=== PATIENT | female | born 1995 | race Caucasian/White ===

== ENCOUNTER → 2021-02-05 13:44 | Outpatient (CLI) | payer OTHER, SELFPAY ==
[2021-02-05 16:06] LABS: Hemoglobin 11.3 g/dL (12.0-15.0); Mean Corp Hgb Conc 33.2 g/dL (32-36); Mean Corpuscular Hgb 29.8 pg (27.0-32.0); Mean Corpuscular Volume 89.7 fL (81-99); Mean Platelet Vol. 9.3 fl (6.2-12.0); Platelet Count 272 K/mm3 (150-450); RBC Distribution Width CV 12.8 % (11.6-14.6); Red Blood Count 3.79 M/mm3 (4.2-5.4); White Blood Count 8.1 K/mm3 (4.4-11.0)
[2021-02-05 16:10] LABS: Glucose Challenge Gest 1H 50g 127 mg/dL (70-140)
== END ==
PROVIDERS: Visit Provider Obstetrics & Gynecology
DX: Z34.82 Encounter for supervision of other normal pregnancy, second trimester (principal)
CPT/HCPCS: 36415; 82950; 85027

== ENCOUNTER → 2021-04-20 13:35 | Outpatient (CLI) | payer OTHER, SELFPAY | DX: Z36.85 Encounter for antenatal screening for Streptococcus B (principal) ==

== ENCOUNTER 2024-11-24 09:16 | Emergency (ER) | payer OTHER, SELFPAY ==
[2024-11-24] VITALS (12 sets, daily range): BP systolic 109–117; BP diastolic 57–78; PULSE 66–98; RESP 14–18; TEMP 36.4–37.2; O2SAT 98–100; BMI 24.0
--- NOTE | 2024-11-24 09:51 | EDS_ITS ---
HPI HPI - GI History of Present Illness Chief Complaint: Abd Pain Detail of Chief Complaint: Nausea vomiting. Nausea/Vomiting/Emesis GI Symptom: Positive for Nausea and Vomiting Onset: Today and Yesterday Severity: Mild Diarrhea/Melena/Hematochezia GI Symptom: Negative for Diarrhea, Melena or Hematochezia Associated Symptoms Associated Symptoms: Negative for Dysuria, Frequency, Hematuria or Urgency Narrative Narrative: 29-year-old female G4, P3 AB 0 currently 20 weeks . Sees a [facility] [employer] group. Tuesday night start having a sore throat body aches. Intermittent nausea vomiting. No dysuria. Temperature as high as 99.9. Denies abdominal pain. No vaginal bleeding. Prior similar symptoms: Yes Recent Illness/Hospitalization: No PFSH PFSH Medical History Back pain Severe headache Home Medications ?Medication ?Instructions ?Recorded ?Last Taken ?Type ondansetron 4 mg disintegrating 4 mg PO Q6H PRN nausea and 06/24/20 Unknown Rx tablet vomiting #20 tabs amoxicillin 875 mg-potassium 1 tab PO Q12H #14 tabs Unknown Rx clavulanate 125 mg tablet meclizine 12.5 mg tablet 12.5 mg PO TID PRN dizziness #6 01/06/22 Unknown Rx tabs Allergy/AdvReac Type Severity Reaction Status Date / Time No Known Allergies Allergy Verified 11/24/24 09:21 Social History Smoking Status: Never smoker alcohol intake: never ROS ROS ED ROS Narrative Nausea vomiting. Body aches. Low-grade fever. Sore throat. Constitutional Constitutional ED: Reports fever(s) ENT ENT ED: Denies ear pain Cardiovascular Cardiovascular: Denies chest pain Respiratory/Chest Respiratory/Chest: Denies cough or dyspnea Gastrointestinal Gastrointestinal: Reports nausea and vomiting; Denies abdominal pain, constipation, diarrhea or melena Genitourinary Genitourinary ED: Denies dysuria or hematuria Musculoskeletal Musculoskeletal: Denies arthralgias or back pain Integumentary Denies abscess Neurologic Neurologic: Denies headache(s) Psychiatric Psychiatric: Denies anxiety Endocrine Endocrinology: Denies polydipsia Hematologic/Lymphatic Hematologic/Lymphatic: Denies easy bleeding Allergic/Immunologic Allergic/Immunologic ED: Denies mouth swelling, tongue swelling or urticaria EXAM Physical Exam Narrative Exam Narrative: Well-appearing 29-year-old female. Vital signs stable afebrile. Pulse ox 100% on room air no signs hypoxia. No acute distress. at bedside. H EENT exam pupils round reactive light. Mytrex membranes. TMs normal. No signs of trauma. Neck nontender no lymphadenopathy. Lungs clear to auscultation bilaterally. Heart regular rhythm rate about 95 no murmur. Chest wall ribs nontender. Abdomen soft nondistended normal bowel sounds without peritoneal signs. Gravid nontender uterus. Right upper right lower quadrant nontender. No obstruction. Absolutely no abdominal pain. No peritoneal signs. Normal bowel sounds. Pelvic girdle intact. Moving all 4 extremities. Nontender. No edema. No rashes. Back nontender. No CVA tenderness. Neurologically she is awake alert. Answering questions following commands. Benign exam. Const Vital Signs: 11/24/24 09:17 11/24/24 09:42 11/24/24 11:23 Temperature 97.5 F L Temperature Source Temporal Pulse Rate 98 77 Respiratory Rate 16 16 Respiratory Effort Normal Non-Labored Respiratory Pattern Normal Blood Pressure 114/76 112/66 Blood Pressure Mean 88 81 Pulse Ox 100 100 Oxygen Delivery Method Room Air Room Air 11/24/24 11:25 11/24/24 11:30 11/24/24 11:31 Temperature Temperature Source Pulse Rate Respiratory Rate Respiratory Effort Respiratory Pattern Blood Pressure 110/58 L Blood Pressure Mean 73 Pulse Ox 98 100 Oxygen Delivery Method 11/24/24 11:45 11/24/24 12:00 11/24/24 12:15 Temperature Temperature Source Pulse Rate Respiratory Rate Respiratory Effort Respiratory Pattern Blood Pressure 116/57 L Blood Pressure Mean 73 Pulse Ox 100 99 100 Oxygen Delivery Method 11/24/24 12:30 11/24/24 12:45 11/24/24 13:00 Temperature Temperature Source Pulse Rate 66 Respiratory Rate 14 Respiratory Effort Respiratory Pattern Blood Pressure 110/63 109/58 L Blood Pressure Mean 76 74 Pulse Ox 100 100 99 Oxygen Delivery Method Positive well nourished and well developed; Negative for obese, cachectic, contractures or unkempt General Appearance ED: well developed and NAD; Negative for unkempt, cachectic, contractures or pallor Nutritional Appearance: Negative for cachectic or obese HEENT Reports moist mucous membranes normocephalic and atraumatic Eyes PERRL and EOMs intact bilaterally Neck no lymphadenopathy, supple and no JVD Resp normal respiratory effort and clear to auscultation bilaterally Cardio regular rate, regular rhythm, S1 normal heart sound, S2 normal heart sound and no murmurs GI non-tender, non-distended and no masses GI Narrative: Gravid nontender uterus. Consistent with dates of . Auscultation: normoactive bowel sounds Palpation: soft; Negative for tender, guarding, hernia, mass, pulsatile mass or rebound tenderness present Back/Spine no CVA tenderness Extremity full ROM General Extremety ED: Negative for edema or tenderness General Extremity: Negative for edema Neuro CN's II-XII intact bilaterally and moves all extremities Sensorium / Orientation: alert, oriented to person, oriented to place and oriented to time Motor Exam: strength 5/5 throughout Psych mental status grossly normal and thought process normal Appearance: Negative for unkempt Skin no wounds General Skin Exam: Negative for jaundice or pallor Lesions: no lesions Rashes: no rashes Trauma: Negative for abrasion MDM MDM MDM Narrative Medical decision making narrative: 29-year-old female 28 weeks . Believes she has a viral syndrome. Body aches with nausea vomiting. Otherwise exam is benign. There is no focus of a bacterial infection. She will be treated with IV Zofran for nausea IV fluids for dehydration. Screening labs and a UA will be obtained. I do not think she needs any imaging. Will do heart tones. Repeat exam patient is doing well at 1:30 PM. She will be discharged to home. Treated as a viral syndrome. Patient comfortable being discharged to home. She has Zofran at home for nausea. History & Record Review Discussion w/independent historian: Patient and Family Additional record(s) reviewed:: Prior inpatient record, Prior outpatient record, Prior ED visit and Prior labs Lab Data Attestation: I reviewed the patient's lab results. Lab results narrative: CBC shows a white count of 8 H&H 11.9 and 36 consistent with anemia of . Platelet count 234. Electrolytes unremarkable gap 15. Normal BUN of 8 creatinine 0.53. Glucose 82. heart tones 138. Urinalysis shows no nitrites. Positive ketones consistent with dehydration. No red cells send 25 white cells but is contaminated with 25-50 squamous cells she is having no urinary symptoms this will not be treated. Labs: Laboratory Results - last 24 hr 11/24/24 11/24/24 09:52 11:13 WBC 8.1 RBC 4.21 Hgb 11.9 L Hct 36.0 L MCV 85.5 MCH 28.3 MCHC 33.1 RDW Std Deviation 40.0 RDW Coeff of Radha 13.0 Plt Count 234 MPV 8.4 Immature Gran % (Auto) 1.100 H Neut % (Auto) 78.8 H Lymph % (Auto) 10.5 L [place] % (Auto) 7.6 Eos % (Auto) 1.5 Baso % (Auto) 0.5 Absolute Neuts (auto) 6.4 Absolute Lymphs (auto) 0.85 Nucleated RBC % 0 Sodium 136 Potassium 3.8 Chloride 99 Carbon Dioxide 21.6 Anion Gap 15 BUN 8 Creatinine 0.53 L Estim Creat Clear Calc 126.73 Est GFR (MDRD) Non-Af 127 BUN/Creatinine Ratio 14.1 Glucose 82 Calcium 9.3 Urine Color Yellow Urine Clarity Cloudy Urine pH 6.0 Ur Specific [place] 1.025 Urine Protein 30 H Urine Glucose (UA) Normal Urine Ketones 150 A* Urine Occult Blood 10 H Urine Nitrite Negative Urine Bilirubin Negative Urine Urobilinogen Normal Ur Leukocyte Esterase 500 H Urine RBC 0-5 SEEN Urine WBC 10-25 SEEN Ur Squamous Epith Cells 25-50 SEEN Urine Bacteria 3+ Urine Mucus 1+ Discharge Plan Triage Chief Complaint: Abd Pain Other Complaint: Nausea/Vomiting ED Provider: Dusty Harp Dx/Rx/DC Orders Clinical Impression: Viral syndrome, Vomiting Instructions: ED Viral Syndrome (Adult) Prescriptions: No Action ondansetron 4 mg tablet,disintegrating 4 mg PO Q6H PRN (Reason: nausea and vomiting) Qty: 20 0RF amoxicillin-pot clavulanate 875-125 mg tablet 1 tab PO Q12H Qty: 14 0RF meclizine 12.5 mg tablet 12.5 mg PO TID PRN (Reason: dizziness) Qty: 6 0RF Primary Care Provider: Care Physician,No Primary Referrals: Bailey Mcdermott MD [Med Staff - Active Staff] - As Needed Care Physician,No Primary [Primary Care Provider] - Activity Restrictions/Additional Instructions: Plenty of fluids and rest. Follow-up with your [employer] group as needed. Return if feeling worse. Think this was a virus. Print Language: Lithuanian Disposition Disposition: Home, Self Care
[2024-11-24] MEDS: 0.9% Normal Saline (1000mL) 1,000 ML 999 ML IV (10:01)
--- OUTSIDE RECORDS SUMMARY | 2024-11-24 10:01 | XMS RPT_ITS | CCD ---
Author Organization [facility] Care Team Providers Care Marketing Analytics Lead Name Role Phone Care Physician, No Primary Referring Unava ilable Care Physician, No Primary Primary Care Unava ilable Giovanni Caamcho Attending Unavailable Dr. Tapan Da Silva Attending Unavailable ROMAN Attending Unavailable Care Physician, No Primary Primary Care Unava ilCHIKA Rosenthal PA-C Attending Unavailable TAPAN HILTON Consulting Unavailable CHIKA BEDOLLA PA-C Admitting Unavailable CHIKA BEDOLLA PA-C Primary Care Unavailable PROVIDER, UNKNOWN Consulting Unavailable PROVIDER, UNKNOWN Consulting Unavailable PROVIDER, UNKNOWN Consulting Unavailable Belia CHRISTENSEN, Tapan Collins Unavailable Physical Therapy Provider Unavailable Madelin Crowe MD, Jennifer Zepeda Unavailable Sunshine FOREMAN, Vivian Unavailable Chika Bedolla PA-C Unavailable Leslye Potter PA-C Unavailable Daryl AHSAN, Jennifer Weeks Unavailable Unavailab le Vess SUPERINTENDENT CUSTODIAN JANITOR, Lucien Merchant Unavailable Unavailable Unavailable Unavailable Unavailable Primary Care Provider UnavailMAXIMUS Matute Referring Unavailable MAXIMUS FLETCHER Referring Unavailable MARLYN JAFFE Attending Unavailable SAE HOUSER Attending Unavailable MATY RODRÍGUEZ Attending Unavail able MAXIMUS FLETCHER Attending Unavailable MAXIMUS FLETCHER Referring Unavailable MARLYN JAFFE Attending Unavailable MAXIMUS FLETCHER Referring Unavailable MAXIMUS FLETCHER Referring Unavailable CHARITO ZARAGOZA Attending Unavailable Medications Current Medications Medication Drug Class(es) Dates Sig (Normalized) Sig (Original) acetaminophen 500 mg oral tablet (4 sources) Start: 09-06-2024 take 2 tablets by mouth every six hours as needed acetaminophen (TYLENOL EXTRA STRENGTH) 500 mg tablet Take 2 tablets by mouth every 6 hours as needed for pain (Migraines). FOR PAIN. 60 tablet 2 09/06/2024 Active amoxicillin 500 mg oral tablet (2 sources) Penicillin-class Antibacterial Start: 05-02-2023 amoxicillin 500 mg tablet ; 1 Tab two times daily for 10 days Quantity: 20 {Tablet} Refills: 0 Ordered: 02-May-2023 AHSAN Brito Start: 02-May-2023 famotidine 20 mg oral tablet (8 sources) Histamine-2 Receptor Antagonist Start: 07-18-2024 End: 10-04-2024 take 1 tablet by mouth twice daily famotidine (PEPCID) 20 mg tablet Take 1 tablet by mouth two times a day. 60 tablet 3 10/05/2024 Active magnesium oxide 420 mg oral tablet (4 sources) Start: 09-06-2024 take 1 tablet by mouth once daily magnesium oxide 420 mg tablet Take 1 tablet by mouth once daily. 100 tablet 2 09/06/2024 Active PNV no.95/ferrous fum/folic ac ( ORAL) (8 sources) take 1 tablet by mouth once daily before mealtime PNV no.95/ferrous fum/folic ac ( ORAL) Take 1 tablet by mouth once daily. Active Vit B Complex No.10/Folic Acid (B COMPLEX 100 CR ORAL) (8 sources) take 1 tablet by mouth every other day Vit B Complex No.10/Folic Acid (B COMPLEX 100 CR ORAL) Take 1 tablet by mouth every other day. Active Completed/Discontinued Medications Medication Drug Class(es) Dates Sig (Normalized) Sig (Original) amoxicillin 875 mg / clavulanate 125 mg oral tablet (2 sources) Penicillin-class Antibacterial Start: 08-26-2011 End: 03-25-2015 take 1 tablet by mouth twice daily AMOXICILLIN-POT CLAVULANATE, 875-125MG (Oral Tablet) ; 1 Tablet two times daily for 10 days Quantity: 20 {Tablet} Refills: 0 Ordered: 25-Mar-2015 AHSAN Gonsalez Start: 26-Aug-2011 End: 25-Mar-2015 Status: Discontinued aspirin 81 mg delayed release oral tablet (7 sources) Platelet Aggregation Inhibitor, Nonsteroidal Anti-inflammatory Drug Start: 07-18-2024 End: 10-04-2024 take 1 tablet by mouth once daily aspirin, enteric coated (ECOTRIN LOW STRENGTH) 81 mg EC tablet Indications: Encounter for supervision of high risk in first trimester, antepartum (HCC) Take 1 tablet by mouth once daily. 90 tablet 3 07/18/2024 10/04/2024 Discontinued (Course of therapy completed) Ethinyl Estradiol / norgestimate (2 sources) Progestin, Estrogen Start: 08-07-2014 End: 03-25-2015 take 1 tablet by mouth once daily SPRINTEC 28, 0.25-35MG-MCG (Oral Tablet) ; 1 (one) Tablet daily for 0 days Quantity: 1 {Package} Refills: 12 Ordered: 25-Mar-2015 AHSAN Gonsalez Start: 07-Aug-2014 End: 25-Mar-2015 Status: Discontinued Problems Active Problems Problem Classification Problem Date Documented Da te Episodic/Chronic Abdominal pain (8 sources) Left upper quadrant pain; Translations: [Left upper quadrant pain] 03-23-2022 Episodic Acute and chronic tonsillitis (2 sources) Tonsillitis; Translations: [Acute tonsillitis, unspecified] 08-26-2011 Episodic Conditions associated with dizziness or vertigo (4 sources) Vertigo; Translations: [Dizziness and giddiness] 01-12-2022 Episodic Contraceptive and procreative management (3 sources) Patient encounter status; Translations: [Encounter for contraceptive management, unspecified] 08-07-2014 Episodic Headache; including migraine (2 sources) Migraine; Translations: [Other migraine, not intractable, without status migrainosus] Onset: 09-06-2024 09-06-2024 Chronic Noninfectious gastroenteritis (2 sources) Gastroenteritis; Translations: [Noninfective gastroenteritis and colitis, unspecified] 12-29-2009 Episodic Other complications of (1 source) Spotting per vagina in ; Translations: [Spotting complicating , first trimester] 07-09-2024 Episodic Other complications of (16 sources) High risk ; Translations: [Supervision of with other poor reproductive or obstetric history, first trimester] Onset: 07-18-2024 07-09-2024 Episodic Other complications of (1 source) Supervision of high risk , unspecified, second trimester; Translations: [Supervision of high risk in second trimester (HCC)] Onset: 10-04-2024 Episodic Other complications of (1 source) Supervision of high risk , unspecified, first trimester; Translations: [Encounter for supervision of high risk in first trimester, antepartum (HCC)] Onset: 08-09-2024 Episodic Other gastrointestinal disorders (2 sources) Chronic constipation; Translations: [Other constipation] 01-29-2022 Episodic Other and delivery including normal (20 sources) Encounter for supervision of other normal , second trimester; Translations: [ care status] Onset: 03-06-2021 08-07-2014 Episodic Other screening for suspected conditions (not mental disorders or infectious disease) (9 sources) Encounter for screening for Streptococcus B; Translations: [ care status] Onset: 05-03-2021 05-30-2014 Episodic Other upper respiratory infections (6 sources) Sore throat symptom; Translations: [Acute pharyngitis, unspecified] 05-02-2023 Episodic Residual codes; unclassified (1 source) Gestation period, 9 weeks; Translations: [9 weeks gestation of ] 07-18-2024 Episodic Residual codes; unclassified (2 sources) Gestation period, 12 weeks; Translations: [12 weeks gestation of ] 08-09-2024 Episodic Residual codes; unclassified (1 source) Gestation period, 16 weeks; Translations: [16 weeks gestation of ] 09-06-2024 Episodic Residual codes; unclassified (2 sources) Gestation period, 20 weeks; Translations: [20 weeks gestation of ] 10-04-2024 Episodic Residual codes; unclassified (1 source) 24 weeks gestation of ; Translations: [24 weeks gestation of (HCC)] Onset: 11-01-2024 Episodic Residual codes; unclassified (1 source) 20 weeks gestation of ; Translations: [20 weeks gestation of (HCC)] Onset: 10-04-2024 Episodic Residual codes; unclassified (1 source) 16 weeks gestation of ; Translations: [16 weeks gestation of (HCC)] Onset: 09-06-2024 Episodic Residual codes; unclassified (1 source) 12 weeks gestation of ; Translations: [12 weeks gestation of (HCC)] Onset: 08-09-2024 Episodic Unclassified (2 sources) Number of Children 08-07-2014 Comment on above: 1. Unclassified (2 sources) Number of Pregnancies 03-25-2015 Comment on above: 2. Unclassified (2 sources) Vaginal deliveries 08-07-2014 Comment on above: 1. Unclassified (8 sources) [facility] Education - COMMON Onset: 07-18-2024 07-18-2024 Unclassified (8 sources) Education - [place] Onset: 07-18-2024 07-18-2024 Viral infection (2 sources) Varicella 01-29-2022 Episodic Comment on above: one vaccine Past or Other Problems Problem Classification Problem Date Documented Da te Episodic/Chronic Calculus of urinary tract (2 sources) Kidney stone; Translations: [Calculus of kidney] Onset: 04-28-2018 01-29-2022 Episodic Hemorrhage during ; abruptio placenta; placenta previa (12 sources) Vaginal bleeding complicating early ; Translations: [Hemorrhage in early , unspecified] Onset: 07-18-2024 07-09-2024 Episodic Immunizations and screening for infectious disease (1 source) Encounter for screening for infections with a predominantly sexual mode of transmission; Translations: [Screen for STD (sexually transmitted disease)] Onset: 07-18-2024 Episodic Other complications of (11 sources) Supervision of with other poor reproductive or obstetric history, unspecified trimester; Translations: [ with other poor obstetric history] Onset: 07-18-2024 07-18-2024 Episodic Other complications of (9 sources) Heartburn; Translations: [Other specified related conditions, first trimester] Onset: 07-18-2024 Resolved: 10-04-2024 07-18-2024 Episodic Other complications of (11 sources) Vomiting of , unspecified; Translations: [Unspecified vomiting of , unspecified as to episode of care or not applicable] Onset: 07-18-2024 Resolved: 10-04-2024 07-18-2024 Episodic Other complications of (1 source) Other specified related conditions, first trimester; Translations: [Heartburn during in first trimester (HCC)] Onset: 07-18-2024 Episodic Other gastrointestinal disorders (1 source) Heartburn; Translations: [Heartburn during in first trimester (HCC)] Onset: 07-18-2024 Episodic Residual codes; unclassified (1 source) 9 weeks gestation of ; Translations: [9 weeks gestation of (HCC)] Onset: 07-18-2024 Episodic Unclassified (2 sources) Abdominal pain - The onset of the abdominal pain has been sudden and has been occurring in a persistent pattern for 1 day (has had this pain in the past but the pain would ease up within a hour or so. Last night, patient went for about 15 minute walk and when she came back to the house started to have LUQ pain and feels pressure under the left lower ribcage that pushes upward. She is concerned because she kept waking up during the night with the pain and still has the pain this morning.). The course has been constant. The pain is described as a moderate dull ache and pressure sensation. The pain is located in the left upper quadrant (underneath the left lower ribcage) and radiates to the epigastrium (left side of chest hurts. Left arm feels weak but has no shooting pain. No numbness or tingling of her hands or fingers.). The symptoms have no aggravating factors. There has been no associated bloating, bloody stools, constipation, dark urine, diarrhea, dysuria, fever, heartburn, nausea or vomiting. Note for Abdominal pain: The pain seems to be better with laying down but is worse when sitting. 01-29-2022 Unclassified (2 sources) Dizziness - The onset of the dizziness has been variable and has been occurring in an intermittent pattern for 4 weeks. The course has been increasing (worse over the past two weeks.). The dizziness is characterized as spinning of the environment. The dizziness is precipitated by position change and head turning. There has been associated headache (no pain but has head pressure), while there has been no associated nausea, vomiting, upper respiratory infection symptoms, ear pain, neck pain, neck stiffness, visual changes or falling episodes. The dizziness is relieved by avoiding head movements (And rest). The dizziness is exacerbated by head turning, bending over and rolling over in bed. There has been no associated loss of hearing, nausea, palpitations, sweating, syncope or tinnitus. Note for Dizziness: Went to Urgent Care last week and was given antibiotic for ear infection. No improvement.Patient also noted that her symptoms worsen with riding her bike. She has been avoiding doing so.She had a friend with dizziness who improved with vestibular therapy and is interested in this as a treatment option. 01-12-2022 Unclassified (2 sources) Post- visit - The patient is here for a scheduled follow-up visit [facility] There were no complications. The patient feels well with no complaints, is sleeping well and has good energy level. There are no urinary problems. There are no bowel problems. Perineum/wound: perineum healing well. The patient is formula feeding the . Menstruation: has not resumed. The patient has resumed physical activity. Patient states that she is coping/adjusting to motherhood well and family is interacting well with . 08-07-2014 Unclassified (2 sources) Visit - The patient is here for a 38 week visit. 06-13-2014 Unclassified (2 sources) visit - The patient is here for a 37 week visit. 06-06-2014 Unclassified (2 sources) visit - The patient is here for a 36 week visit. 05-30-2014 Unclassified (2 sources) visit - The patient is here for a 34 week visit. 05-16-2014 Unclassified (2 sources) visit - The patient is here for a 30 week visit. 04-18-2014 Unclassified (2 sources) Visit - The patient is here for a 25 week visit. 03-14-2014 Unclassified (2 sources) Visit - The patient is here for a 20 week visit. 02-07-2014 Unclassified (2 sources) Visit - The patient is here for a 13 week visit. Note for visit: she is also having lower abdominal pain, just below her belly button, occasionally it starts on lower left or right side and radiates in. her symptoms have been occurring for one week and she has not had a fever. 12-24-2013 Unclassified (2 sources) Visit, Initial - The patient suspects she is due to a positive home test and morning sickness. Last menstrual period: Date: (09/18/13). - (1) Parity - (0). The patient complains of nausea. There has been no vaginal discharge. There has been no vaginal bleeding. There have been no urinary problems. There have been no bowel problems. Contraceptive history includes none. There is no previous surgical history. Current medications include vitamins. There is no alcohol, caffeine, illicit drug or tobacco use. 11-29-2013 Unclassified (2 sources) Sore Throat - The onset of the sore throat has been acute and has been occurring in a persistent pattern for 6 days. The course has been constant. The sore throat is described as mild to moderate. Symptoms include sore throat, fever, runny nose (just started today, no PND), cough and ear pain (left sided and into her left jaw). Note for Sore Throat: Has been taking ibuprofen for the pain. No exposure to anyone ill that she knows of. 08-26-2011 Unclassified (2 sources) Cold Symptoms - Symptoms include ear pain (right sided just this am, referred from throat), sore throat (severe, with white spots), dry cough (off and on) and fever (low grade if any). The onset was sudden 2 day(s) ago. The symptoms occur constantly. The patient describes this as mild and unchanged. The patient is not currently being treated for this problem. The patient has not been exposed to an individual with strep (but has been around a lot of people). 03-30-2011 Unclassified (2 sources) Gastroenteritis - The history today is reported by the patient and the patient's mother. The diarrhea has been brown and watery. The liquid intake has consisted of water and rehydration solution. Symptoms are exacerbated by eating. Symptoms are relieved by rest. Onset was gradual 5 day(s) ago. Symptoms include diarrhea, fever (low grade and random), nausea, vomiting, abdominal pain, decreased appetite and maintaining hydration, while symptoms do not include decreased fluid intake. The symptoms occur mostly during the daytime (worst after eating). The symptoms are described as moderate in severity and unchanged. Associated symptoms include fatigue, but do not include decreased urination, dry mouth, headache, runny nose, nasal congestion, ear pain, sore throat or cough. 12-29-2009 Results Test Name Value Interpretation Reference Range Facility [facility] 10-05-2024 [facility] Telephone (OBGYWM) -------- ATIYA MANCIA ([id number]) 1995 F Date Time Provider Department 10/05/24 LEXUS BARRIOS During your visit today, we recorded the following information about you: Tamra Caballero RN 10/05/2024 9:10 AM Signed Patient 20w6d, calling requesting Rx of Pepcid. Her original Rx was discontinued and she states she has had another flare of acid reflux. Please file if appropriate. ESDRAS Schrader Trisha, RN 10/05/2024 9:59 AM Signed Patient notified. Joan Parada RN The following approved medication requests have been transmitted electronically. Requested Prescriptions Signed Prescriptions Disp Refills famotidine (PEPCID) 20 mg tablet 60 tablet 3 Sig: Take 1 tablet by mouth two times a day. Authorizing Provider: MAXIMUS FLETCHER Pharmacy Information Pharmacy Address Telephone [facility] [phone] [id number] Allergies As of Date: 10/05/2024 (No Known Allergies) Date Reviewed: 10/04/2024 Reviewed by: Derrick Zamora MA - Fully Assessed Reason for Visit: Medication Request [138] Order(s):famotidine (PEPCID) 20 mg tabletTake 1 tablet by mouth two times a day.Disp: 60 tabletRfl: 3 Prescriptions as of 10/05/2024 - famotidine (PEPCID) 20 mg tablet Take 1 tablet by mouth two times a day. - magnesium oxide 420 mg tablet Take 1 tablet by mouth once daily. - acetaminophen (TYLENOL EXTRA STRENGTH) 500 mg tablet Take 2 tablets by mouth every 6 hours as needed for pain (Migraines). FOR PAIN. - PNV no.95/ferrous fum/folic ac ( ORAL) Take 1 tablet by mouth once daily. - Vit B Complex No.10/Folic Acid (B COMPLEX 100 CR ORAL) Take 1 tablet by mouth every other day. 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 Encounter Status:Closed by JOAN PARADA on 10/05/[address] [facility] Examination level ultrasound on 10-04-2024 Indication Standard anatomic survey Impression The patient is referred for a standard anatomic survey. - Single, live, intrauterine . - biometry is consistent with the established gestational age. - No malformations were visualized on a complete standard anatomic survey. - The amniotic fluid volume is normal amount. - The placenta is posterior, fundal. - The Transabdominal cervical length measures 33.5 mm with no evidence of funneling or other dynamic changes. - Not all structural malformations can be detected by ultrasound examination. Recommendations Additional follow-up as clinically indicated. Maternal Assessment Height 155 cm Height (ft) 5 ft Height (in) 1 in Physical Exam Initial weight (lb) 110 lb Initial BMI 20.78 kg/m Maternal assessment other: 4 Para 3 REMOTE READ Method Transabdominal ultrasound examination. View: Adequate visualization Cheng . Number of fetuses: 1 Dating LMP on: 05/12/2024 GA by LMP 20 w + 5 d MARY by LMP: 02/16/2025 GA by prior assessment 20 w + 5 d MARY by prior assessment: 02/16/2025 Ultrasound examination on: 10/04/2024 GA by U/S based upon: AC, BPD, Femur, HC GA by U/S 21 w + 0 d MARY by U/S: 02/14/2025 Assigned: based on stated MARY, selected on 10/04/2024 Assigned GA 20 w + 5 d Assigned MARY: 02/16/2025 General Evaluation Cardiac activity present. FHR 143 bpm. movements: present. Presentation: cephalic Placenta: Placental site: posterior, fundal Umbilical cord: Cord vessels: 3 vessel cord Amniotic fluid: Amount of AF: normal amount. MVP 6.7 cm Growth Overview Exam date GA BPD (mm) HC (mm) AC (mm) FL (mm) HL (mm) EFW (g) 10/04/2024 20w 5d 49.3 58% 181.7 45% 172.9 87% 32.4 40% 31.2 35% 405 69% Biometry Standard BPD 49.3 mm 20w 6d 58% Hadlock OFD 63.2 mm 20w 2d 49% Nicolaides HC 181.7 mm 20w 4d 45% Melba Cerebellum tr 20.7 mm 19w 5d 31% Hill Nuchal fold 5.5 mm AC 172.9 mm 22w 2d 87% Hadlock Femur 32.4 mm 20w 2d 40% Melba Humerus 31.2 mm 20w 3d 35% Melba EFW 405 g 21w 1d 69% Hadlock EFW (lb) 0 lb EFW (oz) 14 oz EFW by: Hadlock (HC-AC-FL) Extended Back Tender Pulp Drier 7.7 mm CM 4.1 mm 18% Nicolaides Extremities / Bony Struc FL / HC 0.18 15% Hadlock Other Structures FHR 143 bpm Anatomy Cranium: normal Lateral ventricles: normal Choroid plexus: normal Midline falx: normal Cavum septi pellucidi: normal Cerebellum: normal Cisterna magna: normal Head / Neck Vermis: Normal but not required for a standard anatomy exam Neck: Normal but not required for a standard anatomy exam Nuchal fold: Normal but not required for a standard anatomy exam Lips: normal Profile: Normal but not required for a standard anatomy exam Nose: Normal but not required for a standard anatomy exam Face Maxilla: Normal but not required for a standard anatomy exam Mandible: Normal but not required for a standard anatomy exam Orbits: Normal but not required for a standard anatomy exam Lens: Normal but not required for a standard anatomy exam 4-chamber view: normal RVOT view: normal LVOT view: normal 3-vessel view: normal [id number] view: normal Heart / Thorax Situs: situs solitus (normal) Aortic arch view: Normal but not required for a standard anatomy exam SVC: Normal but not required for a standard anatomy exam IVC: Normal but not required for a standard anatomy exam Cardiac axis: normal Rt lung: Normal but not required for a standard anatomy exam Lt lung: Normal but not required for a standard anatomy exam Diaphragm: normal Cord insertion: normal Stomach: normal Kidneys: normal Bladder: normal Genitals: normal Abdomen Abdom. wall: normal Cervical spine: normal Thoracic spine: normal Lumbar spine: normal Sacral spine: normal Arms: normal Legs: normal Rt upper arm: normal Rt forearm: normal Rt hand: normal Rt fingers: normal Lt upper arm: normal Lt forearm: normal Lt hand: normal Lt fingers: normal Rt upper leg: normal Rt lower leg: normal Rt foot: normal Lt upper leg: normal Lt lower leg: normal Lt foot: normal sex: male Wants to know sex: yes Maternal Structures Uterus / Cervix Uterus: Visualized Cervix: Visualized Approach: Transabdominal Cervical length 33.5 mm Other: Patient declined transvaginal ultrasound for cervical length. Ovaries / Tubes / Adnexa Rt ovary: Visualized Lt ovary: Visualized Performed By: Tamra Lowe RDMS, RVT Read By: Kelli Arizmendi M.D. MATERNAL MEDICINE [facility] Radiology Study observation (narrative) [facility] CBC W Auto Differential pane l (Bld)on 08-09-2024 Basophils (Bld) [#/Vol] 10*3/uL Normal <0.11 [facility] Comment on above: Order Comment: Speci men Type: SWAB Ordering Facility: [facility] Address: [address] [place] [address] Performed By: #### 3 6902-5, TRVAMP #### [facility] CLIA [id number] [address] [place] [address] [place] Basophils/100 WBC (Bld) 0.2 % Normal [facility] Comment on above: Order Comment: Speci men Type: SWAB Ordering Facility: [facility] Address: [address] [place] [address] Performed By: #### 3 6902-5, TRVAMP #### [facility] CLIA [id number] [address] [place] [address] [place] Differential cell count method Nom (Bld) Auto Normal [facility] Comment on above: Order Comment: Speci men Type: SWAB Ordering Facility: [facility] Address: [address] [place] [address] Performed By: #### 3 6902-5, TRVAMP #### [facility] CLIA [id number] [address] [place], [place] [id number] [place] Eosinophils (Bld) [#/Vol] 0.07 10*3/uL Normal <0.46 [facility] Comment on above: Order Comment: Speci men Type: SWAB Ordering Facility: [facility] Address: [address] [place] [address] Performed By: #### 3 6902-5, TRVAMP #### [facility] CLIA [id number] [address] [place] [address] [place] Eosinophils/100 WBC (Bld) 1.2 % Normal [facility] Comment on above: Order Comment: Speci men Type: SWAB Ordering Facility: [facility] Address: [address] [place] [address] Performed By: #### 3 6902-5, TRVAMP #### [facility] CLIA [id number] [address] [place] [address] [place] Erythrocyte distribution width (RBC) [Ratio] 13.2 % Normal 11.5-15.0 [facility] Comment on above: Order Comment: Speci men Type: SWAB Ordering Facility: [facility] Address: [address] [place] [address] Performed By: #### 3 6902-5, TRVAMP #### [facility] CLIA [id number] [address] [place] [address] [place] Hematocrit (Bld) [Volume fraction] 37.1 % Normal 36.0-46.0 [facility] Comment on above: Order Comment: Speci men Type: SWAB Ordering Facility: [facility] Address: [address] [place] [address] Performed By: #### 3 6902-5, TRVAMP #### [facility] CLIA [id number] [address] [place] [address] [place] Hemoglobin (Bld) [Mass/Vol] 12.8 g/dL Normal 11.5-15.5 [facility] Comment on above: Order Comment: Speci men Type: SWAB Ordering Facility: [facility] Address: [address] [place] [address] Performed By: #### 3 6902-5, TRVAMP #### [facility] CLIA [id number] [address] [place] [address] [place] Immature granulocytes (Bld) [#/Vol] 10*3/uL Normal <0.10 [facility] Comment on above: Order Comment: Speci men Type: SWAB Ordering Facility: [facility] Address: [address] [place] [address] Performed By: #### 3 6902-5, TRVAMP #### [facility] CLIA [id number] [address] [place] [address] [place] Immature granulocytes/100 WBC (Bld) 0.2 % Normal [facility] Comment on above: Order Comment: Speci men Type: SWAB Ordering Facility: [facility] Address: [address] [place] [address] Performed By: #### 3 6902-5, TRVAMP #### [facility] CLIA [id number] [address] [place] [address] [place] Lymphocytes (Bld) [#/Vol] 1.32 10*3/uL Normal 1.00-4.00 [facility] Comment on above: Order Comment: Speci men Type: SWAB Ordering Facility: [facility] Address: [address] [place] [address] Performed By: #### 3 6902-5, TRVAMP #### [facility] CLIA [id number] [address] [place] [address] [place] Lymphocytes/100 WBC (Bld) 22.3 % Normal [facility] Comment on above: Order Comment: Speci men Type: SWAB Ordering Facility: [facility] Address: [address] [place] [address] Performed By: #### 3 6902-5, TRVAMP #### [facility] CLIA [id number] [address] [place] [address] [place] MCH (RBC) [Entitic mass] 29.0 pg Normal 26.0-34.0 [facility] Comment on above: Order Comment: Speci men Type: SWAB Ordering Facility: [facility] Address: [address] [place] [address] Performed By: #### 3 6902-5, TRVAMP #### [facility] CLIA [id number] [address] [place] [address] [place] MCHC (RBC) [Mass/Vol] 34.5 g/dL Normal 30.5-36.0 [facility] Comment on above: Order Comment: Speci men Type: SWAB Ordering Facility: [facility] Address: [address] [place] [address] Performed By: #### 3 6902-5, TRVAMP #### [facility] CLIA [id number] [address] [place] [address] [place] MCV (RBC) [Entitic vol] 84.1 fL Normal 80.0-100.0 [facility] Comment on above: Order Comment: Speci men Type: SWAB Ordering Facility: [facility] Address: [address] [place] [address] Performed By: #### 3 6902-5, TRVAMP #### [facility] CLIA [id number] [address] [place] [address] [place] Monocytes (Bld) [#/Vol] 0.45 10*3/uL Normal <0.87 [facility] Comment on above: Order Comment: Speci men Type: SWAB Ordering Facility: [facility] Address: [address] [place] [address] Performed By: #### 3 6902-5, TRVAMP #### [facility] CLIA [id number] [address] [place], [place] [address] [place] Monocytes/100 WBC (Bld) 7.6 % Normal [facility] Comment on above: Order Comment: Speci men Type: SWAB Ordering Facility: [facility] Address: [address] [place] [address] Performed By: #### 3 6902-5, TRVAMP #### [facility] CLIA [id number] [address] [place] [address] [place] Neutrophils (Bld) [#/Vol] 4.05 10*3/uL Normal 1.45-7.50 [facility] Comment on above: Order Comment: Speci men Type: SWAB Ordering Facility: [facility] Address: [address] [place] [address] Performed By: #### 3 6902-5, TRVAMP #### [facility] CLIA [id number] [address] [place] [address] [place] Neutrophils/100 WBC (Bld) 68.5 % Normal [facility] Comment on above: Order Comment: Speci men Type: SWAB Ordering Facility: [facility] Address: [address] [place] [address] Performed By: #### 3 6902-5, TRVAMP #### [facility] CLIA [id number] [address] [place] [address] [place] Nucleated RBC (Bld) [#/Vol] 10*3/uL Normal <0.01 [facility] Comment on above: Order Comment: Speci men Type: SWAB Ordering Facility: [facility] Address: [address] [place] [address] Performed By: #### 3 6902-5, TRVAMP #### [facility] CLIA [id number] [address] [place] [address] [place] Nucleated RBC/100 WBC (Bld) [Ratio] 0.0 /[address] [facility] Comment on above: Order Comment: Speci men Type: SWAB Ordering Facility: [facility] Address: [address] [place] [address] Performed By: #### 3 6902-5, TRVAMP #### [facility] CLIA [id number] [address] [place] [address] [place] Platelet mean volume (Bld) [Entitic vol] 8.8 fL Low 9.0-12.7 [facility] Comment on above: Order Comment: Speci men Type: SWAB Ordering Facility: [facility] Address: [address] [place] [address] Performed By: #### 3 6902-5, TRVAMP #### [facility] CLIA [id number] [address] [place] [address] [place] Platelets (Bld) [#/Vol] 193 10*3/uL Normal 150-400 [facility] Comment on above: Order Comment: Speci men Type: SWAB Ordering Facility: [facility] Address: [address] [place] [address] Performed By: #### 3 6902-5, TRVAMP #### [facility] CLIA [id number] [address] [place] [address] [place] RBC (Bld) [#/Vol] 4.41 10*6/uL Normal 3.90-5.20 [facility] Comment on above: Order Comment: Speci men Type: SWAB Ordering Facility: [facility] Address: [address] [place] [address] Performed By: #### 3 6902-5, TRVAMP #### [facility] CLIA [id number] [address] [place] [address] [place] WBC (Bld) [#/Vol] 5.91 10*3/uL Normal 3.70-11.00 [facility] Comment on above: Order Comment: Speci men Type: SWAB Ordering Facility: [facility] Address: [address] [place] [address] Performed By: #### 3 6902-5, TRVAJOHN #### [facility] CLIA [id number] [address] [place] [address] [place] Examination level ultrasound on 08-09-2024 Indication First trimester anatomic survey Impression The patient is referred for a first trimester anatomy scan including nuchal translucency measurement as clinically indicated. - Single, live, intrauterine . - [place] rump length measurement is consistent with the established gestational age. - No malformations visualized on a complete first trimester anatomic assessment. - The nuchal translucency measurement is 1.6 mm. - Not all structural malformations can be detected by ultrasound examination. Maternal Structures: Left Ovary: Size 19 mm x 23 mm x 18 mm Recommendations - An anatomic survey at 18-20 weeks is recommended given no identified risk factors. Maternal Assessment Height 155 cm Height (ft) 5 ft Height (in) 1 in Physical Exam Initial weight (lb) 110 lb Initial BMI 20.78 kg/m Maternal assessment other: 4 Para 3 REMOTE READ Method Transabdominal ultrasound examination Cheng . Number of fetuses: 1 Dating LMP on: 05/12/2024 GA by LMP 12 w + 5 d MARY by LMP: 02/16/2025 GA by prior assessment 12 w + 5 d MARY by prior assessment: 02/16/2025 Ultrasound examination on: 08/09/2024 GA by U/S based upon: CRL GA by U/S 12 w + 5 d MARY by U/S: 02/16/2025 Assigned: based on stated MARY, selected on 08/09/2024 Assigned GA 12 w + 5 d Assigned MARY: 02/16/2025 General Evaluation Cardiac activity present Placenta: posterior Cord vessels: 3 vessel cord Amniotic fluid: normal amount Biometry Standard FHR 157 bpm CRL 63.2 mm 12w 5d 40% Hadlock NT 1.60 mm First Trimester Anatomy Calvarium: normal Falx cerebri: normal Choroid plexus: normal Profile: normal Nasal bone: normal Retronasal triangle: normal Maxilla: normal Mandible: normal Nuchal translucency: Unremarkable Situs: normal Cardiac position: normal Cardiac axis: normal 4-chamber view: visualized 4-chamber view with color: visualized 4-pmtaap-ssyiafe view: normal Abdominal cord insertion: normal Stomach: normal Kidneys: normal Bladder: normal Color doppler of perivesical umbilical arteries: normal Vertebral alignment: normal Arms: normal Hands: normal Legs: normal Feet: normal Maternal Structures Uterus / Cervix Uterus: Visualized Uterus length 132 mm Uterus width 103 mm Uterus height 103 mm Uterus Vol 734.4 cm Ovaries / Tubes / Adnexa Rt ovary: Not visualized Lt ovary: Visualized Lt ovary D1 19 mm Lt ovary D2 23 mm Lt ovary D3 18 mm Lt ovary Vol 4.2 cm Performed By: Tamra Lowe RDMS, RVT Read By: Kelli Arizmendi M.D. MATERNAL MEDICINE [facility] Radiology Study observation (narrative) [facility] HBV surface Ag Ser Qlon 07-26 HBV surface Ag Ql (S) Negative Normal Negative [facility] Comment on above: Order Comment: Speci men Type: BLOOD SPECIMEN Ordering Facility: [facility] Address: [address] [place] [address] Performed By: #### 5 195-3, 68914-3, 08994-9 #### [facility] CLIA [id number] [address] [place] [address] [place] HCV Ab Ser Qlon 08-09-2024 HCV Ab Ql (S) Negative Normal Negative [facility] Comment on above: Order Comment: Speci men Type: BLOOD SPECIMEN Ordering Facility: [facility] Address: [address] [place] [address] Result Comment: The result suggests no evidence of infection with Hepatitis C virus. Should recent infection be suspected, repeat testing may be considered 4-6 weeks after this draw. Performed By: #### 1 6128-1 #### [facility] CLIA [id number] [address] [place] [address] [place] HIV 1+2 Ab IA Qlon HIV 1 and 2 Ab IA.rapid Nom (S/P/Bld) Normal [facility] Comment on above: Order Comment: Speci men Type: BLOOD SPECIMEN Ordering Facility: [facility] Address: [address] [place] [address] Result Comment: Test not indicated. Performed By: #### 5 195-3, 35822-1, 60832-5 #### [facility] CLIA [id number] [address] [place] [address] [place] HIV 1+2 Ab+HIV1 p24 Ag IA Ql Non-Reactive Normal Nonreactive [facility] Comment on above: Order Comment: Speci men Type: BLOOD SPECIMEN Ordering Facility: [facility] Address: [address] [place] [address] Performed By: #### 5 195-3, 72367-6, 68626-2 #### [facility] CLIA [id number] [address] [place] [address] [place] HIV immunoassay testing algorithm interpretation (S/P/Bld) [Interp] Normal [facility] Comment on above: Order Comment: Speci men Type: BLOOD SPECIMEN Ordering Facility: [facility] Address: [address] [place] [address] Result Comment: No e vidence of HIV-1 or HIV-2 infection. Should recent infection be suspected, repeat testing may be considered 2-3 weeks after this draw. [place] Rev. Code 3701.243(E): This information has been disclosed to you from confidential records protected from disclosure by state law. You shall make no further disclosure of this information without the specific, written, and informed release of the individual to whom it pertains or as otherwise permitted by state law. A general authorization for the release of medical or other information is not sufficient for the purpose of the release of HIV test results or diagnoses. Performed By: #### 5 195-3, 59393-8, 15197-5 #### [facility] CLIA [id number] [address] [place] [address] [place] HbA1c (Bld)on 08-09-2024 Average glucose Estimated from glycated hemoglobin (Bld) [Mass/Vol] 97 mg/dL Normal [facility] Comment on above: Order Comment: Speci men Type: BLOOD SPECIMEN Ordering Facility: [facility] Address: [address] [place] [address] Result Comment: eAG: (Estimated average glucose) is a calculated value from HgbA1c and is sales representative health insurance of the average blood glucose level in the last 2-3 month period. Performed By: #### 5 5454-3 #### [facility] CLIA [id number] [address] [place] [address] [place] HbA1c (Bld) [Mass fraction] 5.0 % Normal 4.3-5.6 [facility] Comment on above: Order Comment: Nelida gipson Type: BLOOD SPECIMEN Ordering Facility: [facility] Address: [address] [place] [address] Result Comment: [place] Diabetes Association guidelines indicate that patients with HgbA1c in the range 5.7-6.4% are at increased risk for development of diabetes, and intervention by lifestyle modification may be beneficial. HgbA1c greater or equal to 6.5% is considered diagnostic of diabetes. Performed By: #### 5 5454-3 #### [facility] CLIA [id number] [address] [place] [address] [place] RUBELLA IGG ANTIBODYon 08-09 RUBELLA IGG AB, QUAL Positive Normal Positive [facility] Comment on above: Order Comment: Nelida gipson Type: SWAB Ordering Facility: [facility] Address: [address] [place] [address] Result Comment: The result suggests recent or past exposure to Rubella virus or history of Rubella vaccination. Positive result may also be seen due to presence of passively-transferred antibodies. Please correlate with patient's history. Performed By: #### 3 6902-5, TRVAMP #### [facility] CLIA [id number] [address] [place] [address] [place] Reagin and Treponema pallidu m IgG and IgM [Interp]on 08-09-2024 T. pallidum IgG+IgM IA Ql (S) Non-Reactive Normal Nonreactive [facility] Comment on above: Order Comment: Nelida gipson Type: BLOOD SPECIMEN Ordering Facility: [facility] Address: [address] [place] [address] Performed By: #### 5 195-3, 33968-4, 75949-3 #### [facility] CLIA [id number] [address] [place] [address] [place] Reagin+T pallidum IgG+IgM Se rPl-Impon 08-09-2024 Reagin and Treponema pallidum IgG and IgM [Interp] Cannot exclude recent Treponemal infection if specimen collected within 7-10 days after appearance of suspect lesions or 2-3 weeks after an exposure. Clinical correlation is required. Normal [facility] Comment on above: Order Comment: Speci men Type: BLOOD SPECIMEN Ordering Facility: [facility] Address: [address] [place] [address] Performed By: #### 5 195-3, 97583-0, 16937-9 #### [facility] CLIA [id number] [address] [place] [address] [place] TYPE + SCREEN PRENATALon ABO A Normal [facility] Comment on above: Order Comment: Speci men Type: BLOOD SPECIMEN Ordering Facility: [facility] Address: [address] [place] [address] Performed By: #### T SPN #### [facility] CLIA [id number] [address] [place] [address] [place] Rh Nom (Bld) Positive Normal [facility] Comment on above: Order Comment: Speci men Type: BLOOD SPECIMEN Ordering Facility: [facility] Address: [address] [place] [address] Performed By: #### T SPN #### [facility] CLIA [id number] [address] [place] [address] [place] TYPE AND SCREEN EXPIRATION 08/12/2024 23:[address] [facility] Comment on above: Order Comment: Speci men Type: BLOOD SPECIMEN Ordering Facility: [facility] Address: [address] [place] [address] Performed By: #### T SPN #### [facility] CLIA [id number] [address] [place] [address] [place] Bacteria Ur Culton Bacteria identified Cx Nom (U) ORGANISM ID: 1 >=100,000 CFU/ml Normal urogenital sarina Normal [facility] Comment on above: Performed By: #### 3 6902-5, TRTRAVON #### [facility] IA [id number] [address] [place] [address] [place] C. trachomatis+N. gonorrhoea e DNA JD+probe Ql (Unsp spec)on 07-18-2024 C. trachomatis rRNA JD+probe Ql (Unsp spec) Not detected Not detected [facility] Interpretation and review of laboratory results Normal [facility] N. gonorrhoeae rRNA JD+probe Ql (Unsp spec) Not detected Not detected [facility] This FDA-approved as say has been modified to accept rectal swabs self-collected in a healthcare setting. For self-collected rectal swabs, the test was developed and its performance characteristics determined by the [facility]'s [facility] [place] ([facility]). It has not been cleared or approved by the FDA. [facility] is regulated under CLIA as qualified to perform high-complexity testing. This test is used for clinical purposes. It should not be regarded as investigational or for research. [facility] C. trachomatis rRNA JD+probe Ql (Unsp spec) Not detected Normal Not detected [facility] Comment on above: Order Comment: Speci men Type: SWAB Ordering Facility: [facility] Address: [address] [place] [address] Performed By: #### 3 6902-5, TRVAJOHN #### [facility] [place] [id number] [address] [place] [address] [place] N. gonorrhoeae rRNA JD+probe Ql (Unsp spec) Not detected Normal Not detected [facility] Comment on above: Order Comment: Speci men Type: SWAB Ordering Facility: [facility] Address: [address] [place] [address] Performed By: #### 3 6902-5, TRVAMP #### [facility] CLIA [id number] [address] [place] [address] [place] HIGH RISK HUMAN PAPILLOMA DANGELO (HPV), PCR FOR DETECTION AND GENOTYPINGon 07-18-2024 HPV 16 Ag Ql (Unsp spec) Not detected Normal Not detected [facility] Comment on above: Order Comment: Speci men Type: FLUID SPECIMEN Ordering Facility: [facility] Address: [address] [place] [address] Performed By: #### H PVHRT #### [facility] CLIA [id number] [address] [place] [address] [place] HPV 18 Ag Ql (Unsp spec) Not detected Normal Not detected [facility] Comment on above: Order Comment: Speci men Type: FLUID SPECIMEN Ordering Facility: [facility] Address: [address] [place] [address] Performed By: #### H PVHRT #### [facility] CLIA [id number] [address] [place] [address] [place] HPV 31+33+35+39+45+51+52 +56+58+59+66+68 DNA JD+probe Ql (Cvx) Not detected Normal Not detected [facility] Comment on above: Order Comment: Speci men Type: FLUID SPECIMEN Ordering Facility: [facility] Address: [address] [place] [address] Result Comment: High Risk HPV Other Type includes HPV types 31, 33, 35, 39, 45, 51, 52, 56, 58, 59, 66 and 68. Performed By: #### H PVHRT #### [facility] CLIA [id number] [address] [place] [address] [place] PAP TESTon 07-18-[address] [facility] Comment on above: Order Comment: Speci men Type: FLUID SPECIMEN Ordering Facility: [facility] Address: [address] [place] [address] Result Comment: Sati sfactory for interpretation. No endocervical component Performed By: #### L [id number] #### [facility] CLIA [id number] [address] [place] [address] [place] CASE REPORT Normal [facility] Comment on above: Order Comment: Speci men Type: FLUID SPECIMEN Ordering Facility: [facility] Address: [address] [place] [address] Result Comment: Gyne cologic Cytology Report Case: [id number] Authorizing Provider: Maximus Fletcher APRN.[employer]IN[employer] PROGRAMMER Collected: 07/18/2024 10:21 AM Ordering Location: OB/Gynecology Received: 07/18/2024 11:49 AM First Screen: Catrach[place], Luz, CT, ASCP Specimen: Pap Test, ThinPrep, Cervix Performed By: #### L [id number] #### [facility] CLIA [id number] [address] [place] [address] [place] CLINICAL HISTORY, CYTOLOGY, MANAGER UROLOGY Routine Exam Normal [facility] Comment on above: Order Comment: Speci men Type: FLUID SPECIMEN Ordering Facility: [facility] Address: [address] [place] [address] Performed By: #### L [id number] #### [facility] CLIA [id number] [address] [place] [address] [place] FINAL PERFORMING LAB Normal [facility] Comment on above: Order Comment: Speci men Type: FLUID SPECIMEN Ordering Facility: [facility] Address: [address] [place] [address] Result Comment: Tech nical component, enamel applier screening performed at: [facility], [address] [place], [place] [id number] CLIA: [id number] Diagnostic interpretation performed at: [facility], [address] [place], [place] [id number] CLIA# [id number] Photoengraving Machine Operator/Tender: Shlomo Nolan MD Performed By: #### L [id number] #### [facility] CLIA [id number] [address] [place], [place] [address] [place] INTERPRETATION, CYTOLOGY, MANAGER UROLOGY Normal [facility] Comment on above: Order Comment: Speci men Type: FLUID SPECIMEN Ordering Facility: [facility] Address: [address] [place] [address] Result Comment: Nega tive for intraepithelial lesion or malignancy. at 0922 EDT Performed By: #### L [id number] #### [facility] CLIA [id number] [address] [place] [address] [place] LMP 05/12/[address] [facility] Comment on above: Order Comment: Speci men Type: FLUID SPECIMEN Ordering Facility: [facility] Address: [address] [place] [address] Performed By: #### L [id number] #### [facility] CLIA [id number] [address] [place] [id number] [place] PAP DISCLAIMER COMMENT The Pap Smear is a screening test for cervical cancer. False negative results occur with all screening tests, emphasizing the need for rescreening at recommended intervals, and clinical correlation. Normal [facility] Comment on above: Order Comment: Speci men Type: FLUID SPECIMEN Ordering Facility: [facility] Address: [address] [place] [address] Performed By: #### L [id number] #### [facility] CLIA [id number] [address] [place] [address] [place] PAP TRANSIT PROOF MACHINE OPERATOR COMMENT This specimen has be en analyzed by the ThinPrep Imaging System, an automated imaging and review system, which assists the laboratory in evaluating cells on ThinPrep Pap tests. Following automated imaging, selected siegel from every slide are reviewed by a enamel applier. Normal [facility] Comment on above: Order Comment: Speci men Type: FLUID SPECIMEN Ordering Facility: [facility] Address: [address] [place] [address] Performed By: #### L [id number] #### [facility] CLIA [id number] [address] [place] [address] OF [facility] TRICHOMONAS VAGINALIS NAATon 07-18-2024 Interpretation and review of laboratory results Normal [facility] T. vaginalis DNA JD+probe Ql (Unsp spec) Not detected Not detected [facility] T. vaginalis DNA JD+probe Ql (Unsp spec) Not detected Normal Not detected [facility] Comment on above: Order Comment: Speci men Type: SWAB Ordering Facility: [facility] Address: [address] [place] [address] Performed By: #### 3 [id number], TRVAMP #### [facility] CLIA [id number] [address] [place] [address] OF PAM CNOVon 07-09-2024 CNOV Office Visit (OBGYWM ) -------- THOMAS MANCIAA ([id number]) 1995 F Date Time Provider Department 07/09/24 2:50 PM MATY RODRÍGUEZ OBGYWM During your visit today, we recorded the following information about you: Blood pressure Weight Height Last Period 110/64 52.2 kg 1.575 m 05/12/24 Maty Rodríguez MD 07/09/2024 3:48 PM Signed Technology Support Analyst offered: Patient declines. Maty Rodríguez MD 07/09/2024 3:48 PM Signed Obstetrics and Gynecology [place] [facility]NA[facility] UROLOGY Visit Subjective Recording using [employer] software for draft documentation of the visit was discussed with the patient/authorized sales representative health insurance; all questions welcomed and answered. Patient/authorized sales representative health insurance agreed to proceed CHIEF COMPLAINT: Bleeding in HPI: The patient is a 29-year-old female, , presenting with vaginal spotting. The patient reports onset of spotting last , initially presenting as dark brown fluid and progressing to bright red fluid, which was worse yesterday but has since slowed. Yesterday, she required a pad, though it was not filled. She describes the bleeding as more than normal but denies passage of clots or tissue. She denies recent intercourse. She is experiencing abdominal cramping and nausea but denies emesis, diarrhea, constipation, dysuria, hematuria, pruritus, burning, or abnormal discharge. She notes that during her previous pregnancies, she experienced spotting but no cramping. Her last menstrual period was on 05/12/2024, and she believes she is approximately 8 weeks and 2 days . She confirms that her periods are regular. She has had three term vaginal deliveries, with her last being high-risk due to ventriculomegaly. She has two boys and one girl. She is currently taking vitamins. HISTORY: OB History Gravida3 Para3 Term3 Preterm0 AB0 Living3 SAB0 IAB0 Ectopic0 Multiple0 Live Births3 Bread Wrapping Machine Feeder History LMP: 05/12/2024 Age at Menarche: Age at First : Age at Menopause: Bread Wrapping Machine Feeder History Comments: Sexual Activity: Yes; Male Contraception: None PAST MEDICAL HISTORY Diagnosis Date NEGATIVE MEDICAL HISTORY History reviewed. No pertinent surgical history. No family history on file. Social History Tobacco Use Smoking status: Never Smokeless tobacco: Never Vaping Use Vaping status: Never Used Substance Use Topics Alcohol use: Never Drug use: Never No current outpatient medications on file. No current facility-administered medications for this visit. ALLERGIES No Known Allergies REVIEW OF SYSTEMS: Gastrointestinal: (+) abdominal cramping, (+) nausea, (-) vomiting, (-) diarrhea, (-) constipation Genitourinary: (+) vaginal bleeding (spotting), (-) dysuria, (-) hematuria, (-) itching, (-) burning, (-) abnormal discharge Objective SENSITIVE EXAM: The sensitive examination was discussed with the Patient or Patient's Authorized Regional Extension Service Specialist. As applicable, any other physician, advance practice provider, medical student, or other health professional student that will be observing or involved in the sensitive examination for educational or training purposes was discussed with the Patient or Authorized Regional Extension Service Specialist. The Patient or Authorized Regional Extension Service Specialist has agreed to proceed with the sensitive examination. (Sensitive examination includes inspection and/or palpation of the breasts, pelvis, prostate and anorectal regions). PHYSICAL EXAM: BP 110/64 Ht 5' 2 (1.58m) Wt 115 lb (52.2kg) LMP 05/12/2024 BMI 21.03 kg/(m2). General: Well-appearing. : No blood in the vagina. cervix thick and closed Imaging: (Today) Ultrasound: - Single intrauterine 8w 1day - heart rate: 164 bpm - No subchorionic hemorrhage identified - Cervix unremarkable Assessment AND Plan ASSESSMENT AND PLAN: 1. Spotting complicating , first trimester ([facility]) (O26.851) Spotting began last , initially dark brown, progressing to bright red, with the heaviest flow yesterday. No passage of clots or tissue. Speculum exam revealed no active bleeding. Transvaginal ultrasound confirmed a single intrauterine with a heartbeat of 164 bpm, consistent with an estimated gestational age of 8 weeks and 2 days. No evidence of subchorionic hemorrhage observed. - Advised pelvic rest, including abstinence from intercourse, until bleeding completely resolves. - Continue vitamins. - Follow-up appointment scheduled for next week. 2. High risk due to history of previous obstetrical problem in first trimester ([facility]) (O09.291) Previous was high-risk due to ventriculomegaly. Current is being monitored closely. Continue routine care with close monitoring due to history of high-risk . Medical Decision Making: Problems: Modera (more content not included)... Normal [facility] Urgent Care Visit Reporton 1 Urgent Care Visit Report [facility] [address] [place] [address] OFFICE VISIT Date of Service: 01/06/22 MR#: [id number] Acct: [id number] Name: ATIYA MANCIA Rep #: [id number] : 1995 Provider: EDA Camacho Age/Sex: 26/F Location: [facility] Status: Signed Intake Vital Signs 01/06/22 12:37 BP 109/74 Blood Pressure Location Rt brachial Position Sitting Respiration 16 Pulse 71 Pulse Source Monitor Temp 98.6 F Temp Source Temporal Pulse Oximetry (%) 98 Oxygen Delivery Method room air Intake Visit Reasons: POSSIBLE INNER EAR INFECTION/DIZZINESS Chief Complaint: dizziness Allergies No Known Allergies Allergy (Verified 01/06/22 12:38) Medications ondansetron 4 mg disintegrating tablet 4 mg PO Q6H PRN nausea and vomiting #20 tabs 06/24/20 [Rx Confirmed 01/06/22] amoxicillin 875 mg-potassium clavulanate 125 mg tablet 1 tab PO Q12H #14 tabs 01/06/22 [Rx Confirmed 01/06/22] meclizine 12.5 mg tablet 12.5 mg PO TID PRN dizziness #6 tabs 01/06/22 [Rx Confirmed 01/06/22] PFSH Medical History Back pain Severe headache Social History Smoking Status: Never smoker alcohol intake: never HPI HPI Chief Complaint: dizziness Details: ATIYA MANCIA, is a 26 F who presents to the office today for dizziness. She has had this and mild left ear aching for about 2 weeks. The dizziness feels like the room is spinning. This occurs when changing positions, especially when laying down or turning in bed. She has no loss of hearing or ringing in the ears. No sinus congestion/cough/fever/c hills. She denies nausea or vomiting. She was here in the past with ear ache and dizziness and was treated successfully with abx for otitis media which resolved all symptoms. ROS Const Constitutional: No chills, fatigue or fever(s) ENT ENT: Positive for ear or mastoid pain and dizziness/vertigo; No abnormal hearing, ear discharge, tinnitus, nasal congestion or nasal discharge Resp Respiratory: No cough, shortness of breath or wheezing Gastro GI: No diarrhea, nausea/dyspepsia or vomiting Neuro Neurology: Positive for dizziness; No abnormal hearing Endo Endocrine: No fatigue Aller/Imm Allergy/Immunologic: No wheezing Exam Const General: cooperative, healthy appearing, comfortable, no acute distress, well developed and well groomed Nutritional Appearance: average body habitus and well nourished Orientation: alert, awake and oriented x3 HENMT Ears: TM normal on the right and TM abnormal (left bulging and erythematous) Nose: external nose normal Resp Effort Inspection: normal respiratory effort, able to speak in complete sentences, symmetric chest movement and no cough Auscultation: Bilateral: Clear to Auscultation Cardio Rate: regular rate Rhythm: regular rhythm Heart Sounds: no murmurs Coding Level of Care Code Off vis,est,level 3 Diagnoses Otitis media, left H66.92 Assessment and Plan Assessment and Plan (1) Otitis media, left: Status: Acute Plan: acute left otitis media - erythema and bulging left TM on exam, dizziness and ear pain x 2 weeks. Hx of otitis media with dizziness. Dizziness is positional. modified ling maneuver demonstrated/performed with minimal change. Start augmentin 875 BID x 7 days. Continue ling maneuver TID x 3 days. If no improvement follow up with PCP, if worsening go to the ER. Also given meclizine prn for dizziness while waiting for the underlying infection to clear up. Medications: New amoxicillin-pot clavulanate 875-125 mg 1 TAB PO Q12H 14 tabs 0RF meclizine 12.5 mg PO TID PRN 6 tabs 0RF dizziness 01/06/22 1309 Date Giovanni VERAS Cosigner Signature: Date (if applicable) CC: Normal [facility] Progress Noteon 06-29-2021 Acid Plant Helper Authentication Interface Message Text Visit Subjective: Atiya Mancia is a 26 y.o. female who presents for a visit. She is 6 weeks following a spontaneous vaginal delivery. I have fully reviewed the and intrapartum course. The delivery was at 39 gestational weeks. Delivering Provider: Calos Engle DO . course has been uncomplicated. Baby is feeding by breast. Glenn is doing well. Neurology is following and MRI is planned for 07/14 and a swallow study for 07/27/21. Bleeding no bleeding. Bowel function is normal. Bladder function is normal. Patient is not sexually active. Contraception method is condoms and vaginal spermicide. depression screening: EPDS 4. Patient's medications, allergies, past medical, surgical, , social, and family histories were reviewed and updated as appropriate. She is unaccompanied. Review of Systems Gastrointestinal: Positive for abdominal pain (I episode of RLQ pain with walking. Resolved with position changes. ). All other systems reviewed and are negative. Objective: BP 108/66 Wt 56.2 kg (124 lb) Yes BMI 23.26 kg/m Physical Exam Vitals reviewed. Constitutional: Appearance: She is well-developed and well-nourished. HENT: Head: Atraumatic. Eyes: Extraocular Movements: EOM normal. Cardiovascular: Rate and Rhythm: Normal rate. Pulmonary: Effort: Pulmonary effort is normal. Musculoskeletal: General: Normal range of motion. Neurological: Mental Status: She is alert and oriented to person, place, and time. Skin: General: Skin is warm and dry. Psychiatric: Mood and Affect: Mood and affect normal. Behavior: Behavior normal. Thought Content: Thought content normal. Judgment: Judgment normal. Pelvic Exam: Pt declined vaginal exam Assessment/Plan: Normal exam. 1. Contraception: condoms and vaginal spermicide 2. Continue vitamin with 1mg Folic acid as long as childbearing. Recommend 18month interval between consideration. Pt states this is likely last 3. Follow up with Dr Vyas for ongoing MANAGER UROLOGY care. Normal pap 09/2020. Discussed next pap in 3 years. 4. Encouraged to establish PCP care for yearly preventive health screening The total patient time of the visit was 25 minutes: 15 direct patient care, 10 minutes chart review and documentation. Normal [facility] Hemogramon 05-19-2021 Erythrocyte distribution width (RBC) [Ratio] 13.9 % Normal 11.5-14.5 [facility] Comment on above: Performed By: #### H EMOG #### [address] [id number] Hematocrit (Bld) [Volume fraction] 35.4 % Normal 35.0-47.0 [facility] Comment on above: Performed By: #### H EMOG #### [address] Hemoglobin (Bld) [Mass/Vol] 11.6 g/dL Low 11.7-16.0 [facility] Comment on above: Performed By: #### H EMOG #### [facility] [address] [place], [place] MCH (RBC) [Entitic mass] 26.4 pg Normal 26.0-34.0 [facility] Comment on above: Performed By: #### H EMOG #### [place] [address] [place], [place] MCHC 32.7 % Normal 32.0-36.0 [facility] Comment on above: Performed By: #### H EMOG #### [place] [address] [place], [place] MCV (RBC) [Entitic vol] 80.7 fL Normal 79.0-98.0 [facility] Comment on above: Performed By: #### H EMOG #### [place] [address] [place], [place] Platelet mean volume (Bld) [Entitic vol] 6.6 fL Low 7.4-10.4 [facility] Comment on above: Performed By: #### H EMOG #### [place] [address] [place], [place] Platelets (Bld) [#/Vol] 263 10*3/uL Normal 140-440 [facility] Comment on above: Performed By: #### H EMOG #### [place] [address] [place], [place] RBC (Bld) [#/Vol] 4.38 10*6/uL Normal 3.80-5.20 [facility] Comment on above: Performed By: #### H EMOG #### [place] [address] [place], [place] WBC (Bld) [#/Vol] 7.5 10*3/uL Normal 3.6-10.7 [facility] Comment on above: Performed By: #### H EMOG #### [place] [address] [address] [place], [place] TS GELon 05-19-2021 TS GEL ABO Group: A Rh, Gel: POS Antibody Screen Gel: NEG Normal [facility] Comment on above: Performed By: #### T SGL #### [facility] Progress Noteon 05-11-2021 Acid Plant Helper Authentication Interface Message Text Visit Subjective: Atiya Macnia is being seen today for an obstetrical visit. She is at 39w0d gestation. Her obstetrical history is significant for bilateral ventriculomegaly. history fully reviewed. She is unaccompanied. Movement Atiya reports normal movement. Vaginal Bleeding During Atiya denies any vaginal bleeding at this time. Vaginal DischargeLisa denies any unusual or increase in vaginal discharge. Rupture of Membranes/Leaking Fluid The patient denies any leaking of fluid at this time. Signs and Symptoms of Preeclampsia Atiya is presenting with no preeclampsia symptoms. Pain Scale Atiya denies any signs or symptoms of pain. Review of Systems Neurological: Negative for headaches (intermittent mild headaches, relieved with essential oils. Denies MARKS this am. BP normotensive). All other systems reviewed and are negative. Denies any COVID sx or exposures Objective: BP 100/58 Wt 64.3 kg (141 lb 12.8 oz) BMI 26.60 kg/m Physical Exam Vitals reviewed. Constitutional: Appearance: She is well-developed and well-nourished. HENT: Head: Atraumatic. Pulmonary: Effort: Pulmonary effort is normal. Abdominal: Comments: gravid Neurological: Mental Status: She is alert and oriented to person, place, and time. Psychiatric: Mood and Affect: Mood and affect normal. Behavior: Behavior normal. Thought Content: Thought content normal. Judgment: Judgment normal. FHT: 140 Presentation: Cephalic Uterine Size: N/A Pelvic Exam: Pt declined exam today Assessment/Plan: Atiya Mancia is a 26 y.o. at 39w0d with: Active Non-Hospital Problems Diagnosis Date Noted Supervision of other high risk , antepartum 04/09/2021 Priority: High PLAN OF CARE- MICHAEL 04/09 @ 34 weeks MD/OB APPOINTMENTS Genetic screening: CMV IgG positive/IgM negative, Toxo IgG/IgM negative. NAIT work-up is negative. Aneuploidy screening declined. How often should patient be evaluated? q 2 weeks from 28 to 36 weeks then weekly until delivery Work restrictions: NA EVALUATION surveillance: BPP weekly Ultrasound: growth every 4 weeks DELIVERY PLAN Hospital: [facility] Let Labor GBS culture: 04/29 Negative Contraception: undecided : yes, declines Ped: marco a Reviewed on 05/11/2021 complicated by cerebral ventriculomegaly 03/02/2021 Priority: High See FTC POC Neonatology and Neuro consult completed 04/09 Neurosurgery telehealth 04/21/21-Crystal Reviewed on 05/11/2021 Follow up : 1 week if undelivered Reinforced s/s labor, PEC, movement monitoring. The total patient time of the visit was 20 minutes: 10 direct patient care, 10 minutes chart review and documentation. Normal [facility] Progress Noteon 05-04-2021 Acid Plant Helper Authentication Interface Message Text Visit Subjective: Atiya Mancia is being seen today for an obstetrical visit. She is at 38w0d gestation. Her obstetrical history is significant for bilateral ventriculomegaly. history fully reviewed. She is unaccompanied. Movement Atiya reports normal movement. Vaginal Bleeding During Atiya denies any vaginal bleeding at this time. Rupture of Membranes/Leaking Fluid The patient denies any leaking of fluid at this time. Signs and Symptoms of Preeclampsia Atiya is presenting with no preeclampsia symptoms. Review of Systems Genitourinary: Positive for vaginal discharge (increased thick gel-like mucus discharge. ) and pelvic pain (noting more pelvic pressure with patterns of contractions). All other systems reviewed and are negative. Objective: BP 98/62 Wt 64.5 kg (142 lb 1.6 oz) BMI 26.66 kg/m Physical Exam Vitals reviewed. Constitutional: Appearance: She is well-developed and well-nourished. HENT: Head: Atraumatic. Eyes: Extraocular Movements: EOM normal. Pulmonary: Effort: Pulmonary effort is normal. Abdominal: Palpations: Abdomen is soft. Comments: gravid Musculoskeletal: General: Normal range of motion. Neurological: Mental Status: She is alert and oriented to person, place, and time. Skin: General: Skin is warm and dry. Psychiatric: Mood and Affect: Mood and affect normal. Behavior: Behavior normal. Thought Content: Thought content normal. Judgment: Judgment normal. FHT: 129 Presentation: Cephalic Uterine Size: N/A Pelvic Exam: Dilation: 2-3 Effacement: 50% Station: -2 Assessment/Plan: Atiya Mancia is a 25 y.o. at 38w0d with: Active Non-Hospital Problems Diagnosis Date Noted Supervision of other high risk , antepartum 04/09/2021 Priority: High PLAN OF CARE- MICHAEL 04/09 @ 34 weeks MD/OB APPOINTMENTS Genetic screening: CMV IgG positive/IgM negative, Toxo IgG/IgM negative. NAIT work-up is negative. Aneuploidy screening declined. How often should patient be evaluated? q 2 weeks from 28 to 36 weeks then weekly until delivery Work restrictions: NA EVALUATION surveillance: BPP weekly Ultrasound: growth every 4 weeks DELIVERY PLAN Hospital: [facility] Labor GBS culture: 04/29 Negative Contraception: undecided : yes, declines Ped: marco a Reviewed on 05/04/2021 complicated by cerebral ventriculomegaly 03/02/2021 Priority: High See FTC POC Neonatology and Neuro consult completed 04/09 Neurosurgery telehealth 04/21/21-Crystal Reviewed on 05/04/2021 Follow up: Weekly OB and surveillance Labor precautions and movement monitoring reinforced. The total patient time of the visit was 25 minutes: 15 direct patient care, 10 minutes chart review and documentation. Normal [facility] Group B Strep Cultureon S. agalactiae Ag Ql (Unsp spec) Release to patient->Automatic [id number]&Vagina^^^Vaginal/R ectal&Vaginal/Rectal No allergies noted Group B Strep Culture: No Group B Streptococci isolated. Source: VAG Collected: 04/29/21 11:10 Site: Vaginal/Rectal Received : 04/29/21 17:23 Group B Strep Culture FINAL 05/02/21 09:05 No Group B Streptococci isolated. Normal [facility] Comment on above: Performed By: #### G [facility] #### [address] [address] Progress Noteon 04-29-2021 Acid Plant Helper Authentication Interface Message Text Visit Subjective: Atiya Mancia is being seen today for an obstetrical visit. She is at 37w2d gestation. Her obstetrical history is significant for bilateral ventriculomegaly. history fully reviewed. She is unaccompanied. Atiya denies any cramping, contractions, vaginal bleeding, unusual or increase in vaginal discharge, signs and symptoms of pre-eclampsia, or leaking of any fluid. Patient with positive movement. Review of Systems All other systems reviewed and are negative. Objective: BP 103/63 Wt 63.3 kg (139 lb 8 oz) BMI 26.17 kg/m Physical Exam Nursing note and vitals reviewed. Constitutional: Appearance: She is well-developed and well-nourished. Pulmonary: Effort: Pulmonary effort is normal. Abdominal: Comments: gravid Musculoskeletal: General: Normal range of motion. Neurological: Mental Status: She is alert and oriented to person, place, and time. Skin: General: Skin is warm and dry. Psychiatric: Mood and Affect: Mood and affect normal. Behavior: Behavior normal. FHT: Positive Presentation: Cephalic Uterine Size: see growth Pelvic Exam: unchanged since triage visit Dilation: 2-3cm Effacement: 50% Station: -3 Ultrasound: see report Assessment/Plan: Atiya Mancia is a 25 y.o. at 37w2d with: Active Non-Hospital Problems Diagnosis Date Noted Supervision of other high risk , antepartum 04/09/2021 PLAN OF CARE- MICHAEL 04/09 @ 34 weeks MD/OB APPOINTMENTS Genetic screening: CMV IgG positive/IgM negative, Toxo IgG/IgM negative. NAIT work-up is negative. Aneuploidy screening declined. How often should patient be evaluated? q 2 weeks from 28 to 36 weeks then weekly until delivery Work restrictions: NA EVALUATION surveillance: BPP weekly Ultrasound: growth every 4 weeks DELIVERY PLAN Hospital: [facility] Let Labor GBS culture: done 04/29 Contraception: undecided : yes, declines Ped: chosen Reviewed on 04/29/2021 complicated by cerebral ventriculomegaly 03/02/2021 See [facility] POC Neonatology and Neuro consult completed 04/09 Neurosurgery telehealth 04/21/21-Crystal Reviewed on 04/29/2021 Kick counts reviewed and encouraged Precautions reviewed Follow up OB visit weekly BPP weekly Growth scan as scheduled. The total time spent on patient care today 04/29/2021 was 30 minutes. -15 minutes direct patient care -15 minutes chart review and documentation Normal [facility] Progress Noteon 04-21-2021 Acid Plant Helper Authentication Interface Message Text Neurosurgery Consult Note NAME: Atiya Mancia DATE OF SERVICE: 04/21/2021 PRIMARY CARE PROVIDER: Tapan Da Silva MD REQUESTING PROVIDER: Princess Rojas MD REASON FOR CONSULTATION: Ventriculomegaly seen on MRI HISTORY OF PRESENT ILLNESS: Atiya is a 25 y.o. female is at 36 weeks of with a diagnosis of cerebral ventriculomegaly. Mom reports that at this time is going well despite being somewhat stressful. She is due on 05/18/2021. Ventriculomegaly was diagnosed on ultrasound to follow-up MRI scan was obtained in December 2020. MRI showed evidence of ventriculomegaly, slightly hypoplastic cerebellum. There is a concern for absence of the septum pellucidum. PAST MEDICAL/SURGICAL HISTORY: Past Medical History: Diagnosis Date Abnormal ultrasound abnormal ultrasound Mom has 2 other children both were delivered at term No past surgeries DRUG/FOOD ALLERGIES: No Known Allergies MEDICATIONS: Scheduled Meds: vitamins FAMILY HISTORY: Pertinent family history son has a diagnosis of septo-optic dysplasia, daughter is healthy REVIEW OF SYSTEMS Pertinent items are noted in HPI. OBJECTIVE: There were no vitals filed for this visit. Physical Findings: Deferred as this is a consult Imaging Studies: 1. Bilateral lateral ventriculomegaly, 14 mm. T2 hypointense material within the right lateral ventricle, concerning for intraventricular hemorrhage. 2. Mild cerebellar hypoplasia. ASSESSMENT: Incisional ischemia at 36 weeks, diagnosis cerebral ventriculomegaly RECOMMENDATIONS: It was a pleasure meeting Atiya today to discuss the diagnosis of ventriculomegaly. We reviewed the MRI studies from December 2020. The cerebral ventricular system was described to Atiya in addition to the various etiologies for developing ventriculomegaly/hydroce phalus. We also reviewed what to expect once baby (he) is born. If he is doing well, there may not be any urgency of transferring him to [facility] and we could follow him as an outpatient soon after his . Usually we would obtain a head ultrasound at that time. Certainly if there is any concerns that he is not doing well and may need urgent intervention, he would be transferred over to our NICU. If this is the case and he needs surgical intervention in emergent fashion it would likely be performed by the neurosurgery attending phone engineer. Depending upon the age of intervention, he may be a candidate for either a ventriculoperitoneal shunt or an endoscopic third ventriculostomy. That being said within 1 year of age, I do not typically recommend endoscopic third ventriculostomy as there is a high chance for failure. Therefore if he needs urgent or emergent intervention would likely be a ventriculoperitoneal shunt. I briefly discussed the procedure, time in the operating room, hospital stay. We also discussed the likelihood of needing a shunt revision in the future, including that there is a 50% chance of needing a revision within 1 year of any shunt procedure. I very briefly mentioned also that once the shunt is placed, they are likely shunt dependent for life. Mom did ask if there is ever a chance they would not need a shunt placed, or would be able to have it removed. I mentioned that chances are, he will need a shunt at some point after he was born, it is unclear at what time his hydrocephalus will declare as being symptomatic or will need intervention. It is incredibly rare risk for somebody to become shunt independent in the future in the setting of congenital reasons for hydrocephalus. It was a pleasure meeting her via telehealth. I look forward to seeing them in person once he is born. Thank you for involving me in her care. Please feel free to call the office at any time, the number is [phone]. Thanks again and kindest regards, Princess Rojas MD, FAANS Leak [facility], Division of Pediatric Neurosurgery [facility] [place] I spent a total of 30 minutes with Atiya Mancia, of which, >50% was spent counseling/ direct management/discussion/co ordination of Atiya Mancia care. Please review the impression/plan/recommen dations in my note regarding what was discussed during this visit. This is a telemedicine video visit requested by the patient/guardian that was performed with the patient's location at home and the provider's location at office. Normal [facility] Group B Strep DNA By PCRon 0 04-20-2021 GBS DNA ASSAY Normal Negative [facility] Comment on above: Order Comment: CALL RESULTS TO [phone] Vaginal-Rectal Result Comment: GROU P B STREP COLLECTED WITH WRONG SWAB. OFFICE WAS NOTIFIED AND DETAIL MANAGER WILL BE NOTIFIED TO RECOLLECT Performed By: #### L [id number] #### [facility] [address] [place], [address] IC Normal [facility] Comment on above: Order Comment: CALL RESULTS TO [phone] Vaginal-Rectal Result Comment: GROU P B STREP COLLECTED WITH WRONG SWAB. OFFICE WAS NOTIFIED AND DETAIL MANAGER WILL BE NOTIFIED TO RECOLLECT Performed By: #### L [id number] #### [facility] [address] [place], [address] PROBE CHECK Normal [facility] Comment on above: Order Comment: CALL RESULTS TO [phone] Vaginal-Rectal Result Comment: GROU P B STREP COLLECTED WITH WRONG SWAB. OFFICE WAS NOTIFIED AND DETAIL MANAGER WILL BE NOTIFIED TO RECOLLECT Performed By: #### L [id number] #### [facility] [address] [place], [address] [facility] Comment on above: Order Comment: CALL RESULTS TO [phone] Vaginal-Rectal Result Comment: GROU P B STREP COLLECTED WITH WRONG SWAB. OFFICE WAS NOTIFIED AND DETAIL MANAGER WILL BE NOTIFIED TO RECOLLECT Performed By: #### L [id number] #### [facility] [address] [place], [place], [address] SWAB TYPE IS: Normal [facility] Comment on above: Order Comment: CALL RESULTS TO [phone] Vaginal-Rectal Result Comment: GROU P B STREP COLLECTED WITH WRONG SWAB. OFFICE WAS NOTIFIED AND DETAIL MANAGER WILL BE NOTIFIED TO RECOLLECT Performed By: #### L [id number] #### [facility] [address] [place], [place], [address] Progress Noteon 04-20-2021 [employer] Aut[employer] Interface Message Text Visit Subjective: Atiya Mancia is being seen today for an obstetrical visit. She is at 36w0d gestation. Her obstetrical history is significant for bilateral ventriculomegaly. history fully reviewed. She is unaccompanied. Signs and Symptoms of Labor Atiya presents with no labor symptoms. Movement Atiya reports normal movement. Vaginal Bleeding During Atiya denies any vaginal bleeding at this time. Rupture of Membranes/Leaking Fluid The patient denies any leaking of fluid at this time. Signs and Symptoms of Preeclampsia Atiya is presenting with no preeclampsia symptoms. Review of Systems All other systems reviewed and are negative. Objective: BP 100/70 Wt 63.5 kg (140 lb) BMI 26.26 kg/m Physical Exam Vitals reviewed. Constitutional: Appearance: She is well-developed and well-nourished. Pulmonary: Effort: Pulmonary effort is normal. Abdominal: Palpations: Abdomen is soft. Comments: gravid Musculoskeletal: General: Normal range of motion. Neurological: Mental Status: She is alert and oriented to person, place, and time. Skin: General: Skin is warm and dry. Psychiatric: Mood and Affect: Mood and affect normal. Behavior: Behavior normal. Thought Content: Thought content normal. Judgment: Judgment normal. FHT: 145 Presentation: Cephalic Uterine Size: N/A Pelvic Exam: Dilation: ftp Effacement: 50% Station: -2 GBS obtained. Discussed criteria for IOL and current plan to let labor Ventricles stable. BP 11/02- see imaging for full details. Assessment/Plan: Atiya Mancia is a 25 y.o. at 36w0d with: Active Non-Hospital Problems Diagnosis Date Noted Supervision of other high risk , antepartum 04/09/2021 Priority: High PLAN OF CARE- MICHAEL 04/09 @ 34 weeks MD/OB APPOINTMENTS Genetic screening: CMV IgG positive/IgM negative, Toxo IgG/IgM negative. NAIT work-up is negative. Aneuploidy screening declined. How often should patient be evaluated? q 2 weeks from 28 to 36 weeks then weekly until delivery Work restrictions: NA EVALUATION surveillance: BPP weekly Ultrasound: growth every 4 weeks DELIVERY PLAN Hospital: [facility] Let Labor GBS culture: 04/20: Contraception: undecided : yes, declines Ped: chosen Reviewed on 04/20/2021 complicated by cerebral ventriculomegaly 03/02/2021 Priority: High See [facility] POC Neonatology and Neuro consult completed 04/09 Neurosurgery telehealth 04/21/21-Crystal Reviewed on 04/20/2021 Follow up: Weekly OB and BPP Reinforced precautions. The total patient time of the visit was 25 minutes: 15 direct patient care, 10 minutes chart review and documentation. Normal [facility] Progress Noteon 04-09-2021 [employer] Authentication Interface Message Text Visit Subjective: Atiya Mancia is being seen today for an transfer of care obstetrical visit. She is at 34w3d gestation. Her obstetrical history is significant for bilateral ventriculomegaly. Pt is known to [facility], met with Neuro and Neonates today. history fully reviewed. She is accompanied by her . Atiya denies any cramping, contractions, vaginal bleeding, unusual or increase in vaginal discharge, signs and symptoms of pre-eclampsia, or leaking of any fluid. Patient with positive movement. Review of Systems All other systems reviewed and are negative. Objective: BP 97/56 Wt 62.4 kg (137 lb 8 oz) BMI 25.79 kg/m Physical Exam Nursing note and vitals reviewed. Constitutional: Appearance: She is well-developed and well-nourished. Cardiovascular: Rate and Rhythm: Normal rate and regular rhythm. Heart sounds: Normal heart sounds. Pulmonary: Effort: Pulmonary effort is normal. Breath sounds: Normal breath sounds. Abdominal: General: Bowel sounds are normal. Palpations: Abdomen is soft. Comments: gravid Musculoskeletal: General: Normal range of motion. Cervical back: Normal range of motion. Neurological: Mental Status: She is alert and oriented to person, place, and time. Skin: General: Skin is warm and dry. Psychiatric: Mood and Affect: Mood and affect normal. Behavior: Behavior normal. FHT: Positive Presentation: see ultrasound Uterine Size: see growth Ultrasound: see report Assessment/Plan: Atiya Mancia is a 25 y.o. at 34w3d with: Active Non-Hospital Problems Diagnosis Date Noted Supervision of other high risk , antepartum 04/09/2021 PLAN OF CARE- MICHAEL 04/09 @ 34 weeks MD/OB APPOINTMENTS Genetic screening: CMV IgG positive/IgM negative, Toxo IgG/IgM negative. NAIT work-up is negative. Aneuploidy screening declined. How often should patient be evaluated? q 2 weeks from 28 to 36 weeks then weekly until delivery Work restrictions: NA EVALUATION surveillance: BPP weekly Ultrasound: growth every 4 weeks DELIVERY PLAN Hospital: [facility] Let Labor GBS culture: Contraception: undecided : yes, declines Ped: chosen Reviewed on 04/09/2021 complicated by cerebral ventriculomegaly 03/02/2021 See [facility] POC Neonatology and Neuro consult completed 04/09 Reviewed on 04/09/2021 Logistics of practice/POC reviewed Precautions reviewed Follow up OB visit 2 weeks (gbs at appt)- pt prefers [place] location if able BPP weekly Growth scan as scheduled. The total time spent on patient care today 04/09/2021 was 30 minutes. -15 minutes direct patient care -15 minutes chart review and documentation Normal [facility] [employer] Authentication Interface Message Text Dos: 04/09/2021 [facility] NEONATOLOGY CONSULT Referring/Prequesting Provider: No ref. provider found Atiya is a 25 y.o., female at 34w3d REASON FOR CONSULT: brain anomalies Cheng: yes Multiple:no labor No Prolonged/Premature rupture of membranes: No Diabetes: No Insulin used? 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 COUNSELING: Prognosis for survival Acute morbidities: Respiratory Distress Syndrome/Bronchopulmonar y Dysplasia Intraventricular Hemorrhage Infection (early/late) Cardiac Patent Ductus Arteriosus Necrotizing Enterocolitis Retinopathy of prematurity Other problems of prematurity: Jaundice Delayed oral feeding Apnea Length of hospitalization Benefits of Breast milk Location of care: [facility] Level of care/resuscitation: Unrestricted Information Letters given PRESENT FOR CONSULTATION: Both parents FOLLOW UP: Delivery Hospital: [facility] Baby's Follow-up Physician: NASEEM dangelo Call with questions Other: If baby is clinically well; he can stay with parents after delivery. Would recommend following bgts as there were concerns for midline brain anomalies including absent CSP; although MRI findings confirm CSP present. Recommend pediatric neurology follow up after discharge. If baby is macrocephalic with concerns of ICP he will need transferred to main campus for both neurosurgical and neurology evaluation. ADDITIONAL COMMENTS: The total patient time of the visit was 30 minutes. Normal [facility] Z Miscellaneous Sendouton Patient Results ----- Normal [facility] Comment on above: Order Comment: 30 mL ACD-A whole blood AND 10 mL serum Test Name->IInitial testing of Maternal sample ONLY (Test code 5303) What is the sendout facility name, if known?->[facility] ([facility]) Result Comment: Kameron valencia refer to the complete report scanned into Epic 02-12-2021. Performed By: #### Z MSO #### [address] [address] Performed by: see below Normal [facility] Comment on above: Order Comment: 30 mL ACD-A whole blood AND 10 mL serum Test Name->IInitial testing of Maternal sample ONLY (Test code 5303) What is the sendout facility name, if known?->[facility] ([facility]) Result Comment: Test ing Performed: [facility] [place] [facility] [address] [place] [address] Performed By: #### Z MSO #### [address] [id number] Toxoplasma IGG AND IGM (Pren atal Screen)on 02-10-2021 Toxoplasma IgG (Dye Test) <1:16 Normal <1:16 NEGATIVE [facility] Comment on above: Order Comment: Order a CMV Avidity test if IgM is positive.Release to patient->[id number]&Blood Performed By: #### T SLPN ####[address] [phone] Toxoplasma IgM HILDA 0.0 Normal [facility] Comment on above: Order Comment: Order a CMV Avidity test if IgM is positive.Release to patient->[id number]&Blood Result Comment: 0.0-1.6 = Negative 1.7-1.9 = Equivocal >= 2.0 = Positive Testing Performed: [place] [facility] [place], [address] [place] [address] Performed By: #### T SLPN ####[address] [phone] CBC-Complete Blood Cnt No Di ffon 02-05-2021 Erythrocyte distribution width (RBC) [Ratio] 12.8 % Normal 11.6-14.6 [facility] Comment on above: Performed By: #### L 501.0250, L100.0500 #### [facility] [address] [place], [address] Hematocrit (Bld) [Volume fraction] 34.0 % Low 37-47 [facility] Comment on above: Performed By: #### L 501.0250, L100.0500 #### [facility] [address] [place], [address] Hemoglobin (Bld) [Mass/Vol] 11.3 g/dL Low 12.0-15.0 [facility] Comment on above: Performed By: #### L 501.0250, L100.0500 #### [facility] [address] [place], [address] MCH (RBC) [Entitic mass] 29.8 pg Normal 27.0-32.0 [facility] Comment on above: Performed By: #### L 501.0250, L100.0500 #### [facility] [address] [place], [address] MCHC (RBC) [Mass/Vol] 33.2 g/dL Normal 32-36 [facility] Comment on above: Performed By: #### L 501.0250, L100.0500 #### [facility] [address] [place], [address] MCV (RBC) [Entitic vol] 89.7 fL Normal 81-99 [facility] Comment on above: Performed By: #### L 501.0250, L100.0500 #### [facility] [address] [place], [address] Platelet mean volume (Bld) [Entitic vol] 9.3 fL Normal 6.2-12.0 [facility] Comment on above: Performed By: #### L 501.0250, L100.0500 #### [facility] [address] [place], [address] Platelets (Bld) [#/Vol] 272 10*3/uL Normal 150-450 [facility] Comment on above: Performed By: #### L 501.0250, L100.0500 #### [facility] [address] [place], [address] RBC (Bld) [#/Vol] 3.79 10*6/uL Low 4.2-5.4 [facility] Comment on above: Performed By: #### L 501.0250, L100.0500 #### [facility] [address] [place], [address] RDW SD 42.0 fl Normal 35.1-43.9 [facility] Comment on above: Performed By: #### L 501.0250, L100.0500 #### [facility] [address] [place], [address] WBC (Bld) [#/Vol] 8.1 10*3/uL Normal 4.4-11.0 [facility] Comment on above: Performed By: #### L 501.0250, L100.0500 #### [facility] [address] [place], [address] Glucose Challenge Gest 1H 50 uvaldo 02-05-2021 GLU GEST 50g 1H 127 mg/dL Normal 70-140 [facility] Comment on above: Performed By: #### L 501.0250, L100.0500 #### [facility] [address] [place], [address] [place] Miscellaneous Sendouton 02-04-2021 [place] Miscellaneous Sendout SEE COMMENTS Normal [facility] Comment on above: Order Comment: GOKEY CMVP CMV ABS IGG AND IGM1.0 mL serum, refrig.?Order a CMV Avidity test if IgM is positive.?Provide an additional 0.5 mL of serum (1.5 mL total) Result Comment: Test Result Flag Unit RefValue Cytomegalovirus Ab, IgM and IgG, S Cytomegalovirus Ab, IgM, S Negative Negative Cytomegalovirus Ab, IgG, S Positive AB Negative Test Performed by: [facility] [address] [place] [address] [employer]: Dagoberto Guerrero M.D. Ph.D.; CLIA# [id number] Performed By: #### M [facility] ####[address] [phone] CMV PCR, Quantitativeon CMV PCR, Quantitative Release to patient->Automatic [id number]&Blood CMV PCR, Quantitative: NEGATIVE: No CMV DNA DETECTED. Source: [facility] Collected: 02/03/21 10:44 Site: Received : 02/03/21 11:15 CMV PCR, Quantitative FINAL 02/06/21 13:10 NEGATIVE: No CMV DNA DETECTED. - Method: PCR amplification with fluorescent probe detection using [employer] ASR CMV reagents from [employer]. - The quantitative range of this assay is 800 (2.9 log 10) to 400,000,000 (8.6 log 10) IU/mL with a limit of detection of 300 (2.5 log 10) IU/mL. - Comment: This test was developed and its performance determined by [facility]. It has not been cleared or approved by the U.S. Food and Drug Administration. The FDA has determined that such clearance or approval is not necessary. This test is used for clinical purposes. It should not be regarded as investigational or for research. Pursuant to the requirements of CLIA'88, this laboratory has established and verified the test's accuracy and precision. - Reviewed by: Mary Bazzi [facility] Comment on above: Performed By: #### C MVQN ####[address] [phone] Z Miscellaneous Sendouton Test Name Initial testing Normal [facility] Comment on above: Order Comment: 30 mL ACD-A whole blood AND 10 mL serum Test Name->IInitial testing of Maternal sample ONLY (Test code 5303) What is the sendout facility name, if known?->[facility] ([facility]) Performed By: #### Z MSO #### [facility] of [address] [address] MRI (SINGLE)on 021 MRI (SINGLE) PRELIMINARY REPORT: Bilateral lateral ventriculomegaly of 14 to 15 mm. Cerebellar hypoplasia. Corpu callosum is present. This Preliminary report was dictated by Dr. Tapia on 01/07/2021 9:51 AM. A Final report will be completed as soon as possible and any major discrepancy will be communicated to the referring physician by the interpreting radiologist. FINAL REPORT: MRI (SINGLE) CLINICAL HISTORY: EDC 05/19/21 ventriculomegaly COMPARISON: Examination correlated with report of obstetrical ultrasound performed on 12/25/2020 PROCEDURE COMMENTS: MRI of the fetus was performed without contrast, with attention to the brain. Examination performed at approximately 21-22 weeks of gestational age, as assessed from the above ultrasound. FINDINGS: Findings of : Cheng intrauterine gestation. Placenta: Anterior. Findings: position: Breech/oblique Number of vessels in umbilical cord: Three. Amniotic fluid volume: Normal. brain: There is bilateral lateral ventriculomegaly of about 14 mm. There is small amount of T2 hypointense material along the margins of the right lateral ventricle best seen in image 19 of series 36, concerning for intraventricular hemorrhage. There is no evidence of callosal agenesis. The ventricular septum is present. The gyration pattern is normal for age. The transverse cerebellar diameter is 19 mm, below the lower limits for normal for age. The vermis measures 9 mm craniocaudal and 6 mm AP, also below the lower limits for normal. There is no rotation of the cerebellar vermis or elevation o the torcula. Face: There is no obvious facial clefting. Ocular globes: Normal and symmetrical appearance. spine: Spine: Normal appearing. No sign of scoliosis or open neural tube defect. Conus: Normal in position. Body: Limited evaluation due to patient motion. Situs: Normal. Oropharynx/cervical airway: Distended with fluid. Lungs: Normal in size and signal. No diaphragmatic hernia. Liver: Normal. Adrenal glands: Normal. Kidneys: Normal. Small bowel: Normal. Colon: Normal. Meconium is present in the rectum. Urinary bladder: Normal. Evaluation of the extremities is limited due to motion artifacts. No gross limb deficiencies are noted, but subtle findings would be better assessedby ultrasound. Maternal findings: Mild right hydronephrosis. Visible maternal spine is unremarkable. IMPRESSION: 1. Bilateral lateral ventriculomegaly, 14 mm. T2 hypointense material within the right lateral ventricle, concerning for intraventricular hemorrhage. 2. Mild cerebellar hypoplasia. This report has been created using voice recognition software Signed by: Dr. Raj Tapia at 01/07/2021 16:57 Normal [facility] No Panel Informationon 08-07 PANEL NAME THIN PREP (QU) PAP W ITH HPV REFLEX Normal [facility]; [employer]. Laboratory - Urinalysison Glucose Test strip (U) [Mass/Vol] Negative Normal [facility] [employer]. Protein Ql (U) Negative Normal [facility].; [employer]. Laboratory - Urinalysison Glucose Test strip (U) [Mass/Vol] Negative Normal [facility].; [employer]. Protein Ql (U) Negative Normal [facility].; [employer]. Laboratory - Microbiology an d Antimicrobial susceptibilityon 05-30-2014 S. agalactiae Org specific cx Ql (Vag fld) CULTURE VAGINAL GROUP B Normal [facility].; [employer]. Laboratory - Urinalysison Glucose Test strip (U) [Mass/Vol] Negative Normal [facility].; [employer]. Protein Ql (U) Negative Normal [facility].; [employer]. Laboratory - Urinalysison Glucose Test strip (U) [Mass/Vol] Negative Normal [facility] [employer]. Protein Ql (U) Negative Normal [facility].; [employer]. Laboratory - Urinalysison Glucose Test strip (U) [Mass/Vol] Negative Normal [facility].; [employer]. Protein Ql (U) Negative Normal [place] [employer] [facility].; [employer], [place] [employer]. Laboratory - Chemistry and C hemistry - challengeon 03-14-2014 Glucose 1 Hr post 50 g glucose PO [Moles/Vol] GLUCOSE CHALLENGE 50GM 1 HOUR Normal [place] [employer] [facility].; [employer]. Glucose [Mass/Vol] 76 mg/dL Normal 70 - 140 mg/dL [facility] [employer] [facility].; [employer] [facility]. Laboratory - Hematology and Cell countson 03-14-2014 Hemoglobin (Bld) [Mass/Vol] 11.5 g/dL Abnormal 12.0 - 16.0 g/dL [place] [employer] [facility].; [employer]. Laboratory - Urinalysison Glucose Test strip (U) [Mass/Vol] Negative Normal [place] [employer] [facility].; [employer]. Protein Ql (U) trace Normal [place] [employer] [facility].; [employer]. Laboratory - Urinalysison Glucose Test strip (U) [Mass/Vol] Negative Normal [place] [employer] [facility].; [employer]. Protein Ql (U) Negative Normal [place] [employer] [facility].; [employer]. Laboratory - Chemistry and C hemistry - challengeon 12-24-2013 Bilirubin Ql (U) Negative Normal [place] [email or web address]. Ketones Ql (U) Negative Normal [place] [email or web address].; [employer]. pH (U) 5.5 [pH] Normal [place] [email or web address].; [employer]. Specific gravity (U) [Rel density] >=1.030 Normal [place] [email or web address].; [employer]. Urobilinogen Qn (U) 0.2 mg/dL Normal [facility].; [employer]. Laboratory - Hematology and Cell countson 12-24-2013 Hemoglobin Ql (U) Negative Normal [employer].; [employer]. Laboratory - Specimen inform ationon 12-24-2013 Appearance (U) Clear Normal [place] [email or web address].; [employer]. Color (U) yellow Normal [place] [email or web address].; [employer]. Laboratory - Urinalysison Glucose Test strip (U) [Mass/Vol] Negative Normal [employer].; [employer]. Leukocyte esterase Test strip Ql (U) small Abnormal [employer].; [employer]. Nitrite Ql (U) Negative Normal [employer].; [employer]. Protein Ql (U) Negative Normal [employer].; [employer]. Laboratoryon 11-29-2013 Obstetric 1996 panel (S+Bld) OB PANEL Normal [employer].; [employer]. Laboratory - Blood bankon ABO group Nom (Bld) A Normal [facility] [employer]; [employer]. Blood group antibody screen Ql Negative Normal [employer]. Rh Nom (Bld) Positive Normal [employer].; [employer]. Laboratory - Chemistry and C hemistry - challengeon 11-29-2013 Bilirubin Ql (U) Negative Normal [employer]. Ketones Ql (U) Negative Normal [employer]. pH (U) 5.5 [pH] Normal [employer]. Specific gravity (U) [Rel density] >=1.030 Normal [employer].; [employer]. TSH Qn 1.14 m[IU]/L Normal 0.34 - 5.60 {uIU/ml} [employer]. Urobilinogen Qn (U) 0.2 mg/dL Normal [facility] [employer].; [employer]. Laboratory - Hematology and Cell countson 11-29-2013 Basophils (Bld) [#/Vol] 0.00 {X10_3} Normal 0.00 - 0.10 {X10_3} [place] [email or web address].; [place] [email or web address]. Basophils/100 WBC (Bld) 0.4 % Normal 0.0 - 2.0 % [place] [employer] [facility].; [employer], [place] [employer]. Erythrocyte distribution width (RBC) [Ratio] 13.0 % Normal 12.0 - 15.6 % [place] [employer] [facility].; [place] [employer], [place] [employer] Hematocrit (Bld) [Volume fraction] 36.6 % Normal 34.0 - 46.0 % [place] [email or web address].; [place] [employer], [place] [employer] Hemoglobin (Bld) [Mass/Vol] 12.8 g/dL Normal 12.0 - 16.0 g/dL [facility] Hospital[facility].; [employer], [place] [employer]. Hemoglobin Ql (U) Negative Normal [place] [employer] [facility].; [place] [employer], [place] [employer] Lymphocytes (Bld) [#/Vol] 1.70 {X10_3} Normal 0.80 - 2.80 {X10_3} [place] [employer], [place] [employer].; [employer], [place] [employer]. Lymphocytes/100 WBC (Bld) 21.9 % Normal 20.0 - 45.0 % [place] [email or web address].; [employer], [place] [employer]. MCH (RBC) [Entitic mass] 30 pg Normal 27 - 33 pg [place] [email or web address].; [employer], [place] [employer]. MCHC (RBC) [Mass/Vol] 35 {X10_3} Normal 32 - 36 {X10_3} [employer].; [employer], [place] [employer]. MCV (RBC) [Entitic vol] 86 fL Normal 80 - 99 fL [employer].; [employer], [place] [employer]. Monocytes (Bld) [#/Vol] 0.60 {X10_3} Normal 0.20 - 1.00 {X10_3} [employer], [place] [employer].; [employer] Monocytes/100 WBC (Bld) 7.3 % Normal 0.0 - 10.0 % [employer].; [employer] Monocytes/100 WBC (Bld) 4 % Abnormal 0 - 0 % [facility] [employer] [facility].; [employer], [place] [employer]. Morphology Johnathon (Bld) [Interp] N/A Normal [facility].; [place] [employer] [facility], Inc[employer] Neutrophils (Bld) [#/Vol] 5.10 {X10_3} Normal 1.50 - 7.10 {X10_3} [place] [employer] Neutrophils/100 WBC (Bld) 66.0 % Normal 46.0 - 76.0 % [facility] Hospital[facility].; [employer] Platelet mean volume (Bld) [Entitic vol] 7.9 fL Normal 6.6 - 10.5 fL [place] [employer] [facility].; [employer] Platelets (Bld) [#/Vol] 210 {3/UL} Normal 150 - 450 {3/UL} [place] [email or web address].; [employer], [employer] RBC (Bld) [#/Vol] 4.26 {6/UL} Normal 4.10 - 5.3 0 {6/UL} [employer], [place] [employer].; [employer], [place] [employer]. WBC (Bld) [#/Vol] 7.8 {3/UL} Normal 4.5 - 10.8 {3/UL} [employer], [place] [employer].; [employer] Laboratory - Specimen inform ationon 11-29-2013 Appearance (U) Clear Normal [employer].; [employer] Color (U) n Normal [place] [employer] [facility].; [employer] Laboratory - Urinalysison Glucose Test strip (U) [Mass/Vol] Negative Normal [employer].; [employer] Leukocyte esterase Test strip Ql (U) Negative Normal [employer].; [employer] Nitrite Ql (U) Negative Normal [place] [employer], [employer] Protein Ql (U) Negative Normal [employer], [place] [employer].; [employer] No Panel Informationon 11-29 MANUAL DIFF N/A Normal [employer].; [facility] RDW/SD 38.5 fL Normal 36.0 - 50.[address] [facility]; [facility] 0.[address] [facility]; [facility] Laboratory - Microbiology an d Antimicrobial susceptibilityon 03-30-2011 S. pyogenes Ag EIA Ql (Throat) Negative Normal [facility]; [facility] Vital Signs Date Time Vital Sign Value Performing Clinician Facility 10-04-2024 08:48-0400 Body mass index (BMI) [Ratio] 23.07 kg/m2 Marlyn Plotts ADMINISTRATIVE SALES ASSISTANT.CNM Work Phone: [facility] 10-04-2024 08:48-0400 Body weight 55.79 kg Marlyn Plotts ADMINISTRATIVE SALES ASSISTANT.CNM Work Phone: [facility] 10-04-2024 08:48-0400 Diastolic blood pressure 64 mm[Hg] Marlyn Plotts ADMINISTRATIVE SALES ASSISTANT.CNM Work Phone: [facility] 10-04-2024 08:48-0400 Systolic blood pressure 100 mm[Hg] Marlyn Plotts ADMINISTRATIVE SALES ASSISTANT.CNM Work Phone: [facility] 09-06-2024 09:50-0400 Body mass index (BMI) [Ratio] 22.32 kg/m2 Charito Zaragoza MD Work Phone: [facility] 09-06-2024 09:50-0400 Body weight 53.98 kg Charito Zaragoza MD Work Phone: [facility] 09-06-2024 09:50-0400 Diastolic blood pressure 60 mm[Hg] Charito Zaragoza MD Work Phone: [facility] 09-06-2024 09:50-0400 Systolic blood pressure 104 mm[Hg] Charito Zaragoza MD Work Phone: [facility] 08-09-2024 11:01-0400 Body mass index (BMI) [Ratio] 21.57 kg/m2 Marlyn Plotts ADMINISTRATIVE SALES ASSISTANT.CNM Work Phone: [facility] 08-09-2024 11:01-0400 Body weight 52.16 kg Marlyn Plotts ADMINISTRATIVE SALES ASSISTANT.CNM Work Phone: [facility] 08-09-2024 11:01-0400 Diastolic blood pressure 64 mm[Hg] Marlyn Plotts ADMINISTRATIVE SALES ASSISTANT.CNM Work Phone: [facility] 08-09-2024 11:01-0400 Systolic blood pressure 112 mm[Hg] Marlyn Plotts ADMINISTRATIVE SALES ASSISTANT.CNM Work Phone: [facility] 07-18-2024 09:49-0400 Body height 155.5 cm Maximus Haury ADMINISTRATIVE SALES ASSISTANT.[employer] PROGRAMMER Work Phone: [facility] 07-18-2024 09:49-0400 Body mass index (BMI) [Ratio] 21.57 kg/m2 Maximus Haury ADMINISTRATIVE SALES ASSISTANT.[employer] PROGRAMMER Work Phone: [facility] 07-18-2024 09:49-0400 Body weight 52.16 kg Maximus Haury ADMINISTRATIVE SALES ASSISTANT.[employer] PROGRAMMER Work Phone: [facility] 07-18-2024 09:49-0400 Diastolic blood pressure 60 mm[Hg] Maximus Haury ADMINISTRATIVE SALES ASSISTANT.[employer] PROGRAMMER Work Phone: [facility] 07-18-2024 09:49-0400 Systolic blood pressure 114 mm[Hg] Maximus Haury ADMINISTRATIVE SALES ASSISTANT.[employer]IN[employer] SYSTEM[employer] PROGRAMMER Work Phone: [facility] 07-09-2024 14:50-0400 Body height 157.5 cm Maty Tolentino MD Work Phone: [facility] 07-09-2024 14:50-0400 Body mass index (BMI) [Ratio] 21.03 kg/m2 Maty Tolentino MD Work Phone: [facility] 07-09-2024 14:50-0400 Body weight 52.16 kg Maty Tolentino MD Work Phone: [facility] 07-09-2024 14:50-0400 Diastolic blood pressure 64 mm[Hg] Maty Tolentino MD Work Phone: [facility] 07-09-2024 14:50-0400 Systolic blood pressure 110 mm[Hg] Maty Ondina Tolentino MD Work Phone: [facility] 01-29-2022 10:40-0400 Body height 156.21 cm Tapan Hilton MD Work Phone: [employer]; [employer]. 01-29-2022 10:40-0400 Body mass index (BMI) [Ratio] 21.56 kg/m2 Tapan Hilton MD Work Phone: [employer]; [employer]. 01-29-2022 10:40-0400 Body surface area Derived from formula 1.51 m2 Tapan Hilton MD Work Phone: [employer]; [employer]. 01-29-2022 10:40-0400 Body temperature 97.8 [degF] Tapan Hilton MD Work Phone: [employer]; [employer]. Comment on above: Method: Tympanic 01-29-2022 10:40-0400 Body weight 52.62 kg Tapan Hilton MD Work Phone: [employer]; [employer]. 01-29-2022 10:40-0400 Diastolic blood pressure 60 mm[Hg] Tapan Hilton MD Work Phone: [employer]; [employer] Comment on above: Patient Position: Sitting; Cuff Location : Right Arm; Cuff Size: Standard 01-29-2022 10:40-0400 Heart rate 71 /min Tapan Hilton MD Work Phone: [employer]; [employer] Comment on above: Pattern: Regular 01-29-2022 10:40-0400 Inhaled oxygen concentration 20 % Tapan Hilton MD Work Phone: [employer]; [facility] Comment on above: Room air 01-29-2022 10:40-0400 SaO2% (BldA) [Mass fraction] 98 % Tapan Hilton MD Work Phone: [employer]; [employer]. 01-29-2022 10:40-0400 Systolic blood pressure 95 mm[Hg] Tapan Hilton MD Work Phone: [employer]; [employer]. Comment on above: Patient Position: Sitting; Cuff Location : Right Arm; Cuff Size: Standard 01-12-2022 08:47-0400 Body height 156.21 cm Tapan Hilton MD Work Phone: [employer]; [employer] 01-12-2022 08:47-0400 Body mass index (BMI) [Ratio] 21.75 kg/m2 Tapan Hilton MD Work Phone: [employer]; [employer]. 01-12-2022 08:47-0400 Body surface area Derived from formula 1.51 m2 Tapan Hilton MD Work Phone: [employer]; [employer] 01-12-2022 08:47-0400 Body weight 53.07 kg Tapan Hilton MD Work Phone: [employer]; [employer] 01-12-2022 08:47-0400 Diastolic blood pressure 74 mm[Hg] Tapan Hilton MD Work Phone: [employer]; [employer]. Comment on above: Patient Position: Sitting; Cuff Location : Left Arm; Cuff Size: Large 01-12-2022 08:47-0400 Heart rate 74 /min Tapan Hilton MD Work Phone: [employer]; [employer]. Comment on above: Pattern: Regular 01-12-2022 08:47-0400 Systolic blood pressure 110 mm[Hg] Tapan Hilton MD Work Phone: [employer].; [employer]. Comment on above: Patient Position: Sitting; Cuff Location : Left Arm; Cuff Size: Large 08-07-2014 09:58-0400 Body height 156.21 cm Vivian Gonsalez SUPERINTENDENT CUSTODIAN JANITOR Work Phone: [employer].; [employer]. 08-07-2014 09:58-0400 Body mass index (BMI) [Ratio] 22.12 kg/m2 Vivian Sunshine SUPERINTENDENT CUSTODIAN JANITOR Work Phone: [employer].; [employer]. 08-07-2014 09:58-0400 Body surface area Derived from formula 1.52 m2 Vivian Sunshine SUPERINTENDENT CUSTODIAN JANITOR Work Phone: [employer].; [employer]. 08-07-2014 09:58-0400 Body weight 53.98 kg Vivian Gonsalez SUPERINTENDENT CUSTODIAN JANITOR Work Phone: [employer].; [employer]. 08-07-2014 09:58-0400 Diastolic blood pressure 78 mm[Hg] Vivian Sunshine SUPERINTENDENT CUSTODIAN JANITOR Work Phone: [employer].; [employer]. Comment on above: Patient Position: Sitting; Cuff Location : Left Arm; Cuff Size: Standard 08-07-2014 09:58-0400 Heart rate 80 /min Vivian Gonsalez SUPERINTENDENT CUSTODIAN JANITOR Work Phone: [employer]; [employer]. Comment on above: Pattern: Regular 08-07-2014 09:58-0400 Systolic blood pressure 128 mm[Hg] Vivian Sunshine SUPERINTENDENT CUSTODIAN JANITOR Work Phone: [employer].; [employer]. Comment on above: Patient Position: Sitting; Cuff Location : Left Arm; Cuff Size: Standard 06-13-2014 13:28-0400 Body weight 61.24 kg Neilee L Vess SUPERINTENDENT CUSTODIAN JANITOR [employer].; [employer]. 06-13-2014 13:28-0400 Diastolic blood pressure 71 mm[Hg] Neilee L Vess SUPERINTENDENT CUSTODIAN JANITOR [employer].; [employer]. Comment on above: Patient Position: Sitting; Cuff Location : Right Arm; Cuff Size: Standard 06-13-2014 13:28-0400 Heart rate 89 /min Neilee L Vess SUPERINTENDENT CUSTODIAN JANITOR [email or web address].; [employer]. Comment on above: Pattern: Regular 06-13-2014 13:28-0400 Systolic blood pressure 127 mm[Hg] Neilee L Vess SUPERINTENDENT CUSTODIAN JANITOR [employer].; [employer]. Comment on above: Patient Position: Sitting; Cuff Location : Right Arm; Cuff Size: Standard 06-06-2014 10:30-0400 Body weight 60.78 kg Vivian Sunshine SUPERINTENDENT CUSTODIAN JANITOR Work Phone: [employer].; [employer]. 06-06-2014 10:30-0400 Diastolic blood pressure 72 mm[Hg] Vivian Sunshine SUPERINTENDENT CUSTODIAN JANITOR Work Phone: [employer].; [employer]. Comment on above: Patient Position: Sitting; Cuff Location : Left Arm; Cuff Size: Standard 06-06-2014 10:30-0400 Heart rate 98 /min Vivian Sunshine SUPERINTENDENT CUSTODIAN JANITOR Work Phone: [employer].; [employer]. Comment on above: Pattern: Regular 06-06-2014 10:30-0400 Systolic blood pressure 118 mm[Hg] Vivian Sunshine SUPERINTENDENT CUSTODIAN JANITOR Work Phone: [employer].; [employer]. Comment on above: Patient Position: Sitting; Cuff Location : Left Arm; Cuff Size: Standard 05-30-2014 09:31-0500 Body weight 61.69 kg Vivian Sunshine SUPERINTENDENT CUSTODIAN JANITOR Work Phone: [employer].; [employer]. 05-30-2014 09:31-0500 Diastolic blood pressure 71 mm[Hg] Vivian Sunshine SUPERINTENDENT CUSTODIAN JANITOR Work Phone: [employer].; [employer]. Comment on above: Patient Position: Sitting; Cuff Location : Left Arm; Cuff Size: Standard 05-30-2014 09:31-0500 Heart rate 100 /min Vivian Sunshine SUPERINTENDENT CUSTODIAN JANITOR Work Phone: [employer].; [employer]. Comment on above: Pattern: Regular 05-30-2014 09:31-0500 Systolic blood pressure 119 mm[Hg] Vivian Sunshine SUPERINTENDENT CUSTODIAN JANITOR Work Phone: [employer].; [employer]. Comment on above: Patient Position: Sitting; Cuff Location : Left Arm; Cuff Size: Standard 05-16-2014 09:20-0500 Body weight 60.33 kg Vivian Sunshine SUPERINTENDENT CUSTODIAN JANITOR Work Phone: [employer].; [employer]. 05-16-2014 09:20-0500 Diastolic blood pressure 74 mm[Hg] Vivian Sunshine SUPERINTENDENT CUSTODIAN JANITOR Work Phone: [employer].; [employer]. Comment on above: Patient Position: Sitting; Cuff Location : Left Arm; Cuff Size: Standard 05-16-2014 09:20-0500 Heart rate 99 /min Vivian Sunshine SUPERINTENDENT CUSTODIAN JANITOR Work Phone: [employer].; [employer]. Comment on above: Pattern: Regular 05-16-2014 09:20-0500 Systolic blood pressure 115 mm[Hg] Vivian Sunshine SUPERINTENDENT CUSTODIAN JANITOR Work Phone: [employer].; [employer]. Comment on above: Patient Position: Sitting; Cuff Location : Left Arm; Cuff Size: Standard 04-18-2014 09:11-0500 Body weight 56.93 kg Vivian Sunshien SUPERINTENDENT CUSTODIAN JANITOR Work Phone: [employer].; [employer]. 04-18-2014 09:11-0500 Diastolic blood pressure 66 mm[Hg] Vivian Sunshine SUPERINTENDENT CUSTODIAN JANITOR Work Phone: [employer].; [employer]. Comment on above: Patient Position: Sitting; Cuff Location : Left Arm; Cuff Size: Standard 04-18-2014 09:11-0500 Heart rate 92 /min Vivian Gonsalez SUPERINTENDENT CUSTODIAN JANITOR Work Phone: [employer].; [employer]. Comment on above: Pattern: Regular 04-18-2014 09:11-0500 Systolic blood pressure 106 mm[Hg] Vivian Gordony SUPERINTENDENT CUSTODIAN JANITOR Work Phone: [employer].; [employer]. Comment on above: Patient Position: Sitting; Cuff Location : Left Arm; Cuff Size: Standard 03-14-2014 11:39-0500 Body weight 53.52 kg Neilee L Vess SUPERINTENDENT CUSTODIAN JANITOR [employer].; [employer]. 03-14-2014 11:39-0500 Diastolic blood pressure 71 mm[Hg] Neilee L Vess SUPERINTENDENT CUSTODIAN JANITOR [employer].; [employer]. Comment on above: Patient Position: Sitting; Cuff Location : Left Arm; Cuff Size: Standard 03-14-2014 11:39-0500 Heart rate 91 /min Neilee L Vess SUPERINTENDENT CUSTODIAN JANITOR [employer].; [employer]. Comment on above: Pattern: Regular 03-14-2014 11:39-0500 Systolic blood pressure 103 mm[Hg] Neilee L Vess SUPERINTENDENT CUSTODIAN JANITOR [employer].; [employer]. Comment on above: Patient Position: Sitting; Cuff Location : Left Arm; Cuff Size: Standard 02-07-2014 16:06-0500 Body weight 51.26 kg Neilee L Vess SUPERINTENDENT CUSTODIAN JANITOR [employer].; [employer]. 02-07-2014 16:06-0500 Diastolic blood pressure 68 mm[Hg] Neilee L Vess SUPERINTENDENT CUSTODIAN JANITOR [employer].; [employer]. Comment on above: Patient Position: Sitting; Cuff Location : Left Arm; Cuff Size: Standard 02-07-2014 16:06-0500 Heart rate 89 /min Neilee L Vess SUPERINTENDENT CUSTODIAN JANITOR [employer].; [employer]. Comment on above: Pattern: Regular 02-07-2014 16:06-0500 Systolic blood pressure 107 mm[Hg] Neilee L Vess SUPERINTENDENT CUSTODIAN JANITOR [employer].; [employer]. Comment on above: Patient Position: Sitting; Cuff Location : Left Arm; Cuff Size: Standard 12-24-2013 13:38-0400 Body weight 47.63 kg Neilee L Vess SUPERINTENDENT CUSTODIAN JANITOR [employer].; [employer] 12-24-2013 13:38-0400 Diastolic blood pressure 79 mm[Hg] Neilee L Vess SUPERINTENDENT CUSTODIAN JANITOR [employer].; [employer]. Comment on above: Patient Position: Sitting; Cuff Location : Left Arm; Cuff Size: Standard 12-24-2013 13:38-0400 Heart rate 90 /min Neilee L Vess SUPERINTENDENT CUSTODIAN JANITOR [employer].; [employer]. Comment on above: Pattern: Regular 12-24-2013 13:38-0400 Systolic blood pressure 121 mm[Hg] Neilee L Vess SUPERINTENDENT CUSTODIAN JANITOR [employer].; [employer]. Comment on above: Patient Position: Sitting; Cuff Location : Left Arm; Cuff Size: Standard 11-29-2013 15:29-0400 Body weight 47.17 kg Neilee L Vess SUPERINTENDENT CUSTODIAN JANITOR [employer].; [employer]. 11-29-2013 15:29-0400 Diastolic blood pressure 74 mm[Hg] Neilee L Vess SUPERINTENDENT CUSTODIAN JANITOR [employer].; [employer]. Comment on above: Patient Position: Sitting; Cuff Location : Left Arm; Cuff Size: Standard 11-29-2013 15:29-0400 Heart rate 82 /min Neilee L Vess SUPERINTENDENT CUSTODIAN JANITOR [employer].; [employer]. Comment on above: Pattern: Regular 11-29-2013 15:29-0400 Systolic blood pressure 118 mm[Hg] Neilee L Vess SUPERINTENDENT CUSTODIAN JANITOR [employer].; [employer]. Comment on above: Patient Position: Sitting; Cuff Location : Left Arm; Cuff Size: Standard 08-26-2011 14:31-0400 Body height 156.21 cm Tapan Hilton MD Work Phone: [employer].; [employer]. 08-26-2011 14:31-0400 Body mass index (BMI) [Percentile] Per age and sex 52 % Tapan Hilton MD Work Phone: [employer]; [employer] 08-26-2011 14:31-0400 Body mass index (BMI) [Ratio] 21.19 kg/m2 Tapan Hilton MD Work Phone: [employer]; [employer] 08-26-2011 14:31-0400 Body surface area Derived from formula 1.5 m2 Tapan Hilton MD Work Phone: [employer]; [employer] 08-26-2011 14:31-0400 Body temperature 97.2 [degF] Tapan Hilton MD Work Phone: [employer]; [employer] Comment on above: Method: Tympanic 08-26-2011 14:31-0400 Body weight 51.71 kg Tapan Hilton MD Work Phone: [employer]; [employer] 08-26-2011 14:31-0400 Diastolic blood pressure 70 mm[Hg] Tapan Hilton MD Work Phone: [employer]; [employer] Comment on above: Patient Position: Sitting; Cuff Location : Left Arm; Cuff Size: Standard 08-26-2011 14:31-0400 Heart rate 81 /min Tapan Hilton MD Work Phone: [employer]; [employer] Comment on above: Pattern: Regular 08-26-2011 14:31-0400 Systolic blood pressure 110 mm[Hg] Tapan Hilton MD Work Phone: [employer]; [employer] Comment on above: Patient Position: Sitting; Cuff Location : Left Arm; Cuff Size: Standard 03-30-2011 10:37-0500 Body height 156.21 cm Tapan Hilton MD Work Phone: [employer]; [employer] 03-30-2011 10:37-0500 Body mass index (BMI) [Percentile] Per age and sex 61 % Tapan Hilton MD Work Phone: [employer]; [employer] 03-30-2011 10:37-0500 Body mass index (BMI) [Ratio] 21.75 kg/m2 Tapan Hilton MD Work Phone: [employer]; [employer] 03-30-2011 10:37-0500 Body surface area Derived from formula 1.51 m2 Tapan Hilton MD Work Phone: [employer]; [employer] 03-30-2011 10:37-0500 Body temperature 97.9 [degF] Tapan Hilton MD Work Phone: [employer]; [employer]. Comment on above: Method: Tympanic 03-30-2011 10:37-0500 Body weight 53.07 kg Tapan Hilton MD Work Phone: [employer]; [employer] 12-29-2009 13:37-0400 Body height 157.48 cm Tapan Hilton MD Work Phone: [employer]; [employer] 12-29-2009 13:37-0400 Body mass index (BMI) [Percentile] Per age and sex 25 % Tapan Hilton MD Work Phone: [employer]; [employer] 12-29-2009 13:37-0400 Body mass index (BMI) [Ratio] 18.47 kg/m2 Tapan Hilton MD Work Phone: [employer]; [employer]. 12-29-2009 13:37-0400 Body surface area Derived from formula 1.43 m2 Tapan Hilton MD Work Phone: [employer]; [employer] 12-29-2009 13:37-0400 Body temperature 97.4 [degF] Tapan Hilton MD Work Phone: [facility]; [facility]. Comment on above: Method: Tympanic 12-29-2009 13:37-0400 Body weight 45.81 kg Tapan Hilton MD Work Phone: [facility]; [employer] [facility]. Encounters Encounter Date Encounter Type Care Provider Facility Start: 11-01-2024 End: 11-01-2024 ambulatory SAE HOUSER Facility:[facility] Start: 10-05-2024 End: 10-05-2024 Telephone encounter Lexus Barrios APRN.CNM Work Phone: OB/Gynecology Comment on above: Medication Request Start: 10-04-2024 End: 10-04-2024 ambulatory MAXIMUS FLETCHER Facility:[facility] Start: 10-04-2024 End: 10-04-2024 Patient encounter procedure Whi Tech 1 Nurses Supervisor [facility] Maternal Medicine Comment on above: Encounter for loren sydnee screening for malformation using ultrasound (HCC) (Primary Dx); 20 weeks gestation of (HCC) Supervision of high risk in second trimester (HCC) (Primary Dx); 20 weeks gestation of (HCC) Start: 09-06-2024 End: 09-06-2024 Patient encounter procedure Charito Zaragoza MD Work Phone: OB/Gynecology Comment on above: Supervision of high risk in second trimester (HCC) (Primary Dx); 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 , currently (HCC); 16 weeks gestation of (HCC); Other migraine without status migrainosus, not intractable Start: 09-06-2024 End: 09-06-2024 ambulatory CHARITO ZARAGOZA Facility:[facility] Start: 08-09-2024 End: 08-09-2024 ambulatory MAXIMUS FLETCHER Facility:[facility] Start: 08-09-2024 End: 08-09-2024 Patient encounter procedure Marlyn Jaffe APRN.CNM Work Phone: OB/Gynecology Comment on above: Nausea and vomiting during (HCC) (Primary Dx); Supervision of high risk in second trimester (HCC); 12 weeks gestation of (HCC); Encounter for supervision of high risk in first trimester, antepartum (HCC) Encounter for maitea sydnee screening for malformation using ultrasound (HCC) (Primary Dx); 12 weeks gestation of (HCC) Start: 08-09-2024 End: 08-09-2024 ambulatory MAXIMUSDORI MARKSMAURO Facility:[facility] Start: 07-25-2024 End: 09-24-2024 Follow-up encounter Maximus Fletcher APRN.CNP Work Phone: OB/Gynecology Start: 07-18-2024 End: 07-18-2024 ambulatory MAXIMUSDORI FLETCHER Facility:[facility] Start: 07-18-2024 End: 07-18-2024 Patient encounter procedure Maximus Fletcher APRN.CNP Work Phone: OB/Gynecology Comment on above: Encounter for superv ision of high risk in first trimester, antepartum (HCC) (Primary Dx); 9 weeks gestation of (HCC); Screen for STD (sexually transmitted disease); Vaginal bleeding affecting early (HCC); 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 , currently (HCC); Heartburn during in first trimester ([facility]); Nausea and vomiting during (HCC) Start: 07-09-2024 End: 07-09-2024 ambulatory MATY TOLENTINO Facility:[facility] Start: 07-09-2024 End: 07-09-2024 Patient encounter procedure Maty Tolentino MD Work Phone: OB/Gynecology Comment on above: Vaginal bleeding aff ecting early (HCC) (Primary Dx); Spotting complicating , first trimester (HCC); Threatened (HCC); High risk due to history of previous obstetrical problem in first trimester ([facility]) Start: 05-02-2023 End: 05-02-2023 Medication Tapan Hilton MD Work Phone: [facility] Start: 03-23-2022 End: 03-23-2022 Orders Tapan Hilton MD Work Phone: [facility] Start: 01-29-2022 End: 01-29-2022 Office outpatient visit 15 minutes Tapan Hilton MD Work Phone: [employer] Start: 01-26-2022 ambulatory CHIKA BEDOLLA [facility] Start: 01-12-2022 End: 01-12-2022 Office outpatient new 30 minutes Tapan Hilton MD Work Phone: [employer] Start: 01-06-2022 End: 01-06-2022 ambulatory No Primary Care Physician Facility:[facility] Start: 04-20-2021 ambulatory SHANNAN SIDELL Facility:[facility] Start: 02-05-[address] Tapan Da [facility] y:[facility] Start: 2018 End: 2018 Historical Summary Tapan Hilton MD Work Phone: [employer] Start: 08-07-2014 End: 08-07-2014 Patient encounter procedure Tapan Hilton MD Work Phone: [employer] Start: 06-13-2014 End: 06-13-2014 Patient encounter procedure Tapan Hilton MD Work Phone: [employer] Start: 06-06-2014 End: 06-06-2014 Patient encounter procedure Tapan Hilton MD Work Phone: [employer] Start: 05-30-2014 End: 05-30-2014 Patient encounter procedure Tapan Hilton MD Work Phone: [employer] Start: 05-16-2014 End: 05-16-2014 Patient encounter procedure Tapan Hilton MD Work Phone: [employer] Start: 04-18-2014 End: 04-18-2014 Patient encounter procedure Tapan Hilton MD Work Phone: [employer] Start: 03-14-2014 End: 03-14-2014 Patient encounter procedure Tapan Hilton MD Work Phone: [employer] Start: 02-07-2014 End: 02-07-2014 Patient encounter procedure Tapan Hilton MD Work Phone: [employer] Start: 12-24-2013 End: 12-24-2013 Patient encounter procedure Tapan Hilton MD Work Phone: [employer] Start: 12-14-2013 End: 12-14-2013 Historical Summary Tapan Hilton MD Work Phone: [employer] Start: 11-29-2013 End: 11-29-2013 Patient encounter procedure Tapan Hilton MD Work Phone: [employer] Start: 08-26-2011 End: 08-26-2011 Patient encounter procedure Tapan Hilton MD Work Phone: [employer] Start: 03-30-2011 End: 03-30-2011 Patient encounter procedure Tapan Hilton MD Work Phone: [employer] Start: 12-29-2009 End: 12-29-2009 Patient encounter procedure Tapan Hilton MD Work Phone: [employer] Procedures Date Procedure Procedure Detail Performing Clinician Start: 10-04-2024 Us preg uterus after 1st trimest 03/28 gestation Maximus Fletcher APRN.[employer] MAINFRAME SYSTEMS PROGRAMMER Work Phone: Start: 08-09-2024 Antibody screen MAXIMUS PAULSON Comment on above: Order Comment: Speci men Type: BLOOD SPECIMEN Ordering Facility: [facility] Address: [address] [place] [address] Performed By: #### T SPN #### [facility] CLIA [id number] [address] [place] [address] [place] Start: 08-09-2024 Us preg uterus after 1st trimest 03/28 gestation Maximus Fletcher APRN.[employer] MAINFRAME SYSTEMS PROGRAMMER Work Phone: Start: 07-18-2024 Iadna chlamydia trachomatis amplified probe tq Maximus Fletcher APRN.[employer] MAIN[employer] SYSTEMS PROGRAMMER Work Phone: Start: 07-18-2024 Adult depression scr eening assessment Maximus Fletcher APRN.CNP Work Phone: Start: 08-07-2014 End: 08-07-2014 Microscopic examination of cervical Papanicolaou smear Tapan Hilton MD Work Phone: Comment on above: 08/07/14 neg Start: 06-13-2014 End: 06-13-2014 Ob care antepartum vag dlvr & Tapan Hilton MD Work Phone: Start: 06-06-2014 End: 06-06-2014 Ob care antepartum vag dlvr & Tapan Hilton MD Work Phone: Start: 05-30-2014 End: 05-30-2014 Ob care antepartum vag dlvr & Tapan Hilton MD Work Phone: Start: 05-16-2014 End: 05-16-2014 Ob care antepartum vag dlvr & Tapan Hilton MD Work Phone: Start: 04-18-2014 End: 04-18-2014 Ob care antepartum vag dlvr & Tapan Hilton MD Work Phone: Start: 03-14-2014 End: 03-14-2014 Ob care antepartum vag dlvr & Tapan Hilton MD Work Phone: Start: 02-07-2014 End: 02-07-2014 Ob care antepartum vag dlvr & Tapan Hilton MD Work Phone: Start: 12-24-2013 End: 12-24-2013 Ob care antepartum vag dlvr & Tapan Hilton MD Work Phone: Start: 11-29-2013 End: 11-29-2013 uterus 14 wk transabdl 03/28 gestat Tapan Hilton MD Work Phone: Start: 11-29-2013 End: 11-29-2013 Ob care antepartum vag dlvr & Tapan Hilton MD Work Phone: Plan of Treatment Date Care Activity Detail Author Start: 07-18-2029 Screening for malignant neoplasm of cervix Cervical Cancer Screening [facility] Start: 07-18-2025 Anxiety Screening Anxiety Screening [facility] Start: 07-18-2025 Depression Screening Depression Scre ening [facility] Start: 12-22-2024 RSV Vaccine (1 - Ris k 1-dose series) RSV Vaccine (1 - Risk 1-dose series) [facility] Start: 11-26-2024 Influenza vaccination [facility] Start: 11-01-2024 End: 11-01-2024 Patient encounter procedure 11/01/2024 8:30 AM EDT Routine Office Visit OB/Gynecology [address] [place], [place] [id number] Sae Houser MD [address] [facility] [place], [place] [id number] OB OB/Gynecology Comment on above: OB Start: 10-04-2024 End: 10-04-2024 Patient encounter procedure Maternal Medicine Comment on above: Anatomy Scan OB Routine Start: 09-06-2024 End: 09-06-2024 Patient encounter procedure OB/Gynecology Comment on above: OB Routine Start: 08-09-2024 End: 08-09-2024 Patient encounter procedure Maternal Medicine Comment on above: Nuchal OB Routine Start: 07-18-2024 End: 10-17-2024 ANEMIA REFLEX PANEL ANEMIA REFLEX PANEL Lab Routine Encounter for supervision of high risk in first trimester, antepartum (HCC) Expected: 07/18/2024, Expires: 10/17/2024 [facility] Work Phone: Comment on above: Expected: 07/18/2024 , Expires: 10/17/2024 Start: 07-18-2024 End: 10-17-2024 Hemoglobin A1c in Blood HEMOGLOBIN A1C Lab Routine Encounter for supervision of high risk in first trimester, antepartum (HCC) Expected: 07/18/2024, Expires: 10/17/2024 [facility] Comment on above: Expected: 07/18/2024 , Expires: 10/17/2024 Start: 07-18-2024 End: 10-17-2024 Hepatitis B virus surface Ag [Presence] in Serum HEPATITIS B SURFACE ANTIGEN Lab Routine Encounter for supervision of high risk in first trimester, antepartum (HCC) Expected: 07/18/2024, Expires: 10/17/2024 [facility] Comment on above: Expected: 07/18/2024 , Expires: 10/17/2024 Start: 07-18-2024 End: 10-17-2024 Hepatitis C virus Ab [Presence] in Serum HEPATITIS C ANTIBODY IA WITH CONFIRMATION Lab Routine Encounter for supervision of high risk in first trimester, antepartum (HCC) Expected: 07/18/2024, Expires: 10/17/2024 [facility] Comment on above: Expected: 07/18/2024 , Expires: 10/17/2024 Start: 07-18-2024 End: 10-17-2024 HIV 1+2 Ab [Presence] in Serum or Plasma by Immunoassay HIV 1/2 COMBO WITH REFLEX TO DIFFERENTIATION Lab Routine Encounter for supervision of high risk in first trimester, antepartum (HCC) Expected: 07/18/2024, Expires: 10/17/2024 [facility] Comment on above: Expected: 07/18/2024 , Expires: 10/17/2024 Start: 07-18-2024 End: 07-18-2025 OBSTETRIC ULTRASOUND WHI OBSTETRIC ULTRASOUND WHI Anc Imaging Routine Encounter for supervision of high risk in first trimester, antepartum (HCC) Expected: 07/18/2024, Expires: 07/18/2025 [facility] Comment on above: Expected: 07/18/2024 , Expires: 07/18/2025 Start: 07-18-2024 End: 10-17-2024 RUBELLA IGG ANTIBODY RUBELLA IGG ANTIBODY Lab Routine Encounter for supervision of high risk in first trimester, antepartum (HCC) Expected: 07/18/2024, Expires: 10/17/2024 [facility] Comment on above: Expected: 07/18/2024 , Expires: 10/17/2024 Start: 07-18-2024 End: 10-17-2024 SYPHILIS TREPONEMAL W/REFLEX SYPHILIS TREPONEMAL W/REFLEX Lab Routine Encounter for supervision of high risk in first trimester, antepartum (HCC) Expected: 07/18/2024, Expires: 10/17/2024 [facility] Comment on above: Expected: 07/18/2024 , Expires: 10/17/2024 Start: 07-18-2024 End: 10-17-2024 TYPE + SCREEN TYPE + SCREEN Blood Bank Routine Encounter for supervision of high risk in first trimester, antepartum (HCC) Expected: 07/18/2024, Expires: 10/17/2024 [facility] Comment on above: Expected: 07/18/2024 , Expires: 10/17/2024 Start: 07-18-2024 End: 07-18-2024 Patient encounter procedure 07/18/2024 9:30 AM EDT Initial Office Visit OB/Gynecology [address] [place] [address] Maximus Fletcher APRN.[employer] MAIN[employer] SYSTEMS PROGRAMMER [address] [place], [place] [id number] visit OB/Gynecology Comment on above: visit Start: 11-27-2023 Covid-19 Vaccine () Covid-19 Vaccine () [facility] Start: 11-27-2023 Influenza vaccination Influenza Vacc ine (#1) [facility] Start: 03-23-2022 End: 03-26-2022 Ct abdomen & pelvis w/contrast material Abdomen/Pelvis CT W/ Contrast per protocol (09391) Date: 23-Mar-2022 [facility], [facility], [facility]. Start: 2015 Screening for malignant neoplasm of cervix Cervical Cancer Screening [facility] Start: 2013 Hepatitis B Vaccine (1 of 3 - 19+ 3-dose series) Hepatitis B Vaccine (1 of 3 - 19+ 3-dose series) [facility] Start: 2013 Urine microalbumin profile DTaP,Tdap,Td Vaccine (1 - Tdap) [facility] Start: 2012 Anxiety Screening Anxiety Screening [facility] Start: 2012 [facility] Start: 2012 Hepatitis C screening Hepatitis C Sc julisa [facility] Start: 2012 HIV screening HIV Screening [facility] Bacteria identified in Urine by Culture BACTERIAL CULTURE, URINE Microbiology Routine Encounter for supervision of high risk in first trimester, antepartum (HCC) 07/18/2024 10:21 AM EDT [facility] PAP TEST PAP TEST Lab Debra senior Encounter for supervision of high risk in first trimester, antepartum (HCC) 07/18/2024 10:21 AM EDT [facility] 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; [facility] 10-24-2001 haemophilus influenz ae type b vaccine, PRP-T conjugate Tapan Hilton MD Work Phone: [facility]; [facility] 08-28-2001 varicella virus vaccine Tapan Hilton MD Work Phone: [facility]; [facility] 11-11-1999 diphtheria, tetanus toxoids and acellular pertussis vaccine Tapan Hilton MD Work Phone: [facility]; [facility] 11-11-1999 measles, mumps and rubella virus vaccine Tapan Hilton MD Work Phone: [facility]; [place] [employer] [facility] 11-11-1999 poliovirus vaccine, inactivated Tapan Hilton MD Work Phone: [facility]; [place] [employer] [facility] 01-12-1996 diphtheria, tetanus toxoids and acellular pertussis vaccine Tapan Hilton MD Work Phone: [facility]; [place] [email or web address] 01-12-1996 haemophilus influenz ae type b vaccine, PRP-T conjugate Tapan Hilton MD Work Phone: [facility]; [place] [employer] [facility] 01-12-1996 hepatitis B vaccine, pediatric or pediatric/adolescent dosage Tapan Hilton MD Work Phone: [facility].; [facility] 01-12-1996 measles, mumps and rubella virus vaccine Tapan Hilton MD Work Phone: [facility].; [facility] 01-12-1996 poliovirus vaccine, inactivated Tapan Hilton MD Work Phone: [facility].; [facility] 1994 diphtheria, tetanus toxoids and acellular pertussis vaccine Tapan Hilton MD Work Phone: [facility].; [place] [employer] [facility] 1994 haemophilus influenz ae type b vaccine, PRP-T conjugate Tapan Hilton MD Work Phone: [facility].; [facility] 1994 hepatitis B vaccine, pediatric or pediatric/adolescent dosage Tapan Hilton MD Work Phone: [facility].; [place] [employer] [facility] 1994 trivalent poliovirus vaccine, live, oral Tapan Hilton MD Work Phone: [facility].; [place] [email or web address] 1994 diphtheria, tetanus toxoids and acellular pertussis vaccine Tapan Hilton MD Work Phone: [facility].; [place] [employer] [facility] 1994 haemophilus influenz ae type b vaccine, PRP-T conjugate Tapan Hilton MD Work Phone: [place] [employer] [facility].; [place] [employer] [facility] 1994 hepatitis B vaccine, pediatric or pediatric/adolescent dosage Tapan Hilton MD Work Phone: [place] [employer] [facility].; [place] [email or web address] 1994 trivalent poliovirus vaccine, live, oral Tapan Hilton MD Work Phone: [facility]; [place] [employer] [facility] Payers Date Payer Category Payer Private Health Insurance [employer] P PO TPA [id number] 2021 Private Health Insurance [id number] 2021 Self-pay 1994 Unknown [id number] Unknown [id number] Unknown [id number] Unknown [id number] Unknown Social History Date Type Detail Facility Start: 07-09-2024 End: 10-04-2024 Child(krystina) Child(krystina) [facility].; [employer] Tobacco Use: Tobacco Use: ; N ever smoker. [employer].; [employer] Start: 1995 Female [facility] Start: 07-09-2024 Never smoked tobacco [facility] [employer]; [employer] Work Phone: Start: 07-09-2024 Tobacco use and exposure Smokeless tobacco non-user [facility] Start: 07-09-2024 End: 10-04-2024 Alcoholic beverage intake Lifetime non-drinker (finding) [facility] Start: 07-09-2024 End: 10-04-2024 Tobacco use panel [facility] Start: 1995 Sex assigned at Not on file [facility] Start: 07-17-2024 Education 8 [facility] Start: 05-26-2024 [facility] Start: 07-17-2024 Gender identity Identifies as female gender (finding) [facility] Start: 07-17-2024 Sexual orientation Heterosexual (kasey espinal) [facility] Goals Date Patient Goal Desired Activity /State Personal health goal Clinical Notes 01-07-2021 to 10-05-2024 Telephone Encounter - Joan Parada RN - 10/05/2024 9:59 AM EDTTelephone Encounter - Joan Parada RN - 10/05/2024 9:59 AM EDTTelephone Encounter - Tamra Caballero RN - 10/05/2024 9:09 AM EDT Note Date & Type Note Facility 10-05-2024 Telephone encounter Note Patient notified. Joan Parada RN The following approved medication requests have been transmitted electronically. Requested Prescriptions Signed Prescriptions Disp Refills famotidine (PEPCID) 20 mg tablet 60 tablet 3 Sig: Take 1 tablet by mouth two times a day. Authorizing Provider: MAXIMUS FLETCHER Pharmacy Information [place] [address] [facility] 10-05-2024 Miscellaneous Notes Patient notified. Joan Parada RN The following approved medication requests have been transmitted electronically. Requested Prescriptions Signed Prescriptions Disp Refills famotidine (PEPCID) 20 mg tablet 60 tablet 3 Sig: Take 1 tablet by mouth two times a day. Authorizing Provider: MAXIMUS FLETCHER Pharmacy Information [place] [address] Patient 20w6d, calling requesting Rx of Pepcid. Her original Rx was discontinued and she states she has had another flare of acid reflux. Please file if appropriate. Tamra Caballero RN documented in this encounter [facility] 10-05-2024 Telephone encounter Note Patient 20w6d, calling requesting Rx of Pepcid. Her original Rx was discontinued and she states she has had another flare of acid reflux. Please file if appropriate. Tamra Caballero RN [facility] 10-04-2024 Progress note Formatting of t his note might be different from the original. S: Atiya Mancia is a 29 year old female who presents at 20 weeks gestation for a routine visit. Just completed anatomy US. Started feeling movements 2 weeks ago. N/V resolved. Appetite increased. Denies headache, visual changes, chest pain, shortness of breath, vaginal bleeding, leakage of fluid, or dysuria. Feeling well, no complaints. O: See flow sheet Gen: No apparent distress Abd: Gravid, non tender ASSESSMENT/PLAN: 1. Supervision of high risk in second trimester 2. 20 weeks gestation of - Continue vitamin daily - Opted out of ASA - N/V resolved - Heartburn resolved - RTO 4 weeks Marlyn Jaffe APRN.CNM [facility] 10-04-2024 Miscellaneous Notes S: Atiya Mancia is a 29 year old female who presents at 20 weeks gestation for a routine visit. Just completed anatomy US. Started feeling movements 2 weeks ago. N/V resolved. Appetite increased. Denies headache, visual changes, chest pain, shortness of breath, vaginal bleeding, leakage of fluid, or dysuria. Feeling well, no complaints. O: See flow sheet Gen: No apparent distress Abd: Gravid, non tender ASSESSMENT/PLAN: 1. Supervision of high risk in second trimester 2. 20 weeks gestation of - Continue vitamin daily - Opted out of ASA - N/V resolved - Heartburn resolved - RTO 4 weeks Marlyn Jaffe APRN.CNM documented in this encounter [facility] 10-04-2024 Instructions Derrick Zamora MA - 10/04/2024 8:47 AM EDT SEQUENTIAL SCREENINGS The [facility] offers sequential screenings for women who are interested in screenings for chromosomal abnormalities and certain defects during a . The sequential screen combines ultrasound and blood tests to determine the risk of chromosomal abnormalities, including Down's Syndrome (Trisomy 21) and Trisomy 18, as well as open neural tube defects including spina bifida. Ultrasound examination is performed between 11 weeks and 13 weeks gestational age. Blood tests are drawn after the ultrasound and again later in the between 15 and 21 weeks gestational age. Please let your physician know if you are interested in this testing. It will require an appointment with our psychology technician. This is not an ultrasound performed by a physician in our office during a routine visit. SIGNS AND SYMPTOMS OF LABOR 1. Contractions every 10 minutes or more often 2. Clear, pink, or brownish fluid (water) leaking from vagina 3. Feeling that baby is pushing down, pressure 4. Low, dull backache 5. Cramps that feel like a period 6. Cramps with or without diarrhea If you notice any of the above symptoms, contact our office at [phone] and ask to speak with a nurse. After hours, you can call doctors registry at [phone] OR call [facility] at [phone] and ask to have the doctor phone engineer paged. If you consider this an emergency, dial 9-1-7 or go to your nearest emergency department. NEED HELP? Are you dealing with a violent or abusive relationship? Are you a victim of rape or sexual assult? Call [facility] ([facility] 24 hour Crisis Hotline: 514.995.2362 or 504-215-3168. MANUAL Your Guide to a Healthy manual is now on-line. Visit the [email or web address] to download your free copy documented in this encounter [facility] 09-06-2024 Progress note Formatting of t his note might be different from the original. KJ - S: Atiya denies LOF, contractions or vaginal bleeding. She reports increased migraine headaches. She stopped drinking coffee. O: 16w5d, see flow sheet SENSITIVE EXAM: Sensitive exam not performed. 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 Reviewed headache precautions. Anatomy US scheduled. Charito Zaragoza MD [facility] 09-06-2024 Miscellaneous Notes KJ - S: Atiya denies LOF, contractions or vaginal bleeding. She reports increased migraine headaches. She stopped drinking coffee. O: 16w5d, see flow sheet SENSITIVE EXAM: Sensitive exam not performed. 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 Reviewed headache precautions. Anatomy US scheduled. Charito Zaragoza MD documented in this encounter [facility] 09-06-2024 Shelby Jackson MA - 09/06/2024 10:01 AM EDT SEQUENTIAL SCREENINGS The [facility] offers sequential screenings for women who are interested in screenings for chromosomal abnormalities and certain defects during a . The sequential screen combines ultrasound and blood tests to determine the risk of chromosomal abnormalities, including Down's Syndrome (Trisomy 21) and Trisomy 18, as well as open neural tube defects including spina bifida. Ultrasound examination is performed between 11 weeks and 13 weeks gestational age. Blood tests are drawn after the ultrasound and again later in the between 15 and 21 weeks gestational age. Please let your physician know if you are interested in this testing. It will require an appointment with our psychology technician. This is not an ultrasound performed by a physician in our office during a routine visit. SIGNS AND SYMPTOMS OF LABOR 1. Contractions every 10 minutes or more often 2. Clear, pink, or brownish fluid (water) leaking from vagina 3. Feeling that baby is pushing down, pressure 4. Low, dull backache 5. Cramps that feel like a period 6. Cramps with or without diarrhea If you notice any of the above symptoms, contact our office at [phone] and ask to speak with a nurse. After hours, you can call doctors registry at [phone] OR call [facility] at [phone] and ask to have the doctor phone engineer paged. If you consider this an emergency, dial 9-0-0 or go to your nearest emergency department. NEED HELP? Are you dealing with a violent or abusive relationship? Are you a victim of rape or sexual assult? Call [facility] ([place]) 24 hour Crisis Hotline: 178.674.1814 or 891-522-5487. MANUAL Your Guide to a Healthy manual is now on-line. Visit [email or web address] to download your free copy documented in this encounter [facility] 08-09-2024 Progress note Formatting of t his note might be different from the original. S: Atiya Mancia is a 29 year old female who presents at 12 weeks gestation for a routine visit. Just completed 1st trimester ultrasound. C/O occasional nausea and acid reflux. Denies headache, visual changes, chest pain, shortness of breath, vaginal bleeding, leakage of fluid, or dysuria. Feeling well, no complaints. O: See flow sheet Gen: No apparent distress Abd: Gravid, non tender ASSESSMENT/PLAN: 1. Nausea and vomiting during 2. Supervision of high risk in second trimester 3. 12 weeks gestation of 4. Encounter for supervision of high risk in first trimester, antepartum - Start ASA nightly - Continue vitamin - Pepcid 20 mg PO BID - acid reflux - labs today - Declines aneuploidy screening - RTO 4 weeks or sooner if needed Marlyn Jaffe APRN.CNM [facility] 08-09-2024 Miscellaneous Notes S: Atiya Mancia is a 29 year old female who presents at 12 weeks gestation for a routine visit. Just completed 1st trimester ultrasound. C/O occasional nausea and acid reflux. Denies headache, visual changes, chest pain, shortness of breath, vaginal bleeding, leakage of fluid, or dysuria. Feeling well, no complaints. O: See flow sheet Gen: No apparent distress Abd: Gravid, non tender ASSESSMENT/PLAN: 1. Nausea and vomiting during 2. Supervision of high risk in second trimester 3. 12 weeks gestation of 4. Encounter for supervision of high risk in first trimester, antepartum - Start ASA nightly - Continue vitamin - Pepcid 20 mg PO BID - acid reflux - labs today - Declines aneuploidy screening - RTO 4 weeks or sooner if needed Marlyn Jaffe APRN.CNM documented in this encounter [facility] 08-09-2024 Instructions Emily Thompson LPN - 08/09/2024 10:32 AM EDT SEQUENTIAL SCREENINGS The [facility] offers sequential screenings for women who are interested in screenings for chromosomal abnormalities and certain defects during a . The sequential screen combines ultrasound and blood tests to determine the risk of chromosomal abnormalities, including Down's Syndrome (Trisomy 21) and Trisomy 18, as well as open neural tube defects including spina bifida. Ultrasound examination is performed between 11 weeks and 13 weeks gestational age. Blood tests are drawn after the ultrasound and again later in the between 15 and 21 weeks gestational age. Please let your physician know if you are interested in this testing. It will require an appointment with our psychology technician. This is not an ultrasound performed by a physician in our office during a routine visit. SIGNS AND SYMPTOMS OF LABOR 1. Contractions every 10 minutes or more often 2. Clear, pink, or brownish fluid (water) leaking from vagina 3. Feeling that baby is pushing down, pressure 4. Low, dull backache 5. Cramps that feel like a period 6. Cramps with or without diarrhea If you notice any of the above symptoms, contact our office at [phone] and ask to speak with a nurse. After hours, you can call doctors registry at [phone] OR call [facility] at [phone] and ask to have the doctor phone engineer paged. If you consider this an emergency, dial 9-1-1 or go to your nearest emergency department. NEED HELP? Are you dealing with a violent or abusive relationship? Are you a victim of rape or sexual assult? Call [facility] ([place]) 24 hour Crisis Hotline: 205.793.3481 or 296-497-8169. MANUAL Your Guide to a Healthy manual is now on-line. Visit the [email or web address] [email or web address] to download your free copy SEQUENTIAL SCREENINGS The [facility] offers sequential screenings for women who are interested in screenings for chromosomal abnormalities and certain defects during a . The sequential screen combines ultrasound and blood tests to determine the risk of chromosomal abnormalities, including Down's Syndrome (Trisomy 21) and Trisomy 18, as well as open neural tube defects including spina bifida. Ultrasound examination is performed between 11 weeks and 13 weeks gestational age. Blood tests are drawn after the ultrasound and again later in the between 15 and 21 weeks gestational age. Please let your physician know if you are interested in this testing. It will require an appointment with our psychology technician. This is not an ultrasound performed by a physician in our office during a routine visit. SIGNS AND SYMPTOMS OF LABOR 1. Contractions every 10 minutes or more often 2. Clear, pink, or brownish fluid (water) leaking from vagina 3. Feeling that baby is pushing down, pressure 4. Low, dull backache 5. Cramps that feel like a period 6. Cramps with or without diarrhea If you notice any of the above symptoms, contact our office at [phone] and ask to speak with a nurse. After hours, you can call [employer] registry at [phone] OR call [facility] at [phone] and ask to have the doctor phone engineer paged. If you consider this an emergency, dial 9-1-6 or go to your nearest emergency department. NEED HELP? Are you dealing with a violent or abusive relationship? Are you a victim of rape or sexual assult? Call [facility] ([place]) 24 hour Crisis Hotline: 622.742.6031 or 825-332-2136. MANUAL Your Guide to a Healthy manual is now on-line. Visit the [email or web address] to download your free copy documented in this encounter [facility] 07-17-2024 Instructions Maximus Fletcher APRN.[employer] PROGRAMMER - 07/17/2024 3:11 PM EDT Please select the following link to access the [facility] Your Guide to a Healthy . [email or web address] Please select the following link to access the [facility] Your Guide to a Healthy . [email or web address] MORNING SICKNESS IN by Jacque Perrin M.D. for [employer] As you may already know, morning sickness can often be more appropriately called evening sickness or jiteo-dhacwx-ul-the-day sickness. While there are the lisbeth few, most women (50-90%) experience some degree of nausea, some have vomiting, and a few develop a severe form of vomiting during called hyperemesis gravidarum. What causes the nausea and vomiting of ? We can't explain why some people feel fine and others are green for months. Even the same woman may feel vastly different in each . There is some relationship between nausea and the level of the hormone hCG. In twin pregnancies, and in other situations where the hCG is greater than expected, nausea and vomiting tend to be worse. In a destined for miscarriage, hCG levels tend to be low, and nausea is often less severe. This being said, a lack of nausea doesn't guarantee that the is destined for miscarriage. The fact that nausea and vomiting are often signs of a healthy can offer a silver lining in the dark cloud of miserable nausea. How long will the nausea last? Fortunately, for most women, nausea and vomiting are a first trimester event, peaking at week 9-10 and waning by week 14-16. When you are feeling bad the weeks can go by slowly but most moms do feel tremendously better by the middle of the . Whether morning sickness is a brief experience or lasts through most of the , there are treatments that can make the weeks or months more tolerable. What can you do about it? Diet: See what works for you. Try eating bland dry foods, and avoid fatty or spicy foods. It is okay to eat a less than perfectly balanced diet in the first trimester. Have your liquids separately from dry foods. Try sports drinks, water, clear juices, Reymundo-aid, or non-caffeinated tea. Avoid carbonated beverages that fill up your stomach. Try eating lots of little meals. If you tend to feel sick when you first wake up, leave crackers next to the bed for a quick snack before rising. Keeping healthy snacks with you all day to nibble when you feel queasy can sometimes even prevent nausea from starting. vitamins and nausea: Pre- vitamins can sometimes worsen nausea in . While folate is necessary, especially early in the , it comes as a smaller pill that many people find more tolerable than the complete vitamin pill. Ask your practitioner if it is okay to temporarily replace vitamins and iron with just a folate pill if you find a significant worsening in the level of your nausea from the vitamins. Alternative therapies: Acupressure may be used to treat nausea in , and is not known to have any risks for the fetus. Wristbands (marketed for seasickness) that put pressure on an acupressure point at the wrist are often available at drugstores or travel stores. Saulo root is used for nausea in many traditional cultures. Some women take fresh grated saulo or saulo tablets. It is possible that the pill form contains other ingredients or contaminants, so you may want to try fresh saulo first. Medications: Emetrol is the only nausea medication approved for use in . It is available over the counter and is soothing to the stomach. A prescription medication called Bendectin was available in the -1979's and was shown to be safe in , but the company stopped marketing it in the [place] due to the costs of liability coverage. Bendectin contained 10 milligrams of vitamin B6 and 10 milligrams of Doxylamine. Two tablets were given at bedtime and a total of up to 4 tablets could be used in a 24-hour period. Interestingly, Unisom , which contains a higher dose (25 mg.) of the same medication, Doxylamine, is currently marketed as an dttd-bsr-gjyfvbf sleeping pill. Ask your practitioner if creating a vitamin B6/Doxylamine combination with mcwo-tyk-eldpbum medications would be safe for you. Prescription medications like Compazine and Phenergan can be used if the benefits outweigh possible risks, but these have not been clearly shown to be safe in . Zofran , an expensive anti-nausea medication often used to treat nausea from chemotherapy, can also be used. Can I throw up so much it harms the baby? The act of vomiting cannot hurt your fetus, which is protected inside the uterus. If you get dehydrated or develop a metabolic imbalance, this can be unhealthy. As long as you can keep down liquids, you and your baby will generally do all right. Eat when you feel able. If you are unable to keep anything down, or if you notice potential signs of dehydration such as lightheadedness, or concentrated and/or infrequent urination, call your practitioner. Some women need brief hospital admission for intravenous fluids and anti-nausea medications if their condition becomes severe. This severe form of nausea and vomiting is called Hyperemesis Gravidarum. As with many symptoms of , remind yourself that this, too, shall pass, and you'll have a wonderful baby to show for it! TREATMENT OPTIONS, SHORT VERSION: Frequent small meals Hydrate throughout day [employer] wrist pressure point applicators Saulo root (powdered, in capsules) 250mg four times a day Vitamin B6 25 mg tablet three times a day Also may be taken with half a tablet of Unisom three times a day (Doxylamine 12.5 mg) If severe (weight loss, dehydration), call us and come in for IV hydration and possible medication in the form of injections. Prescription medications such as Phenergan, Compazine, Reglan documented in this encounter [facility] 07-17-2024 Note HNO ID: [id number] Author: MAXIMUS FLETCHER APRN.CNP Service: ? Author Type: Nurse Practitioner Type: Progress Notes Filed: 07/18/2024 10:17 Note Text: Technology Support Analyst offered: Patient declines. INITIAL OB ASSESSMENT HPI: Atiya is a 29 year old White here to establish Obstetrical Care. Patient's last menstrual period was 05/12/2024. from OB Dating Form. was planned Complaints: Vaginal bleeding OB History Gravida4 Para3 Term3 Preterm0 AB0 Living3 SAB0 IAB0 Ectopic0 Multiple0 Live Births3 Previous history: Prior : never History of 4th degree laceration: No History of shoulder dystocia: No History of Hypertensive disorders including pre-eclampsia or gestational hypertension: No History of gestational diabetes: No Patient's Risk Screening for delivery: Have you had a prior cheng between 20w and 36w6d? No How many pregnancies have you had before? 3 Did you have a previous baby with a GBS Infection? No Please select all that apply for any prior : N/A MEDICAL/PSYCHOSOCIAL HISTORY: History of hemorrhage or bleeding concerns: No Thyroid Disease: No History of chronic hypertension: No History of pre-existing diabetes: No No results found for: ABORHD No weight on file for this encounter. Last Pap: 2021 History of abnormal pap: No Prior treatment for cervical dysplasia: none. Last HPV: never done History of STDs: None Partner History of STDs: None Did you have a partner with Herpes? No Tobacco use: No E-Cigarette/Vaping Use: No Caffeine use: No Drug use: No Alcohol use: No Multivitamin with Folic acid: Yes Would refuse blood transfusion if medically necessary: No Social Needs: How often does this describe you? I don't have enough money to pay my bills: Never Within the past 12 months, have you worried that your food would run out before you had money to buy more? Never In the past 12 months, has lack of reliable transportation kept you from going to medical appointments or work, or from getting things needed for daily living? Never In the past 12 months, have you had any concerns about having a place to live, or about the condition or quality of your housing? Never Would you like more information on any of the following (please check all that apply)? Not interested Social History: Do you have any history of depression, anxiety, PTSD, or other mood problems? No Do you have a history of abuse or trauma that may impact your experience? No Are you currently employed? No Depression/Anxiety Screening: denies symptoms of depression. OB Depression and Anxiety Screening- This Encounter Over the past 2 weeks have you felt down, depressed, or hopeless? Negative Over the past two weeks, have you felt little interest or pleasure in doing things?? Negative Feeling nervous, anxious or on edge 0-Not at all Not being able to stop or control worrying 0-Not al all Anxiety Pre-Screening Total (If >/= 3 additional questions will be reviewed) 0 Genetic Screening: Partner present: No Patient verbalized knowledge of partner family health history: Yes Do you or your partner have any personal or family history of defects not previously discussed: No Do you have history of a complicated by anomaly, genetic condition, or demise: No Preeclampsia Risk Screening: Screening for prevention of preeclampsia: High risk factors: None Moderate risk ractors: None OB Risk Screening: Completed, no positive findings documented. Marital Status: Partner: Name: Chiquis Age: 32 Occupation: Construction Gender: Male PAST MEDICAL HISTORY Diagnosis Date NEGATIVE MEDICAL HISTORY No past surgical history on file. No current outpatient medications on file. No current facility-administered medications for this visit. Allergies As of Date: 07/18/2024 (No Known Allergies) Fully Assessed 07/09/2024 Does patient have penicillin allergy: No REVIEW OF SYSTEMS: GENERAL: Negative for: Fever or Chills HEENT: Negative for: Headache, Impaired Vision, Ringing in Ears, Nosebleeds NECK: Negative for: Swelling, Pain, Stiffness RESPIRATORY: Negative for: Cough, Shortness of breath, Wheezing GASTROINTESTINAL: Negative for: Constipation, Diarrhea, Blood in stool + heartburn, nausea MUSCULOSKELETAL: Negative for: Muscle or joint pain, stiffness, Joint swelling NEUROLOGIC/PSYCHIATRIC: Negative for: Weakness, Paralysis, Numbness, Tingling, Tremor, Anxiety, Depression, Memory loss SKIN: Negative for: Rash, Itching GENITOURINARY: Negative for: vaginal itching, vaginal discharge, hematuria or dysuria SENSITIVE EXAM: The sensitive examination was discussed with the Patient or Patient's Authorized Regional Extension Service Specialist. As applicable, any other physician, advance practice provider, medical student, or other health professional student that will be obs (more content not included)... [facility] 07-17-2024 History of Presen t illness Narrative Technology Support Analyst offered: Patient declines. INITIAL OB ASSESSMENT HPI: Atiya is a 29 year old White here to establish Obstetrical Care. Patient's last menstrual period was 05/12/2024. from OB Dating Form. was planned Complaints: Vaginal bleeding OB History Gravida4 Para3 Term3 Preterm0 AB0 Living3 SAB0 IAB0 Ectopic0 Multiple0 Live Births3 Previous history: Prior : never History of 4th degree laceration: No History of shoulder dystocia: No History of Hypertensive disorders including pre-eclampsia or gestational hypertension: No History of gestational diabetes: No Patient's Risk Screening for delivery: Have you had a prior cheng between 20w and 36w6d? No How many pregnancies have you had before? 3 Did you have a previous baby with a GBS Infection? No Please select all that apply for any prior : N/A MEDICAL/PSYCHOSOCIAL HISTORY: History of hemorrhage or bleeding concerns: No Thyroid Disease: No History of chronic hypertension: No History of pre-existing diabetes: No No results found for: ABORHD No weight on file for this encounter. Last Pap: 2021 History of abnormal pap: No Prior treatment for cervical dysplasia: none. Last HPV: never done History of STDs: None Partner History of STDs: None Did you have a partner with Herpes? No Tobacco use: No E-Cigarette/Vaping Use: No Caffeine use: No Drug use: No Alcohol use: No Multivitamin with Folic acid: Yes Would refuse blood transfusion if medically necessary: No Social Needs: How often does this describe you? I don't have enough money to pay my bills: Never Within the past 12 months, have you worried that your food would run out before you had money to buy more? Never In the past 12 months, has lack of reliable transportation kept you from going to medical appointments or work, or from getting things needed for daily living? Never In the past 12 months, have you had any concerns about having a place to live, or about the condition or quality of your housing? Never Would you like more information on any of the following (please check all that apply)? Not interested Social History: Do you have any history of depression, anxiety, PTSD, or other mood problems? No Do you have a history of abuse or trauma that may impact your experience? No Are you currently employed? No Depression/Anxiety Screening: denies symptoms of depression. OB Depression and Anxiety Screening- This Encounter Over the past 2 weeks have you felt down, depressed, or hopeless? Negative Over the past two weeks, have you felt little interest or pleasure in doing things? Negative Feeling nervous, anxious or on edge 0-Not at all Not being able to stop or control worrying 0-Not al all Anxiety Pre-Screening Total (If >/= 3 additional questions will be reviewed) 0 Genetic Screening: Partner present: No Patient verbalized knowledge of partner family health history: Yes Do you or your partner have any personal or family history of defects not previously discussed: No Do you have history of a complicated by anomaly, genetic condition, or demise: No Preeclampsia Risk Screening: Screening for prevention of preeclampsia: High risk factors: None Moderate risk ractors: None OB Risk Screening: Completed, no positive findings documented. Marital Status: Partner: Name: Chiquis Age: 32 Occupation: Construction Gender: Male PAST MEDICAL HISTORY Diagnosis Date NEGATIVE MEDICAL HISTORY No past surgical history on file. No current outpatient medications on file. No current facility-administered medications for this visit. Allergies As of Date: 07/18/2024 (No Known Allergies) Fully Assessed 07/09/2024 Does patient have penicillin allergy: No REVIEW OF SYSTEMS: GENERAL: Negative for: Fever or Chills HEENT: Negative for: Headache, Impaired Vision, Ringing in Ears, Nosebleeds NECK: Negative for: Swelling, Pain, Stiffness RESPIRATORY: Negative for: Cough, Shortness of breath, Wheezing GASTROINTESTINAL: Negative for: Constipation, Diarrhea, Blood in stool + heartburn, nausea MUSCULOSKELETAL: Negative for: Muscle or joint pain, stiffness, Joint swelling NEUROLOGIC/PSYCHIATRIC: Negative for: Weakness, Paralysis, Numbness, Tingling, Tremor, Anxiety, Depression, Memory loss SKIN: Negative for: Rash, Itching GENITOURINARY: Negative for: vaginal itching, vaginal discharge, hematuria or dysuria SENSITIVE EXAM: The sensitive examination was discussed with the Patient or Patient's Authorized Regional Extension Service Specialist. As applicable, any other physician, advance practice provider, medical student, or other health professional student that will be observing or involved in the sensitive examination for educational or training purposes was discussed with the Patient or Authorized Regional Extension Service Specialist. The Patient or Authorized Regional Extension Service Specialist has agreed to proceed with the sensitive examination. (Sensitive examination includes inspection and/or palpation of the breasts, pelvis, prostate and anorectal regions). PHYSICAL EXAM: BP 114/60 Ht 5' 1.224 (1.56m) Wt 115 lb (52.2kg) LMP 05/12/2024 BMI 21.57 kg/(m^2). GENERAL: pleasant in no apparent distress DERMATOLOGY: Normal, without lesions, non-icteric, and non-hirsute NECK: Supple, full range of motion, no adenopathy, and thyroid normal CHEST: Normal inspiratory effort BREAST: soft, non-tender, symmetric, no dominant mass, normal nipple-areolar complex, no lymphadenopathy, and no nipple discharge ABDOMEN: soft, non-tender, and no masses NEURO: alert and oriented x3,exam grossly non-focal PELVIS: External genitalia normal without lesions. Perineal body intact. No vaginal or cervical lesions. Cervix closed. Uterus 9 week size. No adnexal masses or tenderness. Clinical Pelvimetry: Pelvimetry clinically assessed as adequate Limited OB ultrasound exam: cardiac activity confirmed, already had POCUS ASSESSMENT: 29 year old at Unknown wks gestational age PLAN: 1) Patient oriented to practice. Patient given new OB orientation folder. Discussed nutrition, folic acid supplementation, dietary guidelines, exercise, smoking, alcohol, caffeine, and drug use. Discussed gestational weight gain guidelines. Discussed routine OB labs including STD/HIV. Discussed how to access Your guide to a health and the Customer Service Technician. Discussed hemoglobin electrophoresis. Patient: Declines Reviewed midwifery and coding compliance manager services that are available. 2) Screening: Hemoglobin A1C: ordered Baby Aspirin: The patient has been counseled about the potential benefits of low dose aspirin in and our recommendation that this be offered to all patients, regardless of whether they meet the high risk criteria specified above. She Accepts Aneuploidy Screening: Discussed aneuploidy screening, nuchal translucency/first trimester early anatomy ultrasound and NIPT. The risks/benefits and limitations of NIPT/aneuploidy screening were reviewed including the potential for false negative and false positive results. The availability of genetic counseling was reviewed. Information on aneuploidy screening was provided. The patient chooses to proceed with First trimester early anatomy ultrasound (12-13w6d) Myriad Carrier Screening: Discussed myriad carrier screening. We discussed the availability of professional-society guided carrier screening and reviewed the conditions screened and limitations of screening. The availability of genetic counseling was reviewed. Information on carrier screening was provided. The patient Declines 3) Patient offered option of Virtual Visits. Patient unsure. May consider in future. ACTIVE PROBLEM LIST Encounter for Supervision of High Risk in First Trimester, Antepartum ([facility]) - 07/18/2024 Comment: Care Checklist Vaccines: [] Flu vaccine [] declined [] RSV vaccine 32 0/7 - 36 09/01 (Nov - Apr) [] declined [] COVID vaccine [] declined [] TDaP 27-36 [] declined First trimester: [x] Dating US [] 1st tri labs [x] Pap smear [] Carrier screening [x] declined [] NIPT screening [x] declined [] First trimester anatomy scan [] declined [x] universal ASA ordered (start 12w-16w) [] declined [] M Power Consult [] not indicated [] declined Second trimester: [] Anatomy scan [] Mode of Delivery - [] Feeding - [] Pump ordered [] Diabetes screen [] CBC, RPR [] Behavioral Health Screening Third trimester (28-30 weeks): [] Consent [] Contraception [] Director Financial Systems [] TeamBirth handout Third trimester (36-40 weeks): [] GBS [] Presentation - [] Scheduled [] yes - Hibiclens, pre-op instructions, CBC, T&S ordered [] no [] H&P [] Preferences worksheet [] Scanned in EMR Vaginal Bleeding Affecting Early ([facility]) - 07/18/2024 Comment: July 18, 2024 Resolved. To monitor symptoms. Maximus Fletcher APRN.[employer] MAINFRAME SYSTEMS PROGRAMMER History of Anomaly in Prior , Currently ([facility]) - 07/18/2024 Comment: July 18, 2024 Previous : baby with ventriculomegaly. Was monitored by MFM. Maximus Fletcher APRN.CNP Nausea and Vomiting During ([facility]) - 07/18/2024 Comment: 07/18/24 Vitamin B6 and Unisom doses reviewed. To notify if prescription is needed. Maximus Fletcher APRN.CNP Heartburn During in First Trimester ([facility]) - 07/18/2024 Comment: July 18, 2024 Rx for Pepcid sent. Maximus Fletcher APRN.CNP Follow up in 3 weeks or sooner prn. Plan for NT scan between 12w0d and 13w6d gestation. Maximus Fletcher APRN.[employer] MAINFRAME SYSTEMS PROGRAMMER documented in this encounter [facility] 07-09-2024 Instructions Maty Rodríguez MD - 07/09/2024 3:18 PM EDT - Continue taking your vitamins daily. - Avoid sexual intercourse until the bleeding completely stops. - Next follow-up appointment is scheduled for next week. - call if heavy vaginal bleeding documented in this encounter [facility] 07-09-2024 Note HNO ID: [id number] Author: MATY RODRÍGUEZ MD Service: ? Author Type: Physician Type: Progress Notes Filed: 07/09/2024 15:48 Note Text: Obstetrics and Gynecology [place] MANAGER UROLOGY Visit Subjective Recording using [employer] software for draft documentation of the visit was discussed with the patient/authorized sales representative health insurance; all questions welcomed and answered. Patient/authorized sales representative health insurance agreed to proceed CHIEF COMPLAINT: Bleeding in HPI: The patient is a 29-year-old female, , presenting with vaginal spotting. The patient reports onset of spotting last , initially presenting as dark brown fluid and progressing to bright red fluid, which was worse yesterday but has since slowed. Yesterday, she required a pad, though it was not filled. She describes the bleeding as more than normal but denies passage of clots or tissue. She denies recent intercourse. She is experiencing abdominal cramping and nausea but denies emesis, diarrhea, constipation, dysuria, hematuria, pruritus, burning, or abnormal discharge. She notes that during her previous pregnancies, she experienced spotting but no cramping. Her last menstrual period was on 05/12/2024, and she believes she is approximately 8 weeks and 2 days . She confirms that her periods are regular. She has had three term vaginal deliveries, with her last being high-risk due to ventriculomegaly. She has two boys and one girl. She is currently taking vitamins. HISTORY: OB History Gravida3 Para3 Term3 Preterm0 AB0 Living3 SAB0 IAB0 Ectopic0 Multiple0 Live Births3 Bread Wrapping Machine Feeder History LMP: 05/12/2024 Age at Menarche: Age at First : Age at Menopause: Bread Wrapping Machine Feeder History Comments: Sexual Activity: Yes; Male Contraception: None PAST MEDICAL HISTORY Diagnosis Date NEGATIVE MEDICAL HISTORY History reviewed. No pertinent surgical history. No family history on file. Social History Tobacco Use Smoking status: Never Smokeless tobacco: Never Vaping Use Vaping status: Never Used Substance Use Topics Alcohol use: Never Drug use: Never No current outpatient medications on file. No current facility-administered medications for this visit. ALLERGIES No Known Allergies REVIEW OF SYSTEMS: Gastrointestinal: (+) abdominal cramping, (+) nausea, (-) vomiting, (-) diarrhea, (-) constipation Genitourinary: (+) vaginal bleeding (spotting), (-) dysuria, (-) hematuria, (-) itching, (-) burning, (-) abnormal discharge Objective SENSITIVE EXAM: The sensitive examination was discussed with the Patient or Patient's Authorized Regional Extension Service Specialist. As applicable, any other physician, advance practice provider, medical student, or other health professional student that will be observing or involved in the sensitive examination for educational or training purposes was discussed with the Patient or Authorized Regional Extension Service Specialist. The Patient or Authorized Regional Extension Service Specialist has agreed to proceed with the sensitive examination. (Sensitive examination includes inspection and/or palpation of the breasts, pelvis, prostate and anorectal regions). PHYSICAL EXAM: BP 110/64 Ht 5' 2 (1.58m) Wt 115 lb (52.2kg) LMP 05/12/2024 BMI 21.03 kg/(m2). General: Well-appearing. : No blood in the vagina. cervix thick and closed Imaging: (Today) Ultrasound: - Single intrauterine 8w 1day - heart rate: 164 bpm - No subchorionic hemorrhage identified - Cervix unremarkable Assessment AND Plan ASSESSMENT AND PLAN: 1. Spotting complicating , first trimester ([facility]) (O26.851) Spotting began last , initially dark brown, progressing to bright red, with the heaviest flow yesterday. No passage of clots or tissue. Speculum exam revealed no active bleeding. Transvaginal ultrasound confirmed a single intrauterine with a heartbeat of 164 bpm, consistent with an estimated gestational age of 8 weeks and 2 days. No evidence of subchorionic hemorrhage observed. - Advised pelvic rest, including abstinence from intercourse, until bleeding completely resolves. - Continue vitamins. - Follow-up appointment scheduled for next week. 2. High risk due to history of previous obstetrical problem in first trimester ([facility]) (O09.291) Previous was high-risk due to ventriculomegaly. Current is being monitored closely. Continue routine care with close monitoring due to history of high-risk . Medical Decision Making: Problems: Moderate: New problem with uncertain prognosis and Acute illness with systemic symptoms Data: Unique test(s) ordered: 1 Risk: Low: Low risk from testing/treatment Medical Decision Making Level: 3 - Low Maty Weiss MD OB point of care ultrasound was performed. See imaging tab for details. Maty Weiss MD [facility] 07-09-2024 History of Presen t illness Narrative Images from the original note were not included. Obstetrics and Gynecology [place] MANAGER UROLOGY Visit Subjective Recording using [employer] software for draft documentation of the visit was discussed with the patient/authorized sales representative health insurance; all questions welcomed and answered. Patient/authorized sales representative health insurance agreed to proceed CHIEF COMPLAINT: Bleeding in HPI: The patient is a 29-year-old female, , presenting with vaginal spotting. The patient reports onset of spotting last , initially presenting as dark brown fluid and progressing to bright red fluid, which was worse yesterday but has since slowed. Yesterday, she required a pad, though it was not filled. She describes the bleeding as more than normal but denies passage of clots or tissue. She denies recent intercourse. She is experiencing abdominal cramping and nausea but denies emesis, diarrhea, constipation, dysuria, hematuria, pruritus, burning, or abnormal discharge. She notes that during her previous pregnancies, she experienced spotting but no cramping. Her last menstrual period was on 05/12/2024, and she believes she is approximately 8 weeks and 2 days . She confirms that her periods are regular. She has had three term vaginal deliveries, with her last being high-risk due to ventriculomegaly. She has two boys and one girl. She is currently taking vitamins. HISTORY: OB History Gravida3 Para3 Term3 Preterm0 AB0 Living3 SAB0 IAB0 Ectopic0 Multiple0 Live Births3 Bread Wrapping Machine Feeder History LMP: 05/12/2024 Age at Menarche: Age at First : Age at Menopause: Bread Wrapping Machine Feeder History Comments: Sexual Activity: Yes; Male Contraception: None PAST MEDICAL HISTORY Diagnosis Date NEGATIVE MEDICAL HISTORY History reviewed. No pertinent surgical history. No family history on file. Social History Tobacco Use Smoking status: Never Smokeless tobacco: Never Vaping Use Vaping status: Never Used Substance Use Topics Alcohol use: Never Drug use: Never No current outpatient medications on file. No current facility-administered medications for this visit. ALLERGIES No Known Allergies REVIEW OF SYSTEMS: Gastrointestinal: (+) abdominal cramping, (+) nausea, (-) vomiting, (-) diarrhea, (-) constipation Genitourinary: (+) vaginal bleeding (spotting), (-) dysuria, (-) hematuria, (-) itching, (-) burning, (-) abnormal discharge Objective SENSITIVE EXAM: The sensitive examination was discussed with the Patient or Patient's Authorized Regional Extension Service Specialist. As applicable, any other physician, advance practice provider, medical student, or other health professional student that will be observing or involved in the sensitive examination for educational or training purposes was discussed with the Patient or Authorized Regional Extension Service Specialist. The Patient or Authorized Regional Extension Service Specialist has agreed to proceed with the sensitive examination. (Sensitive examination includes inspection and/or palpation of the breasts, pelvis, prostate and anorectal regions). PHYSICAL EXAM: BP 110/64 Ht 5' 2 (1.58m) Wt 115 lb (52.2kg) LMP 05/12/2024 BMI 21.03 kg/(m^2). General: Well-appearing. : No blood in the vagina. cervix thick and closed Imaging: (Today) Ultrasound: - Single intrauterine 8w 1day - heart rate: 164 bpm - No subchorionic hemorrhage identified - Cervix unremarkable Assessment & Plan ASSESSMENT AND PLAN: 1. Spotting complicating , first trimester ([facility]) (O26.851) Spotting began last , initially dark brown, progressing to bright red, with the heaviest flow yesterday. No passage of clots or tissue. Speculum exam revealed no active bleeding. Transvaginal ultrasound confirmed a single intrauterine with a heartbeat of 164 bpm, consistent with an estimated gestational age of 8 weeks and 2 days. No evidence of subchorionic hemorrhage observed. - Advised pelvic rest, including abstinence from intercourse, until bleeding completely resolves. - Continue vitamins. - Follow-up appointment scheduled for next week. 2. High risk due to history of previous obstetrical problem in first trimester ([facility]) (O09.291) Previous was high-risk due to ventriculomegaly. Current is being monitored closely. Continue routine care with close monitoring due to history of high-risk . Medical Decision Making: Problems: Moderate: New problem with uncertain prognosis and Acute illness with systemic symptoms Data: Unique test(s) ordered: 1 Risk: Low: Low risk from testing/treatment Medical Decision Making Level: 3 - Low Maty Weiss MD OB point of care ultrasound was performed. See imaging tab for details. Maty Weiss MD Technology Support Analyst offered: Patient declines. documented in this encounter [facility] 07-09-2024 Note HNO ID: [id number] Author: MATY RODRÍGUEZ MD Service: ? Author Type: Physician Type: Progress Notes Filed: 07/09/2024 15:48 Note Text: Technology Support Analyst offered: Patient declines. [facility] 05-19-2021 Note Department of Obstet rics and Gynecology Delivery Discharge Summary Admission on 05/19/2021 10:00 AM Hospital course: IOL at 40w1d. Fetus with known bilat ventriculomegaly. Pitocin was started. Pt eventually delivered vaginally [see Notes for details]. Surgical Operations & Procedures: Date of delivery: 05/19/21 Procedure: augmented vaginal Anesthesia: none Laceration(s): 2nd degree Delivery Complications: double nuchal cord easily reduced. EBL: 250 cc Pertinent Findings & Procedures: Information for the patient's : Jean Mancia [[id number]] male Weight: N/A Apgars: Information for the patient's : Jean Mancia [[id number]] Course: Uncomplicated Infant: Live male , circumcision not done due to patient anatomy Blood Type/Rh: A POS Antibody Screen: Antibody Screen Date Value Ref Range Status 05/19/2021 NEG NA Final Rubella: No results found for: RUBELLAIGG Contraception: no method : yes VTE Prophylaxis: Not Indicated Meds at Discharge: Medication List START taking these medications ibuprofen 600 MG tablet Commonly known as: ADVIL;MOTRIN Take 1 tablet by mouth every 6 hours CONTINUE taking these medications therapeutic multivitamin-minerals tablet Where to Get Your Medications These medications were sent to [facility] [address] [phone] - F [phone] [address] [facility] [address] ? ibuprofen 600 MG tablet Activity: Activity as tolerated Diet: Regular diet Follow-up Appointments: _x_ visit _ _ incision check _ _ blood pressure check _ _ blood sugar check/ 2-hr GTT _x_ depression screen _ _ other: Condition on discharge: Stable Discharge to: Home Discharge date: 05/21/21 Discharge Dx: 1. S/p vaginal delivery at 40w1d 2. ventriculomegaly 3. CMV IgG positive 40 weeks gestation of [Z3A.40] Patient Active Problem List Diagnosis (none) - all problems resolved or deleted Comments: Home care, Follow-up care and control were reviewed. Signs and symptoms of mastitis and Depression were reviewed. The patient is to notify her physician if any of these occur. [facility] 04-09-2021 Note Ms Atiya Mancia is mallika ng referred to me for a Neurological Consultation from Maternal Medicine regarding cerebral ventriculomegaly. She is currently 34 weeks . Her fetus was noted to have ventriculomegaly on ultrasounds. She had a MRI on 01/07/2022 which showed moderate ventriculomegaly with the cerebral ventricles measuring 14 mm each. Her subsequent ultrasounds have shown that the ventricles have enlarged further and her last ultrasound on 03/30/21 showed that the ventricles measured 17 mm ( right) and 24 mm ( left). Her ultrasound today reported no change in the size of the ventricles. She denies any infections / trauma during . I have reviewed the MRI, the lateral ventricles are enlarged. The third and fourth ventricles are of normal. I have discussed and shown the MRI pictures to the Gavino's. Her 6 year old son has septo optic dysplasia. I shared with Mr and Mrs Mancia that the above MRI findings are very concerning. Possible etiology could be congenital infection, genetic abnormalities or metabolic abnormalities. The baby may need a WELDER FITTER APPRENTICE shunt to address the ventriclomegaly . There is increased risk of the baby to have severe developmental delay, intractable seizures and poor neurologic outcome. Close monitoring with ultrasounds is recommended. An appropriate diagnostic test including a Marvin MRI will be done after . At this time there is no intervention available to be offered to reverse / slow this process. I spent ample time answering family's questions and have encouraged them to call me if they have any questions. The duration of the office visit was 60 minutes, with >; 50% of the time spent with education and counseling. [facility] 02-03-2021 Note Follow up FTC from Consultation has been requested by Dr. Da Silva Reason for Referral Follow up ventriculomegaly History: (Detailed history is noted in the genetic counselor's note) Pertinent historic issues: See past note from last consultation The ultrasound performed at this visit confirmed the previous findings and we talked about improvement of the ventricular measurements today. Please refer to the ultrasound report for full details. Genetic Counseling Summary I discussed with the patient the following issues: 1. We talked about the potential of neurology appointment this and previously had discussed an MRI. They decline currently and would reconsider if these measurements are increasing or >=15mm 2. They previously have declined diagnostic testing 3. We talked about the low utility of both TORCH and NAIT maternal testing but feel as though this may be helpful for future and they were agreeable to having this done today 4. I also talked about increased incidence of GDM in ventriculomegaly in patients and recommend an early GCT now as opposed to waiting for traditional 28 week time period Follow Up She expressed understanding of the above information. Recommendations and [facility] Plan of Care: [facility] Plan of Care Diagnosis: Ventriculomegaly, suspected absent CSP. MRI 01/07/21 confirmed bilateral ventriculomegaly concern for possible intraventricular hemorrhage(right) and mild cerebellar hypoplasia no comment on CSP in final report NAIT work-up and infection studies sent 02/03/21. Aneuploidy screening declined. Plan: 1. Continued obstetrical care with her primary custodial worker is recommended. 2. Follow up q4 weeks to evaluate biometric parameters and ventricles ([employer] OR [employer] GUN[employer]RE OBSERVER). These are planned with our [place] location. 3. surveillance as follows: once weekly BPP and weekly evaluation of ventricles (ARTILLERY OR [employer]AL GUNFIRE OBSERVER) beginning at 32 weeks. Planning of surveillance is dependent on evolving ventricle measurement. 4. consultation with Pediatric Neurology may be considered, depending on evolving ventricle measurement (discussed if worsening or >15mm) 5. Delivery location recommendations dependent on evolving ventricle measurements. 6. Mode of delivery is based on the usual obstetrical indications. In the presence of ventriculomegaly, operative vaginal delivery should be avoided. 7. Timing of delivery is based on the usual obstetrical indications. 8. Please send placenta to Pathology for evaluation. 9. Neonatology/Director Financial Systems to evaluate infant and to determine nursery placement and to determine if additional evaluation is indicated. 10. head imaging and consultation with Pediatric Neurology within 1 month of age or sooner if clinically indicated. Please call [phone] to schedule. Indicate that you were followed by the [facility] when scheduling. 11. Consider referral to Medical Genetics should additional concerns be noted after delivery. The food safety auditor or patient can request this consultation. Call [phone] to schedule. Indicate that you were followed by the [facility] when scheduling. 12. Additional follow up as clinically indicated. The total patient time of the visit was 25 minutes, of which greater than 50% of the time was spent counseling and coordinating care. Lizette Angel MD [facility] 01-07-2021 Note MFM genetic counseli calli note Consultation has been requested by Dr. Da Silva Reason for Referral 19 week ventriculomegaly History: (Detailed history is noted in the genetic counselor's note) Pertinent historic issues: Prior child with septo-optic dysplasia, see genetic counselor note as well today [employer]ist descent Declined any testing for aneuploidy up to this time Updates MRI performed on 01/07/21 results are pending The ultrasound performed at this visit confirmed the previous findings of bilateral ventriculomegaly. Please refer to the ultrasound report for full details. Genetic Counseling Summary I discussed with the patient the following issues: 1. We talked about differences between diagnostic and screening testing 2. We talked about infectious etiologies including CMV and TOXO 3. Aneuploidy and comprehensive carrier screening was discussed 4. We talked about possible scenarios with the such as advancing measurements requiring evaluation for intervention at with the possibility of MICHAEL to avoid separation from Mom after delivery 5. I also discussed the importance of COVID vaccination today with the couple. They received a vaccination information sheet as well Follow Up She expressed understanding of the above information. Recommendations and Treatment Center Plan of Care: [facility] Plan of Care Diagnosis: Ventriculomegaly, suspected absent CSP. MRI pending and performed on 01/07/21 Consider aneuploidy screening, maternal infectious serologies, and invasive testing. All declined today Plan: 1. Continued obstetrical care with her primary custodial worker is recommended. 2. Follow up q4 weeks to evaluate biometric parameters and ventricles ([employer] OBSERVER). These are planned with the [facility] and/or our [place] location. 3. surveillance as follows: once weekly BPP and weekly evaluation of ventricles ([employer]ILL[employer] OR [employer] OBSERVER) beginning at 32 weeks. Planning of surveillance is dependent on evolving ventricle measurement. 4. consultation with Pediatric Neurology may be recommended, pending MRI. 5. Delivery location recommendations dependent on evolving ventricle measurements 6. Mode of delivery is based on the usual obstetrical indications. In the presence of ventriculomegaly, operative vaginal delivery should be avoided. 7. Timing of delivery is based on the usual obstetrical indications. 8. Please send placenta to Pathology for evaluation. 9. Neonatology/Director Financial Systems to evaluate infant and to determine nursery placement and to determine if additional evaluation is indicated. 10. head imaging and consultation with Pediatric Neurology within 1 month of age or sooner if clinically indicated. Please call [phone] to schedule. Indicate that you were followed by the [facility] when scheduling. 11. Consider referral to Medical Genetics should additional concerns be noted after delivery. The food safety auditor or patient can request this consultation. Call [phone] to schedule. Indicate that you were followed by the [facility] when scheduling. 12. Additional follow up as clinically indicated. Her Plan of Care summary will be distributed. The total patient time of the visit was 60 minutes, of which greater than 50% of the time was spent counseling and coordinating care. Lizette Angel MD [facility] Evaluation note Diagnosis Vaginal bleeding affecting early ([facility])- Primary Spotting complicating , first trimester ([facility]) Threatened ([facility]) Threatened , unspecified as to episode of care High risk due to history of previous obstetrical problem in first trimester ([facility]) [facility] Diagnosis Encounter for supervision of high risk in first trimester, antepartum ([facility])- Primary 9 weeks gestation of ([facility]) state, incidental Screen for STD (sexually transmitted disease) Screening examination for venereal disease Vaginal bleeding affecting early ([facility]) 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 , currently ([facility]) with other poor obstetric history Heartburn during in first trimester ([facility]) Nausea and vomiting during ([facility]) documented [facility] [place] [facility] Diagnosis Nausea and vomiting during ([facility])- Primary Supervision of high risk in second trimester ([facility]) Unspecified high-risk 12 weeks gestation of ([facility]) state, incidental Encounter for supervision of high risk in first trimester, antepartum ([facility]) documented [facility] this encounter [facility] [place] [facility]* Diagnosis Encounter for screening for malformation using ultrasound ([facility])- Primary 12 weeks gestation of ([facility]) state, incidental documented in this encounter [facility] [place] [facility]* Diagnosis Supervision of high risk in second trimester ([facility])- Primary Unspecified high-risk 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 , currently ([facility]) with other poor obstetric history 16 weeks gestation of ([facility]) state, incidental Other migraine without status migrainosus, not intractable * Assessment & Plan Note - Charito Zaragoza MD - 09/06/2024 10:14 AM EDTAssociated Problem(s): 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 , currently (HCC) documented in this encounter [facility] note* Diagnosis Supervision of high risk in second trimester (HCC)- Primary Unspecified high-risk 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 , currently (HCC) with other poor obstetric history 16 weeks gestation of (HCC) state, incidental Other migraine without status migrainosus, not intractable Encounter for screening for malformation using ultrasound ([facility])- Primary 20 weeks gestation of (HCC) state, incidental documented in this encounter [facility] note* Diagnosis Supervision of high risk in second trimester (HCC)- Primary Unspecified high-risk 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 , currently (HCC) with other poor obstetric history 16 weeks gestation of (HCC) state, incidental Other migraine without status migrainosus, not intractable Supervision of high risk in second trimester (HCC)- Primary Unspecified high-risk 20 weeks gestation of ([facility]) state, incidental documented in this encounter [facility] Summary Purpose Family History No Family History Records FoundNo Family History Records FoundNo Family History Records FoundNo Family History Records FoundNo Family History Records Found Advance Directives No Advanced Directives Records FoundNo Advanced Directives Records FoundNo Advanced Directives Records FoundNo Advanced Directives Records FoundNo Advanced Directives Records Found Additional Source Comments INFORMATION SOURCE (unrecogn ized section and content) DATE CREATED AUTHOR 06/11/2021 [facility] DATE CREATED AUTHOR AUTHOR'S ORGANIZ ATION 06/30/2021 [facility] DATE CREATED AUTHOR AUTHOR'S ORGANIZ ATION 01/06/2022 [facility] DATE CREATED AUTHOR AUTHOR'S ORGANIZ ATION 01/27/2022 [facility] DATE CREATED AUTHOR AUTHOR'S ORGANIZ ATION 11/03/2024 [facility] Source Comments (unrecognize d section and content) In the event this informatio n is protected by the Federal Confidentiality of Alcohol and Drug Abuse Patient Records regulations: The Federal rules restrict any use of the information to criminally investigate or prosecute any alcohol or drug abuse patient.[facility] the event this information is protected by the Federal Confidentiality of Alcohol and Drug Abuse Patient Records regulations: The Federal rules restrict any use of the information to criminally investigate or prosecute any alcohol or drug abuse patient.[facility] the event this information is protected by the Federal Confidentiality of Alcohol and Drug Abuse Patient Records regulations: The Federal rules restrict any use of the information to criminally investigate or prosecute any alcohol or drug abuse patient.[facility] the event this information is protected by the Federal Confidentiality of Alcohol and Drug Abuse Patient Records regulations: The Federal rules restrict any use of the information to criminally investigate or prosecute any alcohol or drug abuse patient.[facility] the event this information is protected by the Federal Confidentiality of Alcohol and Drug Abuse Patient Records regulations: The Federal rules restrict any use of the information to criminally investigate or prosecute any alcohol or drug abuse patient.[facility] Hospital[facility] the event this information is protected by the Federal Confidentiality of Alcohol and Drug Abuse Patient Records regulations: The Federal rules restrict any use of the information to criminally investigate or prosecute any alcohol or drug abuse patient.[facility] Hospital[facility] the event this information is protected by the Federal Confidentiality of Alcohol and Drug Abuse Patient Records regulations: The Federal rules restrict any use of the information to criminally investigate or prosecute any alcohol or drug abuse patient.[facility] Hospital[facility] the event this information is protected by the Federal Confidentiality of Alcohol and Drug Abuse Patient Records regulations: The Federal rules restrict any use of the information to criminally investigate or prosecute any alcohol or drug abuse patient.[facility] Hospital[facility] the event this information is protected by the Federal Confidentiality of Alcohol and Drug Abuse Patient Records regulations: The Federal rules restrict any use of the information to criminally investigate or prosecute any alcohol or drug abuse patient.[facility] Reason for Visit (unrecogniz ed section and content) Reason Comments Vaginal Bleeding Reason Comments Initial OB Visit Reason Onset Date Comments Care 08/09/2024 Reason Comments US Specialty Diagnoses / Procedures Referred By Contac t Referred To Contact [facility] Diagnoses Encounter for supervision of high risk in first trimester, antepartum (HCC) Procedures OBSTETRIC ULTRASOUND WHI US PREG UTERUS AFTER 1ST TRIMEST GESTATION Maximus Fletcher APRN.[employer] PROGRAM[employer] [address] [place] [address] Phone: tel: fax: [facility] [address] [place] [address] Referral ID Status Reason Start Date Expiration Date V [facility] Requested Visits Authorized [id number] Closed Auto-Generate d Referral 07/18/2024 07/18/2025 1 1 Reason Onset Date Comments Care 09/06/2024 Referral ID Status Reason Start Date Expiration Date V isits Requested Visits Authorized [id number] Closed Auto-Generate d Referral 07/18/2024 07/18/2025 1 1 Reason Onset Date Comments Care 10/04/2024 Reason Comments Medication Request FOR RECORDS PERTAINING TO PATIENTS WHO ARE OR HAVE BEEN ENROLLED IN A CHEMICAL DEPENDENCY/SUBSTANCEABUSE PROGRAM, SOME INFORMATION MAY BE OMITTED. This clinical summary was aggregated from multiple sources. Caution should be exercised in using it in the provision of clinical care. This summary normalizes information from multiple sources, and as a consequence, information in this document may materially change the coding, format and clinical context of patient data. In addition, data may be omitted in some cases. CLINICAL DECISIONS SHOULD BE BASED ON THE PRIMARY CLINICAL RECORDS. [facility] [employer] [facility]. provides no warranty or guarantee of the accuracy or completeness of information in this document.
[2024-11-24 10:10] LABS: Hematocrit 36.0 % (37-47); Hemoglobin 11.9 g/dL (12.0-15.0); Immature Granulocytes Count 0.090 X10^3/uL (0.0-0.0); Mean Corp Hgb Conc 33.1 g/dL (32-36); Mean Corpuscular Volume 85.5 fL (81-99); Mean Platelet Vol. 8.4 fl (6.2-12.0); NRBC Flagged by Analyzer 0 % (0-5); Platelet Count 234 K/mm3 (150-450); RBC Distribution Width CV 13.0 % (11.6-14.6); RBC Distribution Width SD 40.0 fl (35.1-43.9); Red Blood Count 4.21 M/mm3 (4.2-5.4); White Blood Count 8.1 K/mm3 (4.4-11.0)
[2024-11-24 10:50] LABS: Anion Gap 15 (5-15); BUN 8 mg/dL (4-19); BUN/Creat Ratio 14.1 RATIO (10-20); Calcium,Total 9.3 mg/dL (7.6-11.0); Carbon Dioxide 21.6 mmol/L (21.0-32.0); Chloride 99 mmol/L (98-108); Estimated Creatinine Clearance 126.73 ml/min (50-250); Glucose 82 mg/dL (70-99); Potassium 3.8 mmol/L (3.3-5.1)
[2024-11-24 11:18] LABS: Color, Urine Yellow (Yellow); Glucose, Dipstick Normal (Normal); Leukocyte Esterase-Dipstick 500 /ul (Negative); Nitrite-Dipstick Negative (Negative); Occult Blood-Urine 10 /ul (Negative); Protein-Dipstick 30 mg/dl (Negative); Specific Gravity, Urine 1.025 (1.002-1.030); Urine Bilirubin Dipstick Negative (Negative)
[2024-11-24 11:39] LABS: Ketone-Dipstick 150 mg/dl (Negative)
[2024-11-24 11:43] LABS: Mucous, Urine 1+ /hpf (<or=2+); Red Blood Cells-Urine 0-5 SEEN /hpf (0-5); Squamous Epithelial Cells - UA 25-50 SEEN /hpf (5-10)
== END 2024-11-24 13:36 | disposition home or self-care (01) ==
PROVIDERS: Emergency Provider Emergency Medicine; Visit Provider Emergency Medicine
DX: O98.512 Other viral diseases complicating pregnancy, second trimester (principal); O21.9 Vomiting of pregnancy, unspecified; B34.9 Viral infection, unspecified; Z3A.20 20 weeks gestation of pregnancy
CPT/HCPCS: 80048; 81001; 85025; 96361; 96374; 99284; A4216; J2405

== ENCOUNTER 2025-01-25 20:30 | Outpatient (CLI) | payer OTHER, SELFPAY ==
--- OUTSIDE RECORDS SUMMARY | 2025-01-25 20:40 | XMS RPT_ITS | CCD ---
Author Organization [facility] Care Team Providers Care Parcel Post Delivery Name Role Phone CHIKA BEDOLLA PA-C Attending Unavailable TAPAN CELAYA Consulting Unavailable CHIKA BEDOLLA PA-C Admitting Unavailable CHIKA BEDOLLA PA-C Primary Care Unavailable PROVIDER, UNKNOWN Consulting Unavailable PROVIDER, UNKNOWN Consulting Unavailable PROVIDER, UNKNOWN Consulting Unavailable Tapan Celaya MD Unavailable [phone] Physical Therapy Provider Unavailable Madelin Crowe MD, Jennifer Zepeda Unavailable Sunshine FOREMAN, Vivian Unavailable Chika Bedolla PA-C Unavailable Tariq NOBLE, Leslye Drummond Unavailable [phone] DarylJennifer linares LPN Unavailable Unavailab celine Cruz AUTO ELECTRICIAN, Lucien Merchant Unavailable Unavailable Unavailable Unavailable Unavailable Primary Care Provider [facility] Phys[facility], No Primary Primary Care Provider Unavailable Loyd CHRISTENSEN, Dr. Montano Emergency Provider Chika Carias Attending Unavailable Chika Carias Admitting Unavailable Care Physician, No Primary Primary Care Unava ilable Dusty Harp Attending Unavailable Care Physician, No Primary Primary Care Unava ilable MATY MOLINA Attending Unavail able TORCHIA, NELDA Referring Unavailable MATY MOLINA Attending Unavail able HAMAURO, MAXIMUS Referring Unavailable CHARITO ZARAGOZA Attending Unavailable HAURY, MAXIMUS Referring Unavailable HAURY, MAXIMUS Referring Unavailable MARLYN READ Attending Unavailable HAURY, MAXIMUS Referring Unavailable TORCHIA, NELDA Referring Unavailable CHIKA CARIAS Attending Unavailable TORCHIA, NELDA Referring Unavailable JOHAN MALIK Attending Unavailable CHARITO ZARAGOZA Referring Unavailable CHARITO ZARAGOZA Attending Unavailable MAXIMUS FLETCHER Attending Unavailable SAE HOUSER Attending Unavailable HAURY, MAXIMUS Referring Unavailable MARLYN READ Attending Unavailable MAXIMUS FLETCHER Attending Unavailable Medications Current Medications Medication Drug Class(es) Dates Sig (Normalized) Sig (Original) acetaminophen 500 mg oral tablet (5 sources) Start: 09-06-2024 take 2 tablets by [...] 0 Ordered: 02-May-2023 AHSAN Brito Start: 02-May-2023 amoxicillin 875 mg / clavulanate 125 mg oral tablet (4 sources) Penicillin-class Antibacterial Start: 01-06-2022 Amoxicillin-Pot Clavulanate 875-125 mg tablet Active 1 {tbl} PO Q12H 14 January 06, 2022 12:00am Start: 06-24-2020 End: 01-06-2022 Amoxicillin-Pot Clavulanate 875-125 mg tablet Discontinued 1 {tbl} PO TWICE A DAY 14 June 24, 2020 12:00am January 06, 2022 12:38pm Start: 08-26-2011 End: 03-25-2015 take 1 tablet by mouth twice daily AMOXICILLIN-POT CLAVULANATE, 875-125MG (Oral Tablet) ; 1 Tablet two times daily for 10 days Quantity: 20 {Tablet} Refills: 0 Ordered: 25-Mar-2015 AHSAN Gonsalez Start: 26-Aug-2011 End: 25-Mar-2015 Status: Discontinued famotidine 20 mg oral tablet (9 sources) Histamine-2 Receptor Antagonist Start: 07-18-2024 End: 10-04-2024 take 1 tablet by mouth twice daily famotidine (PEPCID) 20 mg tablet Take 1 tablet by mouth two times a day. 60 tablet 3 10/05/2024 Active magnesium oxide 420 mg oral tablet (5 sources) Start: 09-06-2024 take 1 tablet by mouth once daily magnesium oxide 420 mg tablet Take 1 tablet by mouth once daily. 100 tablet 2 09/06/2024 Active meclizine hydrochloride 12.5 mg oral tablet (1 source) Antiemetic Start: 01-06-2022 take 1 tablet by mouth three times daily as needed for dizziness Meclizine 12.5 mg tablet Active 12.5 mg PO THREE TIMES A DAY as needed for dizziness January 06, 2022 12:00am ondansetron 4 mg disintegrating oral tablet (1 source) Serotonin-3 Receptor Antagonist Start: 06-24-2020 take 1 tablet by mouth every six hours as needed for nausea and vomiting Ondansetron 4 mg tablet,disintegra ting Active 4 mg PO EVERY 6 HOURS as needed for nausea and vomiting June 24, 2020 12:00am PNV no.95/ferrous fum/folic ac ( ORAL) (9 sources) take 1 tablet by mouth once daily before mealtime PNV no.95/ferrous fum/folic ac ( ORAL) Take 1 tablet by mouth once daily. Active Vit B Complex No.10/Folic Acid (B COMPLEX 100 CR ORAL) (9 sources) take 1 tablet by mouth every other day Vit B Complex No.10/Folic Acid (B COMPLEX 100 CR ORAL) Take 1 tablet by mouth every other day. Active Completed/Discontinued Medications Medication Drug Class(es) Dates Sig (Normalized) Sig (Original) aspirin 81 mg delayed release oral tablet [...] Gonsalez Start: 07-Aug-2014 End: 25-Mar-2015 Status: Discontinued Pnv 377-Mnfzt-Lkyah-3-F tiffany Oil 1 EACH tablet,chewable (1 source) Start: 11-10-2015 End: 06-24-2020 Pnv 008-Asivw-Nlwuz-3- Fish Oil 1 EACH tablet,chewable Discontinued 2 {tbl} PO DAILY November 10, 2015 12:00am June 24, 2020 4:05pm vitamin Problems Active Problems Problem Classification Problem Date Documented Da te Episodic/Chronic Abdominal pain (9 sources) Left upper quadrant pain; Translations: [Left upper quadrant pain] Onset: 11-29-2024 03-23-2022 Episodic Acute and chronic tonsillitis (2 sources) Tonsillitis; Translations: [Acute tonsillitis, unspecified] 08-26-2011 Episodic Conditions associated with dizziness or vertigo (5 sources) Vertigo; Translations: [Dizziness and giddiness] 01-12-2022 Episodic Contraceptive and procreative management (5 sources) Patient encounter status; Translations: [Encounter for contraceptive management, unspecified] 08-07-2014 Episodic Deficiency and other anemia (1 source) Iron deficiency anemia, unspecified; Translations: [Maternal iron deficiency anemia affecting , antepartum, third trimester (HCC)] Onset: 12-31-2024 Episodic Headache; including migraine (2 sources) Migraine; Translations: [Other migraine, not intractable, without status migrainosus] Onset: 09-06-2024 09-06-2024 Chronic Headache; including migraine (1 source) Headache; Translations: [Headache] 01-06-2022 Episodic Nausea and vomiting (1 source) Vomiting; Translations: [Vomiting, unspecified] 11-24-2024 Episodic Noninfectious gastroenteritis (2 sources) Gastroenteritis; Translations: [Noninfective gastroenteritis and colitis, unspecified] 12-29-2009 Episodic Other complications of (1 source) Anemia in mother complicating , childbirth AND/OR puerperium; Translations: [Anemia complicating , third trimester] Onset: 11-29-2024 11-29-2024 Chronic Other complications of (2 sources) Anemia complicating , third trimester; Translations: [Anemia complicating , third trimester (HCC)] Onset: 11-29-2024 Chronic Other complications of (1 source) Spotting per vagina in ; Translations: [Spotting complicating , first trimester] 07-09-2024 Episodic Other complications of (18 sources) High risk ; Translations: [Supervision of with other poor reproductive or obstetric history, first trimester] Onset: 07-18-2024 07-09-2024 Episodic Other complications of (1 source) Supervision of high risk , unspecified, third trimester; Translations: [Supervision of high risk in third trimester (HCC)] Onset: 11-29-2024 Episodic Other gastrointestinal disorders (2 sources) Chronic constipation; Translations: [Other constipation] 01-29-2022 Episodic Other and delivery including normal (20 sources) care status; Translations: [Encounter for routine follow-up] 08-07-2014 Episodic Other screening for suspected conditions (not mental disorders or infectious disease) (6 sources) care status; Translations: [Encounter for screening of mother] Onset: 10-04-2024 05-30-2014 Episodic Other upper respiratory infections (6 sources) Sore throat symptom; Translations: [Acute pharyngitis, unspecified] 05-02-2023 Episodic Otitis media and related conditions (1 source) Otitis media of left ear; Translations: [Otitis media, unspecified, left ear] 01-06-2022 Episodic Residual codes; unclassified (1 source) Gestation [...] 10-04-2024 Episodic Residual codes; unclassified (1 source) Gestation period, 28 weeks; Translations: [28 weeks gestation of ] 11-29-2024 Episodic Residual codes; unclassified (1 source) 36 weeks gestation of ; Translations: [36 weeks gestation of (HCC)] Onset: 01-24-2025 Episodic Residual codes; unclassified (1 source) 34 weeks gestation of ; Translations: [34 weeks gestation of (HCC)] Onset: 01-10-2025 Episodic Residual codes; unclassified (1 source) 32 weeks gestation of ; Translations: [32 weeks gestation of (HCC)] Onset: 12-27-2024 Episodic Residual codes; unclassified (1 source) 30 weeks gestation of ; Translations: [30 weeks gestation of (HCC)] Onset: 12-13-2024 Episodic Residual codes; unclassified (1 source) 24 weeks gestation of ; Translations: [24 weeks gestation of (HCC)] Onset: 11-29-2024 Episodic Residual codes; unclassified (1 source) 28 weeks gestation of ; Translations: [28 weeks gestation of (HCC)] Onset: 11-29-2024 Episodic Sprains and strains (1 source) Strain of muscle and tendon of front wall of thorax, initial encounter; Translations: [Muscle strain of chest wall, initial encounter] Onset: 01-10-2025 Episodic Unclassified (2 sources) Number of Children 08-07-2014 Comment on above: 1. Unclassified (2 sources) Number of Pregnancies 03-25-2015 Comment on above: 2. Unclassified (2 sources) Vaginal deliveries 08-07-2014 Comment on above: 1. Unclassified (9 sources) [facility] Education - COMMON Onset: 07-18-2024 07-18-2024 Unclassified (9 sources) Education - [place] Onset: 07-18-2024 07-18-2024 Viral infection (3 sources) Varicella; Translations: [Viral disease] 01-29-2022 Episodic Comment on above: one vaccine Past or Other Problems Problem Classification Problem Date Documented Da te Episodic/Chronic Calculus of urinary tract (2 sources) Kidney stone; Translations: [Calculus of kidney] Onset: 04-28-2018 01-29-2022 Episodic Hemorrhage during ; abruptio placenta; placenta previa (13 sources) Vaginal bleeding complicating early ; Translations: [Hemorrhage in early , unspecified] Onset: 07-18-2024 Resolved: 11-29-2024 07-09-2024 Episodic Immunizations and screening for infectious disease (1 source) Encounter for screening for infections with a predominantly sexual mode of transmission; Translations: [Screen for STD (sexually transmitted disease)] Onset: 07-18-2024 Episodic Other complications of (12 sources) Supervision of with other poor reproductive or obstetric history, unspecified trimester; Translations: [ with other poor obstetric history] Onset: 07-18-2024 07-18-2024 Episodic Other complications of (10 sources) Heartburn; Translations: [Other specified related conditions, first trimester] Onset: 07-18-2024 Resolved: 10-04-2024 07-18-2024 Episodic Other complications of (12 sources) Vomiting of , unspecified; Translations: [Unspecified vomiting of , unspecified as to episode of care or not applicable] Onset: 07-18-2024 Resolved: 10-04-2024 07-18-2024 Episodic Other complications of (1 source) Supervision of high risk , unspecified, second trimester; Translations: [Supervision of high risk in second trimester (HCC)] Onset: 09-06-2024 Episodic Other complications of (1 source) Supervision of high risk , unspecified, first trimester; Translations: [Encounter for supervision of high risk in first trimester, antepartum (HCC)] Onset: 08-09-2024 Episodic Other complications of (1 source) Other specified related conditions, first trimester; Translations: [Heartburn during in first trimester (HCC)] Onset: 07-18-2024 Episodic Other gastrointestinal disorders (1 source) Heartburn; Translations: [Heartburn during in first trimester (HCC)] Onset: 07-18-2024 Episodic Residual codes; unclassified (1 source) 20 weeks gestation of ; Translations: [20 weeks gestation of ([facility])] Onset: 10-04-2024 Episodic Residual codes; unclassified (1 source) 16 weeks gestation of ; Translations: [16 weeks gestation of ([facility])] Onset: 09-06-2024 Episodic Residual codes; unclassified (1 source) 12 weeks gestation of ; Translations: [12 weeks gestation of ([facility])] Onset: 08-09-2024 Episodic Residual codes; unclassified (1 source) 9 weeks gestation of ; Translations: [9 weeks gestation of ([facility])] Onset: 07-18-2024 Episodic Unclassified (2 sources) Abdominal [...] scheduled follow-up visit after induced vaginal delivery (Cytotec). There were no complications. The patient feels [...] Test Name Value Interpretation Reference Range Facility [facility] 01-25-2025 [facility] Telephone (OBGYWM) ATIYA MANCIA ([id number]) 1995 F Date Time Provider Department 01/25/25 MATY MOLINA During your visit today, we recorded the following information about you: Jennifer Turpin LPN 01/25/2025 4:39 PM Signed Ob patient is 36w6d called c/o headache X 2 days. Took tylenol this morning with no relief. Rates headache a 7 our of 10 on pain scale. Denies vision changes. Increased swelling in ankles. C/o increased acid reflux and epigastric abd pain. Current bp after 30 min resting 127 /79, 1 hour ago after sitting 2 min. 140/94, Baby has been active Discussed with Dr. Tolentino. Patient to try tylenol 1000 mg and push fluids w/ electrolytes, tums for acid reflux. If no improvement in headache[facility] Maty Molina MD 01/25/2025 4:45 PM Signed Agree, thank you. Patient was seen yesterday in office with normal BP and exam. However, if no improvement she should go to Sophia Zavala RN 01/25/2025 4:51 PM Signed Patient given message Allergies As of Date: 01/25/2025 (No Known Allergies) Date Reviewed: 01/24/2025 Reviewed by: Vani Sampson MA - Fully Assessed Reason for Visit: Care [86] Prescriptions as of 01/25/2025 - cyclobenzaprine (FLEXERIL) 5 mg tablet Take 1 tablet by mouth three times a day. - ferrous gluconate 236 mg (27 mg iron) tab Take 1 tablet by mouth once daily. - magnesium oxide 420 mg tablet Take [...] other day. Problem List As Of Date 01/25/2025 Noted Resolved Vaginal bleeding affecting early (HCC*07/18/2024 11/29/2024 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 , cu*07/18/2024 Nausea and vomiting during (HCC) [O21*07/18/2024 10/04/2024 Heartburn during in first trimester (*07/18/2024 10/04/2024 Supervision of high risk in third tri*11/29/2024 Anemia complicating , third trimester *11/29/2024 Maternal iron deficiency anemia affecting pregn*12/31/2024 Encounter Status:Closed by SOPHIA GARCIA on 01/25/25 Normal [facility] ROUTINE, GROUP B ST REPTOCOCCUS BY PCRon 01-24-2025 ROUTINE, GROUP B STREPTOCOCCUS BY PCR Detected Abnormal [facility] Comment on above: Performed By: #### T SPN #### [facility] CLIA [id number] [address] [place], [place] [address] [address] [place] CBC panel Auto (Bld)on 12-27 Erythrocyte distribution width (RBC) [Ratio] 13.4 % Normal 11.5-15.0 [facility] Comment on above: Order Comment: Speci men Type: BLOOD SPECIMENOrdering Facility: [facility] Address: [address] [place] [address] Performed By: #### 5 8410-2 ####[facility] [id number] [place] [address] [place] Hematocrit (Bld) [Volume fraction] 29.4 % Low 36.0-46.0 [facility] Comment on above: Order Comment: Speci leonela Type: BLOOD SPECIMENOrdering Facility: [facility] Address: [address] [place] [address] Performed By: #### 5 8410-2 ####[facility] [id number] [place] [id number] [place] Hemoglobin (Bld) [Mass/Vol] 9.9 g/dL Low 11.5-15.5 [facility] Comment on above: Order Comment: Sanjui men Type: BLOOD SPECIMENOrdering Facility: [facility] Address: [address] [place] [address] Performed By: #### 5 8410-2 ####[facility]ITALWNCTRAVIS [id number] [place] [address] [place] MCH (RBC) [Entitic mass] 27.5 pg Normal 26.0-34.0 [facility] Comment on above: Order Comment: Speci men Type: BLOOD SPECIMENOrdering Facility: [facility] Address: [address] [place] [address] Performed By: #### 5 8410-2 ####[facility]AREAMADA [id number] [place] [address] [place] MCHC (RBC) [Mass/Vol] 33.7 g/dL Normal 30.5-36.0 [facility] Comment on above: Order Comment: Speci men Type: BLOOD SPECIMENOrdering Facility: [facility] Address: [address] [place] [address] Performed By: #### 5 8410-2 ####[facility] [id number] [place] [address] [place] MCV (RBC) [Entitic vol] 81.7 fL Normal 80.0-100.0 [facility] Comment on above: Order Comment: Speci men Type: BLOOD SPECIMENOrdering Facility: [facility] Address: [address] [place] [address] Performed By: #### 5 8410-2 ####[facility]ITALKarina [id number] [place] [address] [place] Nucleated RBC (Bld) [#/Vol] 10*3/uL Normal <0.01 [facility] Comment on above: Order Comment: Speci men Type: BLOOD SPECIMENOrdering Facility: [facility] Address: [address] [place] [address] Performed By: #### 5 8410-2 ####[facility]ALTHCARENCLIA [id number] [place] [address] [place] Platelet mean volume (Bld) [Entitic vol] 8.4 fL Low 9.0-12.7 [facility] Comment on above: Order Comment: Speci men Type: BLOOD SPECIMENOrdering Facility: [facility] Address: [address] [place] [address] Performed By: #### 5 8410-2 ####[facility]ALTHCARENCBETOA [id number] [place] [address] [place] Platelets (Bld) [#/Vol] 230 10*3/uL Normal 150-400 [facility] Comment on above: Order Comment: Speci men Type: BLOOD SPECIMENOrdering Facility: [facility] Address: [address] [place] [address] Performed By: #### 5 8410-2 ####[facility]ALTHCARENCA [id number] [place] [address] [place] RBC (Bld) [#/Vol] 3.60 10*6/uL Low 3.90-5.20 [facility] Comment on above: Order Comment: Speci men Type: BLOOD SPECIMENOrdering Facility: [facility] Address: [address] [place] [address] Performed By: #### 5 8410-2 ####[facility]ALTHCARENCLIA [id number] [place] [address] [place] WBC (Bld) [#/Vol] 8.87 10*3/uL Normal 3.70-11.00 [facility] Comment on above: Order Comment: Speci men Type: BLOOD SPECIMENOrdering Facility: [facility] Address: [address] [place] [address] Performed By: #### 5 8410-2 ####[facility]ALTHCARENCLIA [id number] [place] [address] [place] CBC W Auto Differential pane l (Bld)on 11-29-2024 Basophils (Bld) [#/Vol] 10*3/uL Normal <0.11 [facility] Comment on above: Order Comment: Speci men Type: BLOOD SPECIMENOrdering Facility: [facility] Address: [address] [place] [address] Performed By: #### 5 7021-8 ####[facility] HOSPITALWWVLIA [id number] [place] [address] [place] Basophils/100 WBC (Bld) 0.1 % Normal [facility] Comment on above: Order Comment: Speci men Type: BLOOD SPECIMENOrdering Facility: [facility] Address: [address] [place] [address] Performed By: #### 5 7021-8 ####[facility] [id number] [place] [address] [place] Differential cell count method Nom (Bld) Auto Normal [facility] Comment on above: Order Comment: Speci men Type: BLOOD SPECIMENOrdering Facility: [facility] Address: [address] [place] [address] Performed By: #### 5 7021-8 ####[facility]PITALA [id number] [place] [address] [place] Eosinophils (Bld) [#/Vol] 0.15 10*3/uL Normal <0.46 [facility] Comment on above: Order Comment: Speci men Type: BLOOD SPECIMENOrdering Facility: [facility] Address: [address] [place] [address] Performed By: #### 5 7021-8 ####[facility] [id number] [place] [address] [place] Eosinophils/100 WBC (Bld) 1.9 % Normal [facility] Comment on above: Order Comment: Speci men Type: BLOOD SPECIMENOrdering Facility: [facility] Address: [address] [place] [address] Performed By: #### 5 7021-8 ####[facility] SHIRAJaNCLIA [id number] [place] [address] [place] Erythrocyte distribution width (RBC) [Ratio] 13.0 % Normal 11.5-15.0 [facility] Comment on above: Order Comment: Speci men Type: BLOOD SPECIMENOrdering Facility: [facility] Address: [address] [place] [address] Performed By: #### 5 7021-8 ####[facility]ALTHCARENCLIA [id number] [place] [address] [place] Hematocrit (Bld) [Volume fraction] 29.9 % Low 36.0-46.0 [facility] Comment on above: Order Comment: Speci men Type: BLOOD SPECIMENOrdering Facility: [facility] Address: [address] [place] [address] Performed By: #### 5 7021-8 ####[facility]ALTHCARENCLIA [id number] [place] [address] [place] Hemoglobin (Bld) [Mass/Vol] 9.9 g/dL Low 11.5-15.5 [facility] Comment on above: Order Comment: Speci men Type: BLOOD SPECIMENOrdering Facility: [facility] Address: [address] [place] [address] Performed By: #### 5 7021-8 ####[facility]ALTHCARENCLIA [id number] [place] [address] [place] Immature granulocytes (Bld) [#/Vol] 0.10 10*3/uL High <0.10 [facility] Comment on above: Order Comment: Speci men Type: BLOOD SPECIMENOrdering Facility: [facility] Address: [address] [place] [address] Performed By: #### 5 7021-8 ####[facility]CARENC[facility] [id number] [place] [address] [place] Immature granulocytes/100 WBC (Bld) 1.3 % Normal [facility] Comment on above: Order Comment: Speci men Type: BLOOD SPECIMENOrdering Facility: [facility] Address: [address] [place] [address] Performed By: #### 5 7021-8 ####[facility] [id number] [place] [address] [place] Lymphocytes (Bld) [#/Vol] 1.31 10*3/uL Normal 1.00-4.00 [facility] Comment on above: Order Comment: Speci men Type: BLOOD SPECIMENOrdering Facility: [facility] Address: [address] [place] [address] Performed By: #### 5 7021-8 ####[facility] [id number] [place] [address] [place] Lymphocytes/100 WBC (Bld) 16.8 % Normal [facility] Comment on above: Order Comment: Speci men Type: BLOOD SPECIMENOrdering Facility: [facility] Address: [address] [place] [address] Performed By: #### 5 7021-8 ####[facility] [id number] [place] [address] [place] MCH (RBC) [Entitic mass] 27.9 pg Normal 26.0-34.0 [facility] Comment on above: Order Comment: Speci men Type: BLOOD SPECIMENOrdering Facility: [facility] Address: [address] [place] [address] Performed By: #### 5 7021-8 ####[facility] [id number] [place] [address] [place] MCHC (RBC) [Mass/Vol] 33.1 g/dL Normal 30.5-36.0 [facility] Comment on above: Order Comment: Speci men Type: BLOOD SPECIMENOrdering Facility: [facility] Address: [address] [place] [address] Performed By: #### 5 7021-8 ####[facility] [id number] [place] [address] [place] MCV (RBC) [Entitic vol] 84.2 fL Normal 80.0-100.0 [facility] Comment on above: Order Comment: Speci men Type: BLOOD SPECIMENOrdering Facility: [facility] Address: [address] [place] [address] Performed By: #### 5 7021-8 ####[facility] [id number] [place] [address] [place] Monocytes (Bld) [#/Vol] 0.53 10*3/uL Normal <0.87 [facility] Comment on above: Order Comment: Speci men Type: BLOOD SPECIMENOrdering Facility: [facility] Address: [address] [place] [address] Performed By: #### 5 7021-8 ####[facility] [id number] [place] [address] [place] Monocytes/100 WBC (Bld) 6.8 % Normal C [facility] Comment on above: Order Comment: Speci men Type: BLOOD SPECIMENOrdering Facility: [facility] Address: [address] [place] [address] Performed By: #### 5 7021-8 ####[facility] [id number] [place] [address] [place] Neutrophils (Bld) [#/Vol] 5.69 10*3/uL Normal 1.45-7.50 [facility] Comment on above: Order Comment: Speci men Type: BLOOD SPECIMENOrdering Facility: [facility] Address: [address] [place] [address] Performed By: #### 5 7021-8 ####[facility] SHIRACOBBS CREEKUMANGLIA [id number] [place] [address] [place] Neutrophils/100 WBC (Bld) 73.1 % Normal [facility] Comment on above: Order Comment: Speci men Type: BLOOD SPECIMENOrdering Facility: [facility] Address: [address] [place] [address] Performed By: #### 5 7021-8 ####[facility] [id number] [place] [address] [place] Nucleated RBC (Bld) [#/Vol] 10*3/uL Normal <0.01 [facility] Comment on above: Order Comment: Speci men Type: BLOOD SPECIMENOrdering Facility: [facility] Address: [address] [place] [address] Performed By: #### 5 7021-8 ####[facility] [id number] [place] [address] [place] Nucleated RBC/100 WBC (Bld) [Ratio] 0.0 /100 WBC Normal [facility] Comment on above: Order Comment: Speci men Type: BLOOD SPECIMENOrdering Facility: [facility] Address: [address] [place] [address] Performed By: #### 5 7021-8 ####[facility] [id number] [place] [address] [place] Platelet mean volume (Bld) [Entitic vol] 8.1 fL Low 9.0-12.7 [facility] Comment on above: Order Comment: Speci men Type: BLOOD SPECIMENOrdering Facility: [facility] Address: [address] [place] [address] Performed By: #### 5 7021-8 ####[facility] [id number] [place] [address] [place] Platelets (Bld) [#/Vol] 208 10*3/uL Normal 150-400 [facility] Comment on above: Order Comment: Speci men Type: BLOOD SPECIMENOrdering Facility: [facility] Address: [address] [place] [address] Performed By: #### 5 7021-8 ####[facility]PITALBETOA [id number] [place] [address] [place] RBC (Bld) [#/Vol] 3.55 10*6/uL Low 3.90-5.20 [facility] Comment on above: Order Comment: Speci men Type: BLOOD SPECIMENOrdering Facility: [facility] Address: [address] [place] [address] Performed By: #### 5 7021-8 ####[facility]IT[facility]ina [id number] [place] [address] [place] WBC (Bld) [#/Vol] 7.79 10*3/uL Normal 3.70-11.00 [facility] Comment on above: Order Comment: Speci men Type: BLOOD SPECIMENOrdering Facility: [facility] Address: [address] [place] [address] Performed By: #### 5 7021-8 ####[facility]ITALLIA [id number] [place] [address] [place] Ferritin SerPl-mCncon 2024 Ferritin [Mass/Vol] 12.0 ng/mL Low 14.7-205.1 [facility] Comment on above: Order Comment: Speci men Type: BLOOD SPECIMENOrdering Facility: [facility] Address: [address] [place] [address] Performed By: #### 2 276-4, 73012-6 ####[facility] LABCLIA [id number] [place] [address] [place] GESTATIONAL GLUCOSE SCREEN, 1-HOUR, 50 GRAM, NON-FASTINGon 11-29-2024 Glucose [Mass/Vol] 112 mg/dL Normal 74-134 [facility] Comment on above: Order Comment: Nelida gipson Type: BLOOD SPECIMENOrdering Facility: [facility] Address: [address] [place] [address] Result Comment: [facility] Congress of Obstetricians and Gynecologists (Deidra/Brooks) guidelines state a gestational diabetes mellitus positive screen is made, in women not previously diagnosed with overt diabetes, when the 1 hr plasma glucose level is equal to or above 140 mg/dL. The [facility] Media Sales Representative and [facility] recommends a 135 mg/dL cutoff. Performed By: #### G LTGST ####[facility] [id number] [place] [address] [place] Iron and Iron binding capaci ty panelon 11-29-2024 Iron [Mass/Vol] 45 ug/dL Normal 41-186 [facility] Comment on above: Order Comment: Speci men Type: BLOOD SPECIMEN Ordering Facility: [facility] Address: [address] [place] [address] Performed By: #### T SPN #### [facility] [place] [id number] [address] [place] [address] [place] Iron binding capacity [Mass/Vol] 531 ug/dL High 232-386 [facility] Comment on above: Order Comment: Speci men Type: BLOOD SPECIMEN Ordering Facility: [facility] Address: [address] [place] [address] Performed By: #### T SPN #### [facility] CLIA [id number] [address] [place] [address] [place] Iron/TIBC [Molar ratio] 8.5 % Low 15.0-57.0 C [facility] Comment on above: Order Comment: Speci men Type: BLOOD SPECIMEN Ordering Facility: [facility] Address: [address] [place] [address] Performed By: #### T SPN #### [facility] CLIA [id number] [address] [place] [address] [place] Reagin and Treponema pallidu m IgG and IgM [Interp]on 11-29-2024 T. pallidum IgG+IgM IA Ql (S) Non-Reactive Normal Nonreactive [facility] Comment on above: Order Comment: Speci men Type: BLOOD SPECIMENOrdering Facility: [facility] Address: [address] [place] [address] Performed By: #### 7 3752-8 ####[facility] LABIA [id number] [place] [address] [place] Reagin+T pallidum IgG+IgM Se rPl-Impon 11-29-2024 Reagin and Treponema pallidum IgG and IgM [Interp] Cannot exclude recent Treponemal infection if specimen collected within 7-10 days after appearance of suspect lesions or 2-3 weeks after an exposure. Clinical correlation is required. Normal [facility] Comment on above: Order Comment: Speci men Type: BLOOD SPECIMENOrdering Facility: [facility] Address: [address] [place] [address] Performed By: #### 7 3752-8 ####[facility] LABIA [id number] [place] [address] [place] Absolute lymphocyte countOrd ered By: Dusty Harp on 11-24-2024 Lymphocytes Auto (Unsp spec) [#/Vol] 0.85 10*3/uL 0.83-4.51 [facility] Absolute neutrophil countOrd ered By: Dusty Harp on 11-24-2024 Neutrophils (Bld) [#/Vol] 6.4 10*3/uL 2.0-7.7 [facility] Anion gap in Serum or Plasma Ordered By: Dusty Harp on 11-24-2024 Anion gap [Moles/Vol] 15 mmol/L 5-15 [facility] Automated lymphocyte count a s percentage of total leukocytesOrdered By: Dusty Harp on 11-24-2024 Lymphocytes/100 WBC Auto (Unsp spec) 10.5 % Low 19-41 [facility] BUN/creatinine ratioOrdered By: Dusty Harp on 11-24-2024 Urea nitrogen/Creatinine [Mass ratio] 14.1 mg/mg 10- [facility] Basic Metabolic Profile (BMP )on 11-24-2024 BUN/CRE 14.1 RATIO Normal 01-14 [facility] Comment on above: Performed By: #### L 100.0100, L500.2500 #### [facility] [address] [place], [address] Calcium [Mass/Vol] 9.3 mg/dL Normal 7.6-11.0 [facility] Comment on above: Performed By: #### L 100.0100, L500.2500 #### [facility] [address] [place], [address] Chloride [Moles/Vol] 99 mmol/L Normal 98-108 [facility] Comment on above: Performed By: #### L 100.0100, L500.2500 #### [facility] [address] [place], [address] CO2 [Moles/Vol] 21.6 mmol/L Normal 21.0-32.0 [facility] Comment on above: Performed By: #### L 100.0100, L500.2500 #### [facility] [address] [place], [address] Creatinine [Mass/Vol] 0.53 mg/dL Low 0.70-1.20 [facility] Comment on above: Performed By: #### L 100.0100, L500.2500 #### [facility] [address] [place], [address] ECRCL 126.73 ml/min Normal 50-250 [facility] Comment on above: Performed By: #### L 100.0100, L500.2500 #### [facility] [address] [place], [address] GAP 15 Normal 5-15 [facility] Comment on above: Performed By: #### L 100.0100, L500.2500 #### [facility] [address] [place], [address] GFR/1.73 sq M.predicted among non-blacks MDRD (S/P/Bld) [Vol rate/Area] 127 mL/min/{1.73_m2} Normal >60 [facility] Comment on above: Result Comment: mL/m in/1.73m2 CKD-EPI Creatinine Equation (2020) Performed By: #### L 100.0100, L500.2500 #### [facility] [address] [place], [address] Glucose [Mass/Vol] 82 mg/dL Normal 70-99 [facility] Comment on above: Performed By: #### L 100.0100, L500.2500 #### [facility] [address] [place], [address] Potassium [Moles/Vol] 3.8 mmol/L Normal 3.3-5.1 [facility] Comment on above: Performed By: #### L 100.0100, L500.2500 #### [facility] [address] [place], [address] Sodium [Moles/Vol] 136 mmol/L Normal 133-145 [facility] Comment on above: Performed By: #### L 100.0100, L500.2500 #### [facility] [address] [place], [address] Urea nitrogen [Mass/Vol] 8 mg/dL Normal 4-19 [facility] Comment on above: Performed By: #### L 100.0100, L500.2500 #### [facility] [address] [place], [address] Basophil percentageOrdered B y: Dusty Harp on 11-24-2024 Basophils/100 WBC (Bld) 0.5 % 0-1 [facility] Bilirubin Test strip Ql (U)O rdered By: Dusty Loyd on 11-24-2024 Bilirubin Ql (U) Negative Negative [facility] CBC W/Diff, Automatedon 10-28-2024 Absolute Lymph 0.85 X10 3/uL Normal 0.83-4.51 [facility] Comment on above: Performed By: #### L 100.0100, L500.2500 #### [facility] [address] [place], [address] Absolute Neut 6.4 X10 3/uL Normal 2.0-7.7 [facility] Comment on above: Performed By: #### L 100.0100, L500.2500 #### [facility] [address] [place], [address] Basophils/100 WBC (Bld) 0.5 % Normal 0-1 [facility] Comment on above: Performed By: #### L 100.0100, L500.2500 #### [facility] [address] [place], [address] Eosinophils/100 WBC (Bld) 1.5 % Normal 0-5 [facility] Comment on above: Performed By: #### L 100.0100, L500.2500 #### [facility] [address] [place], [address] Erythrocyte distribution width (RBC) [Ratio] 13.0 % Normal 11.6-14.6 [facility] Comment on above: Performed By: #### L 100.0100, L500.2500 #### [facility] [address] [place], [address] Hematocrit (Bld) [Volume fraction] 36.0 % Low 37-47 [facility] Comment on above: Performed By: #### L 100.0100, L500.2500 #### [facility] [address] [place], [address] Hemoglobin (Bld) [Mass/Vol] 11.9 g/dL Low 12.0-15.0 [facility] Comment on above: Performed By: #### L 100.0100, L500.2500 #### [facility] [address] [place], [address] IG% 1.100 High 0.0-0.9 [facility] Comment on above: Result Comment: IG% - Immature Granulocytes (promyelocytes, myelocytes and metamyelocytes) > 1% indicates that a LEFT SHIFT is Present. Performed By: #### L 100.0100, L500.2500 #### [facility] [address] [place], [address] Lymphocytes/100 WBC (Bld) 10.5 % Low 19-41 [facility] Comment on above: Performed By: #### L 100.0100, L500.2500 #### [facility] [address] [place], [address] MCH (RBC) [Entitic mass] 28.3 pg Normal 27.0-32.0 [facility] Comment on above: Performed By: #### L 100.0100, L500.2500 #### [facility] [address] [place], [address] MCHC (RBC) [Mass/Vol] 33.1 g/dL Normal 32-36 [facility] Comment on above: Performed By: #### L 100.0100, L500.2500 #### [facility] [address] [place], [address] MCV (RBC) [Entitic vol] 85.5 fL Normal 81-99 [facility] Comment on above: Performed By: #### L 100.0100, L500.2500 #### [facility] [address] [place], [address] Monocytes/100 WBC (Bld) 7.6 % Normal 0-10 [facility] Comment on above: Performed By: #### L 100.0100, L500.2500 #### [facility] [address] [place], [address] Neutrophils/100 WBC (Bld) 78.8 % High 47-70 [facility] Comment on above: Performed By: #### L 100.0100, L500.2500 #### [facility] [address] [place], [address] Nucleated RBC (Bld) [#/Vol] 0 10*3/uL Normal 0-5 [facility] Comment on above: Performed By: #### L 100.0100, L500.2500 #### [facility] [address] [place], [address] Platelet mean volume (Bld) [Entitic vol] 8.4 fL Normal 6.2-12.0 [facility] Comment on above: Performed By: #### L 100.0100, L500.2500 #### [facility] [address] [place], [address] Platelets (Bld) [#/Vol] 234 10*3/uL Normal 150-450 [facility] Comment on above: Performed By: #### L 100.0100, L500.2500 #### [facility] [address] [place], [address] RBC (Bld) [#/Vol] 4.21 10*6/uL Normal 4.2-5.4 [facility] Comment on above: Performed By: #### L 100.0100, L500.2500 #### [facility] [address] [place], [address] RDW SD 40.0 fl Normal 35.1-43.9 [facility] Comment on above: Performed By: #### L 100.0100, L500.2500 #### [facility] [address] [place], [address] WBC (Bld) [#/Vol] 8.1 10*3/uL Normal 4.4-11.0 [facility] Comment on above: Performed By: #### L 100.0100, L500.2500 #### [facility] [address] [place], [address] Carbon dioxide, total [Moles /volume] in Central venous bloodOrdered By: Dusty Harp on 11-24-2024 CO2 [Moles/Vol] 21.6 mmol/L 21.0-32.0 [facility] Chloride assayOrdered By: Toan Harp on 11-24-2024 Chloride [Moles/Vol] 99 mmol/L 98-108 [facility] Emergency Department Summary on 11-24-2024 Emergency Department Summary [facility] Medical Records Department [address] [place] [address] Emergency Department Summary 11/24/24 MR#: [id number] Acct: [id number] Name: ATIYA MANCIA Rep #: [id number] : 1995 29 From: Dusty Harp MD PCP: Care Physician,No Primary Status:REG ER Location: ED HPI HPI - GI History of Present Illness Chief Complaint: Abd Pain Detail of Chief Complaint: Nausea vomiting. Nausea/Vomiting/Emesis GI Symptom: Positive for Nausea and Vomiting Onset: Today and Yesterday Severity: Mild Diarrhea/Melena/Hematoc hezia GI Symptom: Negative for Diarrhea, Melena or Hematochezia Associated Symptoms Associated Symptoms: Negative for Dysuria, Frequency, Hematuria or Urgency Narrative Narrative: 29-year-old female G4, P3 AB 0 currently 20 weeks . 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 Tuesday night start having a sore throat body aches. Intermittent nausea vomiting. No dysuria. Temperature as high as 99.9. Denies abdominal pain. No vaginal bleeding. Prior similar symptoms: Yes Recent Illness/Hospitalization : No PFSH PFSH Medical History Back pain Severe headache Home Medications ???Medication ???Instructions ???Recorded ???Last Taken ???Type ondansetron 4 mg disintegrating 4 mg PO Q6H PRN nausea and 1 Unknown Rx tablet vomiting #20 tabs amoxicillin 875 mg-potassium 1 tab PO Q12H #14 tabs 01/06/22 Un known Rx clavulanate 125 mg tablet meclizine 12.5 mg tablet 12.5 mg PO TID PRN dizziness #6 Unknown Rx tabs Allergy/AdvReac Type Severity Reaction Status Date / Time No Known Allergies Allergy Verified 11/24/24 09:21 Social History Smoking Status: Never smoker alcohol intake: never ROS ROS ED ROS Narrative Nausea vomiting. Body aches. Low-grade fever. Sore throat. Constitutional Constitutional ED: Reports fever(s) ENT ENT ED: Denies ear pain Cardiovascular Cardiovascular: Denies chest pain Respiratory/Chest Respiratory/Chest: Denies cough or dyspnea Gastrointestinal Gastrointestinal: Reports nausea and vomiting; Denies abdominal pain, constipation, diarrhea or melena Genitourinary Genitourinary ED: Denies dysuria or hematuria Musculoskeletal Musculoskeletal: Denies arthralgias or back pain Integumentary Denies abscess Neurologic Neurologic: Denies headache(s) Psychiatric Psychiatric: Denies anxiety Endocrine Endocrinology: Denies polydipsia Hematologic/Lymphatic Hematologic/Lymphatic: Denies easy bleeding Allergic/Immunologic Allergic/Immunologic ED: Denies mouth swelling, tongue swelling or urticaria EXAM Physical Exam Narrative Exam Narrative: Well-appearing 29-year-old female. Vital signs stable afebrile. Pulse ox 100% on room air no signs hypoxia. No acute distress. at bedside. H EENT exam pupils round reactive light. Mytrex membranes. TMs normal. No signs of trauma. Neck nontender no lymphadenopathy. Lungs clear to auscultation bilaterally. Heart regular rhythm rate about 95 no murmur. Chest wall ribs nontender. Abdomen soft nondistended normal bowel sounds without peritoneal signs. Gravid nontender uterus. Right upper right lower quadrant nontender. No obstruction. Absolutely no abdominal pain. No peritoneal signs. Normal bowel sounds. Pelvic girdle intact. Moving all 4 extremities. Nontender. No edema. No rashes. Back nontender. No CVA tenderness. Neurologically she is awake alert. Answering questions following commands. Benign exam. Const Vital Signs: 11/24/24 09:17 11/24/24 09:42 11/24/24 11:23 Temperature 97.5 F L Temperature Source Temporal Pulse Rate 98 77 Respiratory Rate 16 16 Respiratory Effort Normal Non-Labored Respiratory Pattern Normal Blood Pressure 114/76 112/66 Blood Pressure Mean 88 81 Pulse Ox 100 100 Oxygen Delivery Method Room Air Room Air 11/24/24 11:25 11/24/24 11:30 11/24/24 11:31 Temperature Temperature Source Pulse Rate Respiratory Rate Respiratory Effort Respiratory Pattern Blood Pressure 110/58 L Blood Pressure Mean 73 Pulse Ox 98 100 Oxygen Delivery Method 11/24/24 11:45 11/24/24 12:00 11/24/24 12:15 Temperature Temperature Source Pulse Rate Respiratory Rate Respiratory Effort Respiratory Pattern Blood Pressure 116/57 L Blood Pressure Mean 73 Pulse Ox 100 99 100 Oxygen Delivery Method 11/24/24 12:30 11/24/24 12:45 11/24/24 13:00 Temperature Temperature Source Pulse Rate 66 Respiratory Rate 14 Respiratory Effort Respiratory Pattern Blood Pressure 110/63 109/58 L Blood Pressure Mean 76 74 Pulse Ox 100 100 99 Oxygen Delivery Method (more content not included)... Normal [facility] Eosinophil percentageOrdered By: Dusty Harp on 11-24-2024 Eosinophils/100 WBC (Bld) 1.5 % 0-5 [facility] Erythrocyte distribution wid th ratioOrdered By: Dusty Harp on 11-24-2024 Erythrocyte distribution width (RBC) [Ratio] 13.0 % 11.6-14.6 [facility] Erythrocyte distribution wid th standard deviationOrdered By: Dusty Harp on 11-24-2024 Erythrocyte distribution width (RBC) [Ratio] 40.0 fl 35.1-43.9 [facility] Glomerular filtration rate ( GFR) estimation/1.73 sq m using serum, plasma, or whole bOrdered By: Dusty Harp on 11-24-2024 GFR/1.73 sq M.predicted among non-blacks MDRD (S/P/Bld) [Vol rate/Area] 127 mL/min/{1.73_m2} >60 [facility] Comment on above: mL/min/1.73m2 CKD-EP I Creatinine Equation (2020) Hematocrit Auto (Bld) [Volum e fraction]Ordered By: Dusty Harp on 11-24-2024 Hematocrit (Bld) [Volume fraction] 36.0 % Low 37-47 [facility] Hemoglobin measurementOrdere d By: Dusty Harp on 11-24-2024 Hemoglobin (Bld) [Mass/Vol] 11.9 g/dL Low 12.0-15.0 [facility] Immature granulocytes/100 WB C Auto (Bld)Ordered By: Dusty Harp on 11-24-2024 Immature granulocytes/100 WBC (Bld) 1.100 % High 0.0-0.9 [facility] Comment on above: IG% - Immature Granu locytes (promyelocytes, myelocytes and metamyelocytes) > 1% indicates that a LEFT SHIFT is Present. Ketones Test strip Ql (U)Ord ered By: Dusty Harp on 11-24-2024 Ketones Ql (U) 150 mg/dl Abnormal Negative [facility] Comment on above: CRITICAL VALUE *H MCV (mean corpuscular volume ) determinationOrdered By: Dusty Harp on 11-24-2024 MCV (RBC) [Entitic vol] 85.5 fL 81-99 [facility] Mean corpuscular hemoglobin (MCH) determinationOrdered By: Dusty Harp on 11-24-2024 MCH (RBC) [Entitic mass] 28.3 pg 27.0-32.0 [facility] Mean corpuscular hemoglobin concentration (MCHC) determinationOrdered By: Dusty Harp on 11-24-2024 MCHC (RBC) [Mass/Vol] 33.1 g/dL 32-36 [facility] Mean platelet volume determi nationOrdered By: Dusty Harp on 11-24-2024 Platelet mean volume (Bld) [Entitic vol] 8.4 fL 6.2-12.0 [facility] Microscopic analysis of urin e for red blood cells (RBC)Ordered By: Dusty Harp on 11-24-2024 Microscopic analysis of urine for red blood cells (RBC) 0-5 SEEN /hpf 0-5 [facility] Monocyte percentageOrdered B y: Dusty Harp on 11-24-2024 Monocytes/100 WBC (Bld) 7.6 % 0-10 [facility] Mucus LM Ql (Urine sed)Order ed By: Dusty Harp on 11-24-2024 Mucus Ql (Urine sed) 1+ /hpf [facility] Neutrophil percentageOrdered By: Dusty Harp on 11-24-2024 Neutrophils/100 WBC (Bld) 78.8 % High 47-70 [facility] Nitrite Test strip Ql (U)Ord ered By: Dusty Harp on 11-24-2024 Nitrite Ql (U) Negative Negative [facility] Nucleated red blood cell per centageOrdered By: Dusty Harp on 11-24-2024 Nucleated RBC/100 WBC (Bld) [Ratio] 0 % 0-5 [facility] Platelet countOrdered By: Taon Harp on 11-24-2024 Platelets (Bld) [#/Vol] 234 10*3/uL 150-450 [facility] Potassium measurement (mass/ volume)Ordered By: Dusty Harp on 11-24-2024 Potassium (Unsp spec) [Mass/Vol] 3.8 mmol/L 3.3-5.1 [facility] Protein Test strip Ql (U)Ord ered By: Dusty Harp on 11-24-2024 Protein Ql (U) 30 mg/dl High Negative [facility] RBC Auto (Bld) [#/Vol]Ordere d By: Dusty Harp on 11-24-2024 RBC (Bld) [#/Vol] 4.21 10*6/uL 4.2-5.4 [facility] Serum creatinine measurement (mass/volume)Ordered By: Dusty Harp on 11-24-2024 Creatinine [Mass/Vol] 0.53 mg/dL Low 0.70-1.20 [facility] Serum glucose measurement (m ass/volume)Ordered By: Dusty Harp on 11-24-2024 Glucose [Mass/Vol] 82 mg/dL 70-99 [facility] Serum or plasma calcium terry urement (mass/volume)Ordered By: Dusty Harp on 11-24-2024 Calcium [Mass/Vol] 9.3 mg/dL 7.6-11.0 [facility] Serum or plasma urea nitroge n measurement (mass/volume)Ordered By: Dusty Harp on 11-24-2024 Urea nitrogen [Mass/Vol] 8 mg/dL 4-19 [facility] Sodium levelOrdered By: Dusty Harp on 11-24-2024 Sodium [Moles/Vol] 136 mmol/L 133-145 [facility] Squamous epithelial cells de tection in urine sediment by light microscopyOrdered By: Dusty Harp on 11-24-2024 Epithelial cells.squamous LM Ql (Urine sed) 25-50 SEEN /hpf 5-10 [facility] Urinalysis, Completeon 11-24 BACTERIA 3+ /hpf Normal None Seen [facility] Comment on above: Order Comment: CLEAN CATCH Performed By: #### L 400.0001 #### [facility] [address] [place], [address] EPI,SQUAMOUS 25-50 SEEN Normal 5-10 [facility] Comment on above: Order Comment: CLEAN CATCH Performed By: #### L 400.0001 #### [facility] [address] [place], [address] Mucus Ql (Urine sed) 1+ /hpf Normal [facility] Comment on above: Order Comment: CLEAN CATCH Performed By: #### L 400.0001 #### [facility] [address] [place], [address] RBC 0-5 SEEN Normal 0-5 [facility] Comment on above: Order Comment: CLEAN CATCH Performed By: #### L 400.0001 #### [facility] [address] [place], [address] WBC 10-25 SEEN Normal 0-5 [facility] Comment on above: Order Comment: CLEAN CATCH Performed By: #### L 400.0001 #### [facility] [address] [place], [address] Urine clarityOrdered By: Teddy Harp on 11-24-2024 Clarity (U) Cloudy Clear [facility] Urine color determinationOrd ered By: Dusty Harp on 11-24-2024 Color (U) Yellow Yellow [facility] Urine glucose detectionOrder ed By: Dusty Harp on 11-24-2024 Glucose Ql (U) Normal mg/dl Normal [facility] Urine leukocyte esterase det ection by dipstickOrdered By: Dusty Harp on 11-24-2024 Leukocyte esterase Test strip Ql (U) 500 /ul High Negative [facility] Urine pHOrdered By: Dusty chinchilla on 11-24-2024 pH (U) 6.0 [pH] 5.0 - 8.0 [facility] Urine sediment bacteria coun t by microscopy (number/high power field)Ordered By: Dusty Harp on 11-24-2024 Bacteria LM.HPF (Urine sed) [#/Area] 3 /[HPF] None Seen [facility] Urine specific gravity measu rementOrdered By: Dusty Harp on 11-24-2024 Specific gravity (U) [Rel density] 1.025 1.002-1.030 [facility] Urine urobilinogen measureme ntOrdered By: Dusty Harp on 11-24-2024 Urobilinogen Ql (U) Normal mg/dl Normal [facility] White blood cell (WBC) count Ordered By: Dusty Harp on 11-24-2024 WBC (Bld) [#/Vol] 8.1 10*3/uL 4.4-11.0 [facility] White blood cell countOrdere d By: Dusty Harp on 11-24-2024 White blood cell count 10-25 SEEN /hpf 0-5 [facility] CNPNon 10-05-2024 CNPN Telephone (OBGYWM) ATIYA MANCIA ([id number]) 1995 F Date Time Provider Department 10/05/24 LEXUS BARRIOS OBELOISA During your visit today, we recorded the following information about you: Tamra Caballero RN 10/05/2024 9:10 AM Signed Patient 20w6d, calling requesting Rx of Pepcid. Her original Rx was discontinued and she states she has had another flare of acid reflux. Please file if appropriate. ESDRAS Schrader Trisha, RN 10/05/2024 9:59 AM Signed Patient notified. Joan Enciso RN The following approved medication requests have been transmitted electronically. Requested Prescriptions Signed Prescriptions Disp Refills famotidine (PEPCID) 20 mg tablet 60 tablet 3 Sig: Take 1 tablet by mouth two times a day. Authorizing Provider: MAXIMUS FLETCHER Pharmacy Information Pharmacy Address Telephone Formerly [facility] [phone] [place] [address] Allergies As of Date: 10/05/2024 (No Known [...] times a day. Encounter Status:Closed by JOAN ENCISO on 10/05/24 Normal [facility] Examination level ultrasound on 10-04-2024 Indication Standard [...] 14 oz EFW by: Hadlock (HC-AC-FL) Extended Evp 7.7 mm CM 4.1 mm 18% Nicolaides [...] normal LVOT view: normal 3-vessel view: normal 6-aydmup-kttrpwb view: normal Heart / Thorax Situs: situs [...] Read By: Kelli Arizmendi M.D. MATERNAL MEDICINE [facility] Radiology Study observation (narrative) Yana drummond [facility] CBC W Auto Differential pane l (Bld)on 08-09-2024 Basophils (Bld) [#/Vol] 10*3/uL Normal <0.11 [facility] Comment on above: Order Comment: Speci men Type: BLOOD SPECIMEN Ordering Facility: [facility] Address: [address] [place] [address] Performed By: #### T SPN #### [facility] CLIA [id number] [address] [place] [address] [place] Basophils/100 WBC (Bld) 0.2 % Normal [facility] Comment on above: Order Comment: Speci men Type: BLOOD SPECIMEN Ordering Facility: [facility] Address: [address] [place] [address] Performed By: #### T SPN #### [facility] CLIA [id number] [address] [place] [address] [place] Differential cell count method Nom (Bld) Auto Normal [facility] Comment on above: Order Comment: Speci men Type: BLOOD SPECIMEN Ordering Facility: [facility] Address: [address] [place] [address] Performed By: #### T SPN #### [facility] CLIA [id number] [address] [place] [address] [place] Eosinophils (Bld) [#/Vol] 0.07 10*3/uL Normal <0.46 [facility] Comment on above: Order Comment: Speci men Type: BLOOD SPECIMEN Ordering Facility: [facility] Address: [address] [place] [address] Performed By: #### T SPN #### [facility] CLIA [id number] [address] [place] [address] [place] Eosinophils/100 WBC (Bld) 1.2 % Normal [facility] Comment on above: Order Comment: Speci men Type: BLOOD SPECIMEN Ordering Facility: [facility] Address: [address] [place] [address] Performed By: #### T SPN #### [facility] CLIA [id number] [address] [place] [address] [place] Erythrocyte distribution width (RBC) [Ratio] 13.2 % Normal 11.5-15.0 [facility] Comment on above: Order Comment: Speci men Type: BLOOD SPECIMEN Ordering Facility: [facility] Address: [address] [place] [address] Performed By: #### T SPN #### [facility] CLIA [id number] [address] [place] [address] [place] Hematocrit (Bld) [Volume fraction] 37.1 % Normal 36.0-46.0 [facility] Comment on above: Order Comment: Speci men Type: BLOOD SPECIMEN Ordering Facility: [facility] Address: [address] [place] [address] Performed By: #### T SPN #### [facility] CLIA [id number] [address] [place] [address] [place] Hemoglobin (Bld) [Mass/Vol] 12.8 g/dL Normal 11.5-15.5 [facility] Comment on above: Order Comment: Speci men Type: BLOOD SPECIMEN Ordering Facility: [facility] Address: [address] [place] [address] Performed By: #### T SPN #### [facility] CLIA [id number] [address] [place] [address] [place] Immature granulocytes (Bld) [#/Vol] 10*3/uL Normal <0.10 [facility] Comment on above: Order Comment: Speci men Type: BLOOD SPECIMEN Ordering Facility: [facility] Address: [address] [place] [address] Performed By: #### T SPN #### [facility] CLIA [id number] [address] [place] [address] [place] Immature granulocytes/100 WBC (Bld) 0.2 % Normal [facility] Comment on above: Order Comment: Speci men Type: BLOOD SPECIMEN Ordering Facility: [facility] Address: [address] [place] [address] Performed By: #### T SPN #### [facility] CLIA [id number] [address] [place] [address] [place] Lymphocytes (Bld) [#/Vol] 1.32 10*3/uL Normal 1.00-4.00 [facility] Comment on above: Order Comment: Speci men Type: BLOOD SPECIMEN Ordering Facility: [facility] Address: [address] [place] [address] Performed By: #### T SPN #### [facility] CLIA [id number] [address] [place] [address] [place] Lymphocytes/100 WBC (Bld) 22.3 % Normal [facility] Comment on above: Order Comment: Speci men Type: BLOOD SPECIMEN Ordering Facility: [facility] Address: [address] [place] [address] Performed By: #### T SPN #### [facility] CLIA [id number] [address] [place] [address] [place] MCH (RBC) [Entitic mass] 29.0 pg Normal 26.0-34.0 [facility] Comment on above: Order Comment: Speci men Type: BLOOD SPECIMEN Ordering Facility: [facility] Address: [address] [place] [address] Performed By: #### T SPN #### [facility] CLIA [id number] [address] [place] [address] [place] MCHC (RBC) [Mass/Vol] 34.5 g/dL Normal 30.5-36.0 [facility] Comment on above: Order Comment: Speci men Type: BLOOD SPECIMEN Ordering Facility: [facility] Address: [address] [place] [address] Performed By: #### T SPN #### [facility] CLIA [id number] [address] [place] [address] [place] MCV (RBC) [Entitic vol] 84.1 fL Normal 80.0-100.0 [facility] Comment on above: Order Comment: Speci men Type: BLOOD SPECIMEN Ordering Facility: [facility] Address: [address] [place] [address] Performed By: #### T SPN #### [facility] CLIA [id number] [address] [place] [address] [place] Monocytes (Bld) [#/Vol] 0.45 10*3/uL Normal <0.87 [facility] Comment on above: Order Comment: Speci men Type: BLOOD SPECIMEN Ordering Facility: [facility] Address: [address] [place] [address] Performed By: #### T SPN #### [facility] CLIA [id number] [address] [place] [address] [place] Monocytes/100 WBC (Bld) 7.6 % Normal C [facility] Comment on above: Order Comment: Speci men Type: BLOOD SPECIMEN Ordering Facility: [facility] Address: [address] [place] [address] Performed By: #### T SPN #### [facility] CLIA [id number] [address] [place] [address] [place] Neutrophils (Bld) [#/Vol] 4.05 10*3/uL Normal 1.45-7.50 [facility] Comment on above: Order Comment: Speci men Type: BLOOD SPECIMEN Ordering Facility: [facility] Address: [address] [place] [address] Performed By: #### T SPN #### [facility] CLIA [id number] [address] [place] [address] [place] Neutrophils/100 WBC (Bld) 68.5 % Normal [facility] Comment on above: Order Comment: Speci men Type: BLOOD SPECIMEN Ordering Facility: [facility] Address: [address] [place] [address] Performed By: #### T SPN #### [facility] CLIA [id number] [address] [place] [address] [place] Nucleated RBC (Bld) [#/Vol] 10*3/uL Normal <0.01 [facility] Comment on above: Order Comment: Speci men Type: BLOOD SPECIMEN Ordering Facility: [facility] Address: [address] [place] [address] Performed By: #### T SPN #### [facility] CLIA [id number] [address] [place] [address] [place] Nucleated RBC/100 WBC (Bld) [Ratio] 0.0 /100 WBC Normal [facility] Comment on above: Order Comment: Speci men Type: BLOOD SPECIMEN Ordering Facility: [facility] Address: [address] [place] [address] Performed By: #### T SPN #### [facility] CLIA [id number] [address] [place] [address] [place] Platelet mean volume (Bld) [Entitic vol] 8.8 fL Low 9.0-12.7 [facility] Comment on above: Order Comment: Speci men Type: BLOOD SPECIMEN Ordering Facility: [facility] Address: [address] [place] [address] Performed By: #### T SPN #### [facility] CLIA [id number] [address] [place] [address] [place] Platelets (Bld) [#/Vol] 193 10*3/uL Normal 150-400 [facility] Comment on above: Order Comment: Speci men Type: BLOOD SPECIMEN Ordering Facility: [facility] Address: [address] [place] [address] Performed By: #### T SPN #### [facility] CLIA [id number] [address] [place] [address] [place] RBC (Bld) [#/Vol] 4.41 10*6/uL Normal 3.90-5.20 [facility] Comment on above: Order Comment: Speci men Type: BLOOD SPECIMEN Ordering Facility: [facility] Address: [address] [place] [address] Performed By: #### T SPN #### [facility] CLIA [id number] [address] [place] [address] [place] WBC (Bld) [#/Vol] 5.91 10*3/uL Normal 3.70-11.00 [facility] Comment on above: Order Comment: Speci men Type: BLOOD SPECIMEN Ordering Facility: [facility] Address: [address] [place] [address] Performed By: #### T SPN #### [facility] CLIA [id number] [address] [place] [address] [place] Examination level ultrasound on 08-09-2024 Indication First trimester anatomic survey Impression The patient is referred for a first trimester anatomy scan including nuchal translucency measurement as clinically indicated. - Single, live, intrauterine . - [place] rump length measurement is consistent with the [...] view: visualized 4-chamber view with color: visualized 8-[id number]-xpflxpq view: normal Abdominal cord insertion: normal Stomach: [...] Read By: Kelli Arizmendi M.D. MATERNAL MEDICINE [facility] Radiology Study observation (narrative) [facility] HBV surface Ag Ser Qlon 07-26 HBV surface Ag Ql (S) Negative Normal Negative [facility] Comment on above: Order Comment: Speci men Type: BLOOD SPECIMENOrdering Facility: [facility] Address: [address] [place] [address] Performed By: #### 5 195-3, 01153-8, 70497-9 ####[facility] LABCLIA [id number] [place] [address] [place] HCV Ab Ser Qlon 08-09-2024 HCV Ab Ql (S) Negative Normal Negative [facility] Comment on above: Order Comment: Speci men Type: BLOOD SPECIMENOrdering Facility: [facility] Address: [address] [place] [address] Result Comment: The result suggests no evidence of infection with Hepatitis C virus. Should recent infection be suspected, repeat testing may be considered 4-6 weeks after this draw. Performed By: #### 1 6128-1 ####[facility] LABIA [id number] [place] [address] [place] HIV 1+2 Ab IA Qlon HIV 1 and 2 Ab IA.rapid Nom (S/P/Bld) Normal [facility] Comment on above: Order Comment: Speci men Type: BLOOD SPECIMENOrdering Facility: [facility] Address: [address] [place] [address] Result Comment: Test not indicated. Performed By: #### 5 195-3, 71064-5, 35000-3 ####[facility] LABIA [id number] [place] [address] [place] HIV 1+2 Ab+HIV1 p24 Ag IA Ql Non-Reactive Normal Nonreactive [facility] Comment on above: Order Comment: Speci men Type: BLOOD SPECIMENOrdering Facility: [facility] Address: [address] [place] [address] Performed By: #### 5 195-3, 54446-4, 41485-6 ####[facility] LABIA [id number] [place] [address] [place] HIV immunoassay testing algorithm interpretation (S/P/Bld) [Interp] Normal [facility] Comment on above: Order Comment: Speci men Type: BLOOD SPECIMENOrdering Facility: [facility] Address: [address] [place] [address] Result Comment: No e vidence of HIV-1 or HIV-2 infection. Should recent infection be suspected, repeat testing may be considered 2-3 weeks after this draw. [place] Rev. Code 3701.243(E): This information has been [...] or diagnoses. Performed By: #### 5 195-3, 39740-6, 38006-7 ####[facility] LABCLIA [id number] [address] OF [facility] HbA1c (Bld)on 08-09-2024 Average glucose Estimated from glycated hemoglobin (Bld) [Mass/Vol] 97 mg/dL Normal [facility] Comment on above: Order Comment: Speci men Type: BLOOD SPECIMENOrdering Facility: [facility] Address: [address] [place] [address] Result Comment: eAG: (Estimated average glucose) is a calculated value from HgbA1c and is bilingual call center representative of the average blood glucose level in the last 2-3 month period. Performed By: #### 5 5454-3 ####[facility] LABCLIA [id number] [address] STATES OF [facility] HbA1c (Bld) [Mass fraction] 5.0 % Normal 4.3-5.6 [facility] Comment on above: Order Comment: Speci men Type: BLOOD SPECIMENOrdering Facility: [facility] Address: [address] [place] [address] Result Comment: [place] Diabetes Association guidelines indicate that patients with HgbA1c in the range 5.7-6.4% are at increased risk for development of diabetes, and intervention by lifestyle modification may be beneficial. HgbA1c greater or equal to 6.5% is considered diagnostic of diabetes. Performed By: #### 5 5454-3 ####[facility] LABCLIA [id number] [place] [id number] [place] RUBELLA IGG ANTIBODYon 08-09 RUBELLA IGG AB, QUAL Positive Normal Positive [facility] Comment on above: Order Comment: Speci leonela Type: BLOOD SPECIMEN Ordering Facility: [facility] Address: [address] [place] [address] Result Comment: The result suggests recent or past exposure to Rubella virus or history of Rubella vaccination. Positive result may also be seen due to presence of passively-transferred antibodies. Please correlate with patient's history. Performed By: #### T SPN #### [facility] CLIA [id number] [address] [place] [address] [place] Reagin and Treponema pallidu m IgG and IgM [Interp]on 08-09-2024 T. pallidum IgG+IgM IA Ql (S) Non-Reactive Normal Nonreactive [facility] Comment on above: Order Comment: Speci leonela Type: BLOOD SPECIMENOrdering Facility: [facility] Address: [address] [place] [address] Performed By: #### 5 195-3, 56415-1, 96866-2 ####[facility] LABCLIA [id number] [place] [address] [place] Reagin+T pallidum IgG+IgM Se rPl-Impon 08-09-2024 Reagin and Treponema pallidum IgG and IgM [Interp] Cannot exclude recent Treponemal infection if specimen collected within 7-10 days after appearance of suspect lesions or 2-3 weeks after an exposure. Clinical correlation is required. Normal [facility] Comment on above: Order Comment: Speci leonela Type: BLOOD SPECIMENOrdering Facility: [facility] Address: [address] [place] [address] Performed By: #### 5 195-3, 07588-5, 84000-1 ####[facility] LABCLIA [id number] [place] [address] [place] TYPE + SCREEN PRENATALon ABO A Normal [facility] Comment on above: Order Comment: Speci men Type: BLOOD SPECIMEN Ordering Facility: [facility] Address: [address] [place] [address] Performed By: #### T SPN #### [facility] CLIA [id number] [address] [place] [address] [place] Rh Nom (Bld) Positive Normal [facility] Comment on above: Order Comment: Speci men Type: BLOOD SPECIMEN Ordering Facility: [facility] Address: [address] [place] [address] Performed By: #### T SPN #### [facility] CLIA [id number] [address] [place] [address] [place] TYPE AND SCREEN EXPIRATION 08/12/2024 23:59 Normal [facility] Comment on above: Order Comment: Speci men Type: BLOOD SPECIMEN Ordering Facility: [facility] Address: [address] [place] [address] Performed By: #### T SPN #### [facility] CLIA [id number] [address] [place] [address] [place] Bacteria Ur Culton Bacteria identified Cx Nom (U) ORGANISM ID: 1 >=100,000 CFU/ml Normal urogenital sarina Normal [facility] Comment on above: Performed By: #### T SPN #### [facility] CLIA [id number] [address] [place] [address] [place] C. trachomatis+N. gonorrhoea e DNA JD+probe Ql (Unsp spec)on 07-18-2024 C. trachomatis rRNA JD+probe Ql (Unsp spec) Not detected Not detected [facility] Interpretation and review of laboratory results Normal [facility] N. gonorrhoeae rRNA JD+probe Ql (Unsp spec) Not detected Not detected [facility] This FDA-approved as say has been modified to accept rectal swabs self-collected in a healthcare setting. For self-collected rectal swabs, the test was developed and its performance characteristics determined by the [facility]'s [facility] ([facility]). It has not been cleared or approved by the FDA. [facility] is regulated under CLIA as qualified to perform high-complexity testing. This test is used for clinical purposes. It should not be regarded as investigational or for research. [facility] C. trachomatis rRNA JD+probe Ql (Unsp spec) Not detected Normal Not detected [facility] Comment on above: Order Comment: Speci men Type: BLOOD SPECIMEN Ordering Facility: [facility] Address: [address] [place] [address] Performed By: #### T SPN #### [facility] CLIA [id number] [address] [place] [address] [place] N. gonorrhoeae rRNA JD+probe Ql (Unsp spec) Not detected Normal Not detected [facility] Comment on above: Order Comment: Speci men Type: BLOOD SPECIMEN Ordering Facility: [facility] Address: [address] [place] [address] Performed By: #### T SPN #### [facility] CLIA [id number] [address] [place] [address] [place] HIGH RISK HUMAN PAPILLOMA DANGELO (HPV), PCR FOR DETECTION AND GENOTYPINGon 07-18-2024 HPV 16 Ag Ql (Unsp spec) Not detected Normal Not detected [facility] Comment on above: Order Comment: Speci men Type: BLOOD SPECIMEN Ordering Facility: [facility] Address: [address] [place] [address] Performed By: #### T SPN #### [facility] CLIA [id number] [address] [place] [address] [place] HPV 18 Ag Ql (Unsp spec) Not detected Normal Not detected [facility] Comment on above: Order Comment: Speci men Type: BLOOD SPECIMEN Ordering Facility: [facility] Address: [address] [place] [address] Performed By: #### T SPN #### [facility] CLIA [id number] [address] [place] [address] [place] HPV 31+33+35+39+45+51+52+56 +58+59+66+68 DNA JD+probe Ql (Cvx) Not detected Normal Not detected [facility] Comment on above: Order Comment: Speci men Type: BLOOD SPECIMEN Ordering Facility: [facility] Address: [address] [place] [address] Result Comment: High Risk HPV Other Type includes HPV types 31, 33, 35, 39, 45, 51, 52, 56, 58, 59, 66 and 68. Performed By: #### T SPN #### [facility] CLIA [id number] [address] [place] [address] [place] PAP TESTon 07-18-2024 ADEQUACY Normal [facility] Comment on above: Order Comment: Speci men Type: FLUID SPECIMEN Ordering Facility: [facility] Address: [address] [place] [address] Result Comment: Sati sfactory for interpretation. No endocervical component Performed By: #### L [id number] #### [facility] CLIA [id number] [address] [place] [address] [place] CASE REPORT Normal [facility] Comment on above: Order Comment: Speci men Type: FLUID SPECIMEN Ordering Facility: [facility] Address: [address] [place] [address] Result Comment: Gyne cologic Cytology Report Case: [id number] Authorizing Provider: Maximus Fletcher APRN.WHIPPER Collected: 07/18/2024 10:21 AM Ordering Location: OB/Gynecology Received: 07/18/2024 11:49 AM First Screen: Catrachito, Luz, CT, ASCP Specimen: Pap Test, ThinPrep, Cervix Performed By: #### L [id number] #### [facility] CLIA [id number] [address] [place] [address] [place] CLINICAL HISTORY, CYTOLOGY, EDGE SANDER Routine Exam Normal [facility] Comment on above: Order Comment: Speci men Type: FLUID SPECIMEN Ordering Facility: [facility] Address: [address] [place], [place] [id number] Performed By: #### L [id number] #### [facility] CLIA [id number] [address] [place] [address] [place] [address] [place] FINAL PERFORMING LAB Normal [facility] Comment on above: Order Comment: Speci men Type: FLUID SPECIMEN Ordering Facility: [facility] Address: [address] [place], [place] [address] Result Comment: Tech nical component, tack cleaner screening performed at: [facility], [address] [place] [address] [place] [address] CLIA: [id number] Diagnostic interpretation performed at: [facility], [address] [place] [address] [place] [address] CLIA# [id number] Bowling Ball Mold Assembler: Shlomo Nolan MD Performed By: #### L [id number] #### [facility] CLIA [id number] [address] [place] [address] [place] INTERPRETATION, CYTOLOGY, EDGE SANDER Normal [facility] Comment on above: Order Comment: Speci men Type: FLUID SPECIMEN Ordering Facility: [facility] Address: [address] [place] [address] Result Comment: Nega tive for intraepithelial lesion or malignancy. at 0922 EDT Performed By: #### L [id number] #### [facility] CLIA [id number] [address] [place] [address] [place] [address] [place] LMP 05/12/2024 Normal [facility] Comment on above: Order Comment: Speci men Type: FLUID SPECIMEN Ordering Facility: [facility] Address: [address] [place], [place] [address] Performed By: #### L [id number] #### [facility] CLIA [id number] [address] [place] [address] [place] PAP DISCLAIMER COMMENT The Pap Smear is a screening test for cervical cancer. False negative results occur with all screening tests, emphasizing the need for rescreening at recommended intervals, and clinical correlation. Normal [facility] Comment on above: Order Comment: Speci men Type: FLUID SPECIMEN Ordering Facility: [facility] Address: [address] [place] [address] Performed By: #### L [id number] #### [facility] CLIA [id number] [address] [place] [address] OF PAM PAP MANAGER SUPPORT COMMENT This specimen has be en analyzed by the ThinPrep Imaging System, an automated imaging and review system, which assists the laboratory in evaluating cells on ThinPrep Pap tests. Following automated imaging, selected siegel from every slide are reviewed by a tack cleaner. Normal [facility] Comment on above: Order Comment: Speci men Type: FLUID SPECIMEN Ordering Facility: [facility] Address: [address] [place] [address] Performed By: #### L [id number] #### [facility] CLIA [id number] [address] [place] [address] OF PAM TRICHOMONAS VAGINALIS NAATon 07-18-2024 Interpretation and review of laboratory results Normal [facility] T. vaginalis DNA JD+probe Ql (Unsp spec) Not detected Not detected [facility] T. vaginalis DNA JD+probe Ql (Unsp spec) Not detected Normal Not detected [facility] Comment on above: Order Comment: Speci men Type: BLOOD SPECIMEN Ordering Facility: [facility] Address: [address] [place] [address] Performed By: #### T SPN #### [facility] CLIA [id number] [address] [place] [address] OF PAM CNOVon 07-09-2024 CNOV Office Visit (OBGYWM ) ATIYA MANCIA ([id number]) 1995 F Date Time Provider Department 07/09/24 2:50 PM MATY MOLINA OBGYWM During your visit today, we recorded the following information about you: Blood pressure Weight Height Last Period 110/64 52.2 kg 1.575 m 05/12/24 Maty Molina MD 07/09/2024 3:48 PM Signed Fuel Buyer offered: Patient declines. Maty Molina MD 07/09/2024 3:48 PM Signed Obstetrics and Gynecology [place] EDGE SANDER Visit Subjective Recording using [employer] software for draft documentation of the visit was discussed with the patient/authorized bilingual call center representative; all questions welcomed and answered. Patient/authorized bilingual call center representative agreed to proceed CHIEF COMPLAINT: Bleeding in [...] Living3 SAB0 IAB0 Ectopic0 Multiple0 Live Births3 Keller Machine Operator History LMP: 05/12/2024 Age at Menarche: Age at First : Age at Menopause: Keller Machine Operator History Comments: Sexual Activity: Yes; Male Contraception: [...] discussed with the Patient or Patient's Authorized Repair Mechanic. As applicable, any other physician, advance practice provider, medical student, or other health professional student that will be observing or involved in the sensitive examination for educational or training purposes was discussed with the Patient or Authorized Repair Mechanic. The Patient or Authorized Repair Mechanic has agreed to proceed with the sensitive [...] PLAN: 1. Spotting complicating , first trimester (HCC) (O26.851) Spotting began last , initially dark [...] of previous obstetrical problem in first trimester (HCC) (O09.291) Previous was high-risk due to ventriculomegaly. Current is being monitored closely. Continue routine care with close monitoring due to history of high-risk . Medical Decision Making: Problems: Modera (more content not included)... Normal [facility] Progress Noteon 06-29-2021 Matrix Bath Attendant Authentication Interface Message Text Visit Subjective: Atiya Mancia is a 26 y.o. female who presents for a visit. She is 6 weeks following a spontaneous vaginal delivery. I have fully reviewed the and intrapartum course. The delivery was at 39 gestational weeks. Delivering Provider: Claos Engle DO . course has been uncomplicated. [...] Follow up with Dr Vyas for ongoing EDGE SANDER care. Normal pap 09/2020. Discussed next pap in 3 years. 4. Encouraged to establish PCP care for yearly preventive health screening The total patient time of the visit was 25 minutes: 15 direct patient care, 10 minutes chart review and documentation. Normal [facility] Hemogramon 05-19-2021 Erythrocyte distribution width (RBC) [Ratio] 13.9 % Normal 11.5-14.5 [facility] Comment on above: Performed By: #### H EMOG #### [address] [address] [place], [place] Hematocrit (Bld) [Volume fraction] 35.4 % Normal 35.0-47.0 [facility] Comment on above: Performed By: #### H EMOG #### [address] [address] [place], [place] Hemoglobin (Bld) [Mass/Vol] 11.6 g/dL Low 11.7-16.0 [facility] Comment on above: Performed By: #### H EMOG #### [address] [address] [place], [place] MCH (RBC) [Entitic mass] 26.4 pg Normal 26.0-34.0 [facility] Comment on above: Performed By: #### H EMOG #### [address] [address] [place], [place] MCHC 32.7 % Normal 32.0-36.0 [facility] Comment on above: Performed By: #### H EMOG #### [address] MCV (RBC) [Entitic vol] 80.7 fL Normal 79.0-98.0 [facility] Comment on above: Performed By: #### H EMOG #### [address] Platelet mean volume (Bld) [Entitic vol] 6.6 fL Low 7.4-10.4 [facility] Comment on above: Performed By: #### H EMOG #### [facility] [address] [place] [address] Platelets (Bld) [#/Vol] 263 10*3/uL Normal 140-440 [facility] Comment on above: Performed By: #### H EMOG #### [facility] [address] [place] [address] RBC (Bld) [#/Vol] 4.38 10*6/uL Normal 3.80-5.[address] [facility] Comment on above: Performed By: #### H EMOG #### [facility] [address] [place] [address] WBC (Bld) [#/Vol] 7.5 10*3/uL Normal 3.6-10.[address] [facility] [employer] Comment on above: Performed By: #### H EMOG #### [facility] [address] [place] [address] TS GELon 05-19-2021 TS GEL ABO Group: A Rh, Gel: POS Antibody Screen Gel: NEG Normal [facility] [employer] Comment on above: Performed By: #### T SGL #### [facility] Progress Noteon 05-11-2021 Matrix Bath Attendant Authentication Interface Message Text Visit Subjective: Atiya [...] growth every 4 weeks DELIVERY PLAN Hospital: [facility] Let Labor GBS culture: 04/29 Negative Contraception: undecided : yes, declines Ped: chosen Reviewed on 05/11/2021 complicated by cerebral ventriculomegaly 03/02/2021 Priority: High See [facility] POC Neonatology and Neuro consult completed 04/09 Neurosurgery telehealth 04/21/21[place] Reviewed on 05/11/2021 Follow up : 1 week if undelivered Reinforced s/s labor, PEC, movement monitoring. The total patient time of the visit was 20 minutes: 10 direct patient care, 10 minutes chart review and documentation. Normal [facility] Progress Noteon 05-04-2021 Matrix Bath Attendant Authentication Interface Message Text Visit Subjective: Atiya [...] growth every 4 weeks DELIVERY PLAN Hospital: [facility] Let Labor GBS culture: 04/29 Negative Contraception: undecided : yes, declines Ped: chosen Reviewed on 05/04/2021 complicated by cerebral ventriculomegaly 03/02/2021 Priority: High See [facility] POC Neonatology and Neuro consult completed 04/09 Neurosurgery telehealth 04/21/21-Crystal Reviewed on 05/04/2021 Follow up: Weekly OB and surveillance Labor precautions and movement monitoring reinforced. The total patient time of the visit was 25 minutes: 15 direct patient care, 10 minutes chart review and documentation. Normal [facility] Group B Strep Cultureon S. agalactiae Ag Ql (Unsp spec) Release to patient->Automatic [id number]&Vagina^^^Vaginal/ Rectal&Vaginal/Rectal No allergies noted Group B Strep Culture: No Group B Streptococci isolated. Source: VAG Collected: 04/29/21 11:10 Site: Vaginal/Rectal Received : 04/29/21 17:23 Group B Strep Culture FINAL 05/02/21 09:05 No Group B Streptococci isolated. Normal [facility] Comment on above: Performed By: #### G RBSC #### [facility] [place] [address] Progress Noteon 04-29-2021 Matrix Bath Attendant Authentication Interface Message Text Visit Subjective: Atiya [...] growth every 4 weeks DELIVERY PLAN Hospital: [facility] Let Labor GBS culture: done 04/29 Contraception: undecided : yes, declines Ped: marco a Reviewed on 04/29/2021 complicated by cerebral ventriculomegaly 03/02/2021 See [facility] POC Neonatology and Neuro consult completed 04/09 Neurosurgery telehealth 04/21/21-Crystal Reviewed on 04/29/2021 Kick counts reviewed and encouraged Precautions reviewed Follow up OB visit weekly BPP weekly Growth scan as scheduled. The total time spent on patient care today 04/29/2021 was 30 minutes. -15 minutes direct patient care -15 minutes chart review and documentation Normal [facility] Progress Noteon 04-21-2021 Matrix Bath Attendant Authentication Interface Message Text Neurosurgery Consult Note [...] addition to the various etiologies for developing ventriculomegaly/hydroc ephalus. We also reviewed what to expect once baby (he) is born. If he is doing well, there may not be any urgency of transferring him to [facility] and we could follow him as an [...] likely be performed by the neurosurgery attending division roadmaster. Depending upon the age of intervention, he [...] office at any time, the number is [phone]. Thanks again and kindest regards, Princess Rojas MD, FAANS Sports Management Professor, Division of Pediatric Neurosurgery [facility] I spent a total of 30 minutes with Atiya Mancia, of which, >50% was spent counseling/ direct management/discussion/c oordination of Atiya Mancia care. Please review the impression/plan/recomme ndations in my note regarding what was discussed during this visit. This is a telemedicine video visit requested by the patient/guardian that was performed with the patient's location at home and the provider's location at office. Normal [facility] Progress Noteon 04-20-2021 Matrix Bath Attendant Authentication Interface Message Text Visit Subjective: Atiya [...] plan to let labor Ventricles stable. BP 8/8- see imaging for full details. Assessment/Plan: Atiya [...] growth every 4 weeks DELIVERY PLAN Hospital: [facility] Let Labor GBS culture: 04/20: Contraception: undecided : yes, declines Ped: chosen Reviewed on 04/20/2021 complicated by cerebral ventriculomegaly 03/02/2021 Priority: High See [facility] POC Neonatology and Neuro consult completed 04/09 Neurosurgery telehealth 04/21/21[place] Reviewed on 04/20/2021 Follow up: Weekly OB and BPP Reinforced precautions. The total patient time of the visit was 25 minutes: 15 direct patient care, 10 minutes chart review and documentation. Normal [facility] Progress Noteon 04-09-2021 Matrix Bath Attendant Authentication Interface Message Text Visit Subjective: Atiya Mancia is being seen today for an transfer of care obstetrical visit. She is at 34w3d gestation. Her obstetrical history is significant for bilateral ventriculomegaly. Pt is known to [facility], met with Neuro and Neonates today. history [...] growth every 4 weeks DELIVERY PLAN Hospital: [facility] GBS culture: Contraception: undecided : yes, declines Ped: chosen Reviewed on 04/09/2021 complicated by cerebral ventriculomegaly 03/02/2021 See [facility] POC Neonatology and Neuro consult completed 04/09 Reviewed on 04/09/2021 Logistics of practice/POC reviewed Precautions reviewed Follow up OB visit 2 weeks (gbs at appt)- pt prefers [place] location if able BPP weekly Growth scan as scheduled. The total time spent on patient care today 04/09/2021 was 30 minutes. -15 minutes direct patient care -15 minutes chart review and documentation Normal [facility] Matrix Bath Attendant Authentication Interface Message Text Dos: 04/09/2021 [facility] NEONATOLOGY CONSULT Referring/Prequesting Provider: No ref. provider [...] Prognosis for survival Acute morbidities: Respiratory Distress Syndrome/Bronchopulmona ry Dysplasia Intraventricular Hemorrhage Infection (early/late) Cardiac Patent Ductus Arteriosus Necrotizing Enterocolitis Retinopathy of prematurity Other problems of prematurity: Jaundice Delayed oral feeding Apnea Length of hospitalization Benefits of Breast milk Location of care: [facility] Level of care/resuscitation: Unrestricted Information Letters given PRESENT FOR CONSULTATION: Both parents FOLLOW UP: Delivery Hospital: [facility] Baby's Follow-up Physician: NASEEM dangelo Call with questions Other: If baby is clinically well; he can stay with parents after delivery. Would recommend following bgts as there were concerns for midline brain anomalies including absent CSP; although MRI findings confirm CSP present. Recommend pediatric neurology follow up after discharge. If baby is macrocephalic with concerns of ICP he will need transferred to [place] for both neurosurgical and neurology evaluation. ADDITIONAL COMMENTS: The total patient time of the visit was 30 minutes. Normal [facility] Z Miscellaneous Sendouton Patient Results ----- Normal [facility] Comment on above: Order Comment: 30 mL ACD-A whole blood AND 10 mL serum Test Name->IInitial testing of Maternal sample ONLY (Test code 5303) What is the sendout facility name, if known?->[facility] ([facility]) Result Comment: Plea se refer to the complete report scanned into [facility] 02-12-2021. Performed By: #### Z MSO #### [place] [address] Performed by: see below Normal [facility] Comment on above: Order Comment: 30 mL ACD-A whole blood AND 10 mL serum Test Name->IInitial testing of Maternal sample ONLY (Test code 5303) What is the sendout facility name, if known?->[facility] ([facility]) Result Comment: Test ing Performed: [facility] [address] [place] [id number] Performed By: #### Z MSO #### [address] [id number] Toxoplasma IGG AND IGM (Pren atal Screen)on 02-10-2021 Toxoplasma IgG (Dye Test) <1:16 Normal <1:16 NEGATIVE [facility] Comment on above: Order Comment: Order a CMV Avidity test if IgM is positive.Release to patient->[id number]&Blood Performed By: #### T SLPN ####[facility] of [address] [phone] Toxoplasma IgM HILDA 0.0 Normal [facility] Comment on above: Order Comment: Order a CMV Avidity test if IgM is positive.Release to patient->[id number]&Blood Result Comment: 0.0-1.6 = Negative 1.7-1.9 = Equivocal >= 2.0 = Positive Testing Performed: [facility] [place] Building [address] [place] [address] Performed By: #### T SLPN ####[address] [phone] [place] Miscellaneous Sendouton 02-04-2021 [facility] SEE COMMENTS Normal [facility] Comment on above: Order Comment: GOKEY CMVP CMV ABS IGG AND IGM1.0 mL serum, refrig.?Order a CMV Avidity test if IgM is positive.?Provide an additional 0.5 mL of serum (1.5 mL total) Result Comment: Test Result Flag Unit RefValue Cytomegalovirus Ab, IgM and IgG, S Cytomegalovirus Ab, IgM, S Negative Negative Cytomegalovirus Ab, IgG, S Positive AB Negative Test Performed by: [facility] [address] [place] [address] Photo Mask Processor: Dagoberto Guerrero M.D. Ph.D.; CLIA# [id number] Performed By: #### M [facility] ####[facility] of [address] [phone] CMV PCR, Quantitativeon CMV PCR, Quantitative Release to patient->Automatic 69667&Blood CMV PCR, Quantitative: NEGATIVE: No CMV DNA DETECTED. Source: PLSMA Collected: 02/03/21 10:44 Site: Received : 02/03/21 11:15 CMV PCR, Quantitative FINAL 02/06/21 13:10 NEGATIVE: No CMV DNA DETECTED. - Method: PCR amplification with fluorescent probe detection using [employer] ASR CMV reagents from [employer]. - The quantitative range of this assay is 800 (2.9 log 10) to 400,000,000 (8.6 log 10) IU/mL with a limit of detection of 300 (2.5 log 10) IU/mL. - Comment: This test was developed and its performance determined by [facility]. It has not been cleared or approved [...] and precision. - Reviewed by: Mary Bazzi Normal [facility] Comment on above: Performed By: #### C MVQN ####[address] [phone] Z Miscellaneous Sendouton Test Name Initial testing Normal [facility] Comment on above: Order Comment: 30 mL ACD-A whole blood AND 10 mL serum Test Name->IInitial testing of Maternal sample ONLY (Test code 5303) What is the sendout facility name, if known?->[facility] ([facility]) Performed By: #### Z MSO #### [facility] [address] [place] [address] MRI (SINGLE)on 021 MRI (SINGLE) PRELIMINARY REPORT: [...] Dr. Raj Tapia at 01/07/2021 16:57 Normal [facility] No Panel Informationon 08-07 PANEL NAME THIN PREP (QU) PAP W ITH HPV REFLEX [facility] Laboratory - Urinalysison Glucose Test strip (U) [Mass/Vol] Negative Normal [email or web address] Protein Ql (U) Negative Normal [email or web address] [facility] Laboratory - Urinalysison Glucose Test strip (U) [Mass/Vol] Negative Normal [email or web address] Protein Ql (U) Negative Normal [email or web address] [facility] Laboratory - Microbiology an d Antimicrobial susceptibilityon 05-30-2014 S. agalactiae Org specific cx Ql (Vag fld) CULTURE VAGINAL GROUP B Normal [email or web address] [facility] Laboratory - Urinalysison Glucose Test strip (U) [Mass/Vol] Negative Normal [email or web address] Protein Ql (U) Negative Normal [facility] Laboratory - Urinalysison Glucose Test strip (U) [Mass/Vol] Negative Normal [email or web address]. Protein Ql (U) Negative Normal Via[facility].; Via6. Laboratory - Urinalysison Glucose Test strip (U) [Mass/Vol] Negative Normal [email or web address]. Protein Ql (U) Negative Normal [email or web address] Via[employer]. Laboratory - Chemistry and C hemistry - challengeon 03-14-2014 Glucose 1 Hr post 50 g glucose PO [Moles/Vol] GLUCOSE CHALLENGE 50GM 1 HOUR Normal [email or web address].; Via[employer]. Glucose [Mass/Vol] 76 mg/dL Normal 70 - 140 mg/dL [email or web address] Via6. Laboratory - Hematology and Cell countson 03-14-2014 Hemoglobin (Bld) [Mass/Vol] 11.5 g/dL Abnormal 12.0 - 16.0 g/dL [email or web address] Via6. Laboratory - Urinalysison Glucose Test strip (U) [Mass/Vol] Negative Normal Via6.; Via6. Protein Ql (U) trace Normal Via6.; Via6. Laboratory - Urinalysison Glucose Test strip (U) [Mass/Vol] Negative Normal Via[employer].; Via6. Protein Ql (U) Negative Normal Via6.; Via6. Laboratory - Chemistry and C hemistry - challengeon 12-24-2013 Bilirubin Ql (U) Negative Normal Via6.; Via6. Ketones Ql (U) Negative Normal Via6.; Scan[employer]Jour, Rezdy. pH (U) 5.5 [pH] Normal Via6.; Scan[employer]Jour, Rezdy. Specific gravity (U) [Rel density] >=1.030 Normal Via6.; Via6. Urobilinogen Qn (U) 0.2 mg/dL Normal [facility] [employer].; Via6. Laboratory - Hematology and Cell countson 12-24-2013 Hemoglobin Ql (U) Negative Normal Via6.; Via6. Laboratory - Specimen inform ationon 12-24-2013 Appearance (U) Clear Normal Via6.; Via6. Color (U) yellow Normal Via6.; Via6. Laboratory - Urinalysison Glucose Test strip (U) [Mass/Vol] Negative Normal Via6.; Via6. Leukocyte esterase Test strip Ql (U) small Abnormal Via6.; Via6. Nitrite Ql (U) Negative Normal Via6.; [employer] Protein Ql (U) Negative Normal Via6.; Scan•Jour, Rezdy. Laboratoryon 11-29-2013 Obstetric 1996 panel (S+Bld) OB PANEL Normal Via6.; Via6. Laboratory - Blood bankon ABO group Nom (Bld) A Normal [facility]; [email or web address] Blood group antibody screen Ql Negative Normal [place] [facility]); [email or web address] Rh Nom (Bld) Positive Normal [place] [facility] [facility]); [email or web address] Laboratory - Chemistry and C hemistry - challengeon 11-29-2013 Bilirubin Ql (U) Negative Normal [facility]; [email or web address] Ketones Ql (U) Negative Normal [place] [facility] [facility]; [email or web address] pH (U) 5.5 [pH] Normal [place] [facility] ([place]); [email or web address] Specific gravity (U) [Rel density] >=1.030 Normal [place] [facility] [facility]; [email or web address] TSH Qn 1.14 m[IU]/L Normal 0.34 - 5.60 {uIU/ml} [place] [facility] [facility]; [email or web address] Urobilinogen Qn (U) 0.2 mg/dL Normal [facility]; [email or web address] Laboratory - Hematology and Cell countson 11-29-2013 Basophils (Bld) [#/Vol] 0.00 {X10_3} Normal 0.00 - 0.10 {X10_3} [place] [facility] [facility]; [email or web address] Basophils/100 WBC (Bld) 0.4 % Normal 0.0 - 2.0 % [place] [facility] HospitalThe [employer]; [email or web address] Erythrocyte distribution width (RBC) [Ratio] 13.0 % Normal 12.0 - 15.6 % [place] [facility]; [email or web address] Hematocrit (Bld) [Volume fraction] 36.6 % Normal 34.0 - 46.0 % [employer] [email or web address] Hemoglobin (Bld) [Mass/Vol] 12.8 g/dL Normal 12.0 - 16.0 g/dL [place] [facility] [facility]; [email or web address] Hemoglobin Ql (U) Negative Normal [facility]; [facility] Lymphocytes (Bld) [#/Vol] 1.70 {X10_3} Normal 0.80 - 2.80 {X10_3} [employer] Lymphocytes/100 WBC (Bld) 21.9 % Normal 20.0 - 45.0 % [employer] MCH (RBC) [Entitic mass] 30 pg Normal 27 - 33 pg [employer] MCHC (RBC) [Mass/Vol] 35 {X10_3} Normal 32 - 3 6 {X10_3} [employer] MCV (RBC) [Entitic vol] 86 fL Normal 80 - 99 fL H [employer] Monocytes (Bld) [#/Vol] 0.60 {X10_3} Normal 0.20 - 1.00 {X10_3} [employer] Monocytes/100 WBC (Bld) 7.3 % Normal 0.0 - 10.0 % [employer] Monocytes/100 WBC (Bld) 4 % Abnormal 0 - 0 % H [employer] Morphology Johnathon (Bld) [Interp] N/A Normal [employer] Neutrophils (Bld) [#/Vol] 5.10 {X10_3} Normal 1.50 - 7.10 {X10_3} [employer] Neutrophils/100 WBC (Bld) 66.0 % Normal 46.0 - 76.0 % [employer] Platelet mean volume (Bld) [Entitic vol] 7.9 fL Normal 6.6 - 10.5 fL [employer] Platelets (Bld) [#/Vol] 210 {3/UL} Normal 150 - 450 {3/UL} [employer] RBC (Bld) [#/Vol] 4.26 {6/UL} Normal 4.10 - 5.3 0 {6/UL} Via6.; Via6. WBC (Bld) [#/Vol] 7.8 {3/UL} Normal 4.5 - 10.8 {3/UL} Via6.; Via6. Laboratory - Specimen inform ationon 11-29-2013 Appearance (U) Clear Normal Via6.; Via6. Color (U) n Normal Via6.; Via6. Laboratory - Urinalysison Glucose Test strip (U) [Mass/Vol] Negative Normal Via6.; Via6. Leukocyte esterase Test strip Ql (U) Negative Normal Via6.; Via6. Nitrite Ql (U) Negative Normal Via6.; Via6. Protein Ql (U) Negative Normal Via6.; Via6. No Panel Informationon 11-29 MANUAL DIFF N/A Normal Via6.; Via6. RDW/SD 38.5 fL Normal 36.0 - 50.0 fL Via6.; Via6. 0.3 Normal Via6.; Via6. Laboratory - Microbiology an d Antimicrobial susceptibilityon 03-30-2011 S. pyogenes Ag EIA Ql (Throat) Negative Normal Via6.; Via6. Vital Signs Date Time Vital Sign Value Performing Clinician Facility 11-29-2024 10:07040 Body mass index (BMI) [Ratio] 24.98 kg/m2 Maximus Fletcher APRN.CNP Work Phone: [facility] 11-29-2024 10:07040 Body weight 60.42 kg Maximus Fletcher APRN.CNP Work Phone: [facility] 11-29-2024 [id number] Diastolic blood pressure 60 mm[Hg] Maximus Fletcher APRN.CNP Work Phone: [facility] 11-29-2024 10:07-0400 Systolic blood pressure 100 mm[Hg] Maximus Chance ZENGWHIPPER Work Phone: [facility] 11-24-2024 13:35-0400 Body temperature 98.9 [degF] No Primary Care Physician [facility] 11-24-2024 13:35-0400 Diastolic blood pressure 78 mm[Hg] No Primary Care Physician [facility] 11-24-2024 13:35-0400 Heart rate 78 /min No Primary Care Physician [facility] 11-24-2024 13:35-0400 Respiratory rate 18 /min No Primary Care Physician [facility] 11-24-2024 13:35-0400 SaO2% (BldA) [Mass fraction] 99 % No Primary Care Physician [facility] 11-24-2024 13:35-0400 Systolic blood pressure 117 mm[Hg] No Primary Care Physician [facility] 11-24-2024 09:17-0400 Body height 154.94 cm No Primary Care Physician [facility] 11-24-2024 09:17-0400 Body mass index (BMI) [Ratio] 24 kg/m2 No Primary Care Physician [facility] 11-24-2024 09:17-0400 Body weight 57.6 kg No Primary Care Physician [facility] 10-04-2024 08:48-0400 Body mass index (BMI) [Ratio] 23.07 kg/m2 Marlyn Read ROOF TILER.CNM Work Phone: [facility] 10-04-2024 08:48-0400 Body weight 55.79 kg Marlyn Read ROOF TILER.CNM Work Phone: [facility] 10-04-2024 08:48-0400 Diastolic blood pressure 64 mm[Hg] Marlyn Chavarriats ROOF TILER.CNM Work Phone: [facility] 10-04-2024 08:48-0400 Systolic blood pressure 100 mm[Hg] Marlyn Read ROOF TILER.CNM Work Phone: [facility] 09-06-2024 09:50-0400 Body mass index (BMI) [Ratio] 22.32 kg/m2 Charito Zaragoza MD Work Phone: [facility] 09-06-2024 09:50-0400 Body weight 53.98 kg Charito Zaragoza MD Work Phone: [facility] 09-06-2024 09:50-0400 Diastolic blood pressure 60 mm[Hg] Charito Zaragoza MD Work Phone: [facility] 09-06-2024 09:50-0400 Systolic blood pressure 104 mm[Hg] Charito Zaragoza MD Work Phone: [facility] 08-09-2024 11:01-0400 Body mass index (BMI) [Ratio] 21.57 kg/m2 Marlyn Plotts ROOF TILER.CNM Work Phone: [facility] 08-09-2024 11:01-0400 Body weight 52.16 kg Marlyn Plotts ROOF TILER.CNM Work Phone: [facility] 08-09-2024 11:01-0400 Diastolic blood pressure 64 mm[Hg] Marlyn Plotts ROOF TILER.CNM Work Phone: [facility] 08-09-2024 11:01-0400 Systolic blood pressure 112 mm[Hg] Marlyn Plotts ROOF TILER.CNM Work Phone: [facility] 07-18-2024 09:49-0400 Body height 155.5 cm Maximus Hamauro ROOF TILER.WHIPPER Work Phone: [facility] 07-18-2024 09:49-0400 Body mass index (BMI) [Ratio] 21.57 kg/m2 Maximus Haury ROOF TILER.WHIPPER Work Phone: [facility] 07-18-2024 09:49-0400 Body weight 52.16 kg Maximus Haury ROOF TILER.WHIPPER Work Phone: [facility] 07-18-2024 09:49-0400 Diastolic blood pressure 60 mm[Hg] Maximus Haury ROOF TILER.WHIPPER Work Phone: [facility] 07-18-2024 09:49-0400 Systolic blood pressure 114 mm[Hg] Maximus Fletcher CECILLE Work Phone: [facility] 07-09-2024 14:50-0400 Body height 157.5 cm Maty Tolentino MD Work Phone: [facility] 07-09-2024 14:50-0400 Body mass index (BMI) [Ratio] 21.03 kg/m2 Maty Tolentino MD Work Phone: [facility] 07-09-2024 14:50-0400 Body weight 52.16 kg Maty Tolentino MD Work Phone: [facility] 07-09-2024 14:50-0400 Diastolic blood pressure 64 mm[Hg] Maty Tolentino MD Work Phone: [facility] 07-09-2024 14:50-0400 Systolic blood pressure 110 mm[Hg] Maty Tolentino MD Work Phone: [facility] 01-29-2022 10:40-0400 Body height 156.21 cm Tapan Celaya MD Work Phone: [facility] [employer]; [employer]neJelly[employer] [facility] 01-29-2022 10:40-0400 Body mass index (BMI) [Ratio] 21.56 kg/m2 Tapan eClaya MD Work Phone: [facility] ([place]); [place] [employer] [facility] 01-29-2022 10:40-0400 Body surface area Derived from formula 1.51 m2 Tapan Celaya MD Work Phone: [employer]Jelly[employer] [facility] ([place]); [employer] [facility] 01-29-2022 10:40-0400 Body temperature 97.8 [degF] Tapan Celaya MD Work Phone: [employer]; [email or web address]. Comment on above: Method: Tympanic 01-29-2022 10:40-0400 Body weight 52.62 kg Tapan Celaya MD Work Phone: [employer]; [employer] 01-29-2022 10:40-0400 Diastolic blood pressure 60 mm[Hg] Tapan Celaya MD Work Phone: [employer]; [employer] Comment on above: Patient Position: Sitting; Cuff Location : Right Arm; Cuff Size: Standard 01-29-2022 10:40-0400 Heart rate 71 /min Tapan Celaya MD Work Phone: [employer]; Via[employer]. Comment on above: Pattern: Regular 01-29-2022 10:40-0400 Inhaled oxygen concentration 20 % Tapan Celaya MD Work Phone: [employer]; [employer] Comment on above: Room air 01-29-2022 10:40-0400 SaO2% (BldA) [Mass fraction] 98 % Tapan Celaya MD Work Phone: [employer]; [employer] 01-29-2022 10:40-0400 Systolic blood pressure 95 mm[Hg] Tapan Celaya MD Work Phone: [employer]; Via6. Comment on above: Patient Position: Sitting; Cuff Location : Right Arm; Cuff Size: Standard 01-12-2022 08:47-0400 Body height 156.21 cm Tapan Celaya MD Work Phone: [employer]; [employer] 01-12-2022 08:47-0400 Body mass index (BMI) [Ratio] 21.75 kg/m2 Tapan Celaya MD Work Phone: [employer]; [employer] 01-12-2022 08:47-0400 Body surface area Derived from formula 1.51 m2 Tapan Celaya MD Work Phone: [employer]; [employer] 01-12-2022 08:47-0400 Body weight 53.07 kg Tapan Celaya MD Work Phone: [employer].; Via6. 01-12-2022 08:47-0400 Diastolic blood pressure 74 mm[Hg] Tapan Celaya MD Work Phone: [employer].; Via6. Comment on above: Patient Position: Sitting; Cuff Location : Left Arm; Cuff Size: Large 01-12-2022 08:47-0400 Heart rate 74 /min Tapan Celaya MD Work Phone: [employer].; Via6. Comment on above: Pattern: Regular 01-12-2022 08:47-0400 Systolic blood pressure 110 mm[Hg] Tapan Celaya MD Work Phone: [employer].; Via6. Comment on above: Patient Position: Sitting; Cuff Location : Left Arm; Cuff Size: Large 08-07-2014 09:58-0400 Body height 156.21 cm [employer] [facility] Work Phone: Via6.; Via6. 08-07-2014 09:58-0400 Body mass index (BMI) [Ratio] 22.12 kg/m2 VivianDesi [employer]its [facility] Work Phone: Via6.; Via6. 08-07-2014 09:58-0400 Body surface area Derived from formula 1.52 m2 VivianDesi [employer]its [employer] Work Phone: Via6.; Via6. 08-07-2014 09:58-0400 Body weight 53.98 kg Vivian Ensequence [employer]ICIAN Work Phone: Via[employer].; Via6. 08-07-2014 09:58-0400 Diastolic blood pressure 78 mm[Hg] [employer] Work Phone: Via[employer].; Via6. Comment on above: Patient Position: Sitting; Cuff Location : Left Arm; Cuff Size: Standard 08-07-2014 09:58-0400 Heart rate 80 /min Vivian Sunshine [employer] Work Phone: [facility] [employer] Via6. Comment on above: Pattern: Regular 08-07-2014 09:58-0400 Systolic blood pressure 128 mm[Hg] Vivian Sunshine [employer] ELECTRICIAN Work Phone: [email or web address].; Via6. Comment on above: Patient Position: Sitting; Cuff Location : Left Arm; Cuff Size: Standard 06-13-2014 13:28-0400 Body weight 61.24 kg Neilee L Vess [email or web address].; [email or web address]. 06-13-2014 13:28-0400 Diastolic blood pressure 71 mm[Hg] Neilee L Vess [employer]LECTRIC[email or web address].; Via6. Comment on above: Patient Position: Sitting; Cuff Location : Right Arm; Cuff Size: Standard 06-13-2014 13:28-0400 Heart rate 89 /min Neilee L Vess [employer] ELECTRICIAN [email or web address].; Via6. Comment on above: Pattern: Regular 06-13-2014 13:28-0400 Systolic blood pressure 127 mm[Hg] Neilee L Vess [employer] ELECTRICIAN [email or web address].; Via6. Comment on above: Patient Position: Sitting; Cuff Location : Right Arm; Cuff Size: Standard 06-06-2014 10:30-0400 Body weight 60.78 kg Vivian Sunshine [employer]RICIAN Work Phone: [email or web address].; Via6. 06-06-2014 10:30-0400 Diastolic blood pressure 72 mm[Hg] Vivian Sunshine [employer] Work Phone: [email or web address].; Via6. Comment on above: Patient Position: Sitting; Cuff Location : Left Arm; Cuff Size: Standard 06-06-2014 10:30-0400 Heart rate 98 /min Vivian Sunshine [employer] ELECTRICIAN Work Phone: [email or web address].; Via6. Comment on above: Pattern: Regular 06-06-2014 10:30-0400 Systolic blood pressure 118 mm[Hg] Vivian Sunshine [employer] ELECTRICIAN Work Phone: [email or web address].; Via6. Comment on above: Patient Position: Sitting; Cuff Location : Left Arm; Cuff Size: Standard 05-30-2014 09:31-0500 Body weight 61.69 kg Vivian Sunshine [employer] ELECTRICIAN Work Phone: [email or web address] Via6. 05-30-2014 09:31-0500 Diastolic blood pressure 71 mm[Hg] Vivian Sunshine [employer] ELECTRICIAN Work Phone: [email or web address].; Via6. Comment on above: Patient Position: Sitting; Cuff Location : Left Arm; Cuff Size: Standard 05-30-2014 09:31-0500 Heart rate 100 /min Vivian Sunshine [employer] ELECTRICIAN Work Phone: [email or web address].; Via6. Comment on above: Pattern: Regular 05-30-2014 09:31-0500 Systolic blood pressure 119 mm[Hg] Vivian Sunshine [employer] ELECTRICIAN Work Phone: [email or web address].; Via6. Comment on above: Patient Position: Sitting; Cuff Location : Left Arm; Cuff Size: Standard 05-16-2014 09:20-0500 Body weight 60.33 kg Vivian Sunshine [employer] ELECTRICIAN Work Phone: [email or web address].; Via6. 05-16-2014 09:20-0500 Diastolic blood pressure 74 mm[Hg] Vivian Sunshine [employer] ELECTRICIAN Work Phone: [email or web address].; Via6. Comment on above: Patient Position: Sitting; Cuff Location : Left Arm; Cuff Size: Standard 05-16-2014 09:20-0500 Heart rate 99 /min Vivian Sunshine AUTO ELECTRICIAN Work Phone: [email or web address].; Via6. Comment on above: Pattern: Regular 05-16-2014 09:20-0500 Systolic blood pressure 115 mm[Hg] Vivian Sunshine [employer] ELECTRICIAN Work Phone: [email or web address].; Via6. Comment on above: Patient Position: Sitting; Cuff Location : Left Arm; Cuff Size: Standard 04-18-2014 09:11-0500 Body weight 56.93 kg Vivian Sunshine [employer] ELECTRICIAN Work Phone: [email or web address].; Via[employer]. 04-18-2014 09:11-0500 Diastolic blood pressure 66 mm[Hg] Vivian Sunshine AUTO ELECTRICIAN Work Phone: [email or web address].; Via6. Comment on above: Patient Position: Sitting; Cuff Location : Left Arm; Cuff Size: Standard 04-18-2014 09:11-0500 Heart rate 92 /min Vivian Sunshine [employer]O ELECTRICIAN Work Phone: [email or web address].; Via6. Comment on above: Pattern: Regular 04-18-2014 09:11-0500 Systolic blood pressure 106 mm[Hg] Vivian Sunshine [employer] ELECTRICIAN Work Phone: [email or web address].; Via6. Comment on above: Patient Position: Sitting; Cuff Location : Left Arm; Cuff Size: Standard 03-14-2014 11:39-0500 Body weight 53.52 kg Neilee L Vess AUTO ELECTRICIAN [email or web address].; [employer]. 03-14-2014 11:39-0500 Diastolic blood pressure 71 mm[Hg] Neilee L Vess [employer] ELECTRICIAN [email or web address].; Via6. Comment on above: Patient Position: Sitting; Cuff Location : Left Arm; Cuff Size: Standard 03-14-2014 11:39-0500 Heart rate 91 /min Neilee L Vess AUTO ELECTRICIAN [email or web address].; Via6. Comment on above: Pattern: Regular 03-14-2014 11:39-0500 Systolic blood pressure 103 mm[Hg] Neilee L Vess AUT[employer] ELECTRICIAN [email or web address].; Via6. Comment on above: Patient Position: Sitting; Cuff Location : Left Arm; Cuff Size: Standard 02-07-2014 16:06-0500 Body weight 51.26 kg Neilee L Vess [employer] ELECTRICIAN [email or web address].; [employer]. 02-07-2014 16:06-0500 Diastolic blood pressure 68 mm[Hg] Neilee L Vess [employer] ELECTRICIAN Via6.; Via6. Comment on above: Patient Position: Sitting; Cuff Location : Left Arm; Cuff Size: Standard 02-07-2014 16:06-0500 Heart rate 89 /min Neilee L Vess [employer] ELECTRICIAN Via6.; Via6. Comment on above: Pattern: Regular 02-07-2014 16:06-0500 Systolic blood pressure 107 mm[Hg] Neilee L Vess AUT[employer] ELECTRICIAN Via6.; Via6. Comment on above: Patient Position: Sitting; Cuff Location : Left Arm; Cuff Size: Standard 12-24-2013 13:38-0400 Body weight 47.63 kg Neilee L Vess [employer] ELECTRICIAN Via6.; Via6. 12-24-2013 13:38-0400 Diastolic blood pressure 79 mm[Hg] Neilee L Vess [employer] ELECTRICIAN [employer]6.; Via6. Comment on above: Patient Position: Sitting; Cuff Location : Left Arm; Cuff Size: Standard 12-24-2013 13:38-0400 Heart rate 90 /min Neilee L Vess AUT[employer] ELECTRICIAN Via6.; Via6. Comment on above: Pattern: Regular 12-24-2013 13:38-0400 Systolic blood pressure 121 mm[Hg] Neilee L Vess [employer] ELECTRICIAN Via6.; Via6. Comment on above: Patient Position: Sitting; Cuff Location : Left Arm; Cuff Size: Standard 11-29-2013 15:29-0400 Body weight 47.17 kg Neilee L Vess AUT[employer] ELECTRICIAN Via6.; Via6. 11-29-2013 15:29-0400 Diastolic blood pressure 74 mm[Hg] Neilee L Vess [employer] ELECTRICIAN [email or web address].; Via6. Comment on above: Patient Position: Sitting; Cuff Location : Left Arm; Cuff Size: Standard 11-29-2013 15:29-0400 Heart rate 82 /min Lucien Cruz [employer] ELECTRICIAN [employer] [employer] Via6. Comment on above: Pattern: Regular 11-29-2013 15:29-0400 Systolic blood pressure 118 mm[Hg] Erasmoe Mayur Cruz [employer] ELECTRICIAN [email or web address].; Via6. Comment on above: Patient Position: Sitting; Cuff Location : Left Arm; Cuff Size: Standard 08-26-2011 14:31-0400 Body height 156.21 cm Tapan Celaya MD Work Phone: [email or web address].; [employer]. 08-26-2011 14:31-0400 Body mass index (BMI) [Percentile] Per age and sex 52 % Tapan Celaya MD Work Phone: [employer]; [employer] 08-26-2011 14:31-0400 Body mass index (BMI) [Ratio] 21.19 kg/m2 Tapan Celaya MD Work Phone: [employer]; [employer]. 08-26-2011 14:31-0400 Body surface area Derived from formula 1.5 m2 Tapan Celaya MD Work Phone: [employer].; [employer]. 08-26-2011 14:31-0400 Body temperature 97.2 [degF] Tapan Celaya MD Work Phone: [employer]; Via[employer]. Comment on above: Method: Tympanic 08-26-2011 14:31-0400 Body weight 51.71 kg Tapan Celaya MD Work Phone: [employer].; [employer] 08-26-2011 14:31-0400 Diastolic blood pressure 70 mm[Hg] Tapan Celaya MD Work Phone: [employer]; [employer]. Comment on above: Patient Position: Sitting; Cuff Location : Left Arm; Cuff Size: Standard 08-26-2011 14:31-0400 Heart rate 81 /min Tapan Celaya MD Work Phone: [facility] Via[employer]. Comment on above: Pattern: Regular 08-26-2011 14:31-0400 Systolic blood pressure 110 mm[Hg] Tapan Celaya MD Work Phone: [place] [employer] Via6. Comment on above: Patient Position: Sitting; Cuff Location : Left Arm; Cuff Size: Standard 03-30-2011 10:37-0500 Body height 156.21 cm Tapan Celaya MD Work Phone: [facility] [employer]; [employer] 03-30-2011 10:37-0500 Body mass index (BMI) [Percentile] Per age and sex 61 % Tapan Celaya MD Work Phone: [facility] [employer]; [employer]. 03-30-2011 10:37-0500 Body mass index (BMI) [Ratio] 21.75 kg/m2 Tapan Celaya MD Work Phone: [facility] [employer]; [employer]. 03-30-2011 10:37-0500 Body surface area Derived from formula 1.51 m2 Tapan Celaya MD Work Phone: [email or web address] Via[employer]. 03-30-2011 10:37-0500 Body temperature 97.9 [degF] Tapan Celaya MD Work Phone: [employer]; [employer]. Comment on above: Method: Tympanic 03-30-2011 10:37-0500 Body weight 53.07 kg Tapan Celaya MD Work Phone: [employer]; [employer]. 12-29-2009 13:37-0400 Body height 157.48 cm Tapan Celaya MD Work Phone: [employer]; [employer] 12-29-2009 13:37-0400 Body mass index (BMI) [Percentile] Per age and sex 25 % Tapan Celaya MD Work Phone: [employer]; [employer] 12-29-2009 13:37-0400 Body mass index (BMI) [Ratio] 18.47 kg/m2 Tapan Celaya MD Work Phone: [employer]; [employer] 12-29-2009 13:37-0400 Body surface area Derived from formula 1.43 m2 Tapan Celaya MD Work Phone: [employer]; [employer] 12-29-2009 13:37-0400 Body temperature 97.4 [degF] Tapan Celaya MD Work Phone: [employer]; [employer] Comment on above: Method: Tympanic 12-29-2009 13:37-0400 Body weight 45.81 kg Tapan Celaya MD Work Phone: [employer]; [employer] Encounters Encounter Date Encounter Type Care Provider Facility Start: 02-16-2025 ambulatory Chika Valdovinos :[facility] Start: 01-24-2025 End: 01-24-2025 ambulatory MATY TOLENTINO Facility:[facility] Start: 01-10-2025 End: 01-10-[address] [facility] Start: 01-07-2025 End: 01-07-2025 ambulatory NELDA MEDEL Facility:[facility] Start: 01-03-2025 End: 01-03-2025 ambulatory NELDA MEDEL Facility:[facility] Start: 12-27-2024 End: 12-27-2024 ambulatory CHARITO ZARAGOZA Facility:[facility] Start: 12-13-2024 End: 12-13-2024 ambulatory CHARITO ZARAGOZA Facility:[facility] Start: 11-29-2024 End: 11-29-2024 Patient encounter procedure Maximus Fletcher APRN.WHIPPER Work Phone: OB/Gynecology Comment on above: Supervision of high risk in third trimester (HCC) (Primary Dx); 28 weeks gestation of (HCC) Start: 11-29-2024 End: 11-29-2024 ambulatory MAXIMUS MARKSMAURO Facility:[facility] Start: 11-24-2024 End: 11-24-2024 Emergency department patient visit No Primary Care Physician -Emergency Department Work Phone: Start: 11-01-2024 End: 11-01-2024 ambulatory SAE ADAIRANGELA Facility:[facility] Start: 10-05-2024 End: 10-05-2024 Telephone encounter Lexus Barrios APRN.CNM Work Phone: OB/Gynecology Comment on above: Medication Request Start: 10-04-2024 End: 10-04-2024 ambulatory MAXIMUS FLETCHER Facility:[facility] Start: 10-04-2024 End: 10-04-2024 Patient encounter procedure Whi Tech 1 [employer] Investigator [facility] Maternal Medicine Comment on above: Encounter for maitea sydnee screening for malformation [...] Start: 09-06-2024 End: 09-06-2024 ambulatory CHARITO ZARAGOZA Facility:[facility] Start: 08-09-2024 End: 08-09-2024 ambulatory MAXIMUS FLETCHER Facility:[facility] Start: 08-09-2024 End: 08-09-2024 Patient encounter procedure Marlyn Read APRN.CNM Work Phone: OB/Gynecology Comment on above: Nausea and vomiting during (HCC) (Primary Dx); Supervision of high risk in second trimester (HCC); 12 weeks gestation of (HCC); Encounter for supervision of high risk in first trimester, antepartum (HCC) Encounter for maitea sydnee screening for malformation using ultrasound (HCC) (Primary Dx); 12 weeks gestation of (HCC) Start: 08-09-2024 End: 08-09-2024 ambulatory MAXIMUS FLETCHER Facility:[facility] Start: 07-25-2024 End: 09-24-2024 Follow-up encounter Maximus Fletcher APRN.CNP Work Phone: OB/Gynecology Start: 07-18-2024 End: 07-18-2024 ambulatory MAXIMUS FLETCHER Facility:[facility] Start: 07-18-2024 End: 07-18-2024 Patient encounter procedure Maximus Fletcher APRN.CNP Work Phone: OB/Gynecology Comment on above: Encounter for superv ision of high risk in first trimester, antepartum (HCC) (Primary Dx); 9 weeks gestation of (HCC); Screen for STD (sexually transmitted disease); Vaginal bleeding affecting early (HCC); 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 , currently (HCC); Heartburn during in first trimester (HCC); Nausea and vomiting during (HCC) Start: 07-09-2024 End: 07-09-2024 ambulatory MATY TOLENTINO Facility:[facility] Start: 07-09-2024 End: 07-09-2024 Patient encounter procedure Maty Tolentino MD Work Phone: OB/Gynecology Comment on above: Vaginal bleeding aff ecting early (HCC) (Primary Dx); Spotting complicating , first trimester (HCC); Threatened (HCC); High risk due to history of previous obstetrical problem in first trimester (HCC) Start: 05-02-2023 End: 05-02-2023 Medication Tapan Celaya MD Work Phone: [facility]. Start: 03-23-2022 End: 03-23-2022 Orders Tapan Celaya MD Work Phone: [facility] Start: 01-29-2022 End: 01-29-2022 Office outpatient visit 15 minutes Tapan Celaya MD Work Phone: [facility] Start: 01-26-2022 ambulatory CHIKA BEDOLLA [facility] Start: 01-12-2022 End: 01-12-2022 Office outpatient new 30 minutes Tapan Celaya MD Work Phone: [facility] Start: 2018 End: 2018 Historical Summary Tapan Celaya MD Work Phone: [facility] Start: 08-07-2014 End: 08-07-2014 Patient encounter procedure Tapan Celaya MD Work Phone: [facility] Start: 06-13-2014 End: 06-13-2014 Patient encounter procedure Tapan Celaya MD Work Phone: [facility] Start: 06-06-2014 End: 06-06-2014 Patient encounter procedure Tapan Celaya MD Work Phone: [facility] Start: 05-30-2014 End: 05-30-2014 Patient encounter procedure Tapan Celaya MD Work Phone: [facility] Start: 05-16-2014 End: 05-16-2014 Patient encounter procedure Tapan Celaya MD Work Phone: [facility] Start: 04-18-2014 End: 04-18-2014 Patient encounter procedure Tapan Celaya MD Work Phone: [facility] Start: 03-14-2014 End: 03-14-2014 Patient encounter procedure Tapan Celaya MD Work Phone: [facility] Start: 02-07-2014 End: 02-07-2014 Patient encounter procedure Tapan Celaya MD Work Phone: [facility] Start: 12-24-2013 End: 12-24-2013 Patient encounter procedure Tapan Celaya MD Work Phone: [facility] Start: 12-14-2013 End: 12-14-2013 Historical Summary Tapan Celaya MD Work Phone: [facility] Start: 11-29-2013 End: 11-29-2013 Patient encounter procedure Tapan Celaya MD Work Phone: [facility] Start: 08-26-2011 End: 08-26-2011 Patient encounter procedure Tapan Celaya MD Work Phone: [facility] Start: 03-30-2011 End: 03-30-2011 Patient encounter procedure Tapan Celaya MD Work Phone: [facility] Start: 12-29-2009 End: 12-29-2009 Patient encounter procedure Tapan Celaya MD Work Phone: [facility] Procedures Date Procedure Procedure Detail Performing Clinician Start: 11-29-2024 Adult depression scr eening assessment Maximus Fletcher APRN.WHIPPER Work Phone: Start: 11-24-2024 Urnls dip stick/tabl et reagent auto microscopy No Primary Care Physician Start: 11-24-2024 Estimated creatinine clearance No Primary Care Physician Start: 10-04-2024 Us preg uterus after 1st trimest 1/ gestation Maximus Fletcher APRN.WHIPPER Work Phone: Start: 08-09-2024 Antibody screen MATY TOLENTINO Comment on above: Order Comment: Speci men Type: BLOOD SPECIMEN Ordering Facility: [facility] Address: [address] [place] [address] Performed By: #### T SPN #### [facility] CLIA [id number] [address] [place] [address] [place] Start: 08-09-2024 Us preg uterus after 1st trimest /1st gestation Maximus Fletcher APRN.WHIPPER Work Phone: Start: 07-18-2024 Iadna chlamydia trachomatis amplified probe tq Maximus Fletcher APRN.WHIPPER Work Phone: Start: 07-18-2024 Adult depression scr eening assessment Maximus Chance SINGH.WHIPPER Work Phone: Start: 08-07-2014 End: 08-07-2014 Microscopic examination of cervical Papanicolaou smear Tapan Celaya MD Work Phone: Comment on above: 08/07/14 neg Start: 06-13-2014 End: 06-13-2014 Ob care antepartum vag dlvr & Tapan Celaya MD Work Phone: Start: 06-06-2014 End: 06-06-2014 Ob care antepartum vag dlvr & Tapan Celaya MD Work Phone: Start: 05-30-2014 End: 05-30-2014 Ob care antepartum vag dlvr & Tapan Celaya MD Work Phone: Start: 05-16-2014 End: 05-16-2014 Ob care antepartum vag dlvr & Tapan Celaya MD Work Phone: Start: 04-18-2014 End: 04-18-2014 Ob care antepartum vag dlvr & Tapan Celaya MD Work Phone: Start: 03-14-2014 End: 03-14-2014 Ob care antepartum vag dlvr & Tapan Celaya MD Work Phone: Start: 02-07-2014 End: 02-07-2014 Ob care antepartum vag dlvr & Tapan Celaya MD Work Phone: Start: 12-24-2013 End: 12-24-2013 Ob care antepartum vag dlvr & Tapan Celaya MD Work Phone: Start: 11-29-2013 End: 11-29-2013 uterus 14 wk transabdl 03/28 gestat Tapan Celaya MD Work Phone: Start: 11-29-2013 End: 11-29-2013 Ob care antepartum vag dlvr & Tapan Celaya MD Work Phone: Plan of Treatment Date Care Activity Detail Author Start: 07-18-2029 Screening for malignant neoplasm of cervix Cervical Cancer Screening [facility] Start: 11-29-2025 Anxiety Screening Anxiety Screening [facility] Start: 11-29-2025 Depression Screening Depression Scre ing [facility] Start: 07-18-2025 Anxiety Screening Anxiety Screening [facility] Start: 07-18-2025 Depression Screening Depression Scre [facility] Start: 12-22-2024 RSV Vaccine (1 - Ris k 1-dose series) RSV Vaccine (1 - Risk 1-dose series) [facility] Start: 12-13-2024 End: 12-13-2024 Patient encounter procedure 12/13/2024 10:20 AM EDT Routine Office Visit OB/Gynecology [address] [place] [id number] Charito Zaragoza MD [address] [place] [address] OB OB/Gynecology Comment on above: OB Start: 11-26-2024 Influenza vaccination [facility] Start: 11-24-2024 [facility] Start: 11-01-2024 End: 11-01-2024 Patient encounter procedure 11/01/2024 8:30 AM EDT Routine Office Visit OB/Gynecology [address] [place] [address] Sae Houser MD [address] [place] [address] OB OB/Gynecology Comment on above: OB Start: [...] trimester, antepartum (HCC) Expected: 07/18/2024, Expires: 10/17/2024 [facility] Work Phone: Comment on above: Expected: 07/18/2024 , Expires: 10/17/2024 Start: 07-18-2024 End: 10-17-2024 Hemoglobin A1c in Blood HEMOGLOBIN A1C Lab Routine Encounter for supervision of high risk in first trimester, antepartum (HCC) Expected: 07/18/2024, Expires: 10/17/2024 [facility] Comment on above: Expected: 07/18/2024 , Expires: 10/17/2024 Start: 07-18-2024 End: 10-17-2024 Hepatitis B virus surface Ag [Presence] in Serum HEPATITIS B SURFACE ANTIGEN Lab Routine Encounter for supervision of high risk in first trimester, antepartum (HCC) Expected: 07/18/2024, Expires: 10/17/2024 [facility] Comment on above: Expected: 07/18/2024 , Expires: 10/17/2024 Start: 07-18-2024 End: 10-17-2024 Hepatitis C virus Ab [Presence] in Serum HEPATITIS C ANTIBODY IA WITH CONFIRMATION Lab Routine Encounter for supervision of high risk in first trimester, antepartum (HCC) Expected: 07/18/2024, Expires: 10/17/2024 [facility] Comment on above: Expected: 07/18/2024 , Expires: 10/17/2024 Start: 07-18-2024 End: 10-17-2024 HIV 1+2 Ab [Presence] in Serum or Plasma by Immunoassay HIV 1/2 COMBO WITH REFLEX TO DIFFERENTIATION Lab Routine Encounter for supervision of high risk in first trimester, antepartum (HCC) Expected: 07/18/2024, Expires: 10/17/2024 [facility] Comment on above: Expected: 07/18/2024 , Expires: 10/17/2024 Start: 07-18-2024 End: 07-18-2025 OBSTETRIC ULTRASOUND WHI OBSTETRIC ULTRASOUND WHI Anc Imaging Routine Encounter for supervision of high risk in first trimester, antepartum (HCC) Expected: 07/18/2024, Expires: 07/18/2025 [facility] Comment on above: Expected: 07/18/2024 , Expires: 07/18/2025 Start: 07-18-2024 End: 10-17-2024 RUBELLA IGG ANTIBODY RUBELLA IGG ANTIBODY Lab Routine Encounter for supervision of high risk in first trimester, antepartum (HCC) Expected: 07/18/2024, Expires: 10/17/2024 [facility] Comment on above: Expected: 07/18/2024 , Expires: 10/17/2024 Start: 07-18-2024 End: 10-17-2024 SYPHILIS TREPONEMAL W/REFLEX SYPHILIS TREPONEMAL W/REFLEX Lab Routine Encounter for supervision of high risk in first trimester, antepartum (HCC) Expected: 07/18/2024, Expires: 10/17/2024 [facility] Comment on above: Expected: 07/18/2024 , Expires: 10/17/2024 Start: 07-18-2024 End: 10-17-2024 TYPE + SCREEN TYPE + SCREEN Blood Bank Routine Encounter for supervision of high risk in first trimester, antepartum (HCC) Expected: 07/18/2024, Expires: 10/17/2024 [facility] Comment on above: Expected: 07/18/2024 , Expires: 10/17/2024 Start: 07-18-2024 End: 07-18-2024 Patient encounter procedure 07/18/2024 9:30 AM EDT Initial Office Visit OB/Gynecology [address] [place] [address] Maximus Fletcher APRN.WHIPPER [address] [place] [address] visit OB/Gynecology Comment on above: visit Start: 11-27-2023 Covid-19 Vaccine ( season) Covid-19 Vaccine () [facility] Start: 11-27-2023 Influenza vaccination Influenza Vacc ine (#1) [facility] Start: 03-23-2022 End: 03-26-2022 Ct abdomen & pelvis w/contrast material Abdomen/Pelvis CT W/ Contrast per protocol (84437) Date: 23-Mar-2022 [facility] Start: 2021 HPV Vaccine (1 - 3-dose SCDM series) HPV Vaccine (1 - 3-dose SCDM series) [facility] Start: 2015 Screening for malignant neoplasm of cervix Cervical Cancer Screening [facility] Start: 2013 Hepatitis B Vaccine (1 of 3 - 19+ 3-dose series) Hepatitis B Vaccine (1 of 3 - 19+ 3-dose series) [facility] Start: 2013 Urine microalbumin profile DTaP,Tdap,Td Vaccine (1 - Tdap) [facility] Start: 2012 Anxiety Screening Anxiety Screening [facility] Start: 2012 Depression Screening Depression Scre mya [facility] Start: 2012 Hepatitis C screening Hepatitis C Sc julisa [facility] Start: 2012 HIV screening HIV Screening [facility] Bacteria identified in Urine by Culture BACTERIAL CULTURE, URINE Microbiology Routine Encounter for supervision of high risk in first trimester, antepartum (HCC) 07/18/2024 10:21 AM EDT [facility] PAP TEST PAP TEST Lab Rou [place] Encounter for supervision of high risk in first trimester, antepartum (HCC) 07/18/2024 10:21 AM EDT [facility] Patient Education ED Viral Syndrome (Adul t) [facility] Work Phone: POC DRY WALL INSTALLATIONS MECHANIC ULTRASOUND POC DRY WALL INSTALLATIONS MECHANIC ULTRASO UND Anc Imaging Routine Spotting complicating , first trimester (HCC) Vaginal bleeding affecting early (HCC) Ordered: 07/09/2024 [facility] Work Phone: Comment on above: Ordered: 07/09/2024 Immunizations Immunization Date Immunization Notes Care Provider Luz dorado 10-24-2001 diphtheria, tetanus toxoids and acellular pertussis vaccine Tapan Celaya MD Work Phone: [facility] 10-24-2001 haemophilus influenz ae type b vaccine, PRP-T conjugate Tapan Celaya MD Work Phone: [facility] 08-28-2001 varicella virus vaccine Tapan Celaya MD Work Phone: [facility]; [facility] 11-11-1999 diphtheria, tetanus toxoids and acellular pertussis vaccine Tapan Celaya MD Work Phone: [facility]; [facility] 11-11-1999 measles, mumps and rubella virus vaccine Tapan Celaya MD Work Phone: [facility].; [facility] 11-11-1999 poliovirus vaccine, inactivated Tapan Celaya MD Work Phone: [facility].; [facility] 01-12-1996 diphtheria, tetanus toxoids and acellular pertussis vaccine Tapan Celaya MD Work Phone: [facility]; [facility] 01-12-1996 haemophilus influenz ae type b vaccine, PRP-T conjugate Tapan Celaya MD Work Phone: [facility]; [facility] 01-12-1996 hepatitis B vaccine, pediatric or pediatric/adolescent dosage Tapan Celaya MD Work Phone: [facility]; [facility] 01-12-1996 measles, mumps and rubella virus vaccine Tapan Celaya MD Work Phone: [facility]; [facility] 01-12-1996 poliovirus vaccine, inactivated Tapan Celaya MD Work Phone: [facility].; [facility] 1994 diphtheria, tetanus toxoids and acellular pertussis vaccine Tapan Celaya MD Work Phone: [facility].; [facility] 1994 haemophilus influenz ae type b vaccine, PRP-T conjugate Tapan Celaya MD Work Phone: [facility].; [facility] 1994 hepatitis B vaccine, pediatric or pediatric/adolescent dosage Tapan Celaya MD Work Phone: [facility].; [facility] 1994 trivalent poliovirus vaccine, live, oral Tapan Celaya MD Work Phone: [facility].; [facility] 1994 diphtheria, tetanus toxoids and acellular pertussis vaccine Tapan Celaya MD Work Phone: [facility].; [facility] 1994 haemophilus influenz ae type b vaccine, PRP-T conjugate Tapan Celaya MD Work Phone: [facility].; [facility] 1994 hepatitis B vaccine, pediatric or pediatric/adolescent dosage Tapan Celaya MD Work Phone: [facility].; [facility] 1994 trivalent poliovirus vaccine, live, oral Tapan Celaya MD Work Phone: [facility].; [facility] Payers Date Payer Category Payer Self-pay 2022 Private Health Insurance [id number] 2022 Private Health Insurance [id number] 1994 Unknown [id number] Unknown Unknown [id number] Unknown [id number] Unknown [id number] Social History Date Type Detail Facility Start: 07-09-2024 End: 11-29-2024 Child(krystina) [facility]krystina[facility]; [facility] Tobacco Use: Tobacco Use: ; N ever smoker. [facility]; [facility] Start: 1995 Female [facility] Start: 07-09-2024 End: 11-24-2024 Never smoked tobacco [facility], [place].; [facility]. Work Phone: Start: 07-09-2024 Tobacco use and exposure Smokeless tobacco non-user [facility] Start: 07-09-2024 End: 11-29-2024 Alcoholic beverage intake Lifetime non-drinker (finding) [facility] Start: 07-09-2024 End: 11-29-2024 Tobacco use panel [facility] Start: 1995 Sex assigned at Not on file [facility] Start: 07-17-2024 Education 8 [facility] Start: 05-26-2024 [facility] Start: 07-17-2024 Gender identity Identifies as female gender (finding) [facility] Start: 07-17-2024 Sexual orientation Heterosexual (fin ding) [facility] Start: 04-29-2022 Adult Depression Screening Assessment 0 [facility] Goals Date Patient Goal Desired Activity /State Personal health goal Mental Status Date Assessment Result Facility 11-24-2024 Cognitive function Level Of Cons ciousness Awake;Alert;Appropriate;Follow s Commands [facility] Work Phone: Clinical Notes 01-07-2021 to 01-10-2025 Quick Notes - Maximus Fletcher APRN.[facility] - 11/29/2024 10:18 AM EDTPrenatal Quick Notes - Maximus Fletcher APRN.[facility] - 11/29/2024 10:18 AM EDTPatient InstructionsPatient Instructions Note Date & Type Note Facility 01-10-2025 Note HNO ID: [id number] Author: BARBARA FRAZIER RN Service: ? Author Type: Registered Nurse Type: Progress Notes Filed: 01/10/2025 09:30 Note Text: 100 [facility] 01-01-2025 Note HNO ID: [id number] Author: ?, ?, ? Service: ? Author Type: ? Type: Progress Notes Filed: 01/01/2025 08:39 Note Text: Scheduled with patient Start email sent [facility] 12-31-2024 Note HNO ID: [id number] Author: NELDA MEDEL PA-C Service: ? Author Type: Physician Advance Agent Type: Progress Notes Filed: 12/31/2024 15:57 Note Text: DEPARTMENT OF BLOOD MANAGEMENT ORDERS ONLY ENCOUNTER PATIENT NAME: Atiya Mancia DATE OF SERVICE: December 31, 2024 REFERRING PROVIDER: Charito Zaragoza MD Subjective Patient referred to Blood Management for evaluation and treatment of anemia in . Patient's relevant history, recent diagnostic data, and treatment plan as entered by Alfonso Navarrete RN were reviewed. Medical/Surgical History: PAST MEDICAL HISTORY Diagnosis Date Nausea and vomiting during (HCC) 07/18/2024 07/18/24 Vitamin B6 and Unisom doses reviewed. To notify if prescription is needed. Maximus Fletcher APRN.CNP NEGATIVE MEDICAL HISTORY Vaginal bleeding affecting early (HCC) 07/18/2024 July 18, 2024 Resolved. To monitor symptoms. Maximus Fletcher APRN.CNP PAST SURGICAL HISTORY Procedure Laterality Date TOOTH EXTRACTION Other significant Medical/Surgical history: - None CURRENT MEDICATIONS: Current Outpatient Medications Medication Instructions acetaminophen (TYLENOL EXTRA STRENGTH) 1,000 mg, ORAL, EVERY 6 HOURS NEEDED, FOR PAIN. famotidine (PEPCID) 20 mg, ORAL, 2 TIMES DAILY ferrous gluconate 236 mg (27 mg iron) tab 1 tablet, ORAL, DAILY magnesium oxide 420 mg, ORAL, DAILY PNV no.95/ferrous fum/folic ac ( ORAL) 1 tablet, DAILY Vit B Complex No.10/Folic Acid (B COMPLEX 100 CR ORAL) 1 tablet, EVERY OTHER DAY-AMB Current medications that may affect iron absorption and/or blood loss: - Antacids (H2 receptor blockers, PPI) Objective Data Reviewed: WBC (k/uL) Date Value 12/27/2024 8.87 RBC (m/uL) Date Value 12/27/2024 3.60 (L) Hemoglobin (g/dL) Date Value 12/27/2024 9.9 (L) Hematocrit (%) Date Value 12/27/2024 29.4 (L) MCV (fL) Date Value 12/27/2024 81.7 MCH (pg) Date Value 12/27/2024 27.5 MCHC (g/dL) Date Value 12/27/2024 33.7 RDW-CV (%) Date Value 12/27/2024 13.4 Platelet Count (k/uL) Date Value 12/27/2024 230 MPV (fL) Date Value 12/27/2024 8.4 (L) Iron Date Value Ref Range Status 11/29/2024 45 41 - 186 ug/dL Final TIBC Date Value Ref Range Status 11/29/2024 531 (H) 232 - 386 ug/dL Final Ferritin Date Value Ref Range Status 11/29/2024 12.0 (L) 14.7 - 205.1 ng/mL Final Transferrin Saturation Date Value Ref Range Status 11/29/2024 8.5 (L) 15.0 - 57.0 % Final Assessment AND Plan Maternal iron deficiency anemia affecting , antepartum, third trimester (HCC) - Patient referred to blood management for anemia in - Previously prescribed Ferrous gluconate 240 mg tablet (27 mg elemental iron) PO daily and pre- vitamin including iron supplement PO daily - Patient with treatment failure from oral iron supplementation and ongoing iron deficiency anemia noted on most recent labs from 11/29/2024: - Ferritin 12.0, Iron 45, TIBC 531, TSAT 8.5%, and Hgb 9.9 g/dL - Per Ganzoni equation, 637 mg iron deficient utilizing pre- weight (52kg) and goal Hgb 11 g/dL. - Therapy plan for Venofer (iron sucrose) 200 mg IV infusion x 3 doses was reviewed and signed. - Recommend ongoing monitoring of iron deficiency anemia to ensure adequate response to IV iron supplementation; labs ordered in ~8 weeks. - Recommend B12 and folate labs given normocytic anemia in setting of known iron deficiency. Portions of this note were copied from prior encounter from Alfonso Navarrete RN on 12/31/24. The patient's medications, allergies, past medical/surgical hx, and family hx have all been reviewed and updated as appropriate. The interval history and assessment/plan content have been modified and are specific to today's (December 31, 2024) purpose for the visit. Nelda Medel PA-C Department of Blood Management December 31, 2024 CC: Referring Provider: Charito Zaragoza MD [facility] 12-31-2024 Note HNO ID: [id number] Author: ALFONSO GARCIA RN Service: ? Author Type: Registered Nurse Type: Progress Notes Filed: 12/31/2024 14:09 Note Text: Patient referred to Blood Management for evaluation and treatment of pre-surgical anemia and/or iron deficiency. Non-surgical: anemia in ; 33w 2d Date of surgery: NA Medical/Surgical History: PAST MEDICAL HISTORY Diagnosis Date Nausea and vomiting during (HCC) 07/18/2024 07/18/24 Vitamin B6 and Unisom doses reviewed. To notify if prescription is needed. Maximus Fletcher APRN.WHIPPER NEGATIVE MEDICAL HISTORY Vaginal bleeding affecting early (HCC) 07/18/2024 July 18, 2024 Resolved. To monitor symptoms. Maximus Fletcher APRN.WHIPPER PAST SURGICAL HISTORY Procedure Laterality Date TOOTH EXTRACTION Other significant Medical/Surgical history: - None Current Outpatient Medications Medication Sig ferrous gluconate 236 mg (27 mg iron) tab Take 1 tablet by mouth once daily. famotidine (PEPCID) 20 mg tablet Take 1 tablet by mouth two times a day. magnesium oxide 420 mg tablet Take 1 tablet by mouth once daily. acetaminophen (TYLENOL EXTRA STRENGTH) 500 mg tablet Take 2 tablets by mouth every 6 hours as needed for pain (Migraines). FOR PAIN. PNV no.95/ferrous fum/folic ac ( ORAL) Take 1 tablet by mouth once daily. Vit B Complex No.10/Folic Acid (B COMPLEX 100 CR ORAL) Take 1 tablet by mouth every other day. No current facility-administered medications for this visit. Current medications that may affect iron absorption and/or blood loss: - Antacids (H2 receptor blockers, PPI) Baseline laboratory values: WBC (k/uL) Date Value 12/27/2024 8.87 RBC (m/uL) Date Value 12/27/2024 3.60 (L) Hemoglobin (g/dL) Date Value 12/27/2024 9.9 (L) Hematocrit (%) Date Value 12/27/2024 29.4 (L) MCV (fL) Date Value 12/27/2024 81.7 MCH (pg) Date Value 12/27/2024 27.5 MCHC (g/dL) Date Value 12/27/2024 33.7 RDW-CV (%) Date Value 12/27/2024 13.4 Platelet Count (k/uL) Date Value 12/27/2024 230 MPV (fL) Date Value 12/27/2024 8.4 (L) Iron Date Value Ref Range Status 11/29/2024 45 41 - 186 ug/dL Final TIBC Date Value Ref Range Status 11/29/2024 531 (H) 232 - 386 ug/dL Final Ferritin Date Value Ref Range Status 11/29/2024 12.0 (L) 14.7 - 205.1 ng/mL Final Transferrin Saturation Date Value Ref Range Status 11/29/2024 8.5 (L) 15.0 - 57.0 % Final Assess for the need to augment a patient?s natural red blood cell production: - Blood transfusion avoidance - Iron depletion Recommendations according to Blood Management patient care guidelines: - Iron Sucrose 200 mg, IV infusion, dose(s) 3 total iron deficit using Ganzoni equation = 637 mg (pre- wt 52 kg/goal hgb 11 g/dL) Clinical information is sent to a provider for review and evaluation for treatment. [facility] 11-29-2024 Progress note Formatting of t his note might be different from the original. EH - S: Atiya is a 29 year old female who presents at 28w5d for a routine visit. Feeling movement. Denies headache, visual changes, chest pain, shortness of breath, vaginal bleeding, leakage of fluid, or dysuria. Went to ED on 11/22 for nausea and vomiting/contractions. Feeling better now. Appetite is back. O: See flow sheet Gen: No apparent distress Abd: Gravid, nontender, S=D ASSESSMENT/PLAN: 1. Supervision of high risk in third trimester (HCC) - ICD9: V23.9, ICD10: O09.93 (primary diagnosis) - Continue PNV - Interested in 39 week elective induction 2. 28 weeks gestation of (HCC) - ICD9: V22.2, ICD10: Z3A.28 - 1 hour GCT, CBC, and RPR today - Rh positive - Declines TDAP - LARC form reviewed and signed. Declines. - Depression screen negative - plan form discussed and given to Atiya - Reviewed how to pre register through [facility] PTL precautions and kick counts reviewed. RTO in 2 weeks or sooner as needed. Maixmus Fletcher APRN.WHIPPER [facility] 11-29-2024 Miscellaneous Notes EH - S: Atiya is a 29 year old female who presents at 28w5d for a routine visit. Feeling movement. Denies headache, visual changes, chest pain, shortness of breath, vaginal bleeding, leakage of fluid, or dysuria. Went to ED on 11/22 for nausea and vomiting/contractions. Feeling better now. Appetite is back. O: See flow sheet Gen: No apparent distress Abd: Gravid, nontender, S=D ASSESSMENT/PLAN: 1. Supervision of high risk in third trimester ([facility]) - ICD9: V23.9, ICD10: O09.93 (primary diagnosis) - Continue PNV - Interested in 39 week elective induction 2. 28 weeks gestation of ([facility]) - ICD9: V22.2, ICD10: Z3A.28 - 1 hour GCT, CBC, and RPR today - Rh positive - Declines TDAP - LARC form reviewed and signed. Declines. - Depression screen negative - plan form discussed and given to Atiya - Reviewed how to pre register through [facility] PTL precautions and kick counts reviewed. RTO in 2 weeks or sooner as needed. Maximus Fletcher APRN.WHIPPER documented in this encounter [facility] 11-29-2024 Instructions Marcia Heard MA - 11/29/2024 10:05 AM EDT SEQUENTIAL SCREENINGS The [facility] offers sequential screenings for women who are [...] It will require an appointment with our gas technician. This is not an ultrasound performed [...] the above symptoms, contact our office at [phone] and ask to speak with a nurse. After hours, you can call doctors registry at [phone] OR call [facility] at [phone] and ask to have the doctor division roadmaster paged. If you consider this an emergency, dial 9-7-2 or go to your nearest emergency department. NEED HELP? Are you dealing with a violent or abusive relationship? Are you a victim of rape or sexual assult? Call [facility] ([place]) 24 hour Crisis Hotline: 981.911.5557 or 332-318-9120. MANUAL Your Guide to a Healthy manual is now on-line. Visit [email or web address] to download your free copy documented in this encounter [facility] 11-24-2024 Discharge summary [facility] 10-05-2024 Telephone encounter Note Patient notified. Joan Enciso RN The following approved medication requests have been transmitted electronically. Requested Prescriptions Signed Prescriptions Disp Refills famotidine (PEPCID) 20 mg tablet 60 tablet 3 Sig: Take 1 tablet by mouth two times a day. Authorizing Provider: MAXIMUS FLETCHER Pharmacy Information Pharmacy Address Telephone [facility]ly [facility] [phone] [place] [address] [phone] [facility] 10-05-2024 Miscellaneous Notes Patient notified. Joan Enciso RN The following approved medication requests have been transmitted electronically. Requested Prescriptions Signed Prescriptions Disp Refills famotidine (PEPCID) 20 mg tablet 60 tablet 3 Sig: Take 1 tablet by mouth two times a day. Authorizing Provider: MAXIMUS FLETCHER Pharmacy Information Pharmacy Address Telephone [facility] [phone] [place] [address] Patient 20w6d, calling requesting Rx of Pepcid. Her original Rx was discontinued and she states she has had another flare of acid reflux. Please file if appropriate. Tamra Caballero RN documented in this encounter [facility] 10-05-2024 Telephone encounter Note Patient 20w6d, calling requesting Rx of Pepcid. Her original Rx was discontinued and she states she has had another flare of acid reflux. Please file if appropriate. Tamra Caballero RN [facility] 10-04-2024 Progress note Formatting of t his [...] Heartburn resolved - RTO 4 weeks Marlyn Read APRN.CNM [facility] 10-04-2024 Miscellaneous Notes S: Atiya Mancia is [...] Heartburn resolved - RTO 4 weeks Marlyn Read APRN.CNM documented in this encounter [facility] 10-04-2024 Instructions Derrick Zamora MA - 10/04/2024 8:47 AM EDT SEQUENTIAL SCREENINGS The [facility] offers sequential screenings for women who are [...] It will require an appointment with our gas technician. This is not an ultrasound performed [...] the above symptoms, contact our office at [phone] and ask to speak with a nurse. After hours, you can call doctors registry at [phone] OR call [facility] at [phone] and ask to have the doctor division roadmaster paged. If you consider this an emergency, dial 9--1 or go to your nearest emergency department. NEED HELP? Are you dealing with a violent or abusive relationship? Are you a victim of rape or sexual assult? Call [facility] ([place]) 24 hour Crisis Hotline: 926.289.3461 or 585-751-0950. MANUAL Your Guide to a Healthy manual is now on-line. Visit [email or web address] [email or web address] to download your free copy documented in this encounter [facility] 09-06-2024 Progress note Formatting of t his [...] precautions. Anatomy US scheduled. Charito Zaragoza MD [facility] 09-06-2024 Miscellaneous Notes KJ - S: Atiya [...] Charito Zaragoza MD documented in this encounter [facility] 09-06-2024 Shelby Jackson MA - 09/06/2024 10:01 AM EDT SEQUENTIAL SCREENINGS The [facility] offers sequential screenings for women who are [...] It will require an appointment with our gas technician. This is not an ultrasound performed [...] the above symptoms, contact our office at [phone] and ask to speak with a nurse. After hours, you can call doctors registry at [phone] OR call [facility] at [phone] and ask to have the doctor division roadmaster paged. If you consider this an emergency, dial 91-2 or go to your nearest emergency department. NEED HELP? Are you dealing with a violent or abusive relationship? Are you a victim of rape or sexual assult? Call [facility] ([place]) 24 hour Crisis Hotline: 426.931.3213 or 349-417-4832. MANUAL Your Guide to a Healthy manual is now on-line. Visit [email or web address] [email or web address] to download your free copy documented in this encounter [facility] 08-09-2024 Progress note Formatting of t his [...] 4 weeks or sooner if needed Marlyn Read APRN.CNM [facility] 08-09-2024 Miscellaneous Notes S: Atiya Mancia is [...] 4 weeks or sooner if needed Marlyn Read APRN.CNM documented in this encounter [facility] 08-09-2024 Emily Goncalves LPN - 08/09/2024 10:32 AM EDT SEQUENTIAL SCREENINGS The [facility] offers sequential screenings for women who are [...] It will require an appointment with our gas technician. This is not an ultrasound performed [...] the above symptoms, contact our office at [phone] and ask to speak with a nurse. After hours, you can call doctors registry at [phone] OR call [facility] at [phone] and ask to have the doctor division roadmaster paged. If you consider this an emergency, dial 7-3-3 or go to your nearest emergency department. NEED HELP? Are you dealing with a violent or abusive relationship? Are you a victim of rape or sexual assult? Call [facility] [place] ([place]) 24 hour Crisis Hotline: 783.204.7130 or 290-223-4862. MANUAL Your Guide to a Healthy manual is now on-line. Visit [email or web address] [email or web address] to download your free copy SEQUENTIAL SCREENINGS The [facility] offers sequential screenings for women who are [...] It will require an appointment with our gas technician. This is not an ultrasound performed [...] the above symptoms, contact our office at [phone] and ask to speak with a nurse. After hours, you can call doctors registry at [phone] OR call [facility] at [phone] and ask to have the doctor division roadmaster paged. If you consider this an emergency, dial 9--1 or go to your nearest emergency department. NEED HELP? Are you dealing with a violent or abusive relationship? Are you a victim of rape or sexual assult? Call [facility] ([place]) 24 hour Crisis Hotline: 235.924.1287 or 602-736-6075. MANUAL Your Guide to a Healthy manual is now on-line. Visit [email or web address] [email or web address] to download your free copy documented in this encounter [facility] 07-17-2024 Instructions Maximus Fletcher APRN.WHIPPER - 07/17/2024 3:11 PM EDT Please select the following link to access the [facility] Your Guide to a Healthy . [email or web address] Please select the following link to access the [facility] Your Guide to a Healthy . [email or web address] MORNING SICKNESS IN by Jacque Perrin M.D. for [employer] As you may already know, morning sickness can often be more appropriately called evening sickness or owawr-txgdyx-pb-the-day sickness. While there are the lisbeth few, [...] prevent nausea from starting. vitamins and nausea: Pre-malcolm vitamins can sometimes worsen nausea in . [...] medication, Doxylamine, is currently marketed as an tffd-fyp-gnaerfd sleeping pill. Ask your practitioner if creating a vitamin B6/Doxylamine combination with aizf-rbt-xppehql medications would be safe for you. Prescription [...] Phenergan, Compazine, Reglan documented in this encounter [facility] 07-17-2024 Note HNO ID: [id number] Author: MAXIMUS FLETCHER APRN.DEDRA Service: ? Author Type: Nurse Practitioner Type: Progress Notes Filed: 07/18/2024 10:17 Note Text: Fuel Buyer offered: Patient declines. INITIAL OB ASSESSMENT HPI: [...] discussed with the Patient or Patient's Authorized Repair Mechanic. As applicable, any other physician, advance practice provider, medical student, or other health professional student that will be obs (more content not included)... [facility] 07-17-2024 History of Presen t illness Narrative Fuel Buyer offered: Patient declines. INITIAL OB ASSESSMENT HPI: [...] discussed with the Patient or Patient's Authorized Repair Mechanic. As applicable, any other physician, advance practice provider, medical student, or other health professional student that will be observing or involved in the sensitive examination for educational or training purposes was discussed with the Patient or Authorized Repair Mechanic. The Patient or Authorized Repair Mechanic has agreed to proceed with the sensitive [...] Your guide to a health and the Business Records Manager. Discussed hemoglobin electrophoresis. Patient: Declines Reviewed midwifery and aircraft hydraulic equipment mechanic services that are available. 2) Screening: Hemoglobin [...] of High Risk in First Trimester, Antepartum (Hcc) - 07/18/2024 Comment: Care Checklist Vaccines: [] Flu vaccine [] declined [] RSV vaccine 32 0/7 - 36 6/7 (Nov - Apr) [] declined [] COVID [...] (28-30 weeks): [] Consent [] Contraception [] Chemist Internship [] TeamBirth handout Third trimester (36-40 weeks): [] GBS [] Presentation - [] Scheduled [] yes - Hibiclens, pre-op instructions, CBC, T&S ordered [] no [] H&P [] Preferences worksheet [] Scanned in EMR Vaginal Bleeding Affecting Early ([facility]) - 07/18/2024 Comment: July 18, 2024 Resolved. To monitor symptoms. Maximus Fletcher APRN.CNP History of Anomaly in Prior , Currently ([facility]) - 07/18/2024 Comment: July 18, 2024 Previous : baby with ventriculomegaly. Was monitored by MFM. Maximus Fletcher APRN.CNP Nausea and Vomiting During ([facility]) - 07/18/2024 Comment: 07/18/24 Vitamin B6 and Unisom doses reviewed. To notify if prescription is needed. Maximus Fletcher APRN.CNP Heartburn During in First Trimester ([facility]) - 07/18/2024 Comment: July 18, 2024 Rx for Pepcid sent. Maximus Fletcher APRN.WHIPPER Follow up in 3 weeks or sooner prn. Plan for NT scan between 12w0d and 13w6d gestation. Maximus Fletcher APRN.WHIPPER documented in this encounter [facility] 07-09-2024 Instructions Maty Molina MD - 07/09/2024 3:18 PM EDT - Continue taking your vitamins daily. - Avoid sexual intercourse until the bleeding completely stops. - Next follow-up appointment is scheduled for next week. - call if heavy vaginal bleeding documented in this encounter [facility] 07-09-2024 Note HNO ID: [id number] Author: MATY MOLINA MD Service: ? Author Type: Physician Type: Progress Notes Filed: 07/09/2024 15:48 Note Text: Obstetrics and Gynecology [facility] Visit Subjective Recording using ambient Kliqed software for draft documentation of the visit was discussed with the patient/authorized bilingual call center representative; all questions welcomed and answered. Patient/authorized bilingual call center representative agreed to proceed CHIEF COMPLAINT: Bleeding in [...] Living3 SAB0 IAB0 Ectopic0 Multiple0 Live Births3 Keller Machine Operator History LMP: 05/12/2024 Age at Menarche: Age at First : Age at Menopause: Keller Machine Operator History Comments: Sexual Activity: Yes; Male Contraception: [...] discussed with the Patient or Patient's Authorized Repair Mechanic. As applicable, any other physician, advance practice provider, medical student, or other health professional student that will be observing or involved in the sensitive examination for educational or training purposes was discussed with the Patient or Authorized Repair Mechanic. The Patient or Authorized Repair Mechanic has agreed to proceed with the sensitive [...] PLAN: 1. Spotting complicating , first trimester ([facility]) (O26.851) Spotting began last , initially dark [...] of previous obstetrical problem in first trimester ([facility]) (O09.291) Previous was high-risk due to ventriculomegaly. [...] imaging tab for details. Maty Weiss MD [facility] 07-09-2024 History of Presen t illness Narrative Images from the original note were not included. Obstetrics and Gynecology [facility] Visit Subjective Recording using ambient Kliqed software for draft documentation of the visit was discussed with the patient/authorized bilingual call center representative; all questions welcomed and answered. Patient/authorized bilingual call center representative agreed to proceed CHIEF COMPLAINT: Bleeding in [...] Living3 SAB0 IAB0 Ectopic0 Multiple0 Live Births3 Keller Machine Operator History LMP: 05/12/2024 Age at Menarche: Age at First : Age at Menopause: Keller Machine Operator History Comments: Sexual Activity: Yes; Male Contraception: [...] discussed with the Patient or Patient's Authorized Repair Mechanic. As applicable, any other physician, advance practice provider, medical student, or other health professional student that will be observing or involved in the sensitive examination for educational or training purposes was discussed with the Patient or Authorized Repair Mechanic. The Patient or Authorized Repair Mechanic has agreed to proceed with the sensitive [...] PLAN: 1. Spotting complicating , first trimester ([facility]) (O26.851) Spotting began last , initially dark [...] of previous obstetrical problem in first trimester ([facility]) (O09.291) Previous was high-risk due to ventriculomegaly. [...] was performed. See imaging tab for details. Mayt Weiss MD Fuel Buyer offered: Patient declines. documented in this encounter [facility] 07-09-2024 Note HNO ID: [id number] Author: MATY MOLINA MD Service: ? Author Type: Physician Type: Progress Notes Filed: 07/09/2024 15:48 Note Text: Fuel Buyer offered: Patient declines. [facility] 05-19-2021 Note Department of Obstet rics and [...] Information for the patient's : Jean Mancia [[id number]] male Weight: N/A Apgars: Information for the patient's : Jean Mancia [[id number]] Course: Uncomplicated Infant: Live male , circumcision [...] Your Medications These medications were sent to [facility] [address] - [phone] - [phone] [address] [facility] [address] ? ibuprofen 600 MG tablet Activity: Activity [...] her physician if any of these occur. [facility] 04-09-2021 Note Ms Atiya Mancia is [...] metabolic abnormalities. The baby may need a DRY WALL INSTALLATIONS MECHANIC shunt to address the ventriclomegaly . There [...] the time spent with education and counseling. [facility] 02-03-2021 Note Follow up FTC from Consultation [...] understanding of the above information. 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 MRI 01/07/21 confirmed bilateral ventriculomegaly concern for possible intraventricular hemorrhage(right) and mild cerebellar hypoplasia no comment on CSP in final report NAIT work-up and infection studies sent 02/03/21. Aneuploidy screening declined. Plan: 1. Continued obstetrical care with her primary can top setter is recommended. 2. Follow up q4 weeks to evaluate biometric parameters and ventricles (ASSOCIATE PASTOR). These are planned with our [place] location. 3. surveillance as follows: once weekly BPP and weekly evaluation of ventricles (ASSOCIATE PASTOR) beginning at 32 weeks. Planning of surveillance [...] send placenta to Pathology for evaluation. 9. Neonatology/Chemist Internship to evaluate and to determine nursery placement and to determine if additional evaluation is indicated. 10. head imaging and consultation with Pediatric Neurology within 1 month of age or sooner if clinically indicated. Please call [phone] to schedule. Indicate that you were followed by the [facility] when scheduling. 11. Consider referral to Medical Genetics should additional concerns be noted after delivery. 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 Call [phone] to schedule. Indicate that you were followed by the [facility] when scheduling. 12. Additional follow up as clinically indicated. The total patient time of the visit was 25 minutes, of which greater than 50% of the time was spent counseling and coordinating care. Lizette Angel MD [facility] 01-07-2021 Note M genetic counseli calli note Consultation has been requested by Dr. 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 MRI pending and performed on 01/07/21 Consider aneuploidy screening, maternal infectious serologies, and invasive testing. All declined today Plan: 1. Continued obstetrical care with her primary can top setter is recommended. 2. Follow up q4 weeks to evaluate biometric parameters and ventricles (ASSOCIATE PASTOR). These are planned with the [facility] and/or our [place] location. 3. surveillance as follows: once weekly BPP and weekly evaluation of ventricles (ASSOCIATE PASTOR) beginning at 32 weeks. Planning of surveillance [...] send placenta to Pathology for evaluation. 9. Neonatology/Chemist Internship to evaluate and to determine nursery placement and to determine if additional evaluation is indicated. 10. head imaging and consultation with Pediatric Neurology within 1 month of age or sooner if clinically indicated. Please call [phone] to schedule. Indicate that you were followed by the [facility] when scheduling. 11. Consider referral to Medical Genetics should additional concerns be noted after delivery. 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 Call [phone] to schedule. Indicate that you were followed by the [facility] when scheduling. 12. Additional follow up as clinically indicated. Her Plan of Care summary will be distributed. The total patient time of the visit was 60 minutes, of which greater than 50% of the time was spent counseling and coordinating care. Lizette Angel MD [facility] Discharge summary Note Date/Time November 24, 2024 1:34pm [facility] Medical Records Department [address] [place] [id number] Emergency Department Summary 11/24/24 MR#: [id number] Acct: [id number] Name: ATIYA MANCIA Rep #:[id number] : 1995 29 From: Dusty Harp MD PCP: Care Physician,No Primary Status :REG ER Location: ED HPI HPI - GI History of Present Illness Chief Complaint: Abd Pain Detail of Chief Complaint: Nausea vomiting. Nausea/Vomiting/Emesis GI Symptom: Positive for Nausea and Vomiting Onset: Today and Yesterday Severity: Mild Diarrhea/Melena/Hematochezia GI Symptom: Negative for Diarrhea, Melena or Hematochezia Associated Symptoms Associated Symptoms: Negative for Dysuria, Frequency, Hematuria or Urgency Narrative Narrative: 29-year-old female G4, P3 AB 0 currently 20 weeks . 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 Tuesday night start having a sore throat body aches. Intermittent nausea vomiting. No dysuria. Temperature as high as 99.9. Deniesabdominal pain. No vaginal bleeding. Prior similar symptoms: Yes Recent Illness/Hospitalization: No PFSH PFSH Medical History Back pain Severe headache Home Medications ?Medication ?Instructions ?Recorded ?Last Taken ?Type ondansetron 4 mg disintegrating 4 mg PO Q6H PRN nausea and 06/24/20 Unknown Rx tablet vomiting #20 tabs amoxicillin 875 mg-potassium 1 tab PO Q12H #14 tabs Unknown Rx clavulanate 125 mg tablet meclizine 12.5 mg tablet 12.5 mg PO TID PRN dizziness #6 01/06/22 Unknown Rx tabs Allergy/AdvReac Type Severity Reaction Status Date / Time No Known Allergies Allergy Verified 11/24/24 09:21 Social History Smoking Status: Never smoker alcohol intake: never ROS ROS ED ROS Narrative Nausea vomiting. Body aches. Low-grade fever. Sore throat. Constitutional Constitutional ED: Reports fever(s) ENT ENT ED: Denies ear pain Cardiovascular Cardiovascular: Denies chest pain Respiratory/Chest Respiratory/Chest: Denies cough or dyspnea Gastrointestinal Gastrointestinal: Reports nausea and vomiting; Denies abdominal pain, constipation, diarrhea or melena Genitourinary Genitourinary ED: Denies dysuria or hematuria Musculoskeletal Musculoskeletal: Denies arthralgias or back pain Integumentary Denies abscess Neurologic Neurologic: Denies headache(s) Psychiatric Psychiatric: Denies anxiety Endocrine Endocrinology: Denies polydipsia Hematologic/Lymphatic Hematologic/Lymphatic: Denies easy bleeding Allergic/Immunologic Allergic/Immunologic ED: Denies mouth swelling, tongue swelling or urticaria EXAM Physical Exam Narrative Exam Narrative: Well-appearing 29-year-old female. Vital signs stable afebrile. Pulse ox 100% on room air no signs hypoxia. No acute distress. at bedside. H EENT exam pupils round reactive light. Mytrex membranes. TMs normal. No signs of trauma. Neck nontender no lymphadenopathy. Lungs clear to auscultation bilaterally. Heart regular rhythm rate about 95 no murmur. Chest wall ribs nontender. Abdomen soft nondistended normal bowel sounds without peritoneal signs. Gravid nontender uterus. Right upper right lower quadrant nontender. No obstruction. Absolutely no abdominal pain. No peritoneal signs. Normal bowel sounds. Pelvic girdle intact. Moving all 4 extremities. Nontender. No edema. No rashes. Back nontender. No CVA tenderness. Neurologically she is awake alert. Answering questions following commands. Benign exam. Const Vital Signs: 11/24/24 09:17 11/24/24 09:42 11/24/24 11:23 Temperature 97.5 F L Temperature Source Temporal Pulse Rate 98 77 Respiratory Rate 16 16 Respiratory Effort Normal Non-Labored Respiratory Pattern Normal Blood Pressure 114/76 112/66 Blood Pressure Mean 88 81 Pulse Ox 100 100 Oxygen Delivery Method Room Air Room Air 11/24/24 11:25 11/24/24 11:30 11/24/24 11:31 Temperature Temperature Source Pulse Rate Respiratory Rate Respiratory Effort Respiratory Pattern Blood Pressure 110/58 L Blood Pressure Mean 73 Pulse Ox 98 100 Oxygen Delivery Method 11/24/24 11:45 11/24/24 12:00 11/24/24 12:15 Temperature Temperature Source Pulse Rate Respiratory Rate Respiratory Effort Respiratory Pattern Blood Pressure 116/57 L Blood Pressure Mean 73 Pulse Ox 100 99 100 Oxygen Delivery Method 11/24/24 12:30 11/24/24 12:45 11/24/24 13:00 Temperature Temperature Source Pulse Rate 66 Respiratory Rate 14 Respiratory Effort Respiratory Pattern Blood Pressure 110/63 109/58 L Blood Pressure Mean 76 74 Pulse Ox 100 100 99 Oxygen Delivery Method Positive well nourished and well developed; Negative for obese, cachectic, contractures or unkempt General Appearance ED: well developed and NAD; Negative for unkempt, cachectic, contractures or pallor Nutritional Appearance: Negative for cachectic or obese HEENT Reports moist mucous membranes normocephalic and atraumatic Eyes PERRL and EOMs intact bilaterally Neck no lymphadenopathy, supple and no JVD Resp normal respiratory effort and clear to auscultation bilaterally Cardio regular rate, regular rhythm, S1 normal heart sound, S2 normal heart sound and no murmurs GI non-tender, non-distended and no masses GI Narrative: Gravid nontender uterus. Consistent with dates of . Auscultation: normoactive bowel sounds Palpation: soft; Negative for tender, guarding, hernia, mass, pulsatile mass or rebound tenderness present Back/Spine no CVA tenderness Extremity full ROM General Extremety ED: Negative for edema or tenderness General Extremity: Negative for edema Neuro CN's II-XII intact bilaterally and moves all extremities Sensorium / Orientation: alert, oriented to person, oriented to place and oriented to time Motor Exam: strength 5/5 throughout Psych mental status grossly normal and thought process normal Appearance: Negative for unkempt Skin no wounds General Skin Exam: Negative for jaundice or pallor Lesions: no lesions Rashes: no rashes Trauma: Negative for abrasion MDM MDM MDM Narrative Medical decision making narrative: 29-year-old female 28 weeks . Believes she has a viral syndrome. Body aches with nausea vomiting. Otherwise exam is benign. There isno focus of a bacterial infection. She will be treated with IV Zofran for nausea IV fluids for dehydration. Screening labs and a UA will be obtained. I do not think she needs any imaging. Will do heart tones. Repeat exam patient is doing well at 1:30 PM. She will be discharged to home. Treated as a viral syndrome. Patient comfortable being discharged to home. Shehas Zofran at home for nausea. History & Record Review Discussion w/independent historian: Patient and Family Additional record(s) reviewed:: Prior inpatient record, Prior outpatient record,Prior ED visit and Prior labs Lab Data Attestation: I reviewed the patient's lab results. Lab results narrative: CBC shows a white count of 8 H&H 11.9 and 36 consistent with anemia of . Platelet count 234. Electrolytes unremarkable gap 15. Normal BUN of 8 creatinine 0.53. Glucose 82. heart tones 138. Urinalysis shows no nitrites. Positive ketones consistent with dehydration. No red cells send 25 white cells but is contaminated with 25-50 squamous cells she is having no urinary symptoms this will not be treated. Labs: Laboratory Results - last 24 hr 11/24/24 11/24/24 09:52 11:13 WBC 8.1 RBC 4.21 Hgb 11.9 L Hct 36.0 L MCV 85.5 MCH 28.3 MCHC 33.1 RDW Std Deviation 40.0 RDW Coeff of Radha 13.0 Plt Count 234 MPV 8.4 Immature Gran % (Auto) 1.100 H Neut % (Auto) 78.8 H Lymph % (Auto) 10.5 L [place] % (Auto) 7.6 Eos % (Auto) 1.5 Baso % (Auto) 0.5 Absolute Neuts (auto) 6.4 Absolute Lymphs (auto) 0.85 Nucleated RBC % 0 Sodium 136 Potassium 3.8 Chloride 99 Carbon Dioxide 21.6 Anion Gap 15 BUN 8 Creatinine 0.53 L Estim Creat Clear Calc 126.73 Est GFR (MDRD) Non-Af 127 BUN/Creatinine Ratio 14.1 Glucose 82 Calcium 9.3 Urine Color Yellow Urine Clarity Cloudy Urine pH 6.0 Ur Specific [place] 1.025 Urine Protein 30 H Urine Glucose (UA) Normal Urine Ketones 150 A* Urine Occult Blood 10 H Urine Nitrite Negative Urine Bilirubin Negative Urine Urobilinogen Normal Ur Leukocyte Esterase 500 H Urine RBC 0-5 SEEN Urine WBC 10-25 SEEN Ur Squamous Epith Cells 25-50 SEEN Urine Bacteria 3+ Urine Mucus 1+ Discharge Plan Triage Chief Complaint: Abd Pain Other Complaint: Nausea/Vomiting ED Provider: Dusty Harp Dx/Rx/DC Orders Clinical Impression: Viral syndrome, Vomiting Instructions: ED Viral Syndrome (Adult) Prescriptions: No Action ondansetron 4 mg tablet,disintegrating 4 mg PO Q6H PRN (Reason: nausea and vomiting) Qty: 20 0RF amoxicillin-pot clavulanate 875-125 mg tablet 1 tab PO Q12H Qty: 14 0RF meclizine 12.5 mg tablet 12.5 mg PO TID PRN (Reason: dizziness) Qty: 6 0RF Primary Care Provider: Care Physician,No Primary Referrals: Chika Carias MD [Med Staff - Active Staff] - As Needed Care Physician,No Primary [Primary Care Provider] - Activity Restrictions/Additional Instructions: Plenty of fluids and rest. Follow-up with your CARBIDE OPERATOR group as needed. Return if feeling worse. Think this was a virus. Print Language: Argentine Disposition Disposition: Home, Self Care What to do if you have Problems For any increased pain, shortness of breath, bleeding, nausea or vomiting, chestpain, or any unexpected problems, contact your Primary Care Provider. Call [facility] ([phone]) or report to the closest Emergency Room. Call 911 if necessary. 11/24/24 1334 <Electronically signed by Dusty Harp MD> Cosigner Signature (if applicable): CC: No Primary Care Physician ~ Signed [facility] Work Phone: Evaluation note* Diagnosis Vaginal bleeding affecting early (HCC)- Primary Spotting complicating , first trimester (HCC) Threatened (HCC) Threatened , unspecified as to episode of care High risk due to history of previous obstetrical problem in first trimester (HCC) [facility] Diagnosis Encounter for supervision of high risk in first trimester, antepartum ([facility])- Primary 9 weeks gestation of ([facility]) state, incidental Screen for STD (sexually transmitted disease) Screening examination for venereal disease Vaginal bleeding affecting early ([facility]) 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 , currently ([facility]) with other poor obstetric history Heartburn during in first trimester ([facility]) Nausea and vomiting during ([facility]) [facility]* Diagnosis Nausea and vomiting during ([facility])- Primary Supervision of high risk in second trimester ([facility]) Unspecified high-risk 12 weeks gestation of ([facility]) state, incidental Encounter for supervision of high risk in first trimester, antepartum ([facility]) [facility]* Diagnosis Encounter for screening for malformation using ultrasound ([facility])- Primary 12 weeks gestation of ([facility]) state, incidental documented in this encounter [facility] note* Diagnosis Supervision of high risk in second trimester ([facility])- Primary Unspecified high-risk 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 , currently ([facility]) with other poor obstetric history 16 weeks gestation of ([facility]) state, incidental Other migraine without status migrainosus, not intractable * Assessment & Plan Note - Charito Zaragoza MD - 09/06/2024 10:14 AM EDTAssociated Problem(s): 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 , currently ([facility]) documented in this encounter [facility] note* Diagnosis Supervision of high risk in second trimester ([facility])- Primary Unspecified high-risk 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 , currently ([facility]) with other poor obstetric history 16 weeks gestation of ([facility]) state, incidental Other migraine without status migrainosus, not intractable Encounter for screening for malformation using ultrasound ([facility])- Primary 20 weeks gestation of ([facility]) state, incidental documented in this encounter [facility] note* Diagnosis Supervision of high risk in second trimester ([facility])- Primary Unspecified high-risk 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 , currently (HCC) with other poor obstetric history 16 weeks gestation of (HCC) state, incidental Other migraine without status migrainosus, not intractable Supervision of high risk in second trimester (HCC)- Primary Unspecified high-risk 20 weeks gestation of (HCC) state, incidental [facility] information availableWP[facility] Work Phone: Evaluation note* Diagnosis Supervision of high risk in second trimester (HCC)- Primary Unspecified high-risk 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 , currently (HCC) with other poor obstetric history 16 weeks gestation of (HCC) state, incidental Other migraine without status migrainosus, not intractable Supervision of high risk in third trimester (HCC)- Primary Unspecified high-risk 28 weeks gestation of (HCC) state, incidental documented in this encounter [facility] Discharge instructionsAdditional Instructions Plenty of fluids and rest. Follow-up with your CARBIDE OPERATOR group as needed. Return if feeling worse. Think this was a virus.[facility] Work Phone: Reason for referral (narrative)No reason for referral information availableWPremier [facility] Work Phone: Summary Purpose Family History No Family History Records FoundNo Family History Records FoundNo Family History Records FoundNo Family History Records FoundNo Family History Records Found Advance Directives No Advanced Directives Records Found Advance Directive Response Recorded Date/ Time Do you have a Healthcare Power of Laundry Agent? No November 24, 2024 9:40am Chief Complaint and Reason for Visit Chief Complaint Admit Date abd pain November 24, 2024 9: 16am Additional Source Comments INFORMATION SOURCE (unrecogn ized section and content) DATE CREATED AUTHOR 06/11/2021 [facility] DATE CREATED AUTHOR AUTHOR'S ORGANIZ ATION 06/30/2021 [facility] DATE CREATED AUTHOR AUTHOR'S ORGANIZ ATION 01/27/2022 [facility] DATE CREATED AUTHOR AUTHOR'S ORGANIZ ATION 01/03/2025 [facility] DATE CREATED AUTHOR AUTHOR'S ORGANIZ ATION 01/25/2025 [facility] Source Comments (unrecognize d section and content) In the event this informatio n is protected by the Federal Confidentiality of Alcohol and Drug Abuse Patient Records regulations: The Federal rules restrict any use of the information to criminally investigate or prosecute any alcohol or drug abuse patient.[facility] Center[facility] the event this information is protected by the Federal Confidentiality of Alcohol and Drug Abuse Patient Records regulations: The Federal rules restrict any use of the information to criminally investigate or prosecute any alcohol or drug abuse patient.[facility] CenterIn the event this information is protected by the Federal Confidentiality of Alcohol and Drug Abuse Patient Records regulations: The Federal rules restrict any use of the information to criminally investigate or prosecute any alcohol or drug abuse patient.[facility] CenterIn the event this information is protected by the Federal Confidentiality of Alcohol and Drug Abuse Patient Records regulations: The Federal rules restrict any use of the information to criminally investigate or prosecute any alcohol or drug abuse patient.[facility] CenterIn the event this information is protected by the Federal Confidentiality of Alcohol and Drug Abuse Patient Records regulations: The Federal rules restrict any use of the information to criminally investigate or prosecute any alcohol or drug abuse patient.[facility] CenterIn the event this information is protected by the Federal Confidentiality of Alcohol and Drug Abuse Patient Records regulations: The Federal rules restrict any use of the information to criminally investigate or prosecute any alcohol or drug abuse patient.[facility] CenterIn the event this information is protected by the Federal Confidentiality of Alcohol and Drug Abuse Patient Records regulations: The Federal rules restrict any use of the information to criminally investigate or prosecute any alcohol or drug abuse patient.[facility] CenterIn the event this information is protected by the Federal Confidentiality of Alcohol and Drug Abuse Patient Records regulations: The Federal rules restrict any use of the information to criminally investigate or prosecute any alcohol or drug abuse patient.[facility] CenterIn the event this information is protected by the Federal Confidentiality of Alcohol and Drug Abuse Patient Records regulations: The Federal rules restrict any use of the information to criminally investigate or prosecute any alcohol or drug abuse patient.[facility] CenterIn the event this information is protected by the Federal Confidentiality of Alcohol and Drug Abuse Patient Records regulations: The Federal rules restrict any use of the information to criminally investigate or prosecute any alcohol or drug abuse patient.[facility] Reason for Visit (unrecogniz ed section and content) Reason Comments Vaginal Bleeding Reason Comments Initial OB Visit Reason Onset Date Comments Care 08/09/2024 Reason Comments US Specialty Diagnoses / Procedures Referred By [place] t Referred To Contact [facility] Diagnoses Encounter for supervision of high risk in first trimester, antepartum (HCC) Procedures OBSTETRIC ULTRASOUND WHI US PREG UTERUS AFTER 1ST TRIMEST GESTATION Maximus Fletcher, FRANCISCO.WHIPPER [address] [address] Phone: tel: fax: [facility] [address] [place] [address] Referral ID Status Reason Start Date Expiration Date V isits Requested Visits Authorized [id number] Closed Auto-Generate d Referral 07/18/2024 07/18/2025 1 1 Reason Onset Date Comments Care 09/06/2024 Referral ID Status Reason Start Date Expiration Date V isits Requested Visits Authorized [id number] Closed Auto-Generate d Referral 07/18/2024 07/18/2025 1 1 Reason Onset Date Comments Care 10/04/2024 Reason Comments Medication Request Reason Onset Date Comments Care 11/29/2024 Care Teams (unrecognized sec tion and content) Team Status: Active Member Role/Relationship Status Dates No Primary Care Physician Primary Care Provider Active Team Status: Inactive Member Role/Relationship Status Dates No Primary Care Physician Primary Care Provider Active Start: November 24, 2024 End: November 24, 2024 Dr. Dusty Harp MD Emergency Provider Active S tart: November 24, 2024 End: November 24, 2024 Goals (unrecognized section and content) Goals may be documented in a n alternate section FOR RECORDS PERTAINING TO PATIENTS WHO ARE [...] BE BASED ON THE PRIMARY CLINICAL RECORDS. [employer] provides no warranty or guarantee of the accuracy or completeness of information in this document.
[2025-01-25 20:58] VITALS: PULSE 81; O2SAT 97
[2025-01-25 21:06] VITALS: BP 108/63; PULSE 80
[2025-01-25 21:08] VITALS: BMI 27.3
[2025-01-25 21:21] VITALS: BP 101/62; PULSE 82
[2025-01-25 21:36] VITALS: BP 105/62; PULSE 81
--- NOTE | 2025-01-27 08:27 | OB.TRI.NOTE ---
HPI - General General Date of Service: 01/25/25 HPI Narrative NAS CRUZ, is a 29 F @ 36.6 weeks who presents to r/o PRE E- due to concerns of elevated BP at home [facility] Medical History Back pain Severe headache Home Medications ?Medication ?Instructions ?Recorded ?Last Taken ?Type vit no.95-ferrous 1 tab PO DAILY 01/25/25 01/25/25 History fumarate 28 mg-folic acid 800 mcg tablet ( Multivitamins) Allergy/AdvReac Type Severity Reaction Status Date / Time No Known Allergies Allergy Verified 01/25/25 21:09 Social History Smoking Status: Never smoker alcohol intake: never History Elective abortions Hx Para 1 Spontaneous abortions Hx # Term Pregnancies Ectopic pregnancies Hx # Pregnancies Multiple births # of living children NST FHR Rate Baby A Baseline: 120 Variability:: Moderate Accelerations:: 15 x 15 Decelerations:: None NST Reactive:: Yes FHR Category:: Category I Uterine Activity:: no ctx Assessment & Plan (1) 36 weeks gestation of : (2) Elevated blood pressure reading: PLAN: Plan @ 36.6 weeks- normal blood pressure 1) no concern for PRE E- bp all wnl 2) well being established 3) DC home follow up as scheduled in office
== END 2025-01-25 21:55 | disposition home or self-care (01) ==
LOC: WPOUT 20:37 → WP 20:38
PROVIDERS: Visit Provider Obstetrics & Gynecology
DX: O99.891 Other specified diseases and conditions complicating pregnancy (principal); R03.0 Elevated blood-pressure reading, without diagnosis of hypertension; Z3A.36 36 weeks gestation of pregnancy
CPT/HCPCS: 59025; 59050; 99221; G0378

== ENCOUNTER 2025-02-07 13:45 | Inpatient (IN) | payer OTHER, SELFPAY ==
[2025-02-07] VITALS (32 sets, daily range): BP systolic 93–131; BP diastolic 50–71; PULSE 84–104; RESP 14–18; TEMP 36.3–37.8; O2SAT 99–100; BMI 27.3
[2025-02-07] MEDS: Lactated Ringers 1,000 ML 999 ML IV (14:00)
[2025-02-07 14:10] LABS: Hematocrit 36.8 % (37-47); Hemoglobin 11.9 g/dL (12.0-15.0); Immature Granulocytes Count 0.100 X10^3/uL (0.0-0.0); Mean Corp Hgb Conc 32.3 g/dL (32-36); Mean Corpuscular Volume 87.2 fL (81-99); Mean Platelet Vol. 8.8 fl (6.2-12.0); NRBC Flagged by Analyzer 0 % (0-5); Platelet Count 229 K/mm3 (150-450); RBC Distribution Width CV 17.4 % (11.6-14.6); RBC Distribution Width SD 54.8 fl (35.1-43.9); Red Blood Count 4.22 M/mm3 (4.2-5.4); White Blood Count 13.8 K/mm3 (4.4-11.0)
[2025-02-07] MEDS: Penicillin G Pot 5,000,000 UNITS in 0.9% Normal Saline (100mL MB+) 100 ML 150 UNITS IV (14:24)
[2025-02-07] MEDS: Lactated Ringers 1,000 ML 50 ML IV (14:43)
[2025-02-07] MEDS: fentaNYL-bupivacaine (epidural) 100 ML BAG EPIDURAL (14:44)
[2025-02-07 14:52] LABS: Syphilis Antibodies Nonreactive (Nonreactive)
--- NOTE | 2025-02-07 15:35 | PCM.HP.OB ---
HPI - General General Date of Admission: 02/07/25 HPI Narrative NAS CRUZ, is a 29 F at 38.5 weeks gestation who presents in spontaneous labor. Started feeling contractions last night that continued into today. Denies any loss of fluid or vaginal bleeding. Positive movements. Maternal Data Information MARY Calculator Estimated Delivery Date Method Current WG Current Estimate 02/16/25 Manual 38w 5d PFSH PFSH Medical History Back pain Severe headache Home Medications Medication Instructions Recorded Last Taken Type vit no.95-ferrous 1 tab PO DAILY 01/25/25 02/07/25 07:00 History fumarate 28 mg-folic acid 800 mcg 1 TAB tablet ( Multivitamins) vitamin B complex 1 cap PO DAILY 02/07/25 02/06/25 08:00 History 1 cap Allergy/AdvReac Type Severity Reaction Status Date / Time No Known Allergies Allergy Verified 02/07/25 13:51 Social History Smoking Status: Never smoker alcohol intake: never History Elective abortions Hx Para 3 Spontaneous abortions Hx # Term Pregnancies Ectopic pregnancies Hx # Pregnancies Multiple births # of living children NST FHR Rate Baby A Baseline: 140 Variability:: Moderate Accelerations:: 15 x 15 Decelerations:: None NST Reactive:: Yes FHR Category:: Category I Uterine Activity:: TOCO reading every 2-3 minutes ROS Eyes Eyes: Denies blurry vision, change in vision or spots in vision ENT HEENT: Denies dizziness or headache(s) Cardiovascular Cardiovascular: Denies abdominal pain, chest pain or dyspnea Respiratory/Chest Respiratory/Chest: Denies cough, dyspnea, shortness of breath at rest or shortness of breath with exertion Gastrointestinal Gastrointestinal: Denies abdominal pain, diarrhea or vomiting Genitourinary Genitourinary: Denies change in urinary stream, difficulty urinating or dysuria Musculoskeletal Musculoskeletal: Reports none Integumentary Integumentary: Denies rash Neurologic Neurologic: Denies dizziness, headache(s), memory loss or weakness Psychiatric Psychiatric: Reports none Vital Signs Vital Signs Vital Signs: 02/07/25 13:43 02/07/25 13:43 02/07/25 14:05 Temperature Temperature Source Temporal Pulse Rate 84 Respiratory Rate Blood Pressure 126/62 H BP Systolic 126 BP Diastolic 62 Pulse Ox 02/07/25 14:05 02/07/25 14:05 02/07/25 14:06 Temperature 97.6 F L Temperature Source Pulse Rate 98 Respiratory Rate 16 Blood Pressure BP Systolic BP Diastolic Pulse Ox 02/07/25 14:06 02/07/25 14:31 02/07/25 14:31 Temperature Temperature Source Pulse Rate 90 Respiratory Rate Blood Pressure 126/61 H BP Systolic 126 BP Diastolic 61 Pulse Ox 100 02/07/25 14:31 02/07/25 14:31 02/07/25 14:36 Temperature Temperature Source Pulse Rate 101 H 98 Respiratory Rate Blood Pressure BP Systolic BP Diastolic Pulse Ox 100 02/07/25 14:36 02/07/25 14:38 02/07/25 14:38 Temperature Temperature Source Pulse Rate 100 Respiratory Rate Blood Pressure 113/64 BP Systolic 113 BP Diastolic 64 Pulse Ox 99 02/07/25 14:38 02/07/25 14:41 02/07/25 14:41 Temperature Temperature Source Pulse Rate 97 Respiratory Rate 18 Blood Pressure BP Systolic BP Diastolic Pulse Ox 100 02/07/25 14:42 02/07/25 14:42 02/07/25 14:42 Temperature Temperature Source Pulse Rate 98 Respiratory Rate 16 Blood Pressure 117/71 BP Systolic 117 BP Diastolic 71 Pulse Ox 02/07/25 14:46 02/07/25 14:46 02/07/25 14:46 Temperature Temperature Source Pulse Rate 94 Respiratory Rate Blood Pressure 122/67 H BP Systolic 122 BP Diastolic 67 Pulse Ox 99 02/07/25 14:46 02/07/25 14:52 02/07/25 14:52 Temperature Temperature Source Pulse Rate 95 Respiratory Rate 16 Blood Pressure 104/52 L BP Systolic 104 BP Diastolic 52 Pulse Ox 02/07/25 14:52 02/07/25 14:55 02/07/25 14:55 Temperature Temperature Source Pulse Rate 100 Respiratory Rate 16 Blood Pressure 98/55 L BP Systolic 98 BP Diastolic 55 Pulse Ox 02/07/25 14:56 02/07/25 14:56 02/07/25 14:56 Temperature Temperature Source Pulse Rate 97 Respiratory Rate 16 Blood Pressure 101/51 L BP Systolic 101 BP Diastolic 51 Pulse Ox 02/07/25 15:00 02/07/25 15:00 02/07/25 15:00 Temperature Temperature Source Pulse Rate 97 Respiratory Rate 14 Blood Pressure 100/52 L BP Systolic 100 BP Diastolic 52 Pulse Ox 02/07/25 15:07 02/07/25 15:07 02/07/25 15:11 Temperature Temperature Source Pulse Rate 96 Respiratory Rate Blood Pressure 96/50 L 96/54 L BP Systolic 96 96 BP Diastolic 50 54 Pulse Ox 02/07/25 15:11 02/07/25 15:15 02/07/25 15:15 Temperature Temperature Source Pulse Rate 101 H 90 Respiratory Rate Blood Pressure 98/51 L BP Systolic 98 BP Diastolic 51 Pulse Ox 02/07/25 15:23 02/07/25 15:23 02/07/25 15:32 Temperature 97.4 F L Temperature Source Temporal Pulse Rate Respiratory Rate Blood Pressure 93/52 L BP Systolic 93 BP Diastolic 52 Pulse Ox 02/07/25 15:32 Temperature Temperature Source Pulse Rate 89 Respiratory Rate Blood Pressure BP Systolic BP Diastolic Pulse Ox Weight Weight: 144 lb 12.8 oz Body Mass Index (BMI) 27.3 Physical Exam Const alert, oriented x3 and no apparent distress General Appearance: cooperative Orientation / Consciousness: awake Exam Limitations: no limitations HEENT normocephalic Head and Scalp: normal to inspection Eyes General Eye: normal appearance of both eyes Neck full ROM and no lymphadenopathy Lymph Lymphatic: no lymphadenopathy noted Chest inspection of chest normal Resp normal respiratory effort, normal air movement and clear to auscultation bilaterally Effort and Inspection: able to speak in complete sentences and symmetric chest movement Cardio regular rate and regular rhythm GI normal to inspection, nondistended, normoactive bowel sounds Manual OB Exam: presentation cephalic Back/Spine normal ROM Extremity full ROM and no calf tenderness Skin no rashes or lesions noted General Skin Exam: no breakdown Neuro oriented x3 and CN's II-XII intact bilaterally Psych mental status grossly normal and thought process normal Labs Labs Labs: Blood Type A POSITIVE Antibody Screen NEGATIVE Hct, (37-47) 36.8 % L Hgb, (12.0-15.0) 11.9 g/dL L Syphilis Total Ab, (Nonreactive) Nonreactive Rubella IgG Antibody 155.3 IU/mL Hep Bs Antigen, (Negative) Negative Glucose 1 Hr 50 gm, (70-140) 127 mg/dL Group B Strep DNA, (Negative) Negative Rhogam given: No Assessment & Plan (1) 38 weeks gestation of : (2) Spontaneous onset of labor: (3) Positive GBS test: (4) Anemia affecting in third trimester: PLAN: Plan CE /-2 GBS positive- PCN 5 million units IV started Admit to labor and delivery Routine labs Epidural when indicated History of precipitous deliveries Anticipate Dr. Houser aware of admission and is collaborating physician
[2025-02-07] MEDS: Oxytocin 15 Units/NS 250ml 15 UNITS/250 ML IV.SOLN 334 UNITS IV (17:58)
[2025-02-07] MEDS: Oxytocin 15 Units/NS 250ml 15 UNITS/250 ML IV.SOLN 83 UNITS IV (18:25)
--- OUTSIDE RECORDS SUMMARY | 2025-02-07 18:31 | XMS RPT_ITS | CCD ---
Author Organization [facility] Care Team Providers Care Senior Examiner Name Role Phone CHIKA BEDOLLA PA-C Attending Unavailable TAPAN CELAYA Consulting Unavailable CHIKA BEDOLLA PA-C Admitting Unavailable CHIKA BEDOLLA PA-C Primary Care Unavailable PROVIDER, UNKNOWN Consulting Unavailable PROVIDER, UNKNOWN Consulting Unavailable PROVIDER, UNKNOWN Consulting Unavailable Tapan Celaya MD Unavailable Physical Therapy Provider Unavailable Madelin Crowe MD, Jennifer Zepeda Unavailable Sunshine FOREMAN, Vivian Unavailable Chika Bedolla PA-C Unavailable [phone] Leslye Potter PA-C Unavailable DarylJennifer lambert LPN Unavailable Unavailab celine Cruz INSIGHT LEADER, Lucien Merchant Unavailable Unavailable Unavailable Unavailable Unavailable Primary Care Provider Unavailabl e Care Physician, No Primary Primary Care Provider Unavailable Loyd CHRISTENSEN, Dr. Montano Emergency Provider [phone] Maty Weiss Attending Unavail able Care Physician, No Primary Primary Care Unava ilable Care Physician, No Primary Primary Care Unava ilable Chika Carias Admitting Unavailable Chika Carias Attending Unavailable Dusty Harp Attending Unavailable Care Physician, No Primary Primary Care Unava ilable CHARITO ZARAGOZA Attending Unavailable MATY MOLINA Attending Unavail able SAE HOUSER Attending Unavailable MAXIMUS FLETCHER Attending Unavailable JOHAN MALIK Attending Unavailable NELDA MEDEL Referring Unavailable MATY MOLINA Attending Unavail able MAXIMUS FLETCHER Referring Unavailable MAXIMUS FLETCHER Referring Unavailable MARLYN READ Attending Unavailable CHARITO ZARAGOZA Attending Unavailable CHARITO ZARAGOZA Referring Unavailable KVNG NELDA Referring Unavailable CHIKA CRAIAS Attending Unavailable NELDA MEDEL Referring Unavailable MAXIMUS FLETCHER Attending Unavailable MAXIMUS FLETCHER Referring Unavailable MAXIMUS FLETCHER Referring Unavailable MARLYN READ Attending Unavailable CHIKA CARIAS Attending Unavailable MAXIMUS FLETCHER Referring Unavailable Medications Current Medications Medication Drug Class(es) [...] Start: 07-Aug-2014 End: 25-Mar-2015 Status: Discontinued Pnv 198-Wzsix-Kulkb-3-F tiffany Oil 1 EACH tablet,chewable (1 source) Start: 11-10-2015 End: 06-24-2020 Pnv 246-Czpah-Pccpr-3- Fish Oil 1 EACH tablet,chewable Discontinued 2 [...] gastroenteritis and colitis, unspecified] 12-29-2009 Episodic Other circulatory disease (1 source) Elevated blood-pressure reading, without diagnosis of hypertension; Translations: [Elevated blood-pressure reading, without diagnosis of hypertension] Onset: 01-31-2025 Episodic Other complications of (1 source) Anemia in mother complicating , childbirth AND/OR puerperium; Translations: [Anemia complicating , third trimester] Onset: 11-29-2024 11-29-2024 Chronic Other complications of (2 sources) Anemia complicating , third trimester; Translations: [Anemia complicating , third trimester ([facility])] Onset: 11-29-2024 Chronic Other complications of (1 [...] [Supervision of high risk in third trimester ([facility])] Onset: 11-29-2024 Episodic Other gastrointestinal disorders (2 sources) Chronic constipation; Translations: [Other constipation] 01-29-2022 Episodic Other and delivery including normal (20 sources) care status; Translations: [Encounter for routine follow-up] 08-07-2014 Episodic Other upper respiratory infections (6 sources) [...] 11-29-2024 Episodic Residual codes; unclassified (1 source) 37 weeks gestation of ; Translations: [37 weeks gestation of ([facility])] Onset: 02-01-2025 Episodic Residual codes; unclassified (1 source) 36 [...] 12-13-2024 Episodic Residual codes; unclassified (1 source) 28 [...] first trimester (HCC)] Onset: 07-18-2024 Episodic Other screening for suspected conditions (not mental disorders or infectious disease) (6 sources) care status; Translations: [Encounter for screening of mother] Onset: 10-04-2024 05-30-2014 Episodic Residual codes; unclassified (1 source) 24 weeks gestation of ; Translations: [24 weeks gestation of ([facility])] Onset: 11-01-2024 Episodic Residual codes; unclassified (1 source) 20 weeks gestation of ; Translations: [20 weeks gestation of ([facility])] Onset: 10-04-2024 Episodic Residual codes; unclassified (1 source) 16 weeks gestation of ; Translations: [16 weeks gestation of ([facility])] Onset: 09-06-2024 Episodic Residual codes; unclassified (1 source) 12 weeks gestation of ; Translations: [12 weeks gestation of ([facility])] Onset: 08-09-2024 Episodic Residual codes; unclassified (1 source) 9 weeks gestation of ; Translations: [9 weeks gestation of ([facility])] Onset: 07-18-2024 Episodic Unclassified (2 sources) Abdominal [...] fever, heartburn, nausea or vomiting. Note for "Abdominal pain": The pain seems to be better with [...] palpitations, sweating, syncope or tinnitus. Note for "Dizziness": Went to Urgent Care last week and [...] well. The patient is formula feeding the infant. Menstruation: has not resumed. The patient has [...] for a 13 week visit. Note for " visit": she is also having lower abdominal pain, [...] and into her left jaw). Note for "Sore Throat": Has been taking ibuprofen for the pain. [...] Test Name Value Interpretation Reference Range Facility OB Triage Physician Noteon 1 03-29-2024 OB Triage Physician Note [facility] Medical Records Department [address] [place] [address] OB Triage Physician Note 01/27/25826 MR#: [id number] Acct: [id number] Name: ATIYA MANCIA Rep #: [id number] : 1995 29 From: Maty Weiss MD PCP: Care Physician,No Primary Status:DEP CLI Y Location: [facility] - General General Date of Service: 01/25/25 HPI Narrative ATIYA MANCIA, is a 29 F @ 36.6 weeks who presents to r/o PRE E- due to concerns of elevated BP at home [facility] Medical History Back pain Severe headache Home Medications ???Medication ???Instructions ???Recorded ???Last Taken ???Type vit no.95-ferrous 1 tab PO DAILY 01/25/25 01/25/25 H istory fumarate 28 mg-folic acid 800 mcg tablet ( Multivitamins) Allergy/AdvReac Type Severity Reaction Status Date / Time No Known Allergies Allergy Verified 01/25/25 21:09 Social History Smoking Status: Never smoker alcohol intake: never History Elective abortions Hx Para 1 Spontaneous abortions Hx # Term Pregnancies Ectopic pregnancies Hx # Pregnancies Multiple births # of living children NST FHR Rate Baby A Baseline: 120 Variability:: Moderate Accelerations:: 15 x 15 Decelerations:: None NST Reactive:: Yes FHR Category:: Category I Uterine Activity:: no ctx Assessment Plan (1) 36 weeks gestation of : (2) Elevated blood pressure reading: PLAN: Plan @ 36.6 weeks- normal blood pressure 1) no concern for PRE E- bp all wnl 2) well being established 3) DC home follow up as scheduled in office 01/27/25828 D> Date Maty Weiss MD Cosigner Signature (if applicable): Date CC: Dr Maty Weiss MD; No Primary Care Physician Signed Normal [facility] 01-25-2025 [facility] Telephone (OBGYWM) THOMAS MANCIAA ([id number]) 1995 F Date Time Provider Department 01/25/25 MATY MOLINA OBGYWM During your visit today, [...] improvement in headache/acid reflux to go to [facility] for evaluation. Maty Molina MD 01/25/2025 4:45 [...] Status:Closed by SOPHIA GARCIA on 01/25/25 Normal [facility] ROUTINE, GROUP B ST REPTOCOCCUS BY PCRon 01-24-2025 ROUTINE, GROUP B STREPTOCOCCUS BY PCR Detected Abnormal [facility] Comment on above: Performed By: #### T SPN #### [facility] CLIA [id number] [address] [place] [address] [place] CBC panel Auto (Bld)on 12-27 Erythrocyte distribution width (RBC) [Ratio] 13.4 % Normal 11.5-15.0 [facility] Comment on above: Order Comment: Speci men Type: BLOOD SPECIMENOrdering Facility: [facility] Address: [address] [place] [address] Performed By: #### 5 8410-2 ####[facility] [id number] [place] [address] [place] Hematocrit (Bld) [Volume fraction] 29.4 % Low 36.0-46.0 [facility] Comment on above: Order Comment: Speci men Type: BLOOD SPECIMENOrdering Facility: [facility] Address: [address] [place] [address] Performed By: #### 5 8410-2 ####[facility] PARKWAYAMADA [id number] [place] [address] [place] Hemoglobin (Bld) [Mass/Vol] 9.9 g/dL Low 11.5-15.5 [facility] Comment on above: Order Comment: Speci men Type: BLOOD SPECIMENOrdering Facility: [facility] Address: [address] [place] [address] Performed By: #### 5 8410-2 ####[facility] PARKWAYUMANGKarina [id number] [address] [place] MCH (RBC) [Entitic mass] 27.5 pg Normal 26.0-34.0 [facility] Comment on above: Order Comment: Speci men Type: BLOOD SPECIMENOrdering Facility: [facility] Address: [address] [place] [address] Performed By: #### 5 8410-2 ####[facility] PARKWAYUMANGLIA [id number] [place] [address] [place] MCHC (RBC) [Mass/Vol] 33.7 g/dL Normal 30.5-36.0 [facility] Comment on above: Order Comment: Speci men Type: BLOOD SPECIMENOrdering Facility: [facility] Address: [address] [place] [address] Performed By: #### 5 8410-2 ####[facility] PARKWAYNCLIA [id number] [place] [address] [place] MCV (RBC) [Entitic vol] 81.7 fL Normal 80.0-100.0 [facility] Comment on above: Order Comment: Speci men Type: BLOOD SPECIMENOrdering Facility: [facility] Address: [address] [place] [address] Performed By: #### 5 8410-2 ####[facility]WAYNCINTERMOUNT[facility] [id number] [place] [address] [place] Nucleated RBC (Bld) [#/Vol] 10*3/uL Normal <0.01 [facility] Comment on above: Order Comment: Speci men Type: BLOOD SPECIMENOrdering Facility: [facility] Address: [address] [place] [address] Performed By: #### 5 8410-2 ####[facility]NC[facility] [id number] [place] [address] [place] Platelet mean volume (Bld) [Entitic vol] 8.4 fL Low 9.0-12.7 [facility] Comment on above: Order Comment: Speci men Type: BLOOD SPECIMENOrdering Facility: [facility] Address: [address] [place] [address] Performed By: #### 5 8410-2 ####[facility] EMERGENCYA [id number] [place] [address] [place] Platelets (Bld) [#/Vol] 230 10*3/uL Normal 150-400 [facility] Comment on above: Order Comment: Speci men Type: BLOOD SPECIMENOrdering Facility: [facility] Address: [address] [place] [address] Performed By: #### 5 8410-2 ####[facility] [id number] [place] [address] [place] RBC (Bld) [#/Vol] 3.60 10*6/uL Low 3.90-5.20 [facility] Comment on above: Order Comment: Speci men Type: BLOOD SPECIMENOrdering Facility: [facility] Address: [address] [place], [place] [address] Performed By: #### 5 8410-2 ####[facility]ARKWAYAMADA [id number] [place] [address] [place] WBC (Bld) [#/Vol] 8.87 10*3/uL Normal 3.70-11.00 [facility] Comment on above: Order Comment: Speci men Type: BLOOD SPECIMENOrdering Facility: [facility] Address: [address] [place] [address] Performed By: #### 5 8410-2 ####[facility] PARKWAYUMANGKarina [id number] [place] [address] [place] CBC W Auto Differential pane l (Bld)on 11-29-2024 Basophils (Bld) [#/Vol] 10*3/uL Normal <0.11 [facility] Comment on above: Order Comment: Speci men Type: BLOOD SPECIMENOrdering Facility: [facility] Address: [address] [place] [address] Performed By: #### 5 7021-8 ####[facility] [id number] [place] [address] [place] Basophils/100 WBC (Bld) 0.1 % Normal [facility] Comment on above: Order Comment: Speci men Type: BLOOD SPECIMENOrdering Facility: [facility] Address: [address] [place] [address] Performed By: #### 5 7021-8 ####[facility]ARKWAYUMANGKarina [id number] [place] [address] [place] Differential cell count method Nom (Bld) Auto Normal [facility] Comment on above: Order Comment: Speci men Type: BLOOD SPECIMENOrdering Facility: [facility] Address: [address] [place] [address] Performed By: #### 5 7021-8 ####[facility] MILLWNCLIA [id number] [place] [address] [place] Eosinophils (Bld) [#/Vol] 0.15 10*3/uL Normal <0.46 [facility] Comment on above: Order Comment: Speci men Type: BLOOD SPECIMENOrdering Facility: [facility] Address: [address] [place] [address] Performed By: #### 5 7021-8 ####[facility] PARKWAYUMANGLIA [id number] [place] [address] [place] Eosinophils/100 WBC (Bld) 1.9 % Normal [facility] Comment on above: Order Comment: Speci men Type: BLOOD SPECIMENOrdering Facility: [facility] Address: [address] [place] [address] Performed By: #### 5 7021-8 ####[facility] PARKWAYUMANGLIA [id number] [place] [address] [place] Erythrocyte distribution width (RBC) [Ratio] 13.0 % Normal 11.5-15.0 [facility] Comment on above: Order Comment: Speci men Type: BLOOD SPECIMENOrdering Facility: [facility] Address: [address] [place] [address] Performed By: #### 5 7021-8 ####[facility] PARKWAYUMANGLIA [id number] [place] [address] [place] Hematocrit (Bld) [Volume fraction] 29.9 % Low 36.0-46.0 [facility] Comment on above: Order Comment: Speci men Type: BLOOD SPECIMENOrdering Facility: [facility] Address: [address] [place] [address] Performed By: #### 5 7021-8 ####[facility] PARKWAYNCLIA [id number] [place] [address] [place] Hemoglobin (Bld) [Mass/Vol] 9.9 g/dL Low 11.5-15.5 [facility] Comment on above: Order Comment: Speci men Type: BLOOD SPECIMENOrdering Facility: [facility] Address: [address] [place] [address] Performed By: #### 5 7021-8 ####[facility] PARKWAYNCLIA [id number] [place] [address] [place] Immature granulocytes (Bld) [#/Vol] 0.10 10*3/uL High <0.10 [facility] Comment on above: Order Comment: Speci men Type: BLOOD SPECIMENOrdering Facility: [facility] Address: [address] [place] [address] Performed By: #### 5 7021-8 ####[facility] PARKWAYNCA [id number] [place] [address] [place] Immature granulocytes/100 WBC (Bld) 1.3 % Normal [facility] Comment on above: Order Comment: Speci men Type: BLOOD SPECIMENOrdering Facility: [facility] Address: [address] [place] [address] Performed By: #### 5 7021-8 ####[facility] [id number] [place] [address] [place] Lymphocytes (Bld) [#/Vol] 1.31 10*3/uL Normal 1.00-4.00 [facility] Comment on above: Order Comment: Speci men Type: BLOOD SPECIMENOrdering Facility: [facility] Address: [address] [place] [address] Performed By: #### 5 7021-8 ####[facility] PARKWAYNCLIA [id number] [place] [address] [place] Lymphocytes/100 WBC (Bld) 16.8 % Normal [facility] Comment on above: Order Comment: Speci men Type: BLOOD SPECIMENOrdering Facility: [facility] Address: [address] [place] [address] Performed By: #### 5 7021-8 ####[facility] SHIRAUNIONUMANGTRAVIS [id number] [place] [address] [place] MCH (RBC) [Entitic mass] 27.9 pg Normal 26.0-34.0 [facility] Comment on above: Order Comment: Speci men Type: BLOOD SPECIMENOrdering Facility: [facility] Address: [address] [place] [address] Performed By: #### 5 7021-8 ####[facility]WAYNCINTERMOUNTAIN [facility]ALTH[facility] [id number] [place] [address] [place] MCHC (RBC) [Mass/Vol] 33.1 g/dL Normal 30.5-36.0 [facility] Comment on above: Order Comment: Speci men Type: BLOOD SPECIMENOrdering Facility: [facility] Address: [address] [place] [address] Performed By: #### 5 7021-8 ####[facility]WAYUMANGINTERMOUNTAIN [facility]ALTH[facility] [id number] [place] [address] [place] MCV (RBC) [Entitic vol] 84.2 fL Normal 80.0-100.0 [facility] Comment on above: Order Comment: Speci men Type: BLOOD SPECIMENOrdering Facility: [facility] Address: [address] [place] [address] Performed By: #### 5 7021-8 ####[facility] PARKWAYUMANGA [id number] [place] [address] [place] Monocytes (Bld) [#/Vol] 0.53 10*3/uL Normal <0.87 [facility] Comment on above: Order Comment: Speci men Type: BLOOD SPECIMENOrdering Facility: [facility] Address: [address] [place] [address] Performed By: #### 5 7021-8 ####[facility] MILLWNCLIA [id number] [place] [address] [place] Monocytes/100 WBC (Bld) 6.8 % Normal [facility] Comment on above: Order Comment: Speci men Type: BLOOD SPECIMENOrdering Facility: [facility] Address: [address] [place] [address] Performed By: #### 5 7021-8 ####[facility] HEALTHL[facility] [id number] [place] [address] [place] Neutrophils (Bld) [#/Vol] 5.69 10*3/uL Normal 1.45-7.50 [facility] Comment on above: Order Comment: Speci men Type: BLOOD SPECIMENOrdering Facility: [facility] Address: [address] [place] [address] Performed By: #### 5 7021-8 ####[facility] HEALTHLIA [id number] [place] [address] [place] Neutrophils/100 WBC (Bld) 73.1 % Normal [facility] Comment on above: Order Comment: Speci men Type: BLOOD SPECIMENOrdering Facility: [facility] Address: [address] [place] [address] Performed By: #### 5 7021-8 ####[facility] HEALTHLIA [id number] [place] [address] [place] Nucleated RBC (Bld) [#/Vol] 10*3/uL Normal <0.01 [facility] Comment on above: Order Comment: Speci men Type: BLOOD SPECIMENOrdering Facility: [facility] Address: [address] [place] [address] Performed By: #### 5 7021-8 ####[facility] PARKWAYNCLIA [id number] [place] [address] [place] Nucleated RBC/100 WBC (Bld) [Ratio] 0.0 /100 WBC Normal [facility] Comment on above: Order Comment: Speci men Type: BLOOD SPECIMENOrdering Facility: [facility] Address: [address] [place] [address] Performed By: #### 5 7021-8 ####[facility] PARKWAYNCA [id number] [place] [address] [place] Platelet mean volume (Bld) [Entitic vol] 8.1 fL Low 9.0-12.7 [facility] Comment on above: Order Comment: Speci men Type: BLOOD SPECIMENOrdering Facility: [facility] Address: [address] [place] [address] Performed By: #### 5 7021-8 ####[facility] PARKWAYNCA [id number] [place] [address] [place] Platelets (Bld) [#/Vol] 208 10*3/uL Normal 150-400 [facility] Comment on above: Order Comment: Speci men Type: BLOOD SPECIMENOrdering Facility: [facility] Address: [address] [place] [address] Performed By: #### 5 7021-8 ####[facility] PARKWAYNCA [id number] [place] [address] [place] RBC (Bld) [#/Vol] 3.55 10*6/uL Low 3.90-5.20 [facility] Comment on above: Order Comment: Speci men Type: BLOOD SPECIMENOrdering Facility: [facility] Address: [address] [place] [address] Performed By: #### 5 7021-8 ####[facility] PARKWAYNCLIA [id number] [place] [address] [place] WBC (Bld) [#/Vol] 7.79 10*3/uL Normal 3.70-11.00 [facility] Comment on above: Order Comment: Speci men Type: BLOOD SPECIMENOrdering Facility: [facility] Address: [address] [place] [address] Performed By: #### 5 7021-8 ####[facility] [id number] [place] [address] [place] Ferritin SerPl-mCncon 2024 Ferritin [Mass/Vol] 12.0 ng/mL Low 14.7-205.1 [facility] Comment on above: Order Comment: Speci men Type: BLOOD SPECIMENOrdering Facility: [facility] Address: [address] [place] [address] Performed By: #### 2 276-4, 19829-9 ####[facility] LABCLIA [id number] [place] [address] [place] GESTATIONAL GLUCOSE SCREEN, 1-HOUR, 50 GRAM, NON-FASTINGon 11-29-2024 Glucose [Mass/Vol] 112 mg/dL Normal 74-134 [facility] Comment on above: Order Comment: Speci men Type: BLOOD SPECIMENOrdering Facility: [facility] Address: [address] [place] [address] Result Comment: er [facility] Congress of Obstetricians and Gynecologists (Gay/Couskip) guidelines state a gestational diabetes mellitus positive screen is made, in women not previously diagnosed with overt diabetes, when the 1 hr plasma glucose level is equal to or above 140 mg/dL. The [facility] [place] recommends a 135 mg/dL cutoff. Performed By: #### G LTGST ####[facility] [id number] [place] [address] [place] Iron and Iron binding capaci ty panelon 11-29-2024 Iron [Mass/Vol] 45 ug/dL Normal 41-186 [facility] Comment on above: Order Comment: Speci men Type: BLOOD SPECIMEN [facility] Address: [address] [place] [address] Performed By: #### T SPN #### [facility] B[facility] CLIA [id number] [address] [place] [address] [place] Iron binding capacity [Mass/Vol] 531 ug/dL High 232-386 [facility] Comment on above: Order Comment: Speci men Type: BLOOD SPECIMEN [facility] Address: [address] [place] [address] Performed By: #### T SPN #### [facility] CLIA [id number] [address] [place] [address] [place] Iron/TIBC [Molar ratio] 8.5 % Low 15.0-57.0 [facility] Comment on above: Order Comment: Speci men Type: BLOOD SPECIMEN [facility] Address: [address] [place] [address] Performed By: #### T SPN #### [facility] B[facility] CLIA [id number] [address] [place] [address] [place] Reagin and Treponema pallidu m IgG and IgM [Interp]on 11-29-2024 T. pallidum IgG+IgM IA Ql (S) Non-Reactive Normal Nonreactive [facility] Comment on above: Order Comment: Speci men Type: BLOOD SPECIMENOrdering Facility: [facility] Address: [address] [place] [address] Performed By: #### 7 3752-8 ####[facility] LABCLIA [id number] [place] [address] [place] Reagin+T pallidum IgG+IgM Se rPl-Impon 11-29-2024 Reagin and Treponema pallidum IgG and IgM [Interp] Cannot exclude recent Treponemal infection if specimen collected within 7-10 days after appearance of suspect lesions or 2-3 weeks after an exposure. Clinical correlation is required. Normal [facility] Comment on above: Order Comment: Speci men Type: BLOOD SPECIMENOrdering Facility: [facility] Address: [address] [place] [address] Performed By: #### 7 3752-8 ####[facility] LABCLIA [id number] RK AVINA [id number] [place] [address] [place] Absolute lymphocyte countOrd ered By: Dusty Harp on 11-24-2024 Lymphocytes Auto (Unsp spec) [#/Vol] 0.85 10*3/uL 0.83-4.51 [facility] Absolute neutrophil countOrd ered By: Dusty Harp on 11-24-2024 Neutrophils (Bld) [#/Vol] 6.4 10*3/uL 2.0-7.7 [facility] Anion gap in Serum or Plasma Ordered By: Dusty Harp on 11-24-2024 Anion gap [Moles/Vol] 15 mmol/L 08-09 [facility] Automated lymphocyte count a s percentage of total leukocytesOrdered By: Dusty Harp on 11-24-2024 Lymphocytes/100 WBC Auto (Unsp spec) 10.5 % Low - [facility] BUN/creatinine ratioOrdered By: Dusty Harp on 11-24-2024 Urea nitrogen/Creatinine [Mass ratio] 14.1 mg/mg 01-14 [facility] Basic Metabolic Profile (BMP )on 11-24-2024 BUN/CRE 14.1 RATIO Normal 01-14 [facility] Comment on above: Performed By: #### L 100.0100, L500.2500 #### [facility] Laboratory [address] [facility] [address] Calcium [Mass/Vol] 9.3 mg/dL Normal 7.6-11.0 [facility] Comment on above: Performed By: #### L 100.0100, L500.2500 #### [facility] Laboratory [address] [place], [address] Chloride [Moles/Vol] 99 mmol/L Normal 98-108 [facility] Comment on above: Performed By: #### L 100.0100, L500.2500 #### [facility] [address] [place], [address] CO2 [Moles/Vol] 21.6 mmol/L Normal 21.0-32.0 [facility] Comment on above: Performed By: #### L 100.0100, L500.2500 #### [facility] Laboratory [address] [place], [address] Creatinine [Mass/Vol] 0.53 mg/dL Low 0.70-1.20 [facility] Comment on above: Performed By: #### L 100.0100, L500.2500 #### [facility] [address] [place], [address] ECRCL 126.73 ml/min Normal 50-250 [facility] Comment on above: Performed By: #### L 100.0100, L500.2500 #### [facility] Laboratory [address] [place], [address] GAP 15 Normal 5-15 [facility] Comment on above: Performed By: #### L 100.0100, L500.2500 #### [facility] [address] [place], [address] GFR/1.73 sq M.predicted among non-blacks MDRD (S/P/Bld) [Vol rate/Area] 127 mL/min/{1.73_m2} Normal >60 [facility] Comment on above: Result Comment: mL/m in/1.73m2 CKD-EPI Creatinine Equation (2020) Performed By: #### L 100.0100, L500.2500 #### [facility] [address] [place], [address] Glucose [Mass/Vol] 82 mg/dL Normal 70-99 [facility] Comment on above: Performed By: #### L 100.0100, L500.2500 #### [facility] [address] [place], [address] Potassium [Moles/Vol] 3.8 mmol/L Normal 3.3-5.1 [facility] Comment on above: Performed By: #### L 100.0100, L500.2500 #### [facility] [address] [place], [address] Sodium [Moles/Vol] 136 mmol/L Normal 133-145 [facility] Comment on above: Performed By: #### L 100.0100, L500.2500 #### [facility] [address] [place], [address] Urea nitrogen [Mass/Vol] 8 mg/dL Normal 4-19 [facility] Comment on above: Performed By: #### L 100.0100, L500.2500 #### [facility] Laboratory [address] [place], [address] Basophil percentageOrdered B y: Dusty Harp on 11-24-2024 Basophils/100 WBC (Bld) 0.5 % 0-1 [facility] Bilirubin Test strip Ql (U)O rdered By: Dusty Harp on 11-24-2024 Bilirubin Ql (U) Negative Negative [facility] CBC W/Diff, Automatedon 10-28 Absolute Lymph 0.85 X10 3/uL Normal 0.83-4.51 [facility] Comment on above: Performed By: #### L 100.0100, L500.2500 #### [facility] [address] [place], [address] Absolute Neut 6.4 X10 3/uL Normal 2.0-7.7 [facility] Comment on above: Performed By: #### L 100.0100, L500.2500 #### [facility] [address] [place], [address] Basophils/100 WBC (Bld) 0.5 % Normal 0-1 [facility] Comment on above: Performed By: #### L 100.0100, L500.2500 #### [facility] [address] [place], [address] Eosinophils/100 WBC (Bld) 1.5 % Normal 0-5 [facility] Comment on above: Performed By: #### L 100.0100, L500.2500 #### [facility] Laboratory [address] [place], [address] Erythrocyte distribution width (RBC) [Ratio] 13.0 % Normal 11.6-14.6 [facility] Comment on above: Performed By: #### L 100.0100, L500.2500 #### [facility] [address] [place], [address] Hematocrit (Bld) [Volume fraction] 36.0 % Low 37-47 [facility] Comment on above: Performed By: #### L 100.0100, L500.2500 #### [facility] [address] [place], [address] Hemoglobin (Bld) [Mass/Vol] 11.9 g/dL Low 12.0-15.0 [facility] Comment on above: Performed By: #### L 100.0100, L500.2500 #### [facility] [address] [place], [address] IG% 1.100 High 0.0-0.9 [facility] Comment on above: Result Comment: IG% - Immature Granulocytes (promyelocytes, myelocytes and metamyelocytes) > 1% indicates that a LEFT SHIFT is Present. Performed By: #### L 100.0100, L500.2500 #### [facility] [address] [place], [address] Lymphocytes/100 WBC (Bld) 10.5 % Low 19-41 [facility] Comment on above: Performed By: #### L 100.0100, L500.2500 #### [facility] Laboratory [address] [place], [address] MCH (RBC) [Entitic mass] 28.3 pg Normal 27.0-32.0 [facility] Comment on above: Performed By: #### L 100.0100, L500.2500 #### [facility] [address] [place], [address] MCHC (RBC) [Mass/Vol] 33.1 g/dL Normal 32-36 [facility] Comment on above: Performed By: #### L 100.0100, L500.2500 #### [facility] [address] [place], [address] MCV (RBC) [Entitic vol] 85.5 fL Normal 81-99 [facility] Comment on above: Performed By: #### L 100.0100, L500.2500 #### [facility] [address] [place], [address] Monocytes/100 WBC (Bld) 7.6 % Normal 0-10 [facility] Comment on above: Performed By: #### L 100.0100, L500.2500 #### [facility] [address] [place], [address] Neutrophils/100 WBC (Bld) 78.8 % High 47-70 [facility] Comment on above: Performed By: #### L 100.0100, L500.2500 #### [facility] Laboratory [address] [place], [address] Nucleated RBC (Bld) [#/Vol] 0 10*3/uL Normal 0-5 [facility] Comment on above: Performed By: #### L 100.0100, L500.2500 #### [facility] Laboratory [address] [place], [address] Platelet mean volume (Bld) [Entitic vol] 8.4 fL Normal 6.2-12.0 [facility] Comment on above: Performed By: #### L 100.0100, L500.2500 #### [facility] Laboratory [address] [place], [address] Platelets (Bld) [#/Vol] 234 10*3/uL Normal 150-450 [facility] Comment on above: Performed By: #### L 100.0100, L500.2500 #### [facility] [address] [place], [address] RBC (Bld) [#/Vol] 4.21 10*6/uL Normal 4.2-5.4 [facility] Comment on above: Performed By: #### L 100.0100, L500.2500 #### [facility] Laboratory [address] [place], [address] RDW SD 40.0 fl Normal 35.1-43.9 [facility] Comment on above: Performed By: #### L 100.0100, L500.2500 #### [facility] Laboratory [address] [place], [address] WBC (Bld) [#/Vol] 8.1 10*3/uL Normal 4.4-11.0 [facility] Comment on above: Performed By: #### L 100.0100, L500.2500 #### [facility] Laboratory [address] [place], [address] Carbon dioxide, total [Moles /volume] in Central venous bloodOrdered By: Dusty Harp on 11-24-2024 CO2 [Moles/Vol] 21.6 mmol/L 21.0-32.0 [facility] Chloride assayOrdered By: Toan Harp on 11-24-2024 Chloride [Moles/Vol] 99 mmol/L 98-108 [facility] Emergency Department Summary on 11-24-2024 Emergency Department Summary [facility] Medical Records Department [address] [place] [address] Emergency Department Summary 11/24/24 MR#: [id number] Acct: [id number] Name: ATIYA MANCIA Rep #: [id number] : 1995 29 From: Dusty Harp MD [...] 0 currently 20 weeks . Sees a [facility] [employer] group. Tuesday night start having a sore [...] Delivery Method (more content not included)... Normal [facility] Eosinophil percentageOrdered By: Dusty Harp on 11-24-2024 Eosinophils/100 WBC (Bld) 1.5 % 0-5 [facility] Erythrocyte distribution wid th ratioOrdered By: Dusty Harp on 11-24-2024 Erythrocyte distribution width (RBC) [Ratio] 13.0 % 11.6-14.6 [facility] Erythrocyte distribution wid th standard deviationOrdered By: Dusty Harp on 11-24-2024 Erythrocyte distribution width (RBC) [Ratio] 40.0 fl 35.1-43.9 [facility] Glomerular filtration rate ( GFR) estimation/1.73 sq m using serum, plasma, or whole bOrdered By: Dusty Harp on 11-24-2024 GFR/1.73 sq M.predicted among non-blacks MDRD (S/P/Bld) [Vol rate/Area] 127 mL/min/{1.73_m2} >60 [facility] Comment on above: mL/min/1.73m2 CKD-EP I Creatinine Equation (2020) Hematocrit Auto (Bld) [Volum e fraction]Ordered By: Dusty Harp on 11-24-2024 Hematocrit (Bld) [Volume fraction] 36.0 % Low 37-47 [facility] Hemoglobin measurementOrdere d By: Dusty Harp on 11-24-2024 Hemoglobin (Bld) [Mass/Vol] 11.9 g/dL Low 12.0-15.0 [facility] Immature granulocytes/100 WB C Auto (Bld)Ordered By: Dusty Harp on 11-24-2024 Immature granulocytes/100 WBC (Bld) 1.100 % High 0.0-0.9 [facility] Comment on above: IG% - Immature Granu locytes (promyelocytes, myelocytes and metamyelocytes) > 1% indicates that a LEFT SHIFT is Present. Ketones Test strip Ql (U)Ord ered By: Dusty Harp on 11-24-2024 Ketones Ql (U) 150 mg/dl Abnormal Negative [facility] Comment on above: CRITICAL VALUE *H MCV (mean corpuscular volume ) determinationOrdered By: Dusty Harp on 11-24-2024 MCV (RBC) [Entitic vol] 85.5 fL 81-99 [facility] Mean corpuscular hemoglobin (MCH) determinationOrdered By: Dusty Harp on 11-24-2024 MCH (RBC) [Entitic mass] 28.3 pg 27.0-32.0 [facility] Mean corpuscular hemoglobin concentration (MCHC) determinationOrdered By: Dusty Harp on 11-24-2024 MCHC (RBC) [Mass/Vol] 33.1 g/dL 32-36 [facility] Mean platelet volume determi nationOrdered By: Dusty Harp on 11-24-2024 Platelet mean volume (Bld) [Entitic vol] 8.4 fL 6.2-12.0 [facility] Microscopic analysis of urin e for red blood cells (RBC)Ordered By: Dusty Harp on 11-24-2024 Microscopic analysis of urine for red blood cells (RBC) 0-5 SEEN /hpf 0-5 [facility] Monocyte percentageOrdered B y: Dusty Harp on 11-24-2024 Monocytes/100 WBC (Bld) 7.6 % 0-10 [facility] Mucus LM Ql (Urine sed)Order ed By: Dusty Harp on 11-24-2024 Mucus Ql (Urine sed) 1+ /hpf [facility] Neutrophil percentageOrdered By: Dusty Harp on 11-24-2024 Neutrophils/100 WBC (Bld) 78.8 % High 47-70 [facility] Nitrite Test strip Ql (U)Ord ered By: Dusty Harp on 11-24-2024 Nitrite Ql (U) Negative Negative [facility] Nucleated red blood cell per centageOrdered By: Dusty Harp on 11-24-2024 Nucleated RBC/100 WBC (Bld) [Ratio] 0 % 0-5 [facility] Platelet countOrdered By: Toan Harp on 11-24-2024 Platelets (Bld) [#/Vol] 234 10*3/uL 150-450 [facility] Potassium measurement (mass/ volume)Ordered By: Dusty Harp on 11-24-2024 Potassium (Unsp spec) [Mass/Vol] 3.8 mmol/L 3.3-5.1 [facility] Protein Test strip Ql (U)Ord ered By: Dusty Harp on 11-24-2024 Protein Ql (U) 30 mg/dl High Negative [facility] RBC Auto (Bld) [#/Vol]Ordere d By: Dusty Harp on 11-24-2024 RBC (Bld) [#/Vol] 4.21 10*6/uL 4.2-5.4 [facility] Serum creatinine measurement (mass/volume)Ordered By: Dusty Harp on 11-24-2024 Creatinine [Mass/Vol] 0.53 mg/dL Low 0.70-1.20 [facility] Serum glucose measurement (m ass/volume)Ordered By: Dusty Harp on 11-24-2024 Glucose [Mass/Vol] 82 mg/dL 70-99 [facility] Serum or plasma calcium terry urement (mass/volume)Ordered By: Dusty Harp on 11-24-2024 Calcium [Mass/Vol] 9.3 mg/dL 7.6-11.0 [facility] Serum or plasma urea nitroge n measurement (mass/volume)Ordered By: Dusty Harp on 11-24-2024 Urea nitrogen [Mass/Vol] 8 mg/dL 4-19 [facility] Sodium levelOrdered By: Dusty Harp on 11-24-2024 Sodium [Moles/Vol] 136 mmol/L 133-145 [facility] Squamous epithelial cells de tection in urine sediment by light microscopyOrdered By: Dusty Harp on 11-24-2024 Epithelial cells.squamous LM Ql (Urine sed) 25-50 SEEN /hpf - [facility] Urinalysis, Completeon 11-24 BACTERIA 3+ /hpf Normal None Seen [facility] Comment on above: Order Comment: CLEAN CATCH Performed By: #### L 400.0001 #### [facility] Laboratory [address] [place], [place], [id number] EPI,SQUAMOUS 25-50 SEEN Normal - [facility] Comment on above: Order Comment: CLEAN CATCH Performed By: #### L 400.0001 #### [facility] Laboratory [address] [place], [place], [id number] Mucus Ql (Urine sed) 1+ /hpf Normal [facility] Comment on above: Order Comment: CLEAN CATCH Performed By: #### L 400.0001 #### [facility] Laboratory [address] [place], [place], [id number] RBC 0-5 SEEN Normal 0-5 [facility] Comment on above: Order Comment: CLEAN CATCH Performed By: #### L 400.0001 #### [facility] Laboratory [address] [place], [place], [id number] WBC 10-25 SEEN Normal 0-5 [facility] Comment on above: Order Comment: CLEAN CATCH Performed By: #### L 400.0001 #### [facility] Laboratory [address] [place], [place], [id number] Urine clarityOrdered By: Teddy Harp on 11-24-2024 Clarity (U) Cloudy Clear [facility] Urine color determinationOrd ered By: Dusty Harp on 11-24-2024 Color (U) Yellow Yellow [facility] Urine glucose detectionOrder ed By: Dusty Harp on 11-24-2024 Glucose Ql (U) Normal mg/dl Normal [facility] Urine leukocyte esterase det ection by dipstickOrdered By: Dusty Harp on 11-24-2024 Leukocyte esterase Test strip Ql (U) 500 /ul High Negative [facility] Urine pHOrdered By: Dusty chinchilla on 11-24-2024 pH (U) 6.0 [pH] 5.0 - 8.0 [facility] Urine sediment bacteria coun t by microscopy (number/high power field)Ordered By: Dusty Harp on 11-24-2024 Bacteria LM.HPF (Urine sed) [#/Area] 3 /[HPF] None Seen [facility] Urine specific gravity measu rementOrdered By: Dusty Harp on 11-24-2024 Specific gravity (U) [Rel density] 1.025 1.002-1.030 [facility] Urine urobilinogen measureme ntOrdered By: Dusty Harp on 11-24-2024 Urobilinogen Ql (U) Normal mg/dl Normal [facility] White blood cell (WBC) count Ordered By: Dusty Harp on 11-24-2024 WBC (Bld) [#/Vol] 8.1 10*3/uL 4.4-11.0 [facility] White blood cell countOrdere d By: Dusty Harp on 11-24-2024 White blood cell count 10-25 SEEN /hpf 0-5 [facility] CNPNon 10-05-2024 CNPN Telephone (OBGYWM) ATIYA MANCIA ([id number]) 1995 F Date Time Provider Department 10/05/24 LEXUS BARRIOS OBGYW During your visit today, we recorded the [...] [facility] Pharmacy Information Pharmacy Address Telephone [facility] [address] [phone] Allergies As of Date: 10/05/2024 (No Known [...] Status:Closed by JOAN ENCISO on 10/05/24 Normal [facility] Examination level ultrasound on 10-04-2024 Indication [...] 14 oz EFW by: Hadlock (HC-AC-FL) Extended Maintenance Chief 7.7 mm CM 4.1 mm 18% Nicolaides [...] normal LVOT view: normal 3-vessel view: normal 6-mrapoc-zicevvv view: normal Heart / Thorax Situs: situs [...] Read By: Kelli Arizmendi M.D. MATERNAL MEDICINE [facility] Radiology Study observation (narrative) [facility] CBC W Auto Differential pane l (Bld)on 08-09-2024 Basophils (Bld) [#/Vol] 10*3/uL Normal <0.11 [facility] Comment on above: Order Comment: Speci men Type: BLOOD SPECIMEN Ordering Facility: [facility] Address: [address] [place] [address] Performed By: #### T SPN #### [facility] CLIA [id number] [address] [place] [address] [place] Basophils/100 WBC (Bld) 0.2 % Normal [facility] Comment on above: Order Comment: Speci men Type: BLOOD SPECIMEN Ordering Facility: [facility] Address: [address] [place] [address] Performed By: #### T SPN #### [facility] CLIA [id number] [address] [place] [address] [place] Differential cell count method Nom (Bld) Auto Normal [facility] Comment on above: Order Comment: Speci men Type: BLOOD SPECIMEN Ordering Facility: [facility] Address: [address] [place] [address] Performed By: #### T SPN #### [facility] CLIA [id number] [address] [place] [address] [place] Eosinophils (Bld) [#/Vol] 0.07 10*3/uL Normal <0.46 [facility] Comment on above: Order Comment: Speci men Type: BLOOD SPECIMEN Ordering Facility: [facility] Address: [address] [place] [address] Performed By: #### T SPN #### [facility] CLIA [id number] [address] [place] [address] [place] Eosinophils/100 WBC (Bld) 1.2 % Normal [facility] Comment on above: Order Comment: Speci men Type: BLOOD SPECIMEN Ordering Facility: [facility] Address: [address] [place] [address] Performed By: #### T SPN #### [facility] CLIA [id number] [address] [place] [address] [place] Erythrocyte distribution width (RBC) [Ratio] 13.2 % Normal 11.5-15.0 [facility] Comment on above: Order Comment: Speci men Type: BLOOD SPECIMEN Ordering Facility: [facility] Address: [address] [place] [address] Performed By: #### T SPN #### [facility] CLIA [id number] [address] [place] [address] [place] Hematocrit (Bld) [Volume fraction] 37.1 % Normal 36.0-46.0 [facility] Comment on above: Order Comment: Speci men Type: BLOOD SPECIMEN Ordering Facility: [facility] Address: [address] [place] [address] Performed By: #### T SPN #### [facility] CLIA [id number] [address] [place] [address] [place] Hemoglobin (Bld) [Mass/Vol] 12.8 g/dL Normal 11.5-15.5 [facility] Comment on above: Order Comment: Speci men Type: BLOOD SPECIMEN Ordering Facility: [facility] Address: [address] [place] [address] Performed By: #### T SPN #### [facility] CLIA [id number] [address] [place] [address] [place] Immature granulocytes (Bld) [#/Vol] 10*3/uL Normal <0.10 [facility] Comment on above: Order Comment: Speci men Type: BLOOD SPECIMEN Ordering Facility: [facility] Address: [address] [place] [address] Performed By: #### T SPN #### [facility] CLIA [id number] [address] [place] [address] [place] Immature granulocytes/100 WBC (Bld) 0.2 % Normal [facility] Comment on above: Order Comment: Speci men Type: BLOOD SPECIMEN Ordering Facility: [facility] Address: [address] [place] [address] Performed By: #### T SPN #### [facility] CLIA [id number] [address] [place] [address] [place] Lymphocytes (Bld) [#/Vol] 1.32 10*3/uL Normal 1.00-4.00 [facility] Comment on above: Order Comment: Speci men Type: BLOOD SPECIMEN Ordering Facility: [facility] Address: [address] [place] [address] Performed By: #### T SPN #### [facility] CLIA [id number] [address] [place] [address] [place] Lymphocytes/100 WBC (Bld) 22.3 % Normal [facility] Comment on above: Order Comment: Speci men Type: BLOOD SPECIMEN Ordering Facility: [facility] Address: [address] [place] [address] Performed By: #### T SPN #### [facility] CLIA [id number] [address] [place] [address] [place] MCH (RBC) [Entitic mass] 29.0 pg Normal 26.0-34.0 [facility] Comment on above: Order Comment: Speci men Type: BLOOD SPECIMEN Ordering Facility: [facility] Address: [address] [place] [address] Performed By: #### T SPN #### [facility] CLIA [id number] [address] [place] [address] [place] MCHC (RBC) [Mass/Vol] 34.5 g/dL Normal 30.5-36.0 [facility] Comment on above: Order Comment: Speci men Type: BLOOD SPECIMEN Ordering Facility: [facility] Address: [address] [place] [address] Performed By: #### T SPN #### [facility] CLIA [id number] [address] [place] [address] [place] MCV (RBC) [Entitic vol] 84.1 fL Normal 80.0-100.0 [facility] Comment on above: Order Comment: Speci men Type: BLOOD SPECIMEN Ordering Facility: [facility] Address: [address] [place] [address] Performed By: #### T SPN #### [facility] CLIA [id number] [address] [place] [address] [place] Monocytes (Bld) [#/Vol] 0.45 10*3/uL Normal <0.87 [facility] Comment on above: Order Comment: Speci men Type: BLOOD SPECIMEN Ordering Facility: [facility] Address: [address] [place] [address] Performed By: #### T SPN #### [facility] CLIA [id number] [address] [place] [address] [place] Monocytes/100 WBC (Bld) 7.6 % Normal [facility] Comment on above: Order Comment: Speci men Type: BLOOD SPECIMEN Ordering Facility: [facility] Address: [address] [place] [address] Performed By: #### T SPN #### [facility] CLIA [id number] [address] [place] [address] [place] Neutrophils (Bld) [#/Vol] 4.05 10*3/uL Normal 1.45-7.50 [facility] Comment on above: Order Comment: Speci men Type: BLOOD SPECIMEN Ordering Facility: [facility] Address: [address] [place] [address] Performed By: #### T SPN #### [facility] CLIA [id number] [address] [place] [address] [place] Neutrophils/100 WBC (Bld) 68.5 % Normal [facility] Comment on above: Order Comment: Speci men Type: BLOOD SPECIMEN Ordering Facility: [facility] Address: [address] [place] [address] Performed By: #### T SPN #### [facility] CLIA [id number] [address] [place] [address] [place] Nucleated RBC (Bld) [#/Vol] 10*3/uL Normal <0.01 [facility] Comment on above: Order Comment: Speci men Type: BLOOD SPECIMEN Ordering Facility: [facility] Address: [address] [place] [address] Performed By: #### T SPN #### [facility] CLIA [id number] [address] [place] [address] [place] Nucleated RBC/100 WBC (Bld) [Ratio] 0.0 /100 WBC Normal [facility] Comment on above: Order Comment: Speci men Type: BLOOD SPECIMEN Ordering Facility: [facility] Address: [address] [place] [address] Performed By: #### T SPN #### [facility] CLIA [id number] [address] [place] [address] [place] Platelet mean volume (Bld) [Entitic vol] 8.8 fL Low 9.0-12.7 [facility] Comment on above: Order Comment: Speci men Type: BLOOD SPECIMEN Ordering Facility: [facility] Address: [address] [place] [address] Performed By: #### T SPN #### [facility] CLIA [id number] [address] [place] [address] [place] Platelets (Bld) [#/Vol] 193 10*3/uL Normal 150-400 [facility] Comment on above: Order Comment: Speci men Type: BLOOD SPECIMEN Ordering Facility: [facility] Address: [address] [place] [address] Performed By: #### T SPN #### [facility] CLIA [id number] [address] [place] [address] [place] RBC (Bld) [#/Vol] 4.41 10*6/uL Normal 3.90-5.20 [facility] Comment on above: Order Comment: Speci men Type: BLOOD SPECIMEN Ordering Facility: [facility] Address: [address] [place] [address] Performed By: #### T SPN #### [facility] CLIA [id number] [address] [place] [address] [place] WBC (Bld) [#/Vol] 5.91 10*3/uL Normal 3.70-11.00 [facility] Comment on above: Order Comment: Speci men Type: BLOOD SPECIMEN Ordering Facility: [facility] Address: [address] [place] [address] Performed By: #### T SPN #### [facility] CLIA [id number] [facility] [address] STATES OF [facility] Examination level ultrasound on 08-09-2024 Indication First trimester anatomic survey Impression The patient is referred for a first trimester anatomy scan including nuchal translucency measurement as clinically indicated. - Single, live, intrauterine . - Rodessa rump length measurement is consistent with the [...] view: visualized 4-chamber view with color: visualized 3-olvoal-uebrypr view: normal Abdominal cord insertion: normal Stomach: [...] ovary Vol 4.2 cm Performed By: Tamra Lowe, ZACHARIAH, RVT Read By: Kelli Arizmendi M.D. MATERNAL MEDICINE [facility] Radiology Study observation (narrative) [facility] HBV surface Ag Ser Qlon 07-26 HBV surface Ag Ql (S) Negative Normal Negative [facility] Comment on above: Order Comment: Speci men Type: BLOOD SPECIMENOrdering Facility: [facility] Address: [address] [place] [address] Performed By: #### 3 1201-7, 5195-3, 97898-6 ####[facility] LAB[facility]IA [id number] [place] [address] [place] HCV Ab Ser Qlon 08-09-2024 HCV Ab Ql (S) Negative Normal Negative [facility] Comment on above: Order Comment: Speci men Type: BLOOD SPECIMENOrdering Facility: [facility] Address: [address] [place] [address] Result Comment: The result suggests no evidence of infection with Hepatitis C virus. Should recent infection be suspected, repeat testing may be considered 4-6 weeks after this draw. Performed By: #### 1 6128-1 ####[facility] LABCLIA [id number] [place] [address] [place] HIV 1+2 Ab IA Qlon HIV 1 and 2 Ab IA.rapid Nom (S/P/Bld) Normal [facility] Comment on above: Order Comment: Speci men Type: BLOOD SPECIMENOrdering Facility: [facility] Address: [address] [place] [address] Result Comment: Test not indicated. Performed By: #### 3 1201-7, 5195-3, 01685-8 ####[facility] LABCLIA [id number] [place] [address] [place] HIV 1+2 Ab+HIV1 p24 Ag IA Ql Non-Reactive Normal Nonreactive [facility] Comment on above: Order Comment: Speci men Type: BLOOD SPECIMENOrdering Facility: [facility] Address: [address] [place] [address] Performed By: #### 3 1201-7, 5195-3, 16018-3 ####[facility] [id number] [place] [id number] [place] HIV immunoassay testing algorithm interpretation (S/P/Bld) [Interp] Normal [facility] Comment on above: Order Comment: Speci men Type: BLOOD SPECIMENOrdering Facility: [facility] Address: [address] [place] [address] Result Comment: No e vidence of HIV-1 or HIV-2 infection. Should recent infection be suspected, repeat testing may be considered 2-3 weeks after this draw. [place] Rev. Code 3701.243(E): This information has been [...] test results or diagnoses. Performed By: #### 3 1201-7, 5195-3, 65938-6 ####[facility] LABIA [id number] [place] [id number] [place] HbA1c (Bld)on 08-09-2024 Average glucose Estimated from glycated hemoglobin (Bld) [Mass/Vol] 97 mg/dL Normal [facility] Comment on above: Order Comment: Speci men Type: BLOOD SPECIMENOrdering Facility: [facility] Address: [address] [place] [address] Result Comment: eAG: (Estimated average glucose) is a calculated value from HgbA1c and is charter representative of the average blood glucose level in the last 2-3 month period. Performed By: #### 5 5454-3 ####[facility] LABCLIA [id number] [place] [address] [place] HbA1c (Bld) [Mass fraction] 5.0 % Normal 4.3-5.6 [facility] Comment on above: Order Comment: Speci [facility] Type: BLOOD SPECIMENOrdering Facility: [facility] Address: [address] [place] [address] Result Comment: Amer [place] Diabetes Association guidelines indicate that patients with HgbA1c in the range 5.7-6.4% are at increased risk for development of diabetes, and intervention by lifestyle modification may be beneficial. HgbA1c greater or equal to 6.5% is considered diagnostic of diabetes. Performed By: #### 5 5454-3 ####[facility] LABIA [id number] [place] [address] [place] RUBELLA IGG ANTIBODYon 08-09 RUBELLA IGG AB, QUAL Positive Normal Positive [facility] Comment on above: [facility]: [facility] Ordering Facility: [facility] Address: [address] [place] [address] Result Comment: The result suggests recent or past exposure to Rubella virus or history of Rubella vaccination. Positive result may also be seen due to presence of passively-transferred antibodies. Please correlate with patient's history. Performed By: #### T SPN #### [facility] [place] [id number] [address] [place] [address] [place] Reagin and Treponema pallidu m IgG and IgM [Interp]on 08-09-2024 T. pallidum IgG+IgM IA Ql (S) Non-Reactive Normal Nonreactive [facility] Comment on above: Order Comment: Speci [facility] Type: BLOOD SPECIMENOrdering Facility: [facility] Address: [address] [place] [address] Performed By: #### 3 1201-7, 5195-3, 76588-5 ####[facility] LABCLIA [id number] [place] [address] [place] Reagin+T pallidum IgG+IgM Se rPl-Impon 08-09-2024 Reagin and Treponema pallidum IgG and IgM [Interp] Cannot exclude recent Treponemal infection if specimen collected within 7-10 days after appearance of suspect lesions or 2-3 weeks after an exposure. Clinical correlation is required. Normal [facility] Comment on above: Order Comment: Speci men Type: BLOOD SPECIMENOrdering Facility: [facility] Address: [address] [place] [address] Performed By: #### 3 1201-7, 5195-3, 77419-2 ####[facility] LABCLIA [id number] [place] [address] [place] TYPE + SCREEN PRENATALon ABO A Normal [facility] Comment on above: Order Comment: Speci men Type: BLOOD SPECIMEN Ordering Facility: [facility] Address: [address] [place] [address] Performed By: #### T SPN #### [facility] CLIA [id number] [address] [place] [address] [place] Rh Nom (Bld) Positive Normal [facility] Comment on above: Order Comment: Speci men Type: BLOOD SPECIMEN Ordering Facility: [facility] Address: [address] [place] [address] Performed By: #### T SPN #### [facility] CLIA [id number] [address] [place] [address] [place] TYPE AND SCREEN EXPIRATION 08/12/2024 23:59 Normal [facility] Comment on above: Order Comment: Speci men Type: BLOOD SPECIMEN Ordering Facility: [facility] Address: [address] [place] [address] Performed By: #### T SPN #### [facility] CLIA [id number] [address] [place] [address] [place] Bacteria Ur Culton Bacteria identified Cx Nom (U) ORGANISM ID: 1 >=100,000 CFU/ml Normal urogenital sarina Normal [facility] Comment on above: Performed By: #### T SPN #### [facility] CLIA [id number] [address] [place] [address] [place] C. trachomatis+N. gonorrhoea e DNA JD+probe Ql (Unsp spec)on 07-18-2024 C. trachomatis rRNA DJ+probe Ql (Unsp spec) Not detected Not detected [facility] Interpretation and review of laboratory results Normal [facility] N. gonorrhoeae rRNA JD+probe Ql (Unsp spec) Not detected Not detected [facility] This FDA-approved as say has been modified to accept rectal swabs self-collected in a healthcare setting. For self-collected rectal swabs, the test was developed and its performance characteristics determined by the [facility]'s [facility] [place] ([facility]). It has not been cleared or approved by the FDA. [facility] is regulated under CLIA as qualified to perform high-complexity testing. This test is used for clinical purposes. It should not be regarded as investigational or for research. [facility] C. trachomatis rRNA JD+probe Ql (Unsp spec) Not detected Normal Not detected [facility] Comment on above: Order Comment: Speci men Type: BLOOD SPECIMEN Ordering Facility: [facility] Address: [address] [place] [address] Performed By: #### T SPN #### [facility] CLIA [id number] [address] [place] [address] [place] N. gonorrhoeae rRNA JD+probe Ql (Unsp spec) Not detected Normal Not detected [facility] Comment on above: Order Comment: Speci men Type: BLOOD SPECIMEN Ordering Facility: [facility] Address: [address] [place] [address] Performed By: #### T SPN #### [facility] CLIA [id number] [address] [place] [address] [place] HIGH RISK HUMAN PAPILLOMA DANGELO (HPV), PCR FOR DETECTION AND GENOTYPINGon 07-18-2024 HPV 16 Ag Ql (Unsp spec) Not detected Normal Not detected [facility] Comment on above: Order Comment: Speci men Type: BLOOD SPECIMEN Ordering Facility: [facility] Address: [address] [place] [address] Performed By: #### T SPN #### [facility] CLIA [id number] [address] [place] [address] [place] HPV 18 Ag Ql (Unsp spec) Not detected Normal Not detected [facility] Comment on above: Order Comment: Speci men Type: BLOOD SPECIMEN Ordering Facility: [facility] Address: [address] [place] [address] Performed By: #### T SPN #### [facility] CLIA [id number] [address] [place] [address] [place] HPV 31+33+35+39+45+51+52+56 +58+59+66+68 DNA JD+probe Ql (Cvx) Not detected Normal Not detected [facility] Comment on above: Order Comment: Speci men Type: BLOOD SPECIMEN Ordering Facility: [facility] Address: [address] [place] [address] Result Comment: High Risk HPV Other Type includes HPV types 31, 33, 35, 39, 45, 51, 52, 56, 58, 59, 66 and 68. Performed By: #### T SPN #### [facility] CLIA [id number] [address] [place] [address] [place] PAP TESTon 07-18-2024 ADEQUACY Normal [facility] Comment on above: Order Comment: Speci men Type: FLUID SPECIMEN Ordering Facility: [facility] Address: [address] [place] [address] Result Comment: Sati sfactory for interpretation. No endocervical component Performed By: #### L [id number] #### [facility] CLIA [id number] [address] [place] [address] [place] CASE REPORT Normal [facility] Comment on above: Order Comment: Speci men Type: FLUID SPECIMEN Ordering Facility: [facility] Address: [address] [place] [address] Result Comment: Gyne cologic Cytology Report Case: [id number] Authorizing Provider: Maximus Fletcher APRN.ABRASIVE GRADER HELPER Collected: 07/18/2024 10:21 AM Ordering Location: OB/Gynecology Received: 07/18/2024 11:49 AM First Screen: Catrachito, Luz, CT, ASCP Specimen: Pap Test, ThinPrep, Cervix Performed By: #### L [id number] #### [facility] CLIA [id number] [address] [place] [address] [place] CLINICAL HISTORY, CYTOLOGY, DIRECTOR OF HEAD START Routine Exam Normal [facility] Comment on above: Order Comment: Speci men Type: FLUID SPECIMEN Ordering Facility: [facility] Address: [address] [place] [address] Performed By: #### L [id number] #### [facility] CLIA [id number] [address] [place] [address] [place] FINAL PERFORMING LAB Normal [facility] Comment on above: Order Comment: Speci men Type: FLUID SPECIMEN Ordering Facility: [facility] Address: [address] [place] [address] Result Comment: Tech nical component, licensed investment sales assistant screening performed at: [facility], [address] [place], [place] [id number] CLIA: [id number] Diagnostic interpretation performed at: [facility], [address] [place], [place] [id number] CLIA# [id number] Relay Associate: Shlomo Nolan MD Performed By: #### L [id number] #### [facility] CLIA [id number] [address] [place] [address] [place] INTERPRETATION, CYTOLOGY, DIRECTOR OF HEAD START Normal [facility] Comment on above: Order Comment: Speci men Type: FLUID SPECIMEN Ordering Facility: [facility] Address: [address] [place] [address] Result Comment: Nega tive for intraepithelial lesion or malignancy. at 0922 EDT Performed By: #### L [id number] #### [facility] CLIA [id number] [address] [place] [address] [place] LMP 05/12/2024 Normal [facility] Comment on above: Order Comment: Speci men Type: FLUID SPECIMEN Ordering Facility: [facility] Address: [address] [place] [address] Performed By: #### L [id number] #### [facility] CLIA [id number] [address] [place] [address] [place] PAP DISCLAIMER COMMENT The Pap Smear is a screening test for cervical cancer. False negative results occur with all screening tests, emphasizing the need for rescreening at recommended intervals, and clinical correlation. Normal [facility] Comment on above: Order Comment: Speci men Type: FLUID SPECIMEN Ordering Facility: [facility] Address: [address] [place] [address] Performed By: #### L [id number] #### [facility] CLIA [id number] [address] [place] [address] [place] PAP [facility] OFFICER COMMENT This specimen has be en analyzed by the ThinPrep Imaging System, an automated imaging and review system, which assists the laboratory in evaluating cells on ThinPrep Pap tests. Following automated imaging, selected siegel from every slide are reviewed by a licensed investment sales assistant. Normal [facility] Comment on above: Order Comment: Speci men Type: FLUID SPECIMEN Ordering Facility: [facility] Address: [address] [place] [address] Performed By: #### L [id number] #### [facility] CLIA [id number] [address] [place] [address] [place] TRICHOMONAS VAGINALIS NAATon 07-18-2024 Interpretation and review of laboratory results Normal [facility] T. vaginalis DNA JD+probe Ql (Unsp spec) Not detected Not detected [facility] T. vaginalis DNA JD+probe Ql (Unsp spec) Not detected Normal Not detected [facility] Comment on above: Order Comment: Speci men Type: BLOOD SPECIMEN Ordering Facility: [facility] Address: [address] [place] [address] Performed By: #### T SPN #### [facility] CLIA [id number] [address] [place] [address] OF PAM CNOVon 07-09-2024 CNOV Office Visit (OBGYWM ) ATIYA MANCIA ([id number]) 1995 F Date Time Provider Department 07/09/24 2:50 PM MATY MOLINA OBGYWM During your visit today, we recorded the following information about you: Blood pressure Weight Height Last Period 110/64 52.2 kg 1.575 m 05/12/24 Maty Molina MD 07/09/2024 3:48 PM Signed Medical Billing Service offered: Patient declines. Maty Molina MD 07/09/2024 3:48 PM Signed Obstetrics and Gynecology [place] DIRECTOR OF HEAD START Visit Subjective Recording using [employer] software for draft documentation of the visit was discussed with the patient/authorized charter representative; all questions welcomed and answered. Patient/authorized charter representative agreed to proceed CHIEF COMPLAINT: Bleeding in HPI: The patient is a 29-year-old female, , presenting with vaginal spotting. The patient reports onset of spotting last , initially presenting as dark brown fluid and progressing to bright red fluid, which was worse yesterday but has since slowed. Yesterday, she required a pad, though it was not filled. She describes the bleeding as "more than normal" but denies passage of clots or tissue. [...] Living3 SAB0 IAB0 Ectopic0 Multiple0 Live Births3 Development Geologist History LMP: 05/12/2024 Age at Menarche: Age at First : Age at Menopause: Development Geologist History Comments: Sexual Activity: Yes; Male Contraception: [...] discussed with the Patient or Patient's Authorized Neighborhood Aide. As applicable, any other physician, advance practice provider, medical student, or other health professional student that will be observing or involved in the sensitive examination for educational or training purposes was discussed with the Patient or Authorized Neighborhood Aide. The Patient or Authorized Neighborhood Aide has agreed to proceed with the sensitive examination. (Sensitive examination includes inspection and/or palpation of the breasts, pelvis, prostate and anorectal regions). PHYSICAL EXAM: BP 110/64 Ht 5' 2" (1.58m) Wt 115 lb (52.2kg) LMP 05/12/2024 BMI 21.03 kg/(m2). General: Well-appearing. : No blood in the vagina. cervix thick and closed Imaging: (Today) Ultrasound: - Single intrauterine 8w 1day - heart rate: 164 bpm - No subchorionic hemorrhage identified - Cervix unremarkable Assessment AND Plan ASSESSMENT AND PLAN: 1. Spotting complicating , first trimester ([facility]) (O26.851) Spotting began last , initially dark [...] of previous obstetrical problem in first trimester ([facility]) (O09.291) Previous was high-risk due to ventriculomegaly. Current is being monitored closely. Continue routine care with close monitoring due to history of high-risk . Medical Decision Making: Problems: Modera (more content not included)... Normal [facility] Progress Noteon 06-29-2021 Lap Machine Tender Authentication Interface Message Text Visit Subjective: Atiya [...] Follow up with Dr Vyas for ongoing DIRECTOR OF HEAD START care. Normal pap 09/2020. Discussed next pap in 3 years. 4. Encouraged to establish PCP care for yearly preventive health screening The total patient time of the visit was 25 minutes: 15 direct patient care, 10 minutes chart review and documentation. Normal [facility] Hemogramon 05-19-2021 Erythrocyte distribution width (RBC) [Ratio] 13.9 % Normal 11.5-14.5 [facility] Comment on above: Performed By: #### H EMOG #### [address] [address] Hematocrit (Bld) [Volume fraction] 35.4 % Normal 35.0-47.0 [facility] Comment on above: Performed By: #### H EMOG #### [address] [id number] Hemoglobin (Bld) [Mass/Vol] 11.6 g/dL Low 11.7-16.0 [facility] Comment on above: Performed By: #### H EMOG #### [address] MCH (RBC) [Entitic mass] 26.4 pg Normal 26.0-34.0 [facility] Comment on above: Performed By: #### H EMOG #### [facility] [address] MCHC 32.7 % Normal 32.0-36.0 [facility] Comment on above: Performed By: #### H EMOG #### [place] [address] [address], [place] MCV (RBC) [Entitic vol] 80.7 fL Normal 79.0-98.0 [facility] Comment on above: Performed By: #### H EMOG #### [place] [address] [address], [place] Platelet mean volume (Bld) [Entitic vol] 6.6 fL Low 7.4-10.4 [facility] Comment on above: Performed By: #### H EMOG #### [place] [address] [address], [place] Platelets (Bld) [#/Vol] 263 10*3/uL Normal 140-440 [facility] Comment on above: Performed By: #### H EMOG #### [place] [address] [address], [place] RBC (Bld) [#/Vol] 4.38 10*6/uL Normal 3.80-5.20 [facility] Comment on above: Performed By: #### H EMOG #### [place] [address] [address], [place] WBC (Bld) [#/Vol] 7.5 10*3/uL Normal 3.6-10.7 [facility] Comment on above: Performed By: #### H EMOG #### [place] [address] [address], [place] TS GELon 05-19-2021 TS GEL ABO Group: A Rh, Gel: POS Antibody Screen Gel: NEG Normal [facility] Comment on above: Performed By: #### T SGL #### [facility] Progress Noteon 05-11-2021 Lap Machine Tender Authentication Interface Message Text Visit Subjective: Atiya [...] by cerebral ventriculomegaly 03/02/2021 Priority: High See [facility] POC Neonatology and Neuro consult completed 04/09 Neurosurgery telehealth 04/21/21-Crystal Reviewed on 05/11/2021 Follow up : 1 week if undelivered Reinforced s/s labor, PEC, movement monitoring. The total patient time of the visit was 20 minutes: 10 direct patient care, 10 minutes chart review and documentation. Normal [facility] Progress Noteon 05-04-2021 Lap Machine Tender Authentication Interface Message Text Visit Subjective: Atiya [...] 10 minutes chart review and documentation. Normal [facility] Group B Strep Cultureon S. agalactiae Ag Ql (Unsp spec) Release to patient->Automatic 18190&Vagina^^^Vaginal/ Rectal&Vaginal/Rectal No allergies noted Group B Strep Culture: No Group B Streptococci isolated. Source: VAG Collected: 04/29/21 11:10 Site: Vaginal/Rectal Received : 04/29/21 17:23 Group B Strep Culture FINAL 05/02/21 09:05 No Group B Streptococci isolated. Normal [facility] Comment on above: Performed By: #### [facility] #### [address] [address] Progress Noteon 04-29-2021 Lap Machine Tender Authentication Interface Message Text Visit Subjective: Atiya Mancai is being seen today for an obstetrical [...] 04/29/2021 complicated by cerebral ventriculomegaly 03/02/2021 See [facility] POC Neonatology and Neuro consult completed 04/09 Neurosurgery telehealth 04/21/21-Crystal Reviewed on 04/29/2021 Kick counts reviewed and encouraged Precautions reviewed Follow up OB visit weekly BPP weekly Growth scan as scheduled. The total time spent on patient care today 04/29/2021 was 30 minutes. -15 minutes direct patient care -15 minutes chart review and documentation Normal [facility] Progress Noteon 04-21-2021 Lap Machine Tender Authentication Interface Message Text Neurosurgery Consult Note [...] be any urgency of transferring him to [facility] and we could follow him as [...] likely be performed by the neurosurgery attending worksite wellness practitioner. Depending upon the age of intervention, he [...] office at any time, the number is [phone]. Thanks again and kindest regards, Princess Rojas MD, [facility] Clerical Production Worker, Division of Pediatric Neurosurgery [facility] I spent a total of [...] and the provider's location at office. Normal [facility] Progress Noteon 04-20-2021 Lap Machine Tender Authentication Interface Message Text Visit Subjective: Atiya [...] by cerebral ventriculomegaly 03/02/2021 Priority: High See [facility] POC Neonatology and Neuro consult completed 04/09 Neurosurgery telehealth 04/21/21-Crystal Reviewed on 04/20/2021 Follow up: Weekly OB and BPP Reinforced precautions. The total patient time of the visit was 25 minutes: 15 direct patient care, 10 minutes chart review and documentation. Normal [facility] Progress Noteon 04-09-2021 Lap Machine Tender Authentication Interface Message Text Visit Subjective: Atiya Mancia is being seen today for an transfer of care obstetrical visit. She is at 34w3d gestation. Her obstetrical history is significant for bilateral ventriculomegaly. Pt is known to [facility], met with Neuro and Neonates today. history [...] [facility] culture: Contraception: undecided : yes, declines Ped: chosen Reviewed on 04/09/2021 complicated by cerebral ventriculomegaly 03/02/2021 See [facility] POC Neonatology and Neuro consult completed 04/09 Reviewed on 04/09/2021 Logistics of practice/POC reviewed Precautions reviewed Follow up OB visit 2 weeks (gbs at appt)- pt prefers [place] location if able BPP weekly Growth scan as scheduled. The total time spent on patient care today 04/09/2021 was 30 minutes. -15 minutes direct patient care -15 minutes chart review and documentation Normal [facility] Lap Machine Tender Authentication Interface Message Text Dos: 04/09/2021 [facility] NEONATOLOGY CONSULT Referring/Prequesting Provider: No ref. [...] Benefits of Breast milk Location of care: [facility] Level of care/resuscitation: Unrestricted Information Letters given PRESENT FOR CONSULTATION: Both parents FOLLOW UP: Delivery Hospital: [facility] Baby's Follow-up Physician: NASEEM dangelo Call with [...] of the visit was 30 minutes. Normal [facility] Z Miscellaneous Sendouton Patient Results ----- Normal [facility] Comment on above: Order Comment: 30 mL ACD-A whole blood AND 10 mL serum Test Name->IInitial testing of Maternal sample ONLY (Test code 5303) What is the sendout facility name, if known?->[facility] ([facility]) Result Comment: Plea se refer to the complete report scanned into FaceOn Mobile 02-12-2021. Performed By: #### Z MSO #### [address] [id number] Performed by: see below Normal [facility] Comment on above: Order Comment: 30 mL ACD-A whole blood AND 10 mL serum Test Name->IInitial testing of Maternal sample ONLY (Test code 5303) What is the sendout facility name, if known?->[facility] ([facility]) Result Comment: Test ing Performed: [facility] [place] [facility] [address] [place] [id number] Performed By: #### Z MSO #### [address] [id number] Toxoplasma IGG AND IGM (Pren atal Screen)on 02-10-2021 Toxoplasma IgG (Dye Test) <1:16 Normal <1:16 NEGATIVE [facility] Comment on above: Order Comment: Order a CMV Avidity test if IgM is positive.Release to patient->[id number]&Blood Performed By: #### T SLPN ####[address] [phone] Toxoplasma IgM HILDA 0.0 Normal [place] Comment on above: Order Comment: Order a CMV Avidity test if IgM is positive.Release to patient->[id number]&Blood Result Comment: 0.0-1.6 = Negative 1.7-1.9 = Equivocal >= 2.0 = Positive Testing Performed: [facility], [address] [phone] Performed By: #### T SLPN ####[address] [phone] [facility] SEE COMMENTS Normal [facility] Comment on above: Order Comment: GOKEY CMVP CMV ABS IGG AND IGM1.0 mL serum, refrig.?Order a CMV Avidity test if IgM is positive.?Provide an additional 0.5 mL of serum (1.5 mL total) Result Comment: Test Result Flag Unit RefValue Cytomegalovirus Ab, IgM and IgG, S Cytomegalovirus Ab, IgM, S Negative Negative Cytomegalovirus Ab, IgG, S Positive AB Negative Test Performed by: [facility] [address] [phone] Contact Acid Plant Operator: Dagoberto Guerrero M.D. Ph.D.; CLIA# [id number] Performed By: #### [facility] ####[address] [phone] CMV PCR, Quantitativeon CMV PCR, Quantitative Release to patient->Automatic [id number]&Blood CMV PCR, Quantitative: NEGATIVE: No CMV DNA DETECTED. Source: [facility] Collected: 02/03/21 10:44 Site: Received : 02/03/21 11:15 CMV PCR, Quantitative FINAL 02/06/21 13:10 NEGATIVE: No CMV DNA DETECTED. - Method: PCR amplification with fluorescent probe detection using DTTar ASR CMV reagents from [employer]. - The quantitative range of this assay is 800 (2.9 log 10) to 400,000,000 (8.6 log 10) IU/mL with a limit of detection of 300 (2.5 log 10) IU/mL. - Comment: This test was developed and its performance determined by [facility]. It has not been cleared or [...] and precision. - Reviewed by: Mary Bazzi [facility] Comment on above: Performed By: #### C MVQN ####[address] [phone] Z Miscellaneous Sendouton Test Name Initial testing Normal [facility] Comment on above: Order Comment: 30 mL ACD-A whole blood AND 10 mL serum Test Name->IInitial testing of Maternal sample ONLY (Test code 5303) What is the sendout facility name, if known?->[facility] ([facility]) Performed By: #### Z MSO #### [facility] of [address] [id number] MRI (SINGLE)on 021 MRI (SINGLE) PRELIMINARY REPORT: [...] Dr. Raj Tapia at 01/07/2021 16:57 Normal [facility] No Panel Informationon 08-07 PANEL NAME THIN PREP (QU) PAP W ITH HPV REFLEX Normal [facility]; [employer]. Laboratory - Urinalysison Glucose Test strip (U) [Mass/Vol] Negative Normal [facility].; [employer]. Protein Ql (U) Negative Normal [facility].; [employer]. Laboratory - Urinalysison Glucose Test strip (U) [Mass/Vol] Negative Normal [facility].; [employer]. Protein Ql (U) Negative Normal [facility].; [employer]. Laboratory - Microbiology an d Antimicrobial susceptibilityon 05-30-2014 S. agalactiae Org specific cx Ql (Vag fld) CULTURE VAGINAL GROUP B Normal [facility].; [employer]. Laboratory - Urinalysison Glucose Test strip (U) [Mass/Vol] Negative Normal [facility].; [employer]. Protein Ql (U) Negative Normal [facility].; [employer]. Laboratory - Urinalysison Glucose Test strip (U) [Mass/Vol] Negative Normal [facility].; [employer]. Protein Ql (U) Negative Normal [facility] [employer].; [employer]. Laboratory - Urinalysison Glucose Test strip (U) [Mass/Vol] Negative Normal [facility] [employer].; [employer]. Protein Ql (U) Negative Normal [facility] [employer].; [employer]. Laboratory - Chemistry and C hemistry - challengeon 03-14-2014 Glucose 1 Hr post 50 g glucose PO [Moles/Vol] GLUCOSE CHALLENGE 50GM 1 HOUR Normal [employer].; [employer]. Glucose [Mass/Vol] 76 mg/dL Normal 70 - 140 mg/dL [employer].; [employer]. Laboratory - Hematology and Cell countson 03-14-2014 Hemoglobin (Bld) [Mass/Vol] 11.5 g/dL Abnormal 12.0 - 16.0 g/dL [place] [employer].; [employer]. Laboratory - Urinalysison Glucose Test strip (U) [Mass/Vol] Negative Normal [facility] [employer].; [employer]. Protein Ql (U) trace Normal [employer].; [employer]. Laboratory - Urinalysison Glucose Test strip (U) [Mass/Vol] Negative Normal [facility] [employer].; [employer], [employer]. Protein Ql (U) Negative Normal [employer].; [employer]. Laboratory - Chemistry and C hemistry - challengeon 12-24-2013 Bilirubin Ql (U) Negative Normal [employer].; [employer]. Ketones Ql (U) Negative Normal [employer].; [employer], [employer]. pH (U) 5.5 [pH] Normal [employer].; [employer]. Specific gravity (U) [Rel density] >=1.030 Normal [employer].; [employer]. Urobilinogen Qn (U) 0.2 mg/dL Normal [facility] [employer].; [employer]. Laboratory - Hematology and Cell countson 12-24-2013 Hemoglobin Ql (U) Negative Normal [facility] [employer].; [employer]. Laboratory - Specimen inform ationon 12-24-2013 Appearance (U) Clear Normal [facility] [employer]; [employer] Color (U) yellow Normal [facility] [employer].; [employer]. Laboratory - Urinalysison Glucose Test strip (U) [Mass/Vol] Negative Normal [employer]; [employer]. Leukocyte esterase Test strip Ql (U) small Abnormal [facility] [employer].; [employer]. Nitrite Ql (U) Negative Normal [employer]; [employer]. Protein Ql (U) Negative Normal [employer].; [employer]. Laboratoryon 11-29-2013 Obstetric 1996 panel (S+Bld) OB PANEL Normal [employer]; [employer]. Laboratory - Blood bankon ABO group Nom (Bld) A Normal [facility] [employer]; [employer]. Blood group antibody screen Ql Negative Normal [facility]; [employer]. Rh Nom (Bld) Positive Normal [employer].; [employer]. Laboratory - Chemistry and C hemistry - challengeon 11-29-2013 Bilirubin Ql (U) Negative Normal [employer].; [employer]. Ketones Ql (U) Negative Normal [employer].; [employer]. pH (U) 5.5 [pH] Normal [employer].; [employer]. Specific gravity (U) [Rel density] >=1.030 Normal [employer].; [employer]. TSH Qn 1.14 m[IU]/L Normal 0.34 - 5.60 {uIU/ml} [employer].; [employer]. Urobilinogen Qn (U) 0.2 mg/dL Normal [facility] [employer]; [employer]. Laboratory - Hematology and Cell countson 11-29-2013 Basophils (Bld) [#/Vol] 0.00 {X10_3} Normal 0.00 - 0.10 {X10_3} [facility].; [place] [employer] [facility], [facility] Basophils/100 WBC (Bld) 0.4 % Normal 0.0 - 2.0 % [facility], [facility].; [place] [employer] [facility], [facility] Erythrocyte distribution width (RBC) [Ratio] 13.0 % Normal 12.0 - 15.6 % [facility], [facility].; [place] [employer] [facility], [facility] Hematocrit (Bld) [Volume fraction] 36.6 % Normal 34.0 - 46.0 % [facility], [facility].; [place] [employer] [facility], [facility] Hemoglobin (Bld) [Mass/Vol] 12.8 g/dL Normal 12.0 - 16.0 g/dL [facility], [facility].; [place] [employer], [facility] Hemoglobin Ql (U) Negative Normal [facility].; [place] [employer] [facility], [facility] Lymphocytes (Bld) [#/Vol] 1.70 {X10_3} Normal 0.80 - 2.80 {X10_3} [facility] [employer], [facility].; [place] [employer], [facility]. Lymphocytes/100 WBC (Bld) 21.9 % Normal 20.0 - 45.0 % [facility], [facility].; [place] [employer], [facility]. MCH (RBC) [Entitic mass] 30 pg Normal 27 - 33 pg [place] [employer], [facility].; [place] [employer], [facility]. MCHC (RBC) [Mass/Vol] 35 {X10_3} Normal 32 - 3 6 {X10_3} [place] [employer], [facility].; [employer] MCV (RBC) [Entitic vol] 86 fL Normal 80 - 99 fL [facility].; [place] [employer], [facility]. Monocytes (Bld) [#/Vol] 0.60 {X10_3} Normal 0.20 - 1.00 {X10_3} [place] [employer] [facility], [facility].; [place] [employer] Monocytes/100 WBC (Bld) 7.3 % Normal 0.0 - 10.0 % [facility] [employer], [facility].; [facility] Monocytes/100 WBC (Bld) 4 % Abnormal 0 - 0 % [facility], [facility].; [employer], [facility]. Morphology Johnathon (Bld) [Interp] N/A Normal [facility].; [facility], Inc[employer] Neutrophils (Bld) [#/Vol] 5.10 {X10_3} Normal 1.50 - 7.10 {X10_3} [facility], Inc.; [employer] Neutrophils/100 WBC (Bld) 66.0 % Normal 46.0 - 76.0 % [facility].; [employer] Platelet mean volume (Bld) [Entitic vol] 7.9 fL Normal 6.6 - 10.5 fL [facility].; [employer] Platelets (Bld) [#/Vol] 210 {3/UL} Normal 150 - 450 {3/UL} [place] [employer] [facility].; [employer] RBC (Bld) [#/Vol] 4.26 {6/UL} Normal 4.10 - 5.3 0 {6/UL} [employer].; [employer], [employer]. WBC (Bld) [#/Vol] 7.8 {3/UL} Normal 4.5 - 10.8 {3/UL} [employer], [employer].; [employer] Laboratory - Specimen inform ationon 11-29-2013 Appearance (U) Clear Normal [place] [employer] [facility].; [employer] Color (U) n Normal [place] [employer] [facility].; [employer] Laboratory - Urinalysison Glucose Test strip (U) [Mass/Vol] Negative Normal [facility] [employer].; [employer] Leukocyte esterase Test strip Ql (U) Negative Normal [employer], [employer].; [employer] Nitrite Ql (U) Negative Normal [place] [employer] Protein Ql (U) Negative Normal [facility] [employer], [employer].; [employer] No Panel Informationon 11-29 MANUAL DIFF N/A Normal [facility].; [facility]. RDW/SD 38.5 fL Normal 36.0 - 50.0 fL [facility].; [facility] 0.3 Normal [facility]; [facility] Laboratory - Microbiology an d Antimicrobial susceptibilityon 03-30-2011 S. pyogenes Ag EIA Ql (Throat) Negative Normal [facility].; [facility] Vital Signs Date Time Vital Sign Value Performing Clinician Facility 11-29-2024 10:07-0400 Body mass index (BMI) [Ratio] 24.98 kg/m2 Maximus Fletcher APRN.ABRASIVE GRADER HELPER Work Phone: [facility] 11-29-2024 10:07-0400 Body weight 60.42 kg Maximus Fletcher APRN.ABRASIVE GRADER HELPER Work Phone: [facility] 11-29-2024 10:07-0400 Diastolic blood pressure 60 mm[Hg] Maximus Fletcher APRN.ABRASIVE GRADER HELPER Work Phone: [facility] 11-29-2024 10:07-0400 Systolic blood pressure 100 mm[Hg] Maximus Fletcher APRN.ABRASIVE GRADER HELPER Work Phone: [facility] 11-24-2024 13:35-0400 Body temperature 98.9 [degF] No Primary Care Physician [facility] 11-24-2024 13:35-0400 Diastolic blood pressure 78 mm[Hg] No Primary Care Physician [facility] 11-24-2024 13:35-0400 Heart rate 78 /min No Primary Care Physician [facility] 11-24-2024 13:35-0400 Respiratory rate 18 /min No Primary Care Physician [facility] 11-24-2024 13:35-0400 SaO2% (BldA) [Mass fraction] 99 % No Primary Care Physician [facility] 11-24-2024 13:35-0400 Systolic blood pressure 117 mm[Hg] No Primary Care Physician [facility] 11-24-2024 09:17-0400 Body height 154.94 cm No Primary Care Physician [facility] 11-24-2024 09:17-0400 Body mass index (BMI) [Ratio] 24 kg/m2 No Primary Care Physician [facility] 11-24-2024 09:17-0400 Body weight 57.6 kg No Primary Care Physician [facility] 10-04-2024 08:48-0400 Body mass index (BMI) [Ratio] 23.07 kg/m2 Marlyn Plotts CREDIT COLLECTIONS SPECIALIST.CNM Work Phone: [facility] 10-04-2024 08:48-0400 Body weight 55.79 kg Marlyn Plotts CREDIT COLLECTIONS SPECIALIST.CNM Work Phone: [facility] 10-04-2024 08:48-0400 Diastolic blood pressure 64 mm[Hg] Marlyn Plotts CREDIT COLLECTIONS SPECIALIST.CNM Work Phone: [facility] 10-04-2024 08:48-0400 Systolic blood pressure 100 mm[Hg] Marlyn Plotts CREDIT COLLECTIONS SPECIALIST.CNM Work Phone: [facility] 09-06-2024 09:50-0400 Body mass index (BMI) [Ratio] 22.32 kg/m2 Charito Zaragoza MD Work Phone: [facility] 09-06-2024 09:50-0400 Body weight 53.98 kg Charito Zaragoza MD Work Phone: [facility] 09-06-2024 09:50-0400 Diastolic blood pressure 60 mm[Hg] Charito Zaragoza MD Work Phone: [facility] 09-06-2024 09:50-0400 Systolic blood pressure 104 mm[Hg] Charito Zaragoza MD Work Phone: [facility] 08-09-2024 11:01-0400 Body mass index (BMI) [Ratio] 21.57 kg/m2 Maryln Plotts CREDIT COLLECTIONS SPECIALIST.CNM Work Phone: [facility] 08-09-2024 11:01-0400 Body weight 52.16 kg Marlyn Plotts CREDIT COLLECTIONS SPECIALIST.CNM Work Phone: [facility] 08-09-2024 11:01-0400 Diastolic blood pressure 64 mm[Hg] Marlyn Plotts CREDIT COLLECTIONS SPECIALIST.CNM Work Phone: [facility] 08-09-2024 11:01-0400 Systolic blood pressure 112 mm[Hg] Marlyn Read CREDIT COLLECTIONS SPECIALIST.CNM Work Phone: [facility] 07-18-2024 09:49-0400 Body height 155.5 cm Maximus Haury CREDIT COLLECTIONS SPECIALIST.ABRASIVE GRADER HELPER Work Phone: [facility] 07-18-2024 09:49-0400 Body mass index (BMI) [Ratio] 21.57 kg/m2 Maximus Haury CREDIT COLLECTIONS SPECIALIST.ABRASIVE GRADER HELPER Work Phone: [facility] 07-18-2024 09:49-0400 Body weight 52.16 kg Maximus Haury CREDIT COLLECTIONS SPECIALIST.ABRASIVE GRADER HELPER Work Phone: [facility] 07-18-2024 09:49-0400 Diastolic blood pressure 60 mm[Hg] Maximus Haury CREDIT COLLECTIONS SPECIALIST.ABRASIVE GRADER HELPER Work Phone: [facility] 07-18-2024 09:49-0400 Systolic blood pressure 114 mm[Hg] Maximus Haury CREDIT COLLECTIONS SPECIALIST.ABRASIVE GRADER HELPER Work Phone: [facility] 07-09-2024 14:50-0400 Body height 157.5 cm Maty Tolentino MD Work Phone: [facility] 07-09-2024 14:50-0400 Body mass index (BMI) [Ratio] 21.03 kg/m2 Maty Tolentino MD Work Phone: [facility] 07-09-2024 14:50-0400 Body weight 52.16 kg Maty Tolentino MD Work Phone: [facility] 07-09-2024 14:50-0400 Diastolic blood pressure 64 mm[Hg] Maty Tolentino MD Work Phone: [facility] 07-09-2024 14:50-0400 Systolic blood pressure 110 mm[Hg] Maty Tolentino MD Work Phone: [facility] 01-29-2022 10:40-0400 Body height 156.21 cm Tapan Celaya MD Work Phone: [facility] 01-29-2022 10:40-0400 Body mass index (BMI) [Ratio] 21.56 kg/m2 Tapan Celaya MD Work Phone: [facility]; [facility] 01-29-2022 10:40-0400 Body surface area Derived from formula 1.51 m2 Tapan Celaya MD Work Phone: [facility]; [facility] 01-29-2022 10:40-0400 Body temperature 97.8 [degF] Tapan Celaya MD Work Phone: [facility]; [facility] Comment on above: Method: Tympanic 01-29-2022 10:40-0400 Body weight 52.62 kg Tapan Celaya MD Work Phone: [facility]; [facility] 01-29-2022 10:40-0400 Diastolic blood pressure 60 mm[Hg] Tapan Celaya MD Work Phone: [facility]; [facility] Comment on above: Patient Position: Sitting; Cuff Location : Right Arm; Cuff Size: Standard 01-29-2022 10:40-0400 Heart rate 71 /min Tapan Celaya MD Work Phone: [facility]; [facility] Comment on above: Pattern: Regular 01-29-2022 10:40-0400 Inhaled oxygen concentration 20 % Tapan Celaya MD Work Phone: [facility]; [facility] Comment on above: Room air 01-29-2022 10:40-0400 SaO2% (BldA) [Mass fraction] 98 % Tapan Celaya MD Work Phone: [facility]; [facility] 01-29-2022 10:40-0400 Systolic blood pressure 95 mm[Hg] Tapan Celaya MD Work Phone: [employer]; [employer]. Comment on above: Patient Position: Sitting; Cuff Location : Right Arm; Cuff Size: Standard 01-12-2022 08:47-0400 Body height 156.21 cm Tapan Celaya MD Work Phone: [employer]; [employer]. 01-12-2022 08:47-0400 Body mass index (BMI) [Ratio] 21.75 kg/m2 Tapan Celaya MD Work Phone: [employer]; [employer]. 01-12-2022 08:47-0400 Body surface area Derived from formula 1.51 m2 Tapan Celaya MD Work Phone: [employer]; [employer]. 01-12-2022 08:47-0400 Body weight 53.07 kg Tapan Celaya MD Work Phone: [employer]. 01-12-2022 08:47-0400 Diastolic blood pressure 74 mm[Hg] Tapan Celaya MD Work Phone: [employer]; [employer]. Comment on above: Patient Position: Sitting; Cuff Location : Left Arm; Cuff Size: Large 01-12-2022 08:47-0400 Heart rate 74 /min Tapan Celaya MD Work Phone: [employer]. Comment on above: Pattern: Regular 01-12-2022 08:47-0400 Systolic blood pressure 110 mm[Hg] Tapan Celaya MD Work Phone: [employer]. Comment on above: Patient Position: Sitting; Cuff Location : Left Arm; Cuff Size: Large 08-07-2014 09:58-0400 Body height 156.21 cm Vivian Gosnalez LPN Work Phone: [employer]. 08-07-2014 09:58-0400 Body mass index (BMI) [Ratio] 22.12 kg/m2 Vivian Gonsalez INSIGHT LEADER Work Phone: [employer]. 08-07-2014 09:58-0400 Body surface area Derived from formula 1.52 m2 Vivian Gonsalez INSIGHT LEADER Work Phone: [employer]. 08-07-2014 09:58-0400 Body weight 53.98 kg Vivian Gonsalez INSIGHT LEADER Work Phone: [employer]. 08-07-2014 09:58-0400 Diastolic blood pressure 78 mm[Hg] Vivian Gordony INSIGHT LEADER Work Phone: [employer]; [employer]. Comment on above: Patient Position: Sitting; Cuff Location : Left Arm; Cuff Size: Standard 08-07-2014 09:58-0400 Heart rate 80 /min Vivian Gordony INSIGHT LEADER Work Phone: [employer]; [employer]. Comment on above: Pattern: Regular 08-07-2014 09:58-0400 Systolic blood pressure 128 mm[Hg] Vivian Gonsalez INSIGHT LEADER Work Phone: [employer]; [employer]. Comment on above: Patient Position: Sitting; Cuff Location : Left Arm; Cuff Size: Standard 06-13-2014 13:28-0400 Body weight 61.24 kg Neilee L Vess INSIGHT LEADER [employer]. 06-13-2014 13:28-0400 Diastolic blood pressure 71 mm[Hg] Neilee L Vess INSIGHT LEADER [employer]. Comment on above: Patient Position: Sitting; Cuff Location : Right Arm; Cuff Size: Standard 06-13-2014 13:28-0400 Heart rate 89 /min Neilee L Vess INSIGHT LEADER [employer]. Comment on above: Pattern: Regular 06-13-2014 13:28-0400 Systolic blood pressure 127 mm[Hg] Nemigdaliae Mayur Cruz LPN [employer]. Comment on above: Patient Position: Sitting; Cuff Location : Right Arm; Cuff Size: Standard 06-06-2014 10:30-0400 Body weight 60.78 kg Vivian Gonsalez INSIGHT LEADER Work Phone: [employer] 06-06-2014 10:30-0400 Diastolic blood pressure 72 mm[Hg] Vivian Sunshine INSIGHT LEADER Work Phone: [employer]. Comment on above: Patient Position: Sitting; Cuff Location : Left Arm; Cuff Size: Standard 06-06-2014 10:30-0400 Heart rate 98 /min Vivian Sunshine INSIGHT LEADER Work Phone: [employer]. Comment on above: Pattern: Regular 06-06-2014 10:30-0400 Systolic blood pressure 118 mm[Hg] Vivian Sunshine INSIGHT LEADER Work Phone: [employer]. Comment on above: Patient Position: Sitting; Cuff Location : Left Arm; Cuff Size: Standard 05-30-2014 09:31-0500 Body weight 61.69 kg Vivian Gonsalez INSIGHT LEADER Work Phone: [employer] 05-30-2014 09:31-0500 Diastolic blood pressure 71 mm[Hg] Vivian Sunshine INSIGHT LEADER Work Phone: [employer]. Comment on above: Patient Position: Sitting; Cuff Location : Left Arm; Cuff Size: Standard 05-30-2014 09:31-0500 Heart rate 100 /min Vivian Sunshine INSIGHT LEADER Work Phone: [employer]. Comment on above: Pattern: Regular 05-30-2014 09:31-0500 Systolic blood pressure 119 mm[Hg] Vivian Sunshine INSIGHT LEADER Work Phone: [employer].; [employer]. Comment on above: Patient Position: Sitting; Cuff Location : Left Arm; Cuff Size: Standard 05-16-2014 09:20-0500 Body weight 60.33 kg Vivian Sunshine INSIGHT LEADER Work Phone: [employer]. 05-16-2014 09:20-0500 Diastolic blood pressure 74 mm[Hg] Vivian Sunshine INSIGHT LEADER Work Phone: [employer]. Comment on above: Patient Position: Sitting; Cuff Location : Left Arm; Cuff Size: Standard 05-16-2014 09:20-0500 Heart rate 99 /min Vivian Sunshine INSIGHT LEADER Work Phone: [employer].; [employer]. Comment on above: Pattern: Regular 05-16-2014 09:20-0500 Systolic blood pressure 115 mm[Hg] Vivian Sunshine INSIGHT LEADER Work Phone: [employer].; [employer]. Comment on above: Patient Position: Sitting; Cuff Location : Left Arm; Cuff Size: Standard 04-18-2014 09:11-0500 Body weight 56.93 kg Vivian Sunshine INSIGHT LEADER Work Phone: [employer] 04-18-2014 09:11-0500 Diastolic blood pressure 66 mm[Hg] Vivian Sunshine INSIGHT LEADER Work Phone: [employer].; [employer]. Comment on above: Patient Position: Sitting; Cuff Location : Left Arm; Cuff Size: Standard 04-18-2014 09:11-0500 Heart rate 92 /min Vivian Sunshine INSIGHT LEADER Work Phone: [employer].; [employer]. Comment on above: Pattern: Regular 04-18-2014 09:11-0500 Systolic blood pressure 106 mm[Hg] Vivian Sunshine INSIGHT LEADER Work Phone: [employer].; [employer]. Comment on above: Patient Position: Sitting; Cuff Location : Left Arm; Cuff Size: Standard 03-14-2014 11:39-0500 Body weight 53.52 kg Neilee L Vess INSIGHT LEADER [employer]. 03-14-2014 11:39-0500 Diastolic blood pressure 71 mm[Hg] Neilee L Vess INSIGHT LEADER [employer].; [employer]. Comment on above: Patient Position: Sitting; Cuff Location : Left Arm; Cuff Size: Standard 03-14-2014 11:39-0500 Heart rate 91 /min Neilee L Vess INSIGHT LEADER [employer]. Comment on above: Pattern: Regular 03-14-2014 11:39-0500 Systolic blood pressure 103 mm[Hg] Neilee L Vess INSIGHT LEADER [employer]. Comment on above: Patient Position: Sitting; Cuff Location : Left Arm; Cuff Size: Standard 02-07-2014 16:06-0500 Body weight 51.26 kg Neilee L Vess INSIGHT LEADER [employer]. 02-07-2014 16:06-0500 Diastolic blood pressure 68 mm[Hg] Neilee L Vess INSIGHT LEADER [employer]. Comment on above: Patient Position: Sitting; Cuff Location : Left Arm; Cuff Size: Standard 02-07-2014 16:06-0500 Heart rate 89 /min Neilee L Vess INSIGHT LEADER [employer]. Comment on above: Pattern: Regular 02-07-2014 16:06-0500 Systolic blood pressure 107 mm[Hg] Neilee L Vess INSIGHT LEADER [employer]. Comment on above: Patient Position: Sitting; Cuff Location : Left Arm; Cuff Size: Standard 12-24-2013 13:38-0400 Body weight 47.63 kg Neilee L Vess INSIGHT LEADER [employer]. 12-24-2013 13:38-0400 Diastolic blood pressure 79 mm[Hg] Neilee L Vess INSIGHT LEADER [employer]. Comment on above: Patient Position: Sitting; Cuff Location : Left Arm; Cuff Size: Standard 12-24-2013 13:38-0400 Heart rate 90 /min Neilee L Vess INSIGHT LEADER [employer]. Comment on above: Pattern: Regular 12-24-2013 13:38-0400 Systolic blood pressure 121 mm[Hg] Neilee L Vess INSIGHT LEADER [employer]. Comment on above: Patient Position: Sitting; Cuff Location : Left Arm; Cuff Size: Standard 11-29-2013 15:29-0400 Body weight 47.17 kg Neilee L Vess INSIGHT LEADER [employer]. 11-29-2013 15:29-0400 Diastolic blood pressure 74 mm[Hg] Neilee L Vess INSIGHT LEADER [employer]. Comment on above: Patient Position: Sitting; Cuff Location : Left Arm; Cuff Size: Standard 11-29-2013 15:29-0400 Heart rate 82 /min Neilee L Vess INSIGHT LEADER [employer]. Comment on above: Pattern: Regular 11-29-2013 15:29-0400 Systolic blood pressure 118 mm[Hg] Neilee L Vess INSIGHT LEADER [employer]. Comment on above: Patient Position: Sitting; Cuff Location : Left Arm; Cuff Size: Standard 08-26-2011 14:31-0400 Body height 156.21 cm Tapan Celaya MD Work Phone: [employer]; [employer]. 08-26-2011 14:31-0400 Body mass index (BMI) [Percentile] Per age and sex 52 % Tapan Celaya MD Work Phone: [employer]; [employer]. 08-26-2011 14:31-0400 Body mass index (BMI) [Ratio] 21.19 kg/m2 Tapan Celaya MD Work Phone: [employer]; [employer] 08-26-2011 14:31-0400 Body surface area Derived from formula 1.5 m2 Tapan Celaya MD Work Phone: [employer]; [employer] 08-26-2011 14:31-0400 Body temperature 97.2 [degF] Tapan Celaya MD Work Phone: [employer]; [employer] Comment on above: Method: Tympanic 08-26-2011 14:31-0400 Body weight 51.71 kg Tapan Celaya MD Work Phone: [employer]; [employer] 08-26-2011 14:31-0400 Diastolic blood pressure 70 mm[Hg] Tapan Celaya MD Work Phone: [employer]; [employer] Comment on above: Patient Position: Sitting; Cuff Location : Left Arm; Cuff Size: Standard 08-26-2011 14:31-0400 Heart rate 81 /min Tapan Celaya MD Work Phone: [employer]; [employer] Comment on above: Pattern: Regular 08-26-2011 14:31-0400 Systolic blood pressure 110 mm[Hg] Tapan Celaya MD Work Phone: [employer]; [employer] Comment on above: Patient Position: Sitting; Cuff Location : Left Arm; Cuff Size: Standard 03-30-2011 10:37-0500 Body height 156.21 cm Tapan Celaya MD Work Phone: [employer]; [employer] 03-30-2011 10:37-0500 Body mass index (BMI) [Percentile] Per age and sex 61 % Tapan Celaya MD Work Phone: [employer]; [employer] 03-30-2011 10:37-0500 Body mass index (BMI) [Ratio] 21.75 kg/m2 Tapan Celaya MD Work Phone: [employer]; [employer]. 03-30-2011 10:37-0500 Body surface area Derived from formula 1.51 m2 Tapan Celaya MD Work Phone: [employer] 03-30-2011 10:37-0500 Body temperature 97.9 [degF] Tapan Celaya MD Work Phone: [employer]; [employer] Comment on above: Method: Tympanic 03-30-2011 10:37-0500 Body weight 53.07 kg Tapan Celaya MD Work Phone: [employer]; [employer] 12-29-2009 13:37-0400 Body height 157.48 cm Tapan Celaya MD Work Phone: [employer]; [employer] 12-29-2009 13:37-0400 Body mass index (BMI) [Percentile] Per age and sex 25 % Tapan Celaya MD Work Phone: [employer]; [employer]. 12-29-2009 13:37-0400 Body mass index (BMI) [Ratio] 18.47 kg/m2 Tapan Celaya MD Work Phone: [employer]; [employer]. 12-29-2009 13:37-0400 Body surface area Derived from formula 1.43 m2 Tapan Celaya MD Work Phone: [employer]; [employer] 12-29-2009 13:37-0400 Body temperature 97.4 [degF] Tapan Celaya MD Work Phone: [employer]; [employer] Comment on above: Method: Tympanic 12-29-2009 13:37-0400 Body weight 45.81 kg Tapan Celaya MD Work Phone: [facility].; [facility]. Encounters Encounter Date Encounter Type Care Provider Facility Start: 02-01-2025 End: 02-01-2025 ambulatory CHIKA Mayur CARIAS Facility:[facility] Start: 01-25-2025 End: 01-25-2025 ambulatory Maty Weiss Facility:[facility] Start: 01-24-2025 End: 01-24-2025 [facility] Start: 01-10-2025 End: 01-10-2025 ambulatory NELDA KVNG Facility:[facility] Start: 01-07-2025 End: 01-07-2025 ambulatory [facility] Facility:[facility] Start: 01-03-2025 End: 01-03-2025 [facility] Start: 12-27-2024 End: 12-27-2024 ambulatory CHARITO ZARAGOZA Facility:[facility] Start: 12-13-2024 End: 12-13-2024 ambulatory CHARITO ZARAGOZA Facility:[facility] Start: 11-29-2024 End: 11-29-2024 Patient encounter procedure Maximus Fletcher APRN.CNP Work Phone: OB/Gynecology Comment on above: Supervision of high risk in third trimester (HCC) (Primary Dx); 28 weeks gestation of (HCC) Start: 11-29-2024 End: 11-29-2024 ambulatory MAXIMUS FLETCHER Facility:[facility] Start: 11-24-2024 End: 11-24-2024 Emergency department patient visit No Primary Care Physician -Emergency Department Work Phone: Start: 11-01-2024 End: 11-01-2024 ambulatory SAE HOUSER Facility:[facility] Start: 10-05-2024 End: 10-05-2024 Telephone encounter Lexus Barrios APRN.CNM Work Phone: OB/Gynecology Comment on above: Medication Request Start: 10-04-2024 End: 10-04-2024 ambulatory MAXIMUS FLETCHER Facility:[facility] Start: 10-04-2024 End: 10-04-2024 Patient encounter procedure Whi Tech 1 Watch Repairer Apprentice [facility] Comment on above: Encounter for antena sydnee screening for malformation using ultrasound (HCC) [...] Start: 09-06-2024 End: 09-06-2024 ambulatory CHARITO ZARAGOZA Facility:[facility] Start: 08-09-2024 End: 08-09-2024 ambulatory MAXIMUS FLETCHER Facility:[facility] Start: 08-09-2024 End: 08-09-2024 Patient encounter procedure Marlyn Read CREDIT COLLECTIONS SPECIALIST.CNM Work Phone: OB/Gynecology Comment on above: Nausea and vomiting during (HCC) (Primary Dx); Supervision of high risk in second trimester (HCC); 12 weeks gestation of (HCC); Encounter for supervision of high risk in first trimester, antepartum (HCC) Encounter for antena sydnee screening for malformation using ultrasound (HCC) (Primary Dx); 12 weeks gestation of (HCC) Start: 08-09-2024 End: 08-09-2024 ambulatory MAXIMUS FLETCHER Facility:[facility] Start: 07-25-2024 End: 09-24-2024 Follow-up encounter Maximus Fletcher CREDIT COLLECTIONS SPECIALIST.ABRASIVE GRADER HELPER Work Phone: OB/Gynecology Start: 07-18-2024 End: 07-18-2024 ambulatory MAXIMUS FLETCHER Facility:[facility] Start: 07-18-2024 End: 07-18-2024 Patient encounter procedure Maxmius Fletcher CREDIT COLLECTIONS SPECIALIST.ABRASIVE GRADER HELPER Work Phone: OB/Gynecology Comment on above: Encounter for superv ision of high risk in first trimester, antepartum (HCC) (Primary Dx); 9 weeks gestation of (HCC); Screen for STD (sexually transmitted disease); Vaginal bleeding affecting early (HCC); 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 , currently (HCC); Heartburn during in first trimester (HCC); Nausea and vomiting during (HCC) Start: 07-09-2024 End: 07-09-2024 ambulatory MATY TOLENTINO Facility:[facility] Start: 07-09-2024 End: 07-09-2024 Patient encounter procedure Maty Tolentino MD Work Phone: OB/Gynecology Comment on above: Vaginal bleeding aff ecting early (HCC) (Primary Dx); Spotting complicating , first trimester (HCC); Threatened (HCC); High risk due to history of previous obstetrical problem in first trimester (HCC) Start: 05-02-2023 End: 05-02-2023 Medication Tapan Celaya MD Work Phone: [employer] Start: 03-23-2022 End: 03-23-2022 Orders Tapan Celaya MD Work Phone: [employer] Start: 01-29-2022 End: 01-29-2022 Office outpatient visit 15 minutes Tapan Celaya MD Work Phone: [employer] Start: 01-26-2022 ambulatory CHIKA BEDOLLA [facility] Start: 01-12-2022 End: 01-12-2022 Office outpatient new 30 minutes Tapan Celaya MD Work Phone: [employer] Start: 2018 End: 2018 Historical Summary Tapan Celaya MD Work Phone: [employer] Start: 08-07-2014 End: 08-07-2014 Patient encounter procedure Tapan Celaya MD Work Phone: [employer] Start: 06-13-2014 End: 06-13-2014 Patient encounter procedure Tapan Celaya MD Work Phone: [employer] Start: 06-06-2014 End: 06-06-2014 Patient encounter procedure Tapan Celaya MD Work Phone: [employer] Start: 05-30-2014 End: 05-30-2014 Patient encounter procedure Tapan Celaya MD Work Phone: [employer] Start: 05-16-2014 End: 05-16-2014 Patient encounter procedure Tapan Celaya MD Work Phone: [employer] Start: 04-18-2014 End: 04-18-2014 Patient encounter procedure Tapan Celaya MD Work Phone: [employer] Start: 03-14-2014 End: 03-14-2014 Patient encounter procedure Tapan Celaya MD Work Phone: [employer] Start: 02-07-2014 End: 02-07-2014 Patient encounter procedure Tapan Celaya MD Work Phone: [employer] Start: 12-24-2013 End: 12-24-2013 Patient encounter procedure Tapan Celaya MD Work Phone: [employer] Start: 12-14-2013 End: 12-14-2013 Historical Summary Tapan Celaya MD Work Phone: [employer] Start: 11-29-2013 End: 11-29-2013 Patient encounter procedure Tapan Celaya MD Work Phone: [employer] Start: 08-26-2011 End: 08-26-2011 Patient encounter procedure Tapan Celaya MD Work Phone: [employer] Start: 03-30-2011 End: 03-30-2011 Patient encounter procedure Tapan Celaya MD Work Phone: [facility] Start: 12-29-2009 End: 12-29-2009 Patient encounter procedure Tapan Celaya MD Work Phone: [facility] Procedures Date Procedure Procedure Detail Performing Clinician Start: 11-29-2024 Adult depression scr eening assessment Maximus Fletcher APRN.ABRASIVE GRADER HELPER Work Phone: Start: 11-24-2024 Urnls dip stick/tabl et reagent auto microscopy No Primary Care Physician Start: 11-24-2024 Estimated creatinine clearance No Primary Care Physician Start: 10-04-2024 Us preg uterus after 1st trimest / gestation Maximus Fletcher APRN.ABRASIVE GRADER HELPER Work Phone: Start: 08-09-2024 Antibody screen CHARITO ZARAGOZA Comment on above: Order Comment: Speci men Type: BLOOD SPECIMEN Ordering Facility: [facility] Address: [address] [place] [address] Performed By: #### T SPN #### [facility] CLIA [id number] [address] [place] [address] OF [facility] Start: 08-09-2024 Us preg uterus after 1st trimest 03/28 gestation Maximus Fletcher APRN.ABRASIVE GRADER HELPER Work Phone: Start: 07-18-2024 Iadna chlamydia trachomatis amplified probe tq Maximus Fletcher APRN.ABRASIVE GRADER HELPER Work Phone: Start: 07-18-2024 Adult depression scr eening assessment Maximus Fletcher APRN.ABRASIVE GRADER HELPER Work Phone: Start: 08-07-2014 End: 08-07-2014 Microscopic [...] malignant neoplasm of cervix Cervical Cancer Screening [facility] Start: 11-29-2025 Anxiety Screening Anxiety Screening [facility] Start: 11-29-2025 Depression Screening Depression Scre ing [facility] Start: 07-18-2025 Anxiety Screening Anxiety Screening [facility] Start: 07-18-2025 Depression Screening Depression Scre [facility] Start: 02-16-2025 ambulatory Ambulatory Facility:[facility] Start: 12-22-2024 RSV Vaccine (1 - Ris k 1-dose series) RSV Vaccine (1 - Risk 1-dose series) [facility] Start: 12-13-2024 End: 12-13-2024 Patient encounter procedure 12/13/2024 10:20 AM EDT Routine Office Visit OB/Gynecology [address] [place] [address] Charito Zaragoza MD [address] [place] [address] OB OB/Gynecology Comment on above: OB Start: 11-26-2024 Influenza vaccination [facility] Start: 11-24-2024 [facility] Start: 11-01-2024 End: 11-01-2024 Patient encounter procedure 11/01/2024 8:30 AM EDT Routine Office Visit OB/Gynecology [address] [place], [place] [id number] Sae Houser MD [address] [facility] [place] [address] OB OB/Gynecology Comment on above: OB Start: [...] trimester, antepartum (HCC) Expected: 07/18/2024, Expires: 10/17/[address] [facility] Work Phone: Comment on above: Expected: 07/18/2024 , Expires: 10/17/2024 Start: 07-18-2024 End: 10-17-2024 Hemoglobin A1c in Blood HEMOGLOBIN A1C Lab Routine Encounter for supervision of high risk in first trimester, antepartum (HCC) Expected: 07/18/2024, Expires: 10/17/2024 [facility] Comment on above: Expected: 07/18/2024 , Expires: 10/17/2024 Start: 07-18-2024 End: 10-17-2024 Hepatitis B virus surface Ag [Presence] in Serum HEPATITIS B SURFACE ANTIGEN Lab Routine Encounter for supervision of high risk in first trimester, antepartum (HCC) Expected: 07/18/2024, Expires: 10/17/2024 [facility] Comment on above: Expected: 07/18/2024 , Expires: 10/17/2024 Start: 07-18-2024 End: 10-17-2024 Hepatitis C virus Ab [Presence] in Serum HEPATITIS C ANTIBODY IA WITH CONFIRMATION Lab Routine Encounter for supervision of high risk in first trimester, antepartum (HCC) Expected: 07/18/2024, Expires: 10/17/2024 [facility] Comment on above: Expected: 07/18/2024 , Expires: 10/17/2024 Start: 07-18-2024 End: 10-17-2024 HIV 1+2 Ab [Presence] in Serum or Plasma by Immunoassay HIV 1/2 COMBO WITH REFLEX TO DIFFERENTIATION Lab Routine Encounter for supervision of high risk in first trimester, antepartum (HCC) Expected: 07/18/2024, Expires: 10/17/2024 [facility] Comment on above: Expected: 07/18/2024 , Expires: 10/17/2024 Start: 07-18-2024 End: 07-18-2025 OBSTETRIC ULTRASOUND WHI OBSTETRIC ULTRASOUND WHI Anc Imaging Routine Encounter for supervision of high risk in first trimester, antepartum (HCC) Expected: 07/18/2024, Expires: 07/18/2025 [facility] Comment on above: Expected: 07/18/2024 , Expires: 07/18/2025 Start: 07-18-2024 End: 10-17-2024 RUBELLA IGG ANTIBODY RUBELLA IGG ANTIBODY Lab Routine Encounter for supervision of high risk in first trimester, antepartum (HCC) Expected: 07/18/2024, Expires: 10/17/2024 [facility] Comment on above: Expected: 07/18/2024 , Expires: 10/17/2024 Start: 07-18-2024 End: 10-17-2024 SYPHILIS TREPONEMAL W/REFLEX SYPHILIS TREPONEMAL W/REFLEX Lab Routine Encounter for supervision of high risk in first trimester, antepartum (HCC) Expected: 07/18/2024, Expires: 10/17/2024 [facility] Comment on above: Expected: 07/18/2024 , Expires: 10/17/2024 Start: 07-18-2024 End: 10-17-2024 TYPE + SCREEN TYPE + SCREEN Blood Bank Routine Encounter for supervision of high risk in first trimester, antepartum (HCC) Expected: 07/18/2024, Expires: 10/17/2024 [facility] Comment on above: Expected: 07/18/2024 , Expires: 10/17/2024 Start: 07-18-2024 End: 07-18-2024 Patient encounter procedure 07/18/2024 9:30 AM EDT Initial Office Visit OB/Gynecology [address] [place] [address] Maximus Fletcher, FRANCISCO.ABRASIVE GRADER HELPER [address] [place] [address] visit OB/Gynecology Comment on above: visit Start: 11-27-2023 Covid-19 Vaccine ( season) Covid-19 Vaccine ( season) [facility] Start: 11-27-2023 Influenza vaccination Influenza Vacc ine (#1) [facility] Start: 03-23-2022 End: 03-26-2022 Ct abdomen & pelvis w/contrast material Abdomen/Pelvis CT W/ Contrast per protocol (13951) Date: 23-Mar-2022 [facility].; [facility] Start: 2021 HPV Vaccine (1 - 3-dose SCDM series) HPV Vaccine (1 - 3-dose SCDM series) [facility] Start: 2015 Screening for malignant neoplasm of cervix Cervical Cancer Screening [facility] Start: 2013 Hepatitis B Vaccine (1 of 3 - 19+ 3-dose series) Hepatitis B Vaccine (1 of 3 - 19+ 3-dose series) [facility] Start: 2013 Urine microalbumin profile DTaP,Tdap,Td Vaccine (1 - Tdap) [facility] Start: 2012 Anxiety Screening Anxiety Screening [facility] Start: 2012 Depression Screening Depression Scre ening [facility] Start: 2012 Hepatitis C screening Hepatitis C [facility] Start: 2012 HIV screening HIV Screening [facility] Bacteria identified in Urine by Culture BACTERIAL CULTURE, URINE Microbiology Routine Encounter for supervision of high risk in first trimester, antepartum (HCC) 07/18/2024 10:21 AM EDT [facility] PAP TEST PAP TEST Lab Debra senior Encounter for supervision of high risk in first trimester, antepartum (HCC) 07/18/2024 10:21 AM EDT [facility] Patient Education ED Viral Syndrome (Adul t) [facility] Work Phone: POC REPOSSESSOR ULTRASOUND POC REPOSSESSOR ULTRASO UND Anc Imaging Routine Spotting complicating , first trimester (HCC) Vaginal bleeding affecting early (HCC) Ordered: 07/09/[address] [facility] Work Phone: Comment on above: Ordered: 07/09/2024 Immunizations Immunization Date Immunization Notes Care Provider Fa ave 10-24-2001 diphtheria, tetanus toxoids and acellular pertussis vaccine Tapan Celaya MD Work Phone: [facility]; [facility] 10-24-2001 haemophilus influenz ae type b vaccine, PRP-T conjugate Tapan Celaya MD Work Phone: [facility]; [facility] 08-28-2001 varicella virus vaccine Tapan Celaya MD Work Phone: [facility]; [facility] 11-11-1999 diphtheria, tetanus toxoids and acellular pertussis vaccine Tapan Celaya MD Work Phone: [facility]; [facility] 11-11-1999 measles, mumps and rubella virus vaccine Tapan Celaya MD Work Phone: [facility]; [facility] 11-11-1999 poliovirus vaccine, inactivated Tapan Celaya MD Work Phone: [facility]; [place] [facility] 01-12-1996 diphtheria, tetanus toxoids and acellular pertussis vaccine Tapan Celaya MD Work Phone: [facility]; [place] [facility] 01-12-1996 haemophilus influenz ae type b vaccine, PRP-T conjugate Tapan Celaya MD Work Phone: [facility] 01-12-1996 hepatitis B vaccine, pediatric or pediatric/adolescent dosage Tapan Celaya MD Work Phone: [facility] 01-12-1996 measles, mumps and rubella virus vaccine Tapan Celaya MD Work Phone: [facility].; [facility] 01-12-1996 poliovirus vaccine, inactivated Tapan Celaya MD Work Phone: [facility].; [facility] 1994 diphtheria, tetanus toxoids and acellular pertussis vaccine Tapan Celaya MD Work Phone: [facility].; [facility] 1994 haemophilus influenz ae type b vaccine, PRP-T conjugate Tapan Cealya MD Work Phone: [facility].; [facility] 1994 hepatitis B vaccine, pediatric or pediatric/adolescent dosage Tapan Celaya MD Work Phone: [facility]; [facility] 1994 trivalent poliovirus vaccine, live, oral Tapan Celaya MD Work Phone: [facility].; [facility] 1994 diphtheria, tetanus toxoids and acellular pertussis vaccine Tapan Celaya MD Work Phone: [facility] 1994 haemophilus influenz ae type b vaccine, PRP-T conjugate Tapan Celaya MD Work Phone: [facility] 1994 hepatitis B vaccine, pediatric or pediatric/adolescent dosage Tapan Celaya MD Work Phone: [facility] 1994 trivalent poliovirus vaccine, live, oral Tapan Celaya MD Work Phone: [facility]; [facility] Payers Date Payer Category Payer Self-pay 2022 Private Health Insurance [id number] 2022 Private Health Insurance [id number] 1994 Unknown [id number] Unknown Unknown [id number] Unknown [id number] Unknown [id number] Unknown [id number] Social History Date Type Detail Facility Start: 07-09-2024 End: 11-29-2024 Child(krystina) Child(krystina) [facility]; [facility] Tobacco Use: Tobacco Use: ; N ever smoker. [facility]; [facility] Start: 1995 Female [facility] Start: 07-09-2024 End: 11-24-2024 Never smoked tobacco [facility]; [facility] Work Phone: Start: 07-09-2024 Tobacco use and exposure Smokeless tobacco non-user [facility] Start: 07-09-2024 End: 11-29-2024 Alcoholic beverage intake Lifetime non-drinker (finding) [facility] Start: 07-09-2024 End: 11-29-2024 Tobacco use panel [facility] Start: 1995 Sex assigned at Not on file [facility] Start: 07-17-2024 Education 8 [facility] Start: 05-26-2024 [facility] Start: 07-17-2024 Gender identity Identifies as female gender (finding) [facility] Start: 07-17-2024 Sexual orientation Heterosexual (fin teddy) [facility] Start: 04-29-2022 Adult Depression Screening Assessment 0 [facility] Goals Date Patient Goal Desired Activity /State Personal health goal Mental Status Date Assessment Result Facility 11-24-2024 Cognitive function Level Of Cons ciousness Awake;Alert;Appropriate;Follow s Commands [facility] Work Phone: Clinical Notes 01-07-2021 to 01-10-2025 Quick Notes - Maximus Fletcher APRN.CNP - 11/29/2024 10:18 AM EDTPrenatal Quick Notes - Maximus Fletcher APRN.CNP - 11/29/2024 10:18 AM EDTPatient InstructionsPatient Instructions Note Date & Type Note Facility 01-10-2025 Note HNO ID: [id number] Author: BARBARA FRAZIER RN Service: ? Author Type: Registered Nurse Type: Progress Notes Filed: 01/10/2025 09:30 Note Text: 100 [facility] 01-01-2025 Note HNO ID: [id number] Author: ?, ?, ? Service: ? Author Type: ? Type: Progress Notes Filed: 01/01/2025 08:39 Note Text: Scheduled with patient Start email sent [facility] 12-31-2024 Note HNO ID: [id number] Author: NELDA MEDEL PA-C Service: ? Author Type: Physician Correspondence Section Supervisor Type: Progress Notes Filed: 12/31/2024 15:57 Note [...] (27 mg elemental iron) PO daily and pre-malcolm vitamin including iron supplement PO daily - [...] 31, 2024) purpose for the visit. Nelda eMdel PA-C Department of Blood Management December 31, 2024 CC: Referring Provider: Charito Zaragoza MD [facility] 12-31-2024 Note HNO ID: [id number] Author: ALFONSO GARCIA RN Service: ? Author [...] provider for review and evaluation for treatment. [facility] 11-29-2024 Progress note Formatting of t [...] Supervision of high risk in third trimester ([facility]) - ICD9: V23.9, ICD10: O09.93 (primary diagnosis) - Continue PNV - Interested in 39 week elective induction 2. 28 weeks gestation of ([facility]) - ICD9: V22.2, ICD10: Z3A.28 - 1 hour GCT, CBC, and RPR today - Rh positive - Declines TDAP - LARC form reviewed and signed. Declines. - Depression screen negative - plan form discussed and given to Atiya - Reviewed how to pre register through [facility] PTL precautions and kick counts reviewed. RTO in 2 weeks or sooner as needed. Maximus Fletcher APRN.ABRASIVE GRADER HELPER [facility] 11-29-2024 Miscellaneous Notes EH - S: Atiya [...] Supervision of high risk in third trimester ([facility]) - ICD9: V23.9, ICD10: O09.93 (primary diagnosis) - Continue PNV - Interested in 39 week elective induction 2. 28 weeks gestation of ([facility]) - ICD9: V22.2, ICD10: Z3A.28 - 1 hour GCT, CBC, and RPR today - Rh positive - Declines TDAP - LARC form reviewed and signed. Declines. - Depression screen negative - plan form discussed and given to Atiya - Reviewed how to pre register through [facility] PTL precautions and kick counts reviewed. RTO in 2 weeks or sooner as needed. Maximus Fletcher APRN.ABRASIVE GRADER HELPER documented in this encounter [facility] 11-29-2024 Instructions Marcia Heard MA - 11/29/2024 10:05 AM EDT SEQUENTIAL SCREENINGS The [facility] offers sequential screenings for women who are [...] It will require an appointment with our flight technician. This is not an ultrasound performed [...] the above symptoms, contact our office at [phone] and ask to speak with a nurse. After hours, you can call doctors registry at [phone] OR call [facility] at [phone] and ask to have the doctor worksite wellness practitioner paged. If you consider this an emergency, dial or go to your nearest emergency department. NEED HELP? Are you dealing with a violent or abusive relationship? Are you a victim of rape or sexual assult? Call [facility] ([place]) 24 hour Crisis Hotline: 540.174.9156 or 752-428-2730. MANUAL Your Guide to a Healthy manual is now on-line. Visit [email or web address] [email or web address] to download your free copy documented in this encounter [facility] 11-24-2024 Discharge summary [facility] 10-05-2024 Telephone encounter Note Patient notified. Joan Enciso RN The following approved medication requests have been transmitted electronically. Requested Prescriptions Signed Prescriptions Disp Refills famotidine (PEPCID) 20 mg tablet 60 tablet 3 Sig: Take 1 tablet by mouth two times a day. Authorizing Provider: MAXIMUS FLETCHER Pharmacy Information Pharmacy [place] [address] [facility] 10-05-2024 Miscellaneous Notes Patient notified. Joan Enciso RN The following approved medication requests have been transmitted electronically. Requested Prescriptions Signed Prescriptions Disp Refills famotidine (PEPCID) 20 mg tablet 60 tablet 3 Sig: Take 1 tablet by mouth two times a day. Authorizing Provider: MAXIMUS FLETCHER Pharmacy Information Pharmacy Address Telephone [address] [address] Patient 20w6d, calling requesting Rx of Pepcid. Her original Rx was discontinued and she states she has had another flare of acid reflux. Please file if appropriate. Tamra Caballero RN documented in this encounter [facility] 10-05-2024 Telephone encounter Note Patient 20w6d, calling requesting Rx of Pepcid. Her original Rx was discontinued and she states she has had another flare of acid reflux. Please file if appropriate. Tamra Caballero RN [facility] 10-04-2024 Progress note Formatting of t his [...] - RTO 4 weeks Marlyn Read APRN.CNM [facility] 10-04-2024 Miscellaneous Notes S: Atiya Mancia is [...] Marlyn Read APRN.CNM documented in this encounter [facility] 10-04-2024 Instructions Derrick Zamora MA - 10/04/2024 8:47 AM EDT SEQUENTIAL SCREENINGS The [facility] offers sequential screenings for women who are [...] It will require an appointment with our flight technician. This is not an ultrasound performed [...] the above symptoms, contact our office at [phone] and ask to speak with a nurse. After hours, you can call doctors registry at [phone] OR call [facility] at [phone] and ask to have the doctor worksite wellness practitioner paged. If you consider this an emergency, dial 91-0 or go to your nearest emergency department. NEED HELP? Are you dealing with a violent or abusive relationship? Are you a victim of rape or sexual assult? Call [facility] ([place]) 24 hour Crisis Hotline: 319.335.1302 or 625-490-8889. MANUAL Your Guide to a Healthy manual is now on-line. Visit [email or web address] ancyGuide to download your free copy documented in this encounter [facility] 09-06-2024 Progress note Formatting of t his note might be different from the original. KJ - S: Atiya denies LOF, contractions or vaginal bleeding. She reports increased migraine headaches. She stopped drinking coffee. O: 16w5d, see flow sheet SENSITIVE EXAM: Sensitive exam not performed. 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 Reviewed headache precautions. Anatomy US scheduled. Charito Zaragoza MD [facility] 09-06-2024 Miscellaneous Notes KJ - S: Atiya denies LOF, contractions or vaginal bleeding. She reports increased migraine headaches. She stopped drinking coffee. O: 16w5d, see flow sheet SENSITIVE EXAM: Sensitive exam not performed. 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 Reviewed headache precautions. Anatomy US scheduled. Charito Zaragoza MD documented in this encounter [facility] 09-06-2024 Instructions Shelby Saldivar MA - 09/06/2024 10:01 AM EDT SEQUENTIAL SCREENINGS The [facility] offers sequential screenings for women who are [...] It will require an appointment with our flight technician. This is not an ultrasound performed [...] the above symptoms, contact our office at [phone] and ask to speak with a nurse. After hours, you can call doctors registry at [phone] OR call [facility] at [phone] and ask to have the doctor worksite wellness practitioner paged. If you consider this an emergency, dial 91-9 or go to your nearest emergency department. NEED HELP? Are you dealing with a violent or abusive relationship? Are you a victim of rape or sexual assult? Call [facility] ([place]) 24 hour Crisis Hotline: 349.265.6198 or 411-262-3908. MANUAL Your Guide to a Healthy manual is now on-line. Visit [email or web address]/[email or web address] ancyGuide to download your free copy documented in this encounter [facility] 08-09-2024 Progress note Formatting of t his [...] or sooner if needed Marlyn Read APRN.CNM [facility] 08-09-2024 Miscellaneous Notes S: Atiya Mancia is [...] Marlyn Read APRN.CNM documented in this encounter [facility] 08-09-2024 Instructions Emily Thompson LPN - 08/09/2024 10:32 AM EDT SEQUENTIAL SCREENINGS The [facility] offers sequential screenings for women who are [...] It will require an appointment with our flight technician. This is not an ultrasound performed [...] the above symptoms, contact our office at [phone] and ask to speak with a nurse. After hours, you can call doctors registry at [phone] OR call [facility] at [phone] and ask to have the doctor worksite wellness practitioner paged. If you consider this an emergency, dial or go to your nearest emergency department. NEED HELP? Are you dealing with a violent or abusive relationship? Are you a victim of rape or sexual assult? Call [facility] 24 hour Crisis Hotline: 972.351.4379 or 534-350-1675. MANUAL Your Guide to a Healthy manual is now on-line. Visit [email or web address]/HealthyPregn ancyGuide to download your free copy SEQUENTIAL SCREENINGS The [facility] offers sequential screenings for women who are [...] It will require an appointment with our flight technician. This is not an ultrasound performed [...] the above symptoms, contact our office at [phone] and ask to speak with a nurse. After hours, you can call doctors registry at [phone] OR call [facility] at [phone] and ask to have the doctor worksite wellness practitioner paged. If you consider this an emergency, dial 6-2-2 or go to your nearest emergency department. NEED HELP? Are you dealing with a violent or abusive relationship? Are you a victim of rape or sexual assult? Call [facility] 24 hour Crisis Hotline: 151.904.2068 or 857-797-5997. MANUAL Your Guide to a Healthy manual is now on-line. Visit [facility]/Weavlygn ancyGuide to download your free copy documented in this encounter [facility] 07-17-2024 Instructions Maximus Fletcher APRN.ABRASIVE GRADER HELPER - 07/17/2024 3:11 PM EDT Please select the following link to access the [facility] Your Guide to a Healthy . [email or web address] e Please select the following link to access the [facility] Your Guide to a Healthy . [email or web address] e MORNING SICKNESS IN by Jacque Perrin M.D. for [employer] As you may already know, morning sickness can often be more appropriately called evening sickness or qjila-mswdsp-ve-the-day sickness. While there are the lisbeth few, [...] medication, Doxylamine, is currently marketed as an vjke-ckl-cpuwamh sleeping pill. Ask your practitioner if creating a vitamin B6/Doxylamine combination with mlze-dbn-ogmvnjr medications would be safe for you. Prescription [...] Phenergan, Compazine, Reglan documented in this encounter [facility] 07-17-2024 Note HNO ID: [id number] Author: MAXIMUS FLETCHER APRN.ABRASIVE GRADER HELPER Service: ? Author Type: Nurse Practitioner Type: Progress Notes Filed: 07/18/2024 10:17 Note Text: Medical Billing Service offered: Patient declines. INITIAL OB ASSESSMENT HPI: [...] pre-existing diabetes: No No results found for: "ABORHD" No weight on file for this encounter. [...] discussed with the Patient or Patient's Authorized Neighborhood Aide. As applicable, any other physician, advance practice provider, medical student, or other health professional student that will be obs (more content not included)... [facility] 07-17-2024 History of Presen t illness Narrative Medical Billing Service offered: Patient declines. INITIAL OB ASSESSMENT HPI: [...] pre-existing diabetes: No No results found for: "ABORHD" No weight on file for this encounter. [...] discussed with the Patient or Patient's Authorized Neighborhood Aide. As applicable, any other physician, advance practice provider, medical student, or other health professional student that will be observing or involved in the sensitive examination for educational or training purposes was discussed with the Patient or Authorized Neighborhood Aide. The Patient or Authorized Neighborhood Aide has agreed to proceed with the sensitive examination. (Sensitive examination includes inspection and/or palpation of the breasts, pelvis, prostate and anorectal regions). PHYSICAL EXAM: BP 114/60 Ht 5' 1.224" (1.56m) Wt 115 lb (52.2kg) LMP 05/12/2024 [...] Your guide to a health and the [employer]. Discussed hemoglobin electrophoresis. Patient: Declines Reviewed midwifery and engineer chief services that are available. 2) Screening: Hemoglobin [...] of High Risk in First Trimester, Antepartum ([facility]) - 07/18/2024 Comment: Care Checklist Vaccines: [] Flu vaccine [] declined [] RSV vaccine 32 0/7 - 36 6/ (Nov - Apr) [] declined [] COVID [...] (28-30 weeks): [] Consent [] Contraception [] Maxillofacial Prosthetics Dentist [] TeamBirth handout Third trimester (36-40 weeks): [] GBS [] Presentation - [] Scheduled [] yes - Hibiclens, pre-op instructions, CBC, T&S ordered [] no [] H&P [] Preferences worksheet [] Scanned in EMR Vaginal Bleeding Affecting Early ([facility]) - 07/18/2024 Comment: July 18, 2024 Resolved. To monitor symptoms. Maixmus Fletcher APRN.DEDRA History of Anomaly in Prior , Currently ([facility]) - 07/18/2024 Comment: July 18, 2024 Previous : baby with ventriculomegaly. Was monitored by MFM. Maximus Fletcher APRN.DEDRA Nausea and Vomiting During ([facility]) - 07/18/2024 Comment: 07/18/24 Vitamin B6 and Unisom doses reviewed. To notify if prescription is needed. Maximus Fletcher APRN.CNP Heartburn During in First Trimester ([facility]) - 07/18/2024 Comment: July 18, 2024 Rx for Pepcid sent. Maximus Fletcher APRN.CNP Follow up in 3 weeks or sooner prn. Plan for NT scan between 12w0d and 13w6d gestation. Maximus Fletcher APRN.DEDRA documented in this encounter [facility] 07-09-2024 Instructions Maty Molina MD - 07/09/2024 3:18 PM EDT - Continue taking your vitamins daily. - Avoid sexual intercourse until the bleeding completely stops. - Next follow-up appointment is scheduled for next week. - call if heavy vaginal bleeding documented in this encounter [facility] 07-09-2024 Note HNO ID: [id number] Author: MATY MOLINA MD Service: ? Author Type: Physician Type: Progress Notes Filed: 07/09/2024 15:48 Note Text: Obstetrics and Gynecology [place] DIRECTOR OF HEAD START Visit Subjective Recording using [employer] software for draft documentation of the visit was discussed with the patient/authorized charter representative; all questions welcomed and answered. Patient/authorized charter representative agreed to proceed CHIEF COMPLAINT: Bleeding in HPI: The patient is a 29-year-old female, , presenting with vaginal spotting. The patient reports onset of spotting last , initially presenting as dark brown fluid and progressing to bright red fluid, which was worse yesterday but has since slowed. Yesterday, she required a pad, though it was not filled. She describes the bleeding as "more than normal" but denies passage of clots or tissue. [...] Living3 SAB0 IAB0 Ectopic0 Multiple0 Live Births3 Development Geologist History LMP: 05/12/2024 Age at Menarche: Age at First : Age at Menopause: Development Geologist History Comments: Sexual Activity: Yes; Male Contraception: [...] discussed with the Patient or Patient's Authorized Neighborhood Aide. As applicable, any other physician, advance practice provider, medical student, or other health professional student that will be observing or involved in the sensitive examination for educational or training purposes was discussed with the Patient or Authorized Neighborhood Aide. The Patient or Authorized Neighborhood Aide has agreed to proceed with the sensitive examination. (Sensitive examination includes inspection and/or palpation of the breasts, pelvis, prostate and anorectal regions). PHYSICAL EXAM: BP 110/64 Ht 5' 2" (1.58m) Wt 115 lb (52.2kg) LMP 05/12/2024 [...] imaging tab for details. Maty Weiss MD [facility] 07-09-2024 History of Presen t illness Narrative Images from the original note were not included. Obstetrics and Gynecology [place] DIRECTOR OF HEAD START Visit Subjective Recording using [employer] software for draft documentation of the visit was discussed with the patient/authorized charter representative; all questions welcomed and answered. Patient/authorized charter representative agreed to proceed CHIEF COMPLAINT: Bleeding in HPI: The patient is a 29-year-old female, , presenting with vaginal spotting. The patient reports onset of spotting last , initially presenting as dark brown fluid and progressing to bright red fluid, which was worse yesterday but has since slowed. Yesterday, she required a pad, though it was not filled. She describes the bleeding as "more than normal" but denies passage of clots or tissue. [...] Living3 SAB0 IAB0 Ectopic0 Multiple0 Live Births3 Development Geologist History LMP: 05/12/2024 Age at Menarche: Age at First : Age at Menopause: Development Geologist History Comments: Sexual Activity: Yes; Male Contraception: [...] discussed with the Patient or Patient's Authorized Neighborhood Aide. As applicable, any other physician, advance practice provider, medical student, or other health professional student that will be observing or involved in the sensitive examination for educational or training purposes was discussed with the Patient or Authorized Neighborhood Aide. The Patient or Authorized Neighborhood Aide has agreed to proceed with the sensitive examination. (Sensitive examination includes inspection and/or palpation of the breasts, pelvis, prostate and anorectal regions). PHYSICAL EXAM: BP 110/64 Ht 5' 2" (1.58m) Wt 115 lb (52.2kg) LMP 05/12/2024 [...] imaging tab for details. Maty Weiss MD Medical Billing Service offered: Patient declines. documented in this encounter [facility] 07-09-2024 Note HNO ID: [id number] Author: MATY MOLINA MD Service: ? Author Type: Physician Type: Progress Notes Filed: 07/09/2024 15:48 Note Text: Medical Billing Service offered: Patient declines. [facility] 05-19-2021 Note Department of Obstet rics and Gynecology Delivery Discharge Summary Admission on 05/19/2021 10:00 AM Hospital course: IOL at 40w1d. Fetus with known bilat ventriculomegaly. Pitocin was started. Pt eventually delivered vaginally [see "Notes" for details]. Surgical Operations & Procedures: Date of delivery: 05/19/21 Procedure: augmented vaginal Anesthesia: none Laceration(s): 2nd degree Delivery Complications: double nuchal cord easily reduced. EBL: 250 cc Pertinent Findings & Procedures: Information for the patient's : Jean Mancia [[id number]] male Weight: N/A Apgars: Information for the patient's : Jean Mancia [[id number]] Course: Uncomplicated Infant: Live male infant, circumcision not done due to patient anatomy [...] Your Medications These medications were sent to [facility] [address] [phone] - [phone] [address] [facility] [address] ? ibuprofen 600 MG tablet Activity: Activity [...] her physician if any of these occur. [facility] 04-09-2021 Note Ms Atiya Mancia is [...] dysplasia. I shared with Mr and Mrs Mnacia that the above MRI findings are very concerning. Possible etiology could be congenital infection, genetic abnormalities or metabolic abnormalities. The baby may need a REPOSSESSOR shunt to address the ventriclomegaly . There [...] the time spent with education and counseling. [facility] 02-03-2021 Note Follow up FTC [...] Recommendations and Treatment Center Plan of Care: Treatment Center Plan of Care Diagnosis: Ventriculomegaly, suspected absent CSP. MRI 10/13/21 confirmed bilateral ventriculomegaly concern for possible intraventricular hemorrhage(right) and mild cerebellar hypoplasia no comment on CSP in final report NAIT work-up and infection studies sent 02/03/21. Aneuploidy screening declined. Plan: 1. Continued obstetrical care with her primary caramel cutter helper is recommended. 2. Follow up q4 weeks to evaluate biometric parameters and ventricles (CHIEF PRIVACY OFFICER). These are planned with our [place] location. 3. surveillance as follows: once weekly BPP and weekly evaluation of ventricles (CHIEF PRIVACY OFFICER) beginning at 32 weeks. Planning of surveillance [...] send placenta to Pathology for evaluation. 9. Neonatology/Maxillofacial Prosthetics Dentist to evaluate infant and to determine nursery placement and to determine if additional evaluation is indicated. 10. head imaging and consultation with Pediatric Neurology within 1 month of age or sooner if clinically indicated. Please call [phone] to schedule. Indicate that you were followed by the [facility] when scheduling. 11. Consider referral to Medical Genetics should additional concerns be noted after delivery. The engineer and geologist or patient can request this consultation. Call [phone] to schedule. Indicate that you were followed by the [facility] when scheduling. 12. Additional follow up as clinically indicated. The total patient time of the visit was 25 minutes, of which greater than 50% of the time was spent counseling and coordinating care. Lizette Angel MD [facility] 01-07-2021 Note [facility] genetic counseli calli note Consultation has been requested by Dr. 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 Recommendations and [facility] Plan of Care: [facility] Plan of Care Diagnosis: Ventriculomegaly, suspected absent CSP. MRI pending and performed on 01/07/21 Consider aneuploidy screening, maternal infectious serologies, and invasive testing. All declined today Plan: 1. Continued obstetrical care with her primary caramel cutter helper is recommended. 2. Follow up q4 weeks to evaluate biometric parameters and ventricles (CHIEF PRIVACY OFFICER). These are planned with the [facility] and/or our [place] location. 3. surveillance as follows: once weekly BPP and weekly evaluation of ventricles (CHIEF PRIVACY OFFICER) beginning at 32 weeks. Planning of surveillance [...] send placenta to Pathology for evaluation. 9. Neonatology/Maxillofacial Prosthetics Dentist to evaluate infant and to determine nursery placement and to determine if additional evaluation is indicated. 10. head imaging and consultation with Pediatric Neurology within 1 month of age or sooner if clinically indicated. Please call [phone] to schedule. Indicate that you were followed by the [facility] when scheduling. 11. Consider referral to Medical Genetics should additional concerns be noted after delivery. The engineer and geologist or patient can request this consultation. Call [phone] to schedule. Indicate that you were followed by the [facility] when scheduling. 12. Additional follow up as clinically indicated. Her Plan of Care summary will be distributed. The total patient time of the visit was 60 minutes, of which greater than 50% of the time was spent counseling and coordinating care. Lizette Angel MD [facility] Discharge summary Note Date/Time November 24, 2024 1:34pm [facility] Medical Records Department [address] [place] [address] Emergency Department Summary 11/24/24 MR#: [id number] Acct: [id number] Name: ATIYA MANCIA Rep #:[id number] : 1995 29 From: Dusty Harp MD [...] 0 currently 20 weeks . Sees a [facility] TOUR AGENT group. Tuesday night start having a sore [...] 78.8 H Lymph % (Auto) 10.5 L [place] % (Auto) 7.6 Eos % (Auto) 1.5 [...] Clarity Cloudy Urine pH 6.0 Ur Specific [place] 1.025 Urine Protein 30 H Urine Glucose [...] of fluids and rest. Follow-up with your TOUR AGENT group as needed. Return if feeling worse. Think this was a virus. Print Language: Albanian Disposition Disposition: Home, Self Care What to do if you have Problems For any increased pain, shortness of breath, bleeding, nausea or vomiting, chestpain, or any unexpected problems, contact your Primary Care Provider. Call [facility] ([phone]) or report to the closest Emergency Room. Call 911 if necessary. 11/24/24 1334 <Electronically signed by Dusty Harp MD> Cosigner Signature (if applicable): CC: No Primary Care Physician ~ Signed [facility] Work Phone: Evaluation note* Diagnosis Vaginal bleeding affecting early (HCC)- Primary Spotting complicating , first trimester ([facility]) Threatened ([facility]) Threatened , unspecified as to episode of care High risk due to history of previous obstetrical problem in first trimester ([facility]) documented in this encounter [facility] note* Diagnosis Encounter for supervision of high risk in first trimester, antepartum (HCC)- Primary 9 weeks gestation of ([facility]) state, incidental Screen for STD (sexually transmitted disease) Screening examination for venereal disease Vaginal bleeding affecting early ([facility]) 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 , currently ([facility]) with other poor obstetric history Heartburn during in first trimester ([facility]) Nausea and vomiting during ([facility]) documented in this encounter [facility] note* Diagnosis Nausea and vomiting during (HCC)- Primary Supervision of high risk in second trimester ([facility]) Unspecified high-risk 12 weeks gestation of ([facility]) state, incidental Encounter for supervision of high risk in first trimester, antepartum ([facility]) documented in this encounter [facility] note* Diagnosis Encounter for screening for malformation using ultrasound ([facility])- Primary 12 weeks gestation of ([facility]) state, incidental [facility] Diagnosis Supervision of high risk in second trimester (HCC)- Primary Unspecified high-risk 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 , currently (HCC) with other poor obstetric history 16 weeks gestation of (HCC) state, incidental Other migraine without status migrainosus, not intractable * Assessment & Plan Note - Charito Zaragoza MD - 09/06/2024 10:14 AM EDTAssociated Problem(s): 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 , currently ([facility]) documented in this encounter [facility] note* Diagnosis Supervision of high risk in second trimester (HCC)- Primary Unspecified high-risk 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 , currently ([facility]) with other poor obstetric history 16 weeks gestation of ([facility]) state, incidental Other migraine without status migrainosus, not intractable Encounter for screening for malformation using ultrasound ([facility])- Primary 20 weeks gestation of ([facility]) state, incidental documented in this encounter [facility] note* Diagnosis Supervision of high risk in second trimester (HCC)- Primary Unspecified high-risk 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 , currently (HCC) with other poor obstetric history 16 weeks gestation of ([facility]) state, incidental Other migraine without status migrainosus, not intractable Supervision of high risk in second trimester (HCC)- Primary Unspecified high-risk 20 weeks gestation of (HCC) state, incidental documented in this encounter [facility] noteNo assessment information availableWBluffton Hospital Work Phone: Evaluation note* Diagnosis Supervision [...] (HCC) state, incidental [facility] Instructions Plenty of fluids and rest. Follow-up with your TOUR AGENT group as needed. Return if feeling worse. Think this was a virus.[facility] Work Phone: Reason for referral (narrative)No reason for referral information availableWBluffton Hospital Work Phone: Summary Purpose Family History No Family History Records FoundNo Family History Records FoundNo Family History Records FoundNo Family History Records FoundNo Family History Records Found Advance Directives No Advanced Directives Records Found Advance Directive Response Recorded Date/ Time Do you have a Healthcare Power of Event Decorator And Designer? No November 24, 2024 9:40am Chief Complaint and Reason for Visit Chief Complaint Admit Date abd pain November 24, 2024 9: 16am Additional Source Comments INFORMATION SOURCE (unrecogn ized section and content) DATE CREATED AUTHOR 06/11/2021 [facility] DATE CREATED AUTHOR AUTHOR'S ORGANIZ ATION 06/30/2021 [facility] DATE CREATED AUTHOR AUTHOR'S ORGANIZ ATION 01/27/2022 [facility] DATE CREATED AUTHOR AUTHOR'S ORGANIZ ATION 02/02/2025 [facility] DATE CREATED AUTHOR AUTHOR'S ORGANIZ ATION 02/03/2025 [facility] Source Comments (unrecognize d section and content) In the event this informatio n is protected by the Federal Confidentiality of Alcohol and Drug Abuse Patient Records regulations: The Federal rules restrict any use of the information to criminally investigate or prosecute any alcohol or drug abuse patient.[facility] the event this information is protected by the Federal Confidentiality of Alcohol and Drug Abuse Patient Records regulations: The Federal rules restrict any use of the information to criminally investigate or prosecute any alcohol or drug abuse patient.[facility] SystemIn the event this information is protected by the Federal Confidentiality of Alcohol and Drug Abuse Patient Records regulations: The Federal rules restrict any use of the information to criminally investigate or prosecute any alcohol or drug abuse patient.[facility] SystemIn the event this information is protected by the Federal Confidentiality of Alcohol and Drug Abuse Patient Records regulations: The Federal rules restrict any use of the information to criminally investigate or prosecute any alcohol or drug abuse patient.[facility] SystemIn the event this information is protected by the Federal Confidentiality of Alcohol and Drug Abuse Patient Records regulations: The Federal rules restrict any use of the information to criminally investigate or prosecute any alcohol or drug abuse patient.[facility] SystemIn the event this information is protected by the Federal Confidentiality of Alcohol and Drug Abuse Patient Records regulations: The Federal rules restrict any use of the information to criminally investigate or prosecute any alcohol or drug abuse patient.[facility] SystemIn the event this information is protected by the Federal Confidentiality of Alcohol and Drug Abuse Patient Records regulations: The Federal rules restrict any use of the information to criminally investigate or prosecute any alcohol or drug abuse patient.[facility] System[facility] the event this information is protected by the Federal Confidentiality of Alcohol and Drug Abuse Patient Records regulations: The Federal rules restrict any use of the information to criminally investigate or prosecute any alcohol or drug abuse patient.[facility] SystemIn the event this information is protected by the Federal Confidentiality of Alcohol and Drug Abuse Patient Records regulations: The Federal rules restrict any use of the information to criminally investigate or prosecute any alcohol or drug abuse patient.[facility] SystemIn the event this information is protected by the Federal Confidentiality of Alcohol and Drug Abuse Patient Records regulations: The Federal rules restrict any use of the information to criminally investigate or prosecute any alcohol or drug abuse patient.[facility] Reason for Visit (unrecogniz ed section and content) Reason Comments Vaginal Bleeding Reason Comments Initial OB Visit Reason Onset Date Comments Care 08/09/2024 Reason Comments US Specialty Diagnoses / Procedures Referred By [place] t Referred To Contact [facility] Diagnoses Encounter for supervision of high risk in first trimester, antepartum (HCC) Procedures OBSTETRIC ULTRASOUND WHI US PREG UTERUS AFTER 1ST TRIMEST GESTATION Maximus Fletcher APRN.ABRASIVE GRADER HELPER [address] [place] [address] Phone: tel: fax: [facility] [address] [place] [address] Referral ID Status Reason Start Date Expiration Date V isits Requested Visits Authorized [id number] Closed Auto-Generate d Referral 07/18/2024 07/18/2025 1 1 Reason Onset Date Comments Care 09/06/2024 Referral ID Status Reason Start Date Expiration Date V isits Requested Visits Authorized [id number] Closed Auto-Generate d Referral 07/18/2024 07/18/2025 1 [...] BE BASED ON THE PRIMARY CLINICAL RECORDS. [facility] [employer] [facility]. provides no warranty or guarantee of the accuracy or completeness of information in this document.
--- NOTE | 2025-02-07 18:42 | EX.PCM.OBVAG ---
Assessment & Plan (1) Status post vaginal delivery: (2) Laceration, obstetrical, first degree: (3) Care and examination of lactating mother: Maternal Data Information MARY Calculator Estimated Delivery Date Method Current WG Current Estimate 02/16/25 Manual 38w 5d Vaginal Delivery Maternal Presentation Maternal Presentation: at 38.5 weeks gestation in spontaneous labor. Vaginal Delivery Information Procedure Performed: Spontaneous Vaginal Delivery Surgeon/Practitioner: Marlyn Read Date of Procedure: 02/07/25 Pre-Procedure Diagnosis: Term gestation, Spontaneous onset of labor Post-Procedure Diagnosis: , Live male infant Type of anesthesia: Epidural Estimated Blood Loss: 600 Time of Delivery: 17:56 Findings Description of procedure: Called to patient's bedside. Spontaneous rupture of membranes for clear fluid. Patient found to be complete dilation with urge to push. With good maternal effort, head delivered followed by anterior shoulder and remainder of body without any force, delay, or traction. Loose nuchal cord x 2 and x1 around body. Vigorous male was delivered atraumatically and placed on maternal abdomen. Pitocin IV started for active management of the third stage of labor. 3 vessel cord clamped and cut by FOB after delay and infant placed under warmer for evaluation due to skin color. Placenta delivered spontaneously and intact. Vaginal vault filling with blood quickly. Fundus firm. No obvious lacerations visualized. Suspected cervical laceration. Dr. Houser called to bedside for evaluation. Patient straight cathed for clear, yellow urine. Pressure held to cervix until Dr. Houser arrived. See operative note for repair by Dr. Houser. Presentation: Vertex Amniotic Membrane Rupture Type: Spontaneous Amniotic Fluid Description: Clear Placental Delivery Description: Spontaneous Placenta Disposition: [facility] Specimen collected: No Cord Vessel Description: 3 Vessels Cord Entanglement: Around neck x 2, loose and Other (Around body x 1 loose ) Nuchal Cord Compression: Without compression Infant A Gender: Male (1 minute): 8 (5 minute): 8 Delayed Cord Clamping: Yes Capacitor Pack Press Operator deputy register of deeds: No Post Vaginal Deli Medications given after delivery: IV Pitocin Episiotomy Description: None Laceration: 1st degree Complication Complications: No
--- OUTSIDE RECORDS SUMMARY | 2025-02-07 18:44 | XMS RPT_ITS | CCD ---
Author Organization [facility] Care Team Providers Care Certified Alcohol Drug Counselor Name Role Phone CHIKA BEDOLLA PA-C Attending Unavailable TAPAN CELAYA Consulting Unavailable CHIKA BEDOLLA PA-C Admitting Unavailable CHIKA BEDOLLA PA-C Primary Care Unavailable PROVIDER, UNKNOWN Consulting Unavailable PROVIDER, UNKNOWN Consulting Unavailable PROVIDER, UNKNOWN Consulting Unavailable Tapan Celaya MD Unavailable Physical Therapy Provider Unavailable Madelin Crowe MD, Jennifer Zepeda Unavailable Sunshine FOREMAN, Vivian Unavailable Chika Bedolla PA-C Unavailable [phone] Leslye Potter PA-C Unavailable DarylJennifer lambert LPN Unavailable Unavailab celine Cruz COLD MOLDING PRESS OPERATOR, Lucien Merchant Unavailable Unavailable Unavailable Unavailable Unavailable Primary Care Provider Unavailabl e Care Physician, No Primary Primary Care Provider Unavailable Loyd CHRISTENSEN, Dr. Montano Emergency Provider Maty Weiss Attending Unavail able Care Physician, [...] Referring Unavailable KVNG NELDA Referring Unavailable CHIKA CARIAS Attending Unavailable NELDA MEDEL Referring Unavailable MAXIMUS [...] Start: 07-Aug-2014 End: 25-Mar-2015 Status: Discontinued Pnv 913-Rxxms-Ytwye-3-F tiffany Oil 1 EACH tablet,chewable (1 source) Start: 11-10-2015 End: 06-24-2020 Pnv 182-Vxgfl-Stknw-3- Fish Oil 1 EACH tablet,chewable Discontinued 2 [...] trimester; Translations: [Anemia complicating , third trimester ([facility])] Onset: 11-29-2024 Chronic Other complications of [...] [Supervision of high risk in third trimester ([facility])] Onset: 11-29-2024 Episodic Other gastrointestinal disorders [...] of ; Translations: [37 weeks gestation of ([facility])] Onset: 02-01-2025 Episodic Residual codes; unclassified [...] of ; Translations: [24 weeks gestation of ([facility])] Onset: 11-01-2024 Episodic Residual codes; unclassified (1 source) 20 weeks gestation of ; Translations: [20 weeks gestation of ([facility])] Onset: 10-04-2024 Episodic Residual codes; unclassified (1 source) 16 weeks gestation of ; Translations: [16 weeks gestation of ([facility])] Onset: 09-06-2024 Episodic Residual codes; unclassified (1 source) 12 weeks gestation of ; Translations: [12 weeks gestation of ([facility])] Onset: 08-09-2024 Episodic Residual codes; unclassified (1 source) 9 weeks gestation of ; Translations: [9 weeks gestation of ([facility])] Onset: 07-18-2024 Episodic Unclassified (2 sources) [...] Noteon 1 03-29-2024 OB Triage Physician Note [facility] Medical Records Department [address] [place] [address] OB Triage Physician Note 01/27/25826 MR#: [id number] Acct: [id number] Name: ATIYA MANCIA Rep #: [id number] : 1995 29 From: Maty Weiss MD PCP: Care Physician,No Primary Status:DEP CLI Y Location: [facility] - General General Date of Service: 01/25/25 HPI Narrative ATIYA MANCIA, is a 29 F @ 36.6 weeks who presents to r/o PRE E- due to concerns of elevated BP at home [facility] Medical History Back pain Severe headache Home [...] MD; No Primary Care Physician Signed Normal [facility] 01-25-2025 [facility] Telephone (OBGYWM) THOMAS MANCIAA ([id number]) 1995 F Date Time Provider Department 01/25/25 [...] Status:Closed by SOPHIA GARCIA on 01/25/25 Normal [facility] ROUTINE, GROUP B ST REPTOCOCCUS BY PCRon 01-24-2025 ROUTINE, GROUP B STREPTOCOCCUS BY PCR Detected Abnormal [facility] Comment on above: Performed By: #### T SPN #### [facility] CLIA [id number] [address] [place] [address] [place] CBC panel Auto (Bld)on 12-27 Erythrocyte distribution width (RBC) [Ratio] 13.4 % Normal 11.5-15.0 [facility] Comment on above: Order Comment: Speci men Type: BLOOD SPECIMENOrdering Facility: [facility] Address: [address] [place] [address] Performed By: #### 5 8410-2 ####[facility] [id number] [place] [address] [place] Hematocrit (Bld) [Volume fraction] 29.4 % Low 36.0-46.0 [facility] Comment on above: Order Comment: Speci men Type: BLOOD SPECIMENOrdering Facility: [facility] Address: [address] [place] [address] Performed By: #### 5 8410-2 ####[facility] [id number] [place] [address] [place] Hemoglobin (Bld) [Mass/Vol] 9.9 g/dL Low 11.5-15.5 [facility] Comment on above: Order Comment: Speci men Type: BLOOD SPECIMENOrdering Facility: [facility] Address: [address] [place] [address] Performed By: #### 5 8410-2 ####[facility]ITALUMANGKarina [id number] [address] [place] MCH (RBC) [Entitic mass] 27.5 pg Normal 26.0-34.0 [facility] Comment on above: Order Comment: Speci men Type: BLOOD SPECIMENOrdering Facility: [facility] Address: [address] [place] [address] Performed By: #### 5 8410-2 ####[facility]ITALUMANGLIA [id number] [place] [address] [place] MCHC (RBC) [Mass/Vol] 33.7 g/dL Normal 30.5-36.0 [facility] Comment on above: Order Comment: Speci men Type: BLOOD SPECIMENOrdering Facility: [facility] Address: [address] [place] [address] Performed By: #### 5 8410-2 ####[facility]ITALNCLIA [id number] [place] [address] [place] MCV (RBC) [Entitic vol] 81.7 fL Normal 80.0-100.0 [facility] Comment on above: Order Comment: Speci men Type: BLOOD SPECIMENOrdering Facility: [facility] Address: [address] [place] [address] Performed By: #### 5 8410-2 ####[facility] [id number] [place] [address] [place] Nucleated RBC (Bld) [#/Vol] 10*3/uL Normal <0.01 [facility] Comment on above: Order Comment: Speci men Type: BLOOD SPECIMENOrdering Facility: [facility] Address: [address] [place] [address] Performed By: #### 5 8410-2 ####[facility] [id number] [place] [address] [place] Platelet mean volume (Bld) [Entitic vol] 8.4 fL Low 9.0-12.7 [facility] Comment on above: Order Comment: Speci men Type: BLOOD SPECIMENOrdering Facility: [facility] Address: [address] [place] [address] Performed By: #### 5 8410-2 ####[facility] [id number] [place] [address] [place] Platelets (Bld) [#/Vol] 230 10*3/uL Normal 150-400 [facility] Comment on above: Order Comment: Speci men Type: BLOOD SPECIMENOrdering Facility: [facility] Address: [address] [place] [address] Performed By: #### 5 8410-2 ####[facility] [id number] [place] [address] [place] RBC (Bld) [#/Vol] 3.60 10*6/uL Low 3.90-5.20 [facility] Comment on above: Order Comment: Speci men Type: BLOOD SPECIMENOrdering Facility: [facility] Address: [address] [place], [place] [address] Performed By: #### 5 8410-2 ####[facility] [id number] [place] [address] [place] WBC (Bld) [#/Vol] 8.87 10*3/uL Normal 3.70-11.00 [facility] Comment on above: Order Comment: Speci men Type: BLOOD SPECIMENOrdering Facility: [facility] Address: [address] [place] [address] Performed By: #### 5 8410-2 ####[facility]ITALUMANGKarina [id number] [place] [address] [place] CBC W Auto Differential pane l (Bld)on 11-29-2024 Basophils (Bld) [#/Vol] 10*3/uL Normal <0.11 [facility] Comment on above: Order Comment: Speci men Type: BLOOD SPECIMENOrdering Facility: [facility] Address: [address] [place] [address] Performed By: #### 5 7021-8 ####[facility] [id number] [place] [address] [place] Basophils/100 WBC (Bld) 0.1 % Normal [facility] Comment on above: Order Comment: Speci men Type: BLOOD SPECIMENOrdering Facility: [facility] Address: [address] [place] [address] Performed By: #### 5 7021-8 ####[facility]ITALUMANGKarina [id number] [place] [address] [place] Differential cell count method Nom (Bld) Auto Normal [facility] Comment on above: Order Comment: Speci men Type: BLOOD SPECIMENOrdering Facility: [facility] Address: [address] [place] [address] Performed By: #### 5 7021-8 ####[facility] MILLWNCLIA [id number] [place] [address] [place] Eosinophils (Bld) [#/Vol] 0.15 10*3/uL Normal <0.46 [facility] Comment on above: Order Comment: Speci men Type: BLOOD SPECIMENOrdering Facility: [facility] Address: [address] [place] [address] Performed By: #### 5 7021-8 ####[facility]ITALUMANGLIA [id number] [place] [address] [place] Eosinophils/100 WBC (Bld) 1.9 % Normal [facility] Comment on above: Order Comment: Speci men Type: BLOOD SPECIMENOrdering Facility: [facility] Address: [address] [place] [address] Performed By: #### 5 7021-8 ####[facility]ITALUMANGLIA [id number] [place] [address] [place] Erythrocyte distribution width (RBC) [Ratio] 13.0 % Normal 11.5-15.0 [facility] Comment on above: Order Comment: Speci men Type: BLOOD SPECIMENOrdering Facility: [facility] Address: [address] [place] [address] Performed By: #### 5 7021-8 ####[facility]ITALUMANGL[facility] [id number] [place] [address] [place] Hematocrit (Bld) [Volume fraction] 29.9 % Low 36.0-46.0 [facility] Comment on above: Order Comment: Speci men Type: BLOOD SPECIMENOrdering Facility: [facility] Address: [address] [place] [address] Performed By: #### 5 7021-8 ####[facility]ITALNCLIA [id number] [place] [address] [place] Hemoglobin (Bld) [Mass/Vol] 9.9 g/dL Low 11.5-15.5 [facility] Comment on above: Order Comment: Speci men Type: BLOOD SPECIMENOrdering Facility: [facility] Address: [address] [place] [address] Performed By: #### 5 7021-8 ####[facility]ITALNCLIA [id number] [place] [address] [place] Immature granulocytes (Bld) [#/Vol] 0.10 10*3/uL High <0.10 [facility] Comment on above: Order Comment: Speci men Type: BLOOD SPECIMENOrdering Facility: [facility] Address: [address] [place] [address] Performed By: #### 5 7021-8 ####[facility]OSPITALNCA [id number] [place] [address] [place] Immature granulocytes/100 WBC (Bld) 1.3 % Normal [facility] Comment on above: Order Comment: Speci men Type: BLOOD SPECIMENOrdering Facility: [facility] Address: [address] [place] [address] Performed By: #### 5 7021-8 ####[facility]ITALA [id number] [place] [address] [place] Lymphocytes (Bld) [#/Vol] 1.31 10*3/uL Normal 1.00-4.00 [facility] Comment on above: Order Comment: Speci men Type: BLOOD SPECIMENOrdering Facility: [facility] Address: [address] [place] [address] Performed By: #### 5 7021-8 ####[facility]ITALNCLIA [id number] [place] [address] [place] Lymphocytes/100 WBC (Bld) 16.8 % Normal [facility] Comment on above: Order Comment: Speci men Type: BLOOD SPECIMENOrdering Facility: [facility] Address: [address] [place] [address] Performed By: #### 5 7021-8 ####[facility] SHIRAHARBORCREEKUMANGTRAVIS [id number] [place] [address] [place] MCH (RBC) [Entitic mass] 27.9 pg Normal 26.0-34.0 [facility] Comment on above: Order Comment: Speci men Type: BLOOD SPECIMENOrdering Facility: [facility] Address: [address] [place] [address] Performed By: #### 5 7021-8 ####[facility]ITALNCLA[facility] [id number] [place] [address] [place] MCHC (RBC) [Mass/Vol] 33.1 g/dL Normal 30.5-36.0 [facility] Comment on above: Order Comment: Speci men Type: BLOOD SPECIMENOrdering Facility: [facility] Address: [address] [place] [address] Performed By: #### 5 7021-8 ####[facility]ITALUMANGLAKEVIEW [facility] [id number] [place] [address] [place] MCV (RBC) [Entitic vol] 84.2 fL Normal 80.0-100.0 [facility] Comment on above: Order Comment: Speci men Type: BLOOD SPECIMENOrdering Facility: [facility] Address: [address] [place] [address] Performed By: #### 5 7021-8 ####[facility]ITALUMANGA [id number] [place] [address] [place] Monocytes (Bld) [#/Vol] 0.53 10*3/uL Normal <0.87 [facility] Comment on above: Order Comment: Speci men Type: BLOOD SPECIMENOrdering Facility: [facility] Address: [address] [place] [address] Performed By: #### 5 7021-8 ####[facility] MILLWNCLIA [id number] [place] [address] [place] Monocytes/100 WBC (Bld) 6.8 % Normal [facility] Comment on above: Order Comment: Speci men Type: BLOOD SPECIMENOrdering Facility: [facility] Address: [address] [place] [address] Performed By: #### 5 7021-8 ####[facility] HOSPITALLIA [id number] [place] [address] [place] Neutrophils (Bld) [#/Vol] 5.69 10*3/uL Normal 1.45-7.50 [facility] Comment on above: Order Comment: Speci men Type: BLOOD SPECIMENOrdering Facility: [facility] Address: [address] [place] [address] Performed By: #### 5 7021-8 ####[facility] HOSPITALLIA [id number] [place] [address] [place] Neutrophils/100 WBC (Bld) 73.1 % Normal [facility] Comment on above: Order Comment: Speci men Type: BLOOD SPECIMENOrdering Facility: [facility] Address: [address] [place] [address] Performed By: #### 5 7021-8 ####[facility] HOSPITALLIA [id number] [place] [address] [place] Nucleated RBC (Bld) [#/Vol] 10*3/uL Normal <0.01 [facility] Comment on above: Order Comment: Speci men Type: BLOOD SPECIMENOrdering Facility: [facility] Address: [address] [place] [address] Performed By: #### 5 7021-8 ####[facility]ITALNCLIA [id number] [place] [address] [place] Nucleated RBC/100 WBC (Bld) [Ratio] 0.0 /100 WBC Normal [facility] Comment on above: Order Comment: Speci men Type: BLOOD SPECIMENOrdering Facility: [facility] Address: [address] [place] [address] Performed By: #### 5 7021-8 ####[facility]PITALNCA [id number] [place] [address] [place] Platelet mean volume (Bld) [Entitic vol] 8.1 fL Low 9.0-12.7 [facility] Comment on above: Order Comment: Speci men Type: BLOOD SPECIMENOrdering Facility: [facility] Address: [address] [place] [address] Performed By: #### 5 7021-8 ####[facility]PITALNCA [id number] [place] [address] [place] Platelets (Bld) [#/Vol] 208 10*3/uL Normal 150-400 [facility] Comment on above: Order Comment: Speci men Type: BLOOD SPECIMENOrdering Facility: [facility] Address: [address] [place] [address] Performed By: #### 5 7021-8 ####[facility]PITALNCA [id number] [place] [address] [place] RBC (Bld) [#/Vol] 3.55 10*6/uL Low 3.90-5.20 [facility] Comment on above: Order Comment: Speci men Type: BLOOD SPECIMENOrdering Facility: [facility] Address: [address] [place] [address] Performed By: #### 5 7021-8 ####[facility]ITALNCLIA [id number] [place] [address] [place] WBC (Bld) [#/Vol] 7.79 10*3/uL Normal 3.70-11.00 [facility] Comment on above: Order Comment: Speci men Type: BLOOD SPECIMENOrdering Facility: [facility] Address: [address] [place] [address] Performed By: #### 5 7021-8 ####[facility] [id number] [place] [address] [place] Ferritin SerPl-mCncon 2024 Ferritin [Mass/Vol] 12.0 ng/mL Low 14.7-205.1 [facility] Comment on above: Order Comment: Speci men Type: BLOOD SPECIMENOrdering Facility: [facility] Address: [address] [place] [address] Performed By: #### 2 276-4, 04217-2 ####[facility] LABCLIA [id number] [place] [address] [place] GESTATIONAL GLUCOSE SCREEN, 1-HOUR, 50 GRAM, NON-FASTINGon 11-29-2024 Glucose [Mass/Vol] 112 mg/dL Normal 74-134 [facility] Comment on above: Order Comment: Speci men Type: BLOOD SPECIMENOrdering Facility: [facility] Address: [address] [place] [address] Result Comment: [facility] Congress of Obstetricians and Gynecologists (Gay/Couskip) guidelines state a gestational diabetes mellitus positive screen is made, in women not previously diagnosed with overt diabetes, when the 1 hr plasma glucose level is equal to or above 140 mg/dL. [facility] Manager Of Care and [facility] [place] recommends a 135 mg/dL cutoff. Performed By: #### G LTGST ####[facility] [id number] [place] [address] [place] Iron and Iron binding capaci ty panelon 11-29-2024 Iron [Mass/Vol] 45 ug/dL Normal 41-186 [facility] Comment on above: Order Comment: Speci men Type: BLOOD SPECIMEN [facility] Address: [address] [place] [address] Performed By: #### T SPN #### [facility] CLIA [id number] [address] [place] [address] [place] Iron binding capacity [Mass/Vol] 531 ug/dL High 232-386 [facility] Comment on above: Order Comment: Speci men Type: BLOOD SPECIMEN [facility] Address: [address] [place] [address] Performed By: #### T SPN #### [facility] CLIA [id number] [address] [place] [address] [place] Iron/TIBC [Molar ratio] 8.5 % Low 15.0-57.0 [facility] Comment on above: Order Comment: Speci men Type: BLOOD SPECIMEN [facility] Address: [address] [place] [address] Performed By: #### T SPN #### [facility] CLIA [id number] [address] [place] [address] [place] Reagin and Treponema pallidu m IgG and IgM [Interp]on 11-29-2024 T. pallidum IgG+IgM IA Ql (S) Non-Reactive Normal Nonreactive [facility] Comment on above: Order Comment: Speci men Type: BLOOD SPECIMENOrdering Facility: [facility] Address: [address] [place] [address] Performed By: #### 7 3752-8 ####[facility] LABCLIA [id number] [place] [address] [place] Reagin+T pallidum IgG+IgM Se rPl-Impon 11-29-2024 Reagin and Treponema pallidum IgG and IgM [Interp] Cannot exclude recent Treponemal infection if specimen collected within 7-10 days after appearance of suspect lesions or 2-3 weeks after an exposure. Clinical correlation is required. Normal [facility] Comment on above: Order Comment: Speci men Type: BLOOD SPECIMENOrdering Facility: [facility] Address: [address] [place] [address] Performed By: #### 7 3752-8 ####[facility] LABCLIA [id number] RK AVINA [id number] [place] [address] [place] Absolute lymphocyte countOrd ered By: Dusty Harp on 11-24-2024 Lymphocytes Auto (Unsp spec) [#/Vol] 0.85 10*3/uL 0.83-4.51 [facility] Absolute neutrophil countOrd ered By: Dusty Harp on 11-24-2024 Neutrophils (Bld) [#/Vol] 6.4 10*3/uL 2.0-7.7 [facility] Anion gap in Serum or Plasma Ordered By: Dusty Harp on 11-24-2024 Anion gap [Moles/Vol] 15 mmol/L 08-09 [facility] Automated lymphocyte count a s percentage of total leukocytesOrdered By: Dusty Harp on 11-24-2024 Lymphocytes/100 WBC Auto (Unsp spec) 10.5 % Low - [facility] BUN/creatinine ratioOrdered By: Dusty Harp on 11-24-2024 Urea nitrogen/Creatinine [Mass ratio] 14.1 mg/mg 01-14 [facility] Basic Metabolic Profile (BMP )on 11-24-2024 BUN/CRE 14.1 RATIO Normal 01-14 [facility] Comment on above: Performed By: #### L 100.0100, L500.2500 #### [facility] [address] [facility] [address] Calcium [Mass/Vol] 9.3 mg/dL Normal 7.6-11.0 [facility] Comment on above: Performed By: #### L 100.0100, L500.2500 #### [facility] [address] [place], [address] Chloride [Moles/Vol] 99 mmol/L Normal 98-108 [facility] Comment on above: Performed By: #### L 100.0100, L500.2500 #### [facility] [address] [place], [address] CO2 [Moles/Vol] 21.6 mmol/L Normal 21.0-32.0 [facility] Comment on above: Performed By: #### L 100.0100, L500.2500 #### [facility] [address] [place], [address] Creatinine [Mass/Vol] 0.53 mg/dL Low 0.70-1.20 [facility] Comment on above: Performed By: #### L 100.0100, L500.2500 #### [facility] [address] [place], [address] ECRCL 126.73 ml/min Normal 50-250 [facility] Comment on above: Performed By: #### L 100.0100, L500.2500 #### [facility] [address] [place], [address] GAP 15 Normal 5-15 [facility] Comment on above: Performed By: #### L 100.0100, L500.2500 #### [facility] [address] [place], [address] GFR/1.73 sq M.predicted among non-blacks MDRD (S/P/Bld) [Vol rate/Area] 127 mL/min/{1.73_m2} Normal >60 [facility] Comment on above: Result Comment: mL/m in/1.73m2 CKD-EPI Creatinine Equation (2020) Performed By: #### L 100.0100, L500.2500 #### [facility] [address] [place], [address] Glucose [Mass/Vol] 82 mg/dL Normal 70-99 [facility] Comment on above: Performed By: #### L 100.0100, L500.2500 #### [facility] [address] [place], [address] Potassium [Moles/Vol] 3.8 mmol/L Normal 3.3-5.1 [facility] Comment on above: Performed By: #### L 100.0100, L500.2500 #### [facility] [address] [place], [address] Sodium [Moles/Vol] 136 mmol/L Normal 133-145 [facility] Comment on above: Performed By: #### L 100.0100, L500.2500 #### [facility] [address] [place], [address] Urea nitrogen [Mass/Vol] 8 mg/dL Normal 4-19 [facility] Comment on above: Performed By: #### L 100.0100, L500.2500 #### [facility] [address] [place], [address] Basophil percentageOrdered B y: Dusty Harp on 11-24-2024 Basophils/100 WBC (Bld) 0.5 % 0-1 [facility] Bilirubin Test strip Ql (U)O rdered By: Dusty Harp on 11-24-2024 Bilirubin Ql (U) Negative Negative [facility] CBC W/Diff, Automatedon 10-28 Absolute Lymph 0.85 X10 3/uL Normal 0.83-4.51 [facility] Comment on above: Performed By: #### L 100.0100, L500.2500 #### [facility] [address] [place], [address] Absolute Neut 6.4 X10 3/uL Normal 2.0-7.7 [facility] Comment on above: Performed By: #### L 100.0100, L500.2500 #### [facility] [address] [place], [address] Basophils/100 WBC (Bld) 0.5 % Normal 0-1 [facility] Comment on above: Performed By: #### L 100.0100, L500.2500 #### [facility] [address] [place], [address] Eosinophils/100 WBC (Bld) 1.5 % Normal 0-5 [facility] Comment on above: Performed By: #### L 100.0100, L500.2500 #### [facility] [address] [place], [address] Erythrocyte distribution width (RBC) [Ratio] 13.0 % Normal 11.6-14.6 [facility] Comment on above: Performed By: #### L 100.0100, L500.2500 #### [facility] [address] [place], [address] Hematocrit (Bld) [Volume fraction] 36.0 % Low 37-47 [facility] Comment on above: Performed By: #### L 100.0100, L500.2500 #### [facility] [address] [place], [address] Hemoglobin (Bld) [Mass/Vol] 11.9 g/dL Low 12.0-15.0 [facility] Comment on above: Performed By: #### L 100.0100, L500.2500 #### [facility] [address] [place], [address] IG% 1.100 High 0.0-0.9 [facility] Comment on above: Result Comment: IG% - Immature Granulocytes (promyelocytes, myelocytes and metamyelocytes) > 1% indicates that a LEFT SHIFT is Present. Performed By: #### L 100.0100, L500.2500 #### [facility] [address] [place], [address] Lymphocytes/100 WBC (Bld) 10.5 % Low 19-41 [facility] Comment on above: Performed By: #### L 100.0100, L500.2500 #### [facility] [address] [place], [address] MCH (RBC) [Entitic mass] 28.3 pg Normal 27.0-32.0 [facility] Comment on above: Performed By: #### L 100.0100, L500.2500 #### [facility] [address] [place], [address] MCHC (RBC) [Mass/Vol] 33.1 g/dL Normal 32-36 [facility] Comment on above: Performed By: #### L 100.0100, L500.2500 #### [facility] [address] [place], [address] MCV (RBC) [Entitic vol] 85.5 fL Normal 81-99 [facility] Comment on above: Performed By: #### L 100.0100, L500.2500 #### [facility] [address] [place], [address] Monocytes/100 WBC (Bld) 7.6 % Normal 0-10 [facility] Comment on above: Performed By: #### L 100.0100, L500.2500 #### [facility] [address] [place], [address] Neutrophils/100 WBC (Bld) 78.8 % High 47-70 [facility] Comment on above: Performed By: #### L 100.0100, L500.2500 #### [facility] [address] [place], [address] Nucleated RBC (Bld) [#/Vol] 0 10*3/uL Normal 0-5 [facility] Comment on above: Performed By: #### L 100.0100, L500.2500 #### [facility] [address] [place], [address] Platelet mean volume (Bld) [Entitic vol] 8.4 fL Normal 6.2-12.0 [facility] Comment on above: Performed By: #### L 100.0100, L500.2500 #### [facility] [address] [place], [address] Platelets (Bld) [#/Vol] 234 10*3/uL Normal 150-450 [facility] Comment on above: Performed By: #### L 100.0100, L500.2500 #### [facility] [address] [place], [address] RBC (Bld) [#/Vol] 4.21 10*6/uL Normal 4.2-5.4 [facility] Comment on above: Performed By: #### L 100.0100, L500.2500 #### [facility] [address] [place], [address] RDW SD 40.0 fl Normal 35.1-43.9 [facility] Comment on above: Performed By: #### L 100.0100, L500.2500 #### [facility] [address] [place], [address] WBC (Bld) [#/Vol] 8.1 10*3/uL Normal 4.4-11.0 [facility] Comment on above: Performed By: #### L 100.0100, L500.2500 #### [facility] [address] [place], [address] Carbon dioxide, total [Moles /volume] in Central venous bloodOrdered By: Dusty Harp on 11-24-2024 CO2 [Moles/Vol] 21.6 mmol/L 21.0-32.0 [facility] Chloride assayOrdered By: Toan Harp on 11-24-2024 Chloride [Moles/Vol] 99 mmol/L 98-108 [facility] Emergency Department Summary on 11-24-2024 Emergency Department Summary [facility] Medical Records Department [address] [place] [address] Emergency Department Summary 11/24/24 MR#: [id number] Acct: [id number] Name: ATIYA MANCIA Rep #: [id number] : 1995 29 From: Dusty Harp MD [...] 0 currently 20 weeks . Sees a [facility] group. Tuesday night start having a sore [...] Delivery Method (more content not included)... Normal [facility] Eosinophil percentageOrdered By: Dusty Harp on 11-24-2024 Eosinophils/100 WBC (Bld) 1.5 % 0-5 [facility] Erythrocyte distribution wid th ratioOrdered By: Dusty Harp on 11-24-2024 Erythrocyte distribution width (RBC) [Ratio] 13.0 % 11.6-14.6 [facility] Erythrocyte distribution wid th standard deviationOrdered By: Dusty Harp on 11-24-2024 Erythrocyte distribution width (RBC) [Ratio] 40.0 fl 35.1-43.9 [facility] Glomerular filtration rate ( GFR) estimation/1.73 sq m using serum, plasma, or whole bOrdered By: Dusty Harp on 11-24-2024 GFR/1.73 sq M.predicted among non-blacks MDRD (S/P/Bld) [Vol rate/Area] 127 mL/min/{1.73_m2} >60 [facility] Comment on above: mL/min/1.73m2 CKD-EP I Creatinine Equation (2020) Hematocrit Auto (Bld) [Volum e fraction]Ordered By: Dusty Harp on 11-24-2024 Hematocrit (Bld) [Volume fraction] 36.0 % Low 37-47 [facility] Hemoglobin measurementOrdere d By: Dusty aHrp on 11-24-2024 Hemoglobin (Bld) [Mass/Vol] 11.9 g/dL Low 12.0-15.0 [facility] Immature granulocytes/100 WB C Auto (Bld)Ordered By: Dusty Harp on 11-24-2024 Immature granulocytes/100 WBC (Bld) 1.100 % High 0.0-0.9 [facility] Comment on above: IG% - Immature Granu locytes (promyelocytes, myelocytes and metamyelocytes) > 1% indicates that a LEFT SHIFT is Present. Ketones Test strip Ql (U)Ord ered By: Dusty Harp on 11-24-2024 Ketones Ql (U) 150 mg/dl Abnormal Negative [facility] Comment on above: CRITICAL VALUE *H MCV (mean corpuscular volume ) determinationOrdered By: Dusty Harp on 11-24-2024 MCV (RBC) [Entitic vol] 85.5 fL 81-99 [facility] Mean corpuscular hemoglobin (MCH) determinationOrdered By: Dusty Harp on 11-24-2024 MCH (RBC) [Entitic mass] 28.3 pg 27.0-32.0 [facility] Mean corpuscular hemoglobin concentration (MCHC) determinationOrdered By: Dusty Harp on 11-24-2024 MCHC (RBC) [Mass/Vol] 33.1 g/dL 32-36 [facility] Mean platelet volume determi nationOrdered By: Dusty Harp on 11-24-2024 Platelet mean volume (Bld) [Entitic vol] 8.4 fL 6.2-12.0 [facility] Microscopic analysis of urin e for red blood cells (RBC)Ordered By: Dusty Harp on 11-24-2024 Microscopic analysis of urine for red blood cells (RBC) 0-5 SEEN /hpf 0-5 [facility] Monocyte percentageOrdered B y: Dusty Harp on 11-24-2024 Monocytes/100 WBC (Bld) 7.6 % 0-10 [facility] Mucus LM Ql (Urine sed)Order ed By: Dusty Harp on 11-24-2024 Mucus Ql (Urine sed) 1+ /hpf [facility] Neutrophil percentageOrdered By: Dusty Harp on 11-24-2024 Neutrophils/100 WBC (Bld) 78.8 % High 47-70 [facility] Nitrite Test strip Ql (U)Ord ered By: Dusty Harp on 11-24-2024 Nitrite Ql (U) Negative Negative [facility] Nucleated red blood cell per centageOrdered By: Dusty Harp on 11-24-2024 Nucleated RBC/100 WBC (Bld) [Ratio] 0 % 0-5 [facility] Platelet countOrdered By: Toan Harp on 11-24-2024 Platelets (Bld) [#/Vol] 234 10*3/uL 150-450 [facility] Potassium measurement (mass/ volume)Ordered By: Dusty Harp on 11-24-2024 Potassium (Unsp spec) [Mass/Vol] 3.8 mmol/L 3.3-5.1 [facility] Protein Test strip Ql (U)Ord ered By: Dusty Harp on 11-24-2024 Protein Ql (U) 30 mg/dl High Negative [facility] RBC Auto (Bld) [#/Vol]Ordere d By: Dusty Harp on 11-24-2024 RBC (Bld) [#/Vol] 4.21 10*6/uL 4.2-5.4 [facility] Serum creatinine measurement (mass/volume)Ordered By: Dusty Harp on 11-24-2024 Creatinine [Mass/Vol] 0.53 mg/dL Low 0.70-1.20 [facility] Serum glucose measurement (m ass/volume)Ordered By: Dusty Harp on 11-24-2024 Glucose [Mass/Vol] 82 mg/dL 70-99 [facility] Serum or plasma calcium terry urement (mass/volume)Ordered By: Dusty Harp on 11-24-2024 Calcium [Mass/Vol] 9.3 mg/dL 7.6-11.0 [facility] Serum or plasma urea nitroge n measurement (mass/volume)Ordered By: Dusty Harp on 11-24-2024 Urea nitrogen [Mass/Vol] 8 mg/dL 4-19 [facility] Sodium levelOrdered By: Dusty Harp on 11-24-2024 Sodium [Moles/Vol] 136 mmol/L 133-145 [facility] Squamous epithelial cells de tection in urine sediment by light microscopyOrdered By: Dusty Harp on 11-24-2024 Epithelial cells.squamous LM Ql (Urine sed) 25-50 SEEN /hpf - [facility] Urinalysis, Completeon 11-24 BACTERIA 3+ /hpf Normal None Seen [facility] Comment on above: Order Comment: CLEAN CATCH Performed By: #### L 400.0001 #### [facility] [address] [place], [place], [id number] EPI,SQUAMOUS 25-50 SEEN Normal - [facility] Comment on above: Order Comment: CLEAN CATCH Performed By: #### L 400.0001 #### [facility] [address] [place], [place], [id number] Mucus Ql (Urine sed) 1+ /hpf Normal [facility] Comment on above: Order Comment: CLEAN CATCH Performed By: #### L 400.0001 #### [facility] [address] [place], [place], [id number] RBC 0-5 SEEN Normal 0-5 [facility] Comment on above: Order Comment: CLEAN CATCH Performed By: #### L 400.0001 #### [facility] [address] [place], [place], [id number] WBC 10-25 SEEN Normal 0-5 [facility] Comment on above: Order Comment: CLEAN CATCH Performed By: #### L 400.0001 #### [facility] [address] [place], [place], [id number] Urine clarityOrdered By: Teddy Harp on 11-24-2024 Clarity (U) Cloudy Clear [facility] Urine color determinationOrd ered By: Dusty Harp on 11-24-2024 Color (U) Yellow Yellow [facility] Urine glucose detectionOrder ed By: Dusty Harp on 11-24-2024 Glucose Ql (U) Normal mg/dl Normal [facility] Urine leukocyte esterase det ection by dipstickOrdered By: Dusty Harp on 11-24-2024 Leukocyte esterase Test strip Ql (U) 500 /ul High Negative [facility] Urine pHOrdered By: Dusty chinchilla on 11-24-2024 pH (U) 6.0 [pH] 5.0 - 8.0 [facility] Urine sediment bacteria coun t by microscopy (number/high power field)Ordered By: Dusty Harp on 11-24-2024 Bacteria LM.HPF (Urine sed) [#/Area] 3 /[HPF] None Seen [facility] Urine specific gravity measu rementOrdered By: Dusty Harp on 11-24-2024 Specific gravity (U) [Rel density] 1.025 1.002-1.030 [facility] Urine urobilinogen measureme ntOrdered By: Dusty Harp on 11-24-2024 Urobilinogen Ql (U) Normal mg/dl Normal [facility] White blood cell (WBC) count Ordered By: Dusty Harp on 11-24-2024 WBC (Bld) [#/Vol] 8.1 10*3/uL 4.4-11.0 [facility] White blood cell countOrdere d By: Dusty Harp on 11-24-2024 White blood cell count 10-25 SEEN /hpf 0-5 [facility] CNPNon 10-05-2024 CNPN Telephone (OBGYWM) ATIYA MANCIA ([id number]) 1995 F Date Time Provider Department 10/05/24 [...] MAXIMUS FLETCHER Pharmacy Information Pharmacy Address Telephone [facility] [phone] [place] [phone] Allergies As of Date: 10/05/2024 (No Known [...] Status:Closed by JOAN ENCISO on 10/05/24 Normal [facility] Examination level ultrasound on 10-04-2024 Indication Standard [...] 14 oz EFW by: Hadlock (HC-AC-FL) Extended Ballet Soloist 7.7 mm CM 4.1 mm 18% Nicolaides [...] normal LVOT view: normal 3-vessel view: normal [id number] view: normal Heart / Thorax Situs: situs [...] Read By: Kelli Arizmendi M.D. MATERNAL MEDICINE [facility] Radiology Study observation (narrative) [facility] CBC W Auto Differential pane l (Bld)on 08-09-2024 Basophils (Bld) [#/Vol] 10*3/uL Normal <0.11 [facility] Comment on above: Order Comment: Speci men Type: BLOOD SPECIMEN Ordering Facility: [facility] Address: [address] [place] [address] Performed By: #### T SPN #### [facility] CLIA [id number] [address] [place] [address] [place] Basophils/100 WBC (Bld) 0.2 % Normal [facility] Comment on above: Order Comment: Speci men Type: BLOOD SPECIMEN Ordering Facility: [facility] Address: [address] [place] [address] Performed By: #### T SPN #### [facility] CLIA [id number] [address] [place] [address] [place] Differential cell count method Nom (Bld) Auto Normal [facility] Comment on above: Order Comment: Speci men Type: BLOOD SPECIMEN Ordering Facility: [facility] Address: [address] [place] [address] Performed By: #### T SPN #### [facility] CLIA [id number] [address] [place] [address] [place] Eosinophils (Bld) [#/Vol] 0.07 10*3/uL Normal <0.46 [facility] Comment on above: Order Comment: Speci men Type: BLOOD SPECIMEN Ordering Facility: [facility] Address: [address] [place] [address] Performed By: #### T SPN #### [facility] CLIA [id number] [address] [place] [address] [place] Eosinophils/100 WBC (Bld) 1.2 % Normal [facility] Comment on above: Order Comment: Speci men Type: BLOOD SPECIMEN Ordering Facility: [facility] Address: [address] [place] [address] Performed By: #### T SPN #### [facility] CLIA [id number] [address] [place] [address] [place] Erythrocyte distribution width (RBC) [Ratio] 13.2 % Normal 11.5-15.0 [facility] Comment on above: Order Comment: Speci men Type: BLOOD SPECIMEN Ordering Facility: [facility] Address: [address] [place] [address] Performed By: #### T SPN #### [facility] CLIA [id number] [address] [place] [address] [place] Hematocrit (Bld) [Volume fraction] 37.1 % Normal 36.0-46.0 [facility] Comment on above: Order Comment: Speci men Type: BLOOD SPECIMEN Ordering Facility: [facility] Address: [address] [place] [address] Performed By: #### T SPN #### [facility] CLIA [id number] [address] [place] [address] [place] Hemoglobin (Bld) [Mass/Vol] 12.8 g/dL Normal 11.5-15.5 [facility] Comment on above: Order Comment: Speci men Type: BLOOD SPECIMEN Ordering Facility: [facility] Address: [address] [place] [address] Performed By: #### T SPN #### [facility] CLIA [id number] [address] [place] [address] [place] Immature granulocytes (Bld) [#/Vol] 10*3/uL Normal <0.10 [facility] Comment on above: Order Comment: Speci men Type: BLOOD SPECIMEN Ordering Facility: [facility] Address: [address] [place] [address] Performed By: #### T SPN #### [facility] CLIA [id number] [address] [place] [address] [place] Immature granulocytes/100 WBC (Bld) 0.2 % Normal [facility] Comment on above: Order Comment: Speci men Type: BLOOD SPECIMEN Ordering Facility: [facility] Address: [address] [place] [address] Performed By: #### T SPN #### [facility] CLIA [id number] [address] [place] [address] [place] Lymphocytes (Bld) [#/Vol] 1.32 10*3/uL Normal 1.00-4.00 [facility] Comment on above: Order Comment: Speci men Type: BLOOD SPECIMEN Ordering Facility: [facility] Address: [address] [place] [address] Performed By: #### T SPN #### [facility] CLIA [id number] [address] [place] [address] [place] Lymphocytes/100 WBC (Bld) 22.3 % Normal [facility] Comment on above: Order Comment: Speci men Type: BLOOD SPECIMEN Ordering Facility: [facility] Address: [address] [place] [address] Performed By: #### T SPN #### [facility] CLIA [id number] [address] [place] [address] [place] MCH (RBC) [Entitic mass] 29.0 pg Normal 26.0-34.0 [facility] Comment on above: Order Comment: Speci men Type: BLOOD SPECIMEN Ordering Facility: [facility] Address: [address] [place] [address] Performed By: #### T SPN #### [facility] CLIA [id number] [address] [place] [address] [place] MCHC (RBC) [Mass/Vol] 34.5 g/dL Normal 30.5-36.0 [facility] Comment on above: Order Comment: Speci men Type: BLOOD SPECIMEN Ordering Facility: [facility] Address: [address] [place] [address] Performed By: #### T SPN #### [facility] CLIA [id number] [address] [place] [address] [place] MCV (RBC) [Entitic vol] 84.1 fL Normal 80.0-100.0 [facility] Comment on above: Order Comment: Speci men Type: BLOOD SPECIMEN Ordering Facility: [facility] Address: [address] [place] [address] Performed By: #### T SPN #### [facility] CLIA [id number] [address] [place] [address] [place] Monocytes (Bld) [#/Vol] 0.45 10*3/uL Normal <0.87 [facility] Comment on above: Order Comment: Speci men Type: BLOOD SPECIMEN Ordering Facility: [facility] Address: [address] [place] [address] Performed By: #### T SPN #### [facility] CLIA [id number] [address] [place] [address] [place] Monocytes/100 WBC (Bld) 7.6 % Normal [facility] Comment on above: Order Comment: Speci men Type: BLOOD SPECIMEN Ordering Facility: [facility] Address: [address] [place] [address] Performed By: #### T SPN #### [facility] CLIA [id number] [address] [place] [address] [place] Neutrophils (Bld) [#/Vol] 4.05 10*3/uL Normal 1.45-7.50 [facility] Comment on above: Order Comment: Speci men Type: BLOOD SPECIMEN Ordering Facility: [facility] Address: [address] [place] [address] Performed By: #### T SPN #### [facility] CLIA [id number] [address] [place] [address] [place] Neutrophils/100 WBC (Bld) 68.5 % Normal [facility] Comment on above: Order Comment: Speci men Type: BLOOD SPECIMEN Ordering Facility: [facility] Address: [address] [place] [address] Performed By: #### T SPN #### [facility] CLIA [id number] [address] [place] [address] [place] Nucleated RBC (Bld) [#/Vol] 10*3/uL Normal <0.01 [facility] Comment on above: Order Comment: Speci men Type: BLOOD SPECIMEN Ordering Facility: [facility] Address: [address] [place] [address] Performed By: #### T SPN #### [facility] CLIA [id number] [address] [place] [address] [place] Nucleated RBC/100 WBC (Bld) [Ratio] 0.0 /100 WBC Normal [facility] Comment on above: Order Comment: Speci men Type: BLOOD SPECIMEN Ordering Facility: [facility] Address: [address] [place] [address] Performed By: #### T SPN #### [facility] CLIA [id number] [address] [place] [address] [place] Platelet mean volume (Bld) [Entitic vol] 8.8 fL Low 9.0-12.7 [facility] Comment on above: Order Comment: Speci men Type: BLOOD SPECIMEN Ordering Facility: [facility] Address: [address] [place] [address] Performed By: #### T SPN #### [facility] CLIA [id number] [address] [place] [address] [place] Platelets (Bld) [#/Vol] 193 10*3/uL Normal 150-400 [facility] Comment on above: Order Comment: Speci men Type: BLOOD SPECIMEN Ordering Facility: [facility] Address: [address] [place] [address] Performed By: #### T SPN #### [facility] CLIA [id number] [address] [place] [address] [place] RBC (Bld) [#/Vol] 4.41 10*6/uL Normal 3.90-5.20 [facility] Comment on above: Order Comment: Speci men Type: BLOOD SPECIMEN Ordering Facility: [facility] Address: [address] [place] [address] Performed By: #### T SPN #### [facility] CLIA [id number] [address] [place] [address] [place] WBC (Bld) [#/Vol] 5.91 10*3/uL Normal 3.70-11.00 [facility] Comment on above: Order Comment: Speci men Type: BLOOD SPECIMEN Ordering Facility: [facility] Address: [address] [place] [address] Performed By: #### T SPN #### [facility] CLIA [id number] [facility] [address] STATES OF [facility] Examination level ultrasound on 08-09-2024 Indication First trimester anatomic survey Impression The patient is referred for a first trimester anatomy scan including nuchal translucency measurement as clinically indicated. - Single, live, intrauterine . - [place] rump length measurement is consistent with the [...] view: visualized 4-chamber view with color: visualized [id number] view: normal Abdominal cord insertion: normal Stomach: [...] Read By: Kelli Arizmendi M.D. MATERNAL MEDICINE [facility] Radiology Study observation (narrative) [facility] HBV surface Ag Ser Qlon 07-26 HBV surface Ag Ql (S) Negative Normal Negative [facility] [facility] Comment on above: Order Comment: Speci men Type: BLOOD SPECIMENOrdering Facility: [facility] Address: [address] [place] [address] Performed By: #### 3 1201-7, 5195-3, 37796-0 ####[facility] LABCLIA [id number] [place] [address] [place] HCV Ab Ser Qlon 08-09-2024 HCV Ab Ql (S) Negative Normal Negative [facility] Comment on above: Order Comment: Speci men Type: BLOOD SPECIMENOrdering Facility: [facility] Address: [address] [place] [address] Result Comment: The result suggests no evidence of infection with Hepatitis C virus. Should recent infection be suspected, repeat testing may be considered 4-6 weeks after this draw. Performed By: #### 1 6128-1 ####[facility] LABCLIA [id number] [place] [address] [place] HIV 1+2 Ab IA Qlon HIV 1 and 2 Ab IA.rapid Nom (S/P/Bld) Normal [facility] Comment on above: Order Comment: Speci men Type: BLOOD SPECIMENOrdering Facility: [facility] Address: [address] [place] [address] Result Comment: Test not indicated. Performed By: #### 3 1201-7, 5195-3, 70611-3 ####[facility] LABCLIA [id number] [place] [address] [place] HIV 1+2 Ab+HIV1 p24 Ag IA Ql Non-Reactive Normal Nonreactive [facility] Comment on above: Order Comment: Speci men Type: BLOOD SPECIMENOrdering Facility: [facility] Address: [address] [place] [address] Performed By: #### 3 1201-7, 5195-3, 97001-0 ####[facility] [id number] [place] [id number] [place] HIV immunoassay testing algorithm interpretation (S/P/Bld) [Interp] Normal [facility] Comment on above: Order Comment: Speci men Type: BLOOD SPECIMENOrdering Facility: [facility] Address: [address] [place] [address] Result Comment: No e vidence of HIV-1 or HIV-2 infection. Should recent infection be suspected, repeat testing may be considered 2-3 weeks after this draw. [place] Rev. Code 3701.243(E): This information has been [...] diagnoses. Performed By: #### 3 1201-7, 5195-3, 97204-6 ####[facility] LABIA [id number] [place] [id number] [place] HbA1c (Bld)on 08-09-2024 Average glucose Estimated from glycated hemoglobin (Bld) [Mass/Vol] 97 mg/dL Normal [facility] Comment on above: Order Comment: Speci men Type: BLOOD SPECIMENOrdering Facility: [facility] Address: [address] [place] [address] Result Comment: eAG: (Estimated average glucose) is a calculated value from HgbA1c and is corporate sales representative of the average blood glucose level in the last 2-3 month period. Performed By: #### 5 5454-3 ####[facility] LABCLIA [id number] [place] [address] [place] HbA1c (Bld) [Mass fraction] 5.0 % Normal 4.3-5.6 [facility] Comment on above: Order Comment: Speci [facility] Type: BLOOD SPECIMENOrdering Facility: [facility] Address: [address] [place] [address] Result Comment: Amer ican Diabetes Association guidelines indicate that patients with HgbA1c in the range 5.7-6.4% are at increased risk for development of diabetes, and intervention by lifestyle modification may be beneficial. HgbA1c greater or equal to 6.5% is considered diagnostic of diabetes. Performed By: #### 5 5454-3 ####[facility] LABIA [id number] [place] [address] [place] RUBELLA IGG ANTIBODYon 08-09 RUBELLA IGG AB, QUAL Positive Normal Positive [facility] Comment on above: Order [facility]: [facility]EN [facility] Address: [address] [place] [address] Result Comment: The result suggests recent or past exposure to Rubella virus or history of Rubella vaccination. Positive result may also be seen due to presence of passively-transferred antibodies. Please correlate with patient's history. Performed By: #### T SPN #### [facility] [place] [id number] [address] [place] [address] [place] Reagin and Treponema pallidu m IgG and IgM [Interp]on 08-09-2024 T. pallidum IgG+IgM IA Ql (S) Non-Reactive Normal Nonreactive [facility] Comment on above: Order Comment: Speci [facility] Type: BLOOD SPECIMENOrdering Facility: [facility] Address: [address] [place] [address] Performed By: #### 3 1201-7, 5195-3, 27641-4 ####[facility] LABCLIA [id number] [place] [address] [place] Reagin+T pallidum IgG+IgM Se rPl-Impon 08-09-2024 Reagin and Treponema pallidum IgG and IgM [Interp] Cannot exclude recent Treponemal infection if specimen collected within 7-10 days after appearance of suspect lesions or 2-3 weeks after an exposure. Clinical correlation is required. Normal [facility] Comment on above: Order Comment: Speci men Type: BLOOD SPECIMENOrdering Facility: [facility] Address: [address] [place] [address] Performed By: #### 3 1201-7, 5195-3, 40121-9 ####[facility] LABCLIA [id number] [place] [address] [place] TYPE + SCREEN PRENATALon ABO A Normal [facility] Comment on above: Order Comment: Speci men Type: BLOOD SPECIMEN [facility] Address: [address] [place] [address] Performed By: #### T SPN #### [facility] CLIA [id number] [address] [place] [address] [place] Rh Nom (Bld) Positive Normal [facility] Comment on above: Order Comment: Speci men Type: BLOOD SPECIMEN [facility] Address: [address] [place] [address] Performed By: #### T SPN #### [facility] CLIA [id number] [address] [place] [address] [place] TYPE AND SCREEN EXPIRATION 08/12/2024 23:59 Normal [facility] Comment on above: Order Comment: Speci men Type: BLOOD SPECIMEN [facility] Address: [address] [place] [address] Performed By: #### T SPN #### [facility] CLIA [id number] [address] [place] [address] [place] Bacteria Ur Culton Bacteria identified Cx Nom (U) ORGANISM ID: 1 >=100,000 CFU/ml Normal urogenital sarina Normal [facility] Comment on above: Performed By: #### T SPN #### [facility] CLIA [id number] [address] [place] [address] [place] C. trachomatis+N. gonorrhoea e DNA JD+probe Ql (Unsp spec)on 07-18-2024 C. trachomatis rRNA JD+probe Ql (Unsp spec) Not detected Not detected [facility] Interpretation and review of laboratory results Normal [facility] N. gonorrhoeae rRNA JD+probe Ql (Unsp spec) Not detected Not detected [facility] This FDA-approved as say has been modified to accept rectal swabs self-collected in a healthcare setting. For self-collected rectal swabs, the test was developed and its performance characteristics determined by the [facility]'s [facility] [place] ([facility]). It has not been cleared or approved by the FDA. [facility] is regulated under CLIA as qualified to perform high-complexity testing. This test is used for clinical purposes. It should not be regarded as investigational or for research. [facility] C. trachomatis rRNA JD+probe Ql (Unsp spec) Not detected Normal Not detected [facility] Comment on above: Order Comment: Speci men Type: BLOOD SPECIMEN [facility] Address: [address] [place] [address] Performed By: #### T SPN #### [facility] CLIA [id number] [address] [place] [address] [place] N. gonorrhoeae rRNA JD+probe Ql (Unsp spec) Not detected Normal Not detected [facility] Comment on above: Order Comment: Speci men Type: BLOOD SPECIMEN [facility] Address: [address] [place] [address] Performed By: #### T SPN #### [facility] CLIA [id number] [address] [place] [address] [place] HIGH RISK HUMAN PAPILLOMA DANGELO (HPV), PCR FOR DETECTION AND GENOTYPINGon 07-18-2024 HPV 16 Ag Ql (Unsp spec) Not detected Normal Not detected [facility] Comment on above: Order Comment: Speci men Type: BLOOD SPECIMEN [facility] Address: [address] [place] [address] Performed By: #### T SPN #### [facility] CLIA [id number] [address] [place] [address] [place] HPV 18 Ag Ql (Unsp spec) Not detected Normal Not detected [facility] Comment on above: Order Comment: Speci men Type: BLOOD SPECIMEN [facility] Address: [address] [place] [address] Performed By: #### T SPN #### [facility] CLIA [id number] [address] [place] [address] [place] HPV 31+33+35+39+45+51+52+56 +58+59+66+68 DNA JD+probe Ql (Cvx) Not detected Normal Not detected [facility] Comment on above: Order Comment: Speci men Type: BLOOD SPECIMEN [facility] Address: [address] [place] [address] Result Comment: High Risk HPV Other Type includes HPV types 31, 33, 35, 39, 45, 51, 52, 56, 58, 59, 66 and 68. Performed By: #### T SPN #### [facility] CLIA [id number] [address] [place] [address] [place] PAP TESTon 07-18-2024 ADEQUACY Normal [facility] Comment on above: Order Comment: Speci men Type: FLUID SPECIMEN [facility] Address: [address] [place] [address] Result Comment: Sati sfactory for interpretation. No endocervical component Performed By: #### L [id number] #### [facility] CLIA [id number] [address] [place] [address] [place] CASE REPORT Normal [facility] Comment on above: Order Comment: Speci men Type: FLUID SPECIMEN [facility] Address: [address] [place] [address] Result Comment: Gyne cologic Cytology Report Case: [id number] Authorizing Provider: Maximus Fletcher APRN.PETROLEUM REFINERY WORKER Collected: 07/18/2024 10:21 AM Ordering Location: OB/Gynecology Received: 07/18/2024 11:49 AM First Screen: Catrachito, Luz, CT, ASCP Specimen: Pap Test, ThinPrep, Cervix Performed By: #### L [id number] #### [facility] CLIA [id number] [address] [place] [address] [place] CLINICAL HISTORY, CYTOLOGY, PROPERTY COORDINATOR Routine Exam Normal [facility] Comment on above: Order Comment: Speci men Type: FLUID SPECIMEN [facility] Address: [address] [place] [address] Performed By: #### L [id number] #### [facility] CLIA [id number] [address] [place] [address] [place] FINAL PERFORMING LAB Normal [facility] Comment on above: Order Comment: Speci men Type: FLUID SPECIMEN [facility] Address: [address] [place] [address] Result Comment: Tech nical component, speech language pathologist prn screening performed at: [facility], [address] [place], [place] [id number] CLIA: [id number] Diagnostic interpretation performed at: [facility], [address] [place], [place] [address] CLIA# [id number] Director [facility]: Shlomo Nolan MD Performed By: #### L [id number] #### [facility] CLIA [id number] [address] [place] [address] [place] INTERPRETATION, CYTOLOGY, PROPERTY COORDINATOR Normal [facility] Comment on above: Order Comment: Speci men Type: FLUID SPECIMEN [facility] Address: [address] [place] [address] Result Comment: Nega tive for intraepithelial lesion or malignancy. at 0922 EDT Performed By: #### L [id number] #### [facility] CLIA [id number] [address] [place] [address] [place] LMP 05/12/2024 Normal [facility] Comment on above: Order Comment: Speci men Type: FLUID SPECIMEN [facility] Address: [address] [place] [address] Performed By: #### L [id number] #### [facility] CLIA [id number] [address] [place] [address] [place] PAP DISCLAIMER COMMENT The Pap Smear is a screening test for cervical cancer. False negative results occur with all screening tests, emphasizing the need for rescreening at recommended intervals, and clinical correlation. Normal [facility] Comment on above: Order Comment: Speci men Type: FLUID SPECIMEN [facility] Address: [address] [place] [address] Performed By: #### L [id number] #### [facility] CLIA [id number] [address] [place] [address] [place] PAP SENIOR EDITOR COMMENT This specimen has be en analyzed by the ThinPrep Imaging System, an automated imaging and review system, which assists the laboratory in evaluating cells on ThinPrep Pap tests. Following automated imaging, selected siegel from every slide are reviewed by a speech language pathologist prn. Normal [facility] Comment on above: Order Comment: Speci men Type: FLUID SPECIMEN [facility] Address: [address] [place] [address] Performed By: #### L [id number] #### [facility] CLIA [id number] [address] [place] [address] [place] TRICHOMONAS VAGINALIS NAATon 07-18-2024 Interpretation and review of laboratory results Normal [facility] T. vaginalis DNA JD+probe Ql (Unsp spec) Not detected Not detected [facility] T. vaginalis DNA JD+probe Ql (Unsp spec) Not detected Normal Not detected [facility] Comment on above: Order Comment: Speci men Type: BLOOD SPECIMEN [facility] Address: [address] [place] [address] Performed By: #### T SPN #### [facility] CLIA [id number] [address] [place] [address] OF PAM CNOVon 07-09-2024 CNOV Office Visit (OBGYWM ) ATIYA MANCIA ([id number]) 1995 F Date Time Provider Department 07/09/24 2:50 PM MATY MOLINA OBGYWM During your visit today, we recorded the following information about you: Blood pressure Weight Height Last Period 110/64 52.2 kg 1.575 m 05/12/24 Maty Molina MD 07/09/2024 3:48 PM Signed Lan Administrator offered: Patient declines. Maty Molina MD 07/09/2024 3:48 PM Signed Obstetrics [facility] Gyne[facility] [place] PROPERTY COORDINATOR Visit Subjective Recording using Fontself software for draft documentation of the visit was discussed with the patient/authorized corporate sales representative; all questions welcomed and answered. Patient/authorized corporate sales representative agreed to proceed CHIEF COMPLAINT: Bleeding [...] Living3 SAB0 IAB0 Ectopic0 Multiple0 Live Births3 Talent Sourcing Specialist History LMP: 05/12/2024 Age at Menarche: Age at First : Age at Menopause: Talent Sourcing Specialist History Comments: Sexual Activity: Yes; Male Contraception: [...] discussed with the Patient or Patient's Authorized Heavy Forger Helper. As applicable, any other physician, advance practice provider, medical student, or other health professional student that will be observing or involved in the sensitive examination for educational or training purposes was discussed with the Patient or Authorized Heavy Forger Helper. The Patient or Authorized Heavy Forger Helper has agreed to proceed with the sensitive [...] PLAN: 1. Spotting complicating , first trimester ([facility]) (O26.851) Spotting began last , initially [...] of previous obstetrical problem in first trimester ([facility]) (O09.291) Previous was high-risk due to ventriculomegaly. Current is being monitored closely. Continue routine care with close monitoring due to history of high-risk . Medical Decision Making: Problems: Modera (more content not included)... Normal [facility] Progress Noteon 06-29-2021 Stonemason Helper Authentication Interface Message Text Visit Subjective: [...] Follow up with Dr Vyas for ongoing PROPERTY COORDINATOR care. Normal pap 09/2020. Discussed next pap in 3 years. 4. Encouraged to establish PCP care for yearly preventive health screening The total patient time of the visit was 25 minutes: 15 direct patient care, 10 minutes chart review and documentation. Normal [facility] Hemogramon 05-19-2021 Erythrocyte distribution width (RBC) [Ratio] 13.9 % Normal 11.5-14.5 [facility] Comment on above: Performed By: #### H EMOG #### [address] [address] Hematocrit (Bld) [Volume fraction] 35.4 % Normal 35.0-47.0 [facility] Comment on above: Performed By: #### H EMOG #### [address] [address] Hemoglobin (Bld) [Mass/Vol] 11.6 g/dL Low 11.7-16.0 [facility] Comment on above: Performed By: #### H EMOG #### [address] MCH (RBC) [Entitic mass] 26.4 pg Normal 26.0-34.0 [facility] Comment on above: Performed By: #### H EMOG #### [facility] [address] [place] MCHC 32.7 % Normal 32.0-36.0 [facility] Comment on above: Performed By: #### H EMOG #### [place] [address] [address] [place], [place] MCV (RBC) [Entitic vol] 80.7 fL Normal 79.0-98.0 [facility] Comment on above: Performed By: #### H EMOG #### [place] [address] [address] [place], [place] Platelet mean volume (Bld) [Entitic vol] 6.6 fL Low 7.4-10.4 [facility] Comment on above: Performed By: #### H EMOG #### [place] [address] [address] [place], [place] Platelets (Bld) [#/Vol] 263 10*3/uL Normal 140-440 [facility] Comment on above: Performed By: #### H EMOG #### [place] [address] [address] [place], [place] RBC (Bld) [#/Vol] 4.38 10*6/uL Normal 3.80-5.20 [facility] Comment on above: Performed By: #### H EMOG #### [place] [address] [address] [place], [place] WBC (Bld) [#/Vol] 7.5 10*3/uL Normal 3.6-10.7 [facility] Comment on above: Performed By: #### H EMOG #### [place] [address] [address] [place], [place] TS GELon 05-19-2021 TS GEL ABO Group: A Rh, Gel: POS Antibody Screen Gel: NEG Normal [facility] Comment on above: Performed By: #### T SGL #### [facility] Progress Noteon 05-11-2021 Stonemason Helper Authentication Interface Message Text Visit Subjective: [...] growth every 4 weeks DELIVERY PLAN Hospital: [facility] Let Labor GBS culture: 04/29 Negative Contraception: undecided : yes, declines Ped: chosen Reviewed on 05/11/2021 complicated by cerebral ventriculomegaly 03/02/2021 Priority: High [facility] Neonatology and Neuro consult completed 04/09 Neurosurgery telehealth 04/21/21-Crystal Reviewed on 05/11/2021 Follow up : 1 week if undelivered Reinforced s/s labor, PEC, movement monitoring. The total patient time of the visit was 20 minutes: 10 direct patient care, 10 minutes chart review and documentation. Normal [facility] Progress Noteon 05-04-2021 Stonemason Helper Authentication Interface Message Text Visit Subjective: [...] growth every 4 weeks DELIVERY PLAN Hospital: [facility] Let Labor GBS culture: 04/29 Negative Contraception: [...] 10 minutes chart review and documentation. Normal [facility] Group B Strep Cultureon S. agalactiae Ag Ql (Unsp spec) Release to patient->Automatic [id number]&Vagina^^^Vaginal/ Rectal&Vaginal/Rectal No allergies noted Group B Strep Culture: No Group B Streptococci isolated. Source: VAG Collected: 04/29/21 11:10 Site: Vaginal/Rectal Received : 04/29/21 17:23 Group B Strep Culture FINAL 05/02/21 09:05 No Group B Streptococci isolated. Normal [facility] Comment on above: Performed By: #### G [facility] #### [address] [address] Progress Noteon 04-29-2021 Stonemason Helper Authentication Interface Message Text Visit Subjective: [...] growth every 4 weeks DELIVERY PLAN Hospital: [facility] Let Labor GBS culture: done 04/29 Contraception: undecided : yes, declines Ped: chosen Reviewed on 04/29/2021 complicated by cerebral ventriculomegaly 03/02/2021 See [facility] Neonatology and Neuro consult completed 04/09 Neurosurgery telehealth 04/21/21-Crystal Reviewed on 04/29/2021 Kick counts reviewed and encouraged Precautions reviewed Follow up OB visit weekly BPP weekly Growth scan as scheduled. The total time spent on patient care today 04/29/2021 was 30 minutes. -15 minutes direct patient care -15 minutes chart review and documentation Normal [facility] Progress Noteon 04-21-2021 Stonemason Helper Authentication Interface Message Text Neurosurgery Consult [...] urgency of transferring him to [facility] and we could follow him as [...] likely be performed by the neurosurgery attending transaction manager. Depending upon the age of intervention, he [...] office at any time, the number is [phone]. Thanks again and kindest regards, Princess Rojas MD, [facility], Division of Pediatric Neurosurgery [facility] I spent a total of [...] and the provider's location at office. Normal [facility] Progress Noteon 04-20-2021 Stonemason Helper Authentication Interface Message Text Visit Subjective: [...] growth every 4 weeks DELIVERY PLAN Hospital: [facility] Let Labor GBS culture: 04/20: Contraception: undecided : yes, declines Ped: chosen Reviewed on 04/20/2021 complicated by cerebral ventriculomegaly 03/02/2021 Priority: High See [facility] Neonatology and Neuro consult completed 04/09 Neurosurgery telehealth 04/21/21-Crystal Reviewed on 04/20/2021 Follow up: Weekly OB and BPP Reinforced precautions. The total patient time of the visit was 25 minutes: 15 direct patient care, 10 minutes chart review and documentation. Normal [facility] Progress Noteon 04-09-2021 Stonemason Helper Authentication Interface Message Text Visit Subjective: Atiya Mancia is being seen today for an transfer of care obstetrical visit. She is at 34w3d gestation. Her obstetrical history is significant for bilateral ventriculomegaly. [facility], met with Neuro and Neonates today. [...] growth every 4 weeks DELIVERY PLAN Hospital: [facility] Let Labor GBS culture: Contraception: undecided : yes, declines Ped: chosen Reviewed on 04/09/2021 complicated by cerebral ventriculomegaly 03/02/2021 See [facility] Neonatology and Neuro consult completed 04/09 Reviewed on 04/09/2021 Logistics of practice/POC reviewed Precautions reviewed Follow up OB visit 2 weeks (gbs at appt)- pt prefers [place] location if able BPP weekly Growth scan as scheduled. The total time spent on patient care today 04/09/2021 was 30 minutes. -15 minutes direct patient care -15 minutes chart review and documentation Normal [facility] Stonemason Helper Authentication Interface Message Text Dos: 04/09/[address] [facility] NEONATOLOGY CONSULT Referring/Prequesting Provider: No ref. [...] Benefits of Breast milk Location of care: [facility] Level of care/resuscitation: Unrestricted Information Letters given PRESENT FOR CONSULTATION: Both parents FOLLOW UP: Delivery Hospital: [facility] Baby's Follow-up Physician: NASEEM dangelo Call [...] of the visit was 30 minutes. Normal [facility] Z Miscellaneous Sendouton Patient Results ----- Normal [facility] Comment on above: Order Comment: 30 mL ACD-A whole blood AND 10 mL serum Test Name->IInitial testing of Maternal sample ONLY (Test code 5303) What is the sendout facility name, if known?->[facility] ([facility]) Result Comment: Plea se refer to the complete report scanned into [employer] 02-12-2021. Performed By: #### Z MSO #### [address] [id number] Performed by: see below Normal [facility] Comment on above: Order Comment: 30 mL ACD-A whole blood AND 10 mL serum Test Name->IInitial testing of Maternal sample ONLY (Test code 5303) What is the sendout facility name, if known?->[facility] ([facility]) Result Comment: Test ing Performed: [facility] [place] [facility] [address] [place] [id number] Performed By: #### Z MSO #### [address] [address] Toxoplasma IGG AND IGM (Pren atal Screen)on 02-10-2021 Toxoplasma IgG (Dye Test) <1:16 Normal <1:16 NEGATIVE [facility] Comment on above: Order Comment: Order a CMV Avidity test if IgM is positive.Release to patient->[id number]&Blood Performed By: #### T SLPN ####[address] [phone] Toxoplasma IgM HILDA 0.0 Normal [facility] Comment on above: Order Comment: Order a CMV Avidity test if IgM is positive.Release to patient->[id number]&Blood Result Comment: 0.0-1.6 = Negative 1.7-1.9 = Equivocal >= 2.0 = Positive Testing Performed: [facility], [address] [id number] Performed By: #### T SLPN ####[address] [phone] [facility] SEE COMMENTS Normal [facility] Comment on above: Order Comment: GOKEY CMVP CMV ABS IGG AND IGM1.0 mL serum, refrig.?Order a CMV Avidity test if IgM is positive.?Provide an additional 0.5 mL of serum (1.5 mL total) Result Comment: Test Result Flag Unit RefValue Cytomegalovirus Ab, IgM and IgG, S Cytomegalovirus Ab, IgM, S Negative Negative Cytomegalovirus Ab, IgG, S Positive AB Negative Test Performed by: [facility] [address] [id number] Engineering Agent: Dagoberto Guerrero M.D. Ph.D.; CLIA# [id number] Performed By: #### M [facility] ####[address] [phone] CMV PCR, Quantitativeon CMV PCR, Quantitative Release to patient->Automatic [id number]&Blood CMV PCR, Quantitative: NEGATIVE: No CMV DNA DETECTED. Source: [facility] Collected: 02/03/21 10:44 Site: Received : 02/03/21 11:15 CMV PCR, Quantitative FINAL 02/06/21 13:10 NEGATIVE: No CMV DNA DETECTED. - Method: PCR amplification with fluorescent probe detection using [employer] ASR CMV reagents from [employer]. - The quantitative range of this assay is 800 (2.9 log 10) to 400,000,000 (8.6 log 10) IU/mL with a limit of detection of 300 (2.5 log 10) IU/mL. - Comment: This test was developed and its performance determined by [facility]. It has not been cleared [...] and precision. - Reviewed by: Mary Bazzi [facility] Comment on above: Performed By: #### C MVQN ####[address] [phone] Z Miscellaneous Sendouton Test Name Initial testing Normal [facility] Comment on above: Order Comment: 30 mL ACD-A whole blood AND 10 mL serum Test Name->IInitial testing of Maternal sample ONLY (Test code 5303) What is the sendout facility name, if known?->[facility] ([facility]) Performed By: #### Z MSO #### [facility] of [address] [address] MRI (SINGLE)on 021 MRI (SINGLE) PRELIMINARY REPORT: [...] Dr. Raj Tapia at 01/07/2021 16:57 Normal [facility] No Panel Informationon 08-07 PANEL NAME THIN PREP (QU) PAP W ITH HPV REFLEX Normal [facility]; [facility] Laboratory - Urinalysison Glucose Test strip (U) [Mass/Vol] Negative [facility].; [facility]. Protein Ql (U) Negative Normal [facility].; [employer]. Laboratory - Urinalysison Glucose Test strip (U) [Mass/Vol] Negative Normal [facility].; [facility]. Protein Ql (U) Negative Normal [facility].; [employer]. Laboratory - Microbiology an d Antimicrobial susceptibilityon 05-30-2014 S. agalactiae Org specific cx Ql (Vag fld) CULTURE VAGINAL GROUP B Normal [facility].; [facility]. Laboratory - Urinalysison Glucose Test strip (U) [Mass/Vol] Negative Normal [facility].; [employer]. Protein Ql (U) Negative Normal [facility].; [employer]. Laboratory - Urinalysison Glucose Test strip (U) [Mass/Vol] Negative Normal [facility].; [facility]. Protein Ql (U) Negative Normal [facility] [employer].; [facility]. Laboratory - Urinalysison Glucose Test strip (U) [Mass/Vol] Negative Normal [facility] [employer].; [employer]. Protein Ql (U) Negative Normal [facility] [employer].; [facility]. Laboratory - Chemistry and C hemistry - challengeon 03-14-2014 Glucose 1 Hr post 50 g glucose PO [Moles/Vol] GLUCOSE CHALLENGE 50GM 1 HOUR Normal [facility].; [facility]. Glucose [Mass/Vol] 76 mg/dL Normal 70 - 140 mg/dL [facility].; [facility]. Laboratory - Hematology and Cell countson 03-14-2014 Hemoglobin (Bld) [Mass/Vol] 11.5 g/dL Abnormal 12.0 - 16.0 g/dL [facility] [employer].; [facility]. Laboratory - Urinalysison Glucose Test strip (U) [Mass/Vol] Negative Normal [facility] [employer].; [facility]. Protein Ql (U) trace Normal [facility].; [facility]. Laboratory - Urinalysison Glucose Test strip (U) [Mass/Vol] Negative Normal [facility] [employer].; [employer], [employer]. Protein Ql (U) Negative Normal [facility].; [facility]. Laboratory - Chemistry and C hemistry - challengeon 12-24-2013 Bilirubin Ql (U) Negative Normal [facility].; [facility]. Ketones Ql (U) Negative Normal [facility].; [employer], [employer]. pH (U) 5.5 [pH] Normal [facility].; [facility]. Specific gravity (U) [Rel density] >=1.030 Normal [facility].; [facility]. Urobilinogen Qn (U) 0.2 mg/dL Normal [facility] [employer].; [facility]. Laboratory - Hematology and Cell countson 12-24-2013 Hemoglobin Ql (U) Negative Normal [facility] [employer].; [facility]. Laboratory - Specimen inform ationon 12-24-2013 Appearance (U) Clear Normal [facility]; [facility] Color (U) yellow Normal [facility] [employer].; [facility]. Laboratory - Urinalysison Glucose Test strip (U) [Mass/Vol] Negative Normal [employer]; [facility]. Leukocyte esterase Test strip Ql (U) small Abnormal [facility] [employer].; [facility]. Nitrite Ql (U) Negative Normal [employer]; [facility]. Protein Ql (U) Negative Normal [facility].; [facility]. Laboratoryon 11-29-2013 Obstetric 1996 panel (S+Bld) OB PANEL Normal [employer]; [facility]. Laboratory - Blood bankon ABO group Nom (Bld) A Normal [facility] [employer]; [facility]. Blood group antibody screen Ql Negative Normal [facility]; [facility]. Rh Nom (Bld) Positive Normal [facility].; [facility]. Laboratory - Chemistry and C hemistry - challengeon 11-29-2013 Bilirubin Ql (U) Negative Normal [facility].; [facility]. Ketones Ql (U) Negative Normal [facility].; [facility]. pH (U) 5.5 [pH] Normal [facility].; [facility]. Specific gravity (U) [Rel density] >=1.030 Normal [facility].; [facility]. TSH Qn 1.14 m[IU]/L Normal 0.34 - 5.60 {uIU/ml} [facility].; [facility]. Urobilinogen Qn (U) 0.2 mg/dL Normal [facility] [employer]; [facility]. Laboratory - Hematology and Cell countson 11-29-2013 Basophils (Bld) [#/Vol] 0.00 {X10_3} Normal 0.00 - 0.10 {X10_3} [facility].; [facility] [employer] [facility], [facility] Basophils/100 WBC (Bld) 0.4 % Normal 0.0 - 2.0 % [facility], [facility].; [facility] [employer] [facility], [facility] Erythrocyte distribution width (RBC) [Ratio] 13.0 % Normal 12.0 - 15.6 % [facility], [facility].; [facility] [employer] [facility], [facility] Hematocrit (Bld) [Volume fraction] 36.6 % Normal 34.0 - 46.0 % [facility], [facility].; [facility] [employer] [facility], [facility] Hemoglobin (Bld) [Mass/Vol] 12.8 g/dL Normal 12.0 - 16.0 g/dL [facility], [facility].; [employer], [facility] Hemoglobin Ql (U) Negative Normal [facility].; [facility] [employer] [facility], [facility] Lymphocytes (Bld) [#/Vol] 1.70 {X10_3} Normal 0.80 - 2.80 {X10_3} [facility] [employer], [facility].; [employer], [facility]. Lymphocytes/100 WBC (Bld) 21.9 % Normal 20.0 - 45.0 % [facility], [facility].; [employer], [facility]. MCH (RBC) [Entitic mass] 30 pg Normal 27 - 33 pg [facility] [employer], [facility].; [employer], [facility]. MCHC (RBC) [Mass/Vol] 35 {X10_3} Normal 32 - 3 6 {X10_3} [facility] [employer], [facility].; [email or web address] MCV (RBC) [Entitic vol] 86 fL Normal 80 - 99 fL [facility].; [employer], [facility]. Monocytes (Bld) [#/Vol] 0.60 {X10_3} Normal 0.20 - 1.00 {X10_3} [facility] [employer] [facility], [facility].; [employer] Monocytes/100 WBC (Bld) 7.3 % Normal 0.0 - 10.0 % [facility] [employer], [facility].; [facility] Monocytes/100 WBC (Bld) 4 % Abnormal 0 - 0 % [facility], [facility].; [email or web address], [facility]. Morphology Johnathon (Bld) [Interp] N/A Normal [facility].; [facility] Neutrophils (Bld) [#/Vol] 5.10 {X10_3} Normal 1.50 - 7.10 {X10_3} [facility] [employer] Neutrophils/100 WBC (Bld) 66.0 % Normal 46.0 - 76.0 % [facility].; [employer] Platelet mean volume (Bld) [Entitic vol] 7.9 fL Normal 6.6 - 10.5 fL [facility].; [employer] Platelets (Bld) [#/Vol] 210 {3/UL} Normal 150 - 450 {3/UL} [facility] [employer] [facility].; [employer] RBC (Bld) [#/Vol] 4.26 {6/UL} Normal 4.10 - 5.3 0 {6/UL} [facility].; [employer], [employer]. WBC (Bld) [#/Vol] 7.8 {3/UL} Normal 4.5 - 10.8 {3/UL} [employer], [employer].; [employer] Laboratory - Specimen inform ationon 11-29-2013 Appearance (U) Clear Normal [facility] [employer] [facility].; [employer] Color (U) n Normal [facility] [employer] [facility].; [employer] Laboratory - Urinalysison Glucose Test strip (U) [Mass/Vol] Negative Normal [facility] [employer].; [employer] Leukocyte esterase Test strip Ql (U) Negative Normal [employer], [employer].; [employer] Nitrite Ql (U) Negative Normal [facility] [employer].; [employer] Protein Ql (U) Negative Normal [facility] [employer], [employer].; [employer] No Panel Informationon 11-29 MANUAL DIFF N/A Normal [facility].; [facility]. RDW/SD 38.5 fL Normal 36.0 - 50.0 fL [facility].; [facility] 0.3 Normal [facility]; [facility] Laboratory - Microbiology an d Antimicrobial susceptibilityon 03-30-2011 S. pyogenes Ag EIA Ql (Throat) Negative Normal [facility].; [facility] Vital Signs Date Time Vital Sign Value Performing Clinician Facility 11-29-2024 10:07-0400 Body mass index (BMI) [Ratio] 24.98 kg/m2 Maximus Fletcher APRN.PETROLEUM REFINERY WORKER Work Phone: [facility] 11-29-2024 10:07-0400 Body weight 60.42 kg Maximus Fletcher APRN.PETROLEUM REFINERY WORKER Work Phone: [facility] 11-29-2024 10:07-0400 Diastolic blood pressure 60 mm[Hg] Maximus Fletcher APRN.PETROLEUM REFINERY WORKER Work Phone: [facility] 11-29-2024 10:07-0400 Systolic blood pressure 100 mm[Hg] Maximus Fletcher APRN.PETROLEUM REFINERY WORKER Work Phone: [facility] 11-24-2024 13:35-0400 Body temperature 98.9 [degF] No Primary Care Physician [facility] 11-24-2024 13:35-0400 Diastolic blood pressure 78 mm[Hg] No Primary Care Physician [facility] 11-24-2024 13:35-0400 Heart rate 78 /min No Primary Care Physician [facility] 11-24-2024 13:35-0400 Respiratory rate 18 /min No Primary Care Physician [facility] 11-24-2024 13:35-0400 SaO2% (BldA) [Mass fraction] 99 % No Primary Care Physician [facility] 11-24-2024 13:35-0400 Systolic blood pressure 117 mm[Hg] No Primary Care Physician [facility] 11-24-2024 09:17-0400 Body height 154.94 cm No Primary Care Physician [facility] 11-24-2024 09:17-0400 Body mass index (BMI) [Ratio] 24 kg/m2 No Primary Care Physician [facility] 11-24-2024 09:17-0400 Body weight 57.6 kg No Primary Care Physician [facility] 10-04-2024 08:48-0400 Body mass index (BMI) [Ratio] 23.07 kg/m2 Marlyn Plotts INTEGRATION ASSISTANT.CNM Work Phone: [facility] 10-04-2024 08:48-0400 Body weight 55.79 kg Marlyn Plotts INTEGRATION ASSISTANT.CNM Work Phone: [facility] 10-04-2024 08:48-0400 Diastolic blood pressure 64 mm[Hg] Marlyn Plotts INTEGRATION ASSISTANT.CNM Work Phone: [facility] 10-04-2024 08:48-0400 Systolic blood pressure 100 mm[Hg] Marlyn Plotts INTEGRATION ASSISTANT.CNM Work Phone: [facility] 09-06-2024 09:50-0400 Body mass index (BMI) [Ratio] 22.32 kg/m2 Charito Zaragoza MD Work Phone: [facility] 09-06-2024 09:50-0400 Body weight 53.98 kg Charito Zaragoza MD Work Phone: [facility] 09-06-2024 09:50-0400 Diastolic blood pressure 60 mm[Hg] Charito Zaragoza MD Work Phone: [facility] 09-06-2024 09:50-0400 Systolic blood pressure 104 mm[Hg] Charito Zaragoza MD Work Phone: [facility] 08-09-2024 11:01-0400 Body mass index (BMI) [Ratio] 21.57 kg/m2 Marlyn Plotts INTEGRATION ASSISTANT.CNM Work Phone: [facility] 08-09-2024 11:01-0400 Body weight 52.16 kg Marlyn Plotts INTEGRATION ASSISTANT.CNM Work Phone: [facility] 08-09-2024 11:01-0400 Diastolic blood pressure 64 mm[Hg] Marlyn Plotts INTEGRATION ASSISTANT.CNM Work Phone: [facility] 08-09-2024 11:01-0400 Systolic blood pressure 112 mm[Hg] Marlyn Read INTEGRATION ASSISTANT.CNM Work Phone: [facility] 07-18-2024 09:49-0400 Body height 155.5 cm Maximus Haury INTEGRATION ASSISTANT.PETROLEUM REFINERY WORKER Work Phone: [facility] 07-18-2024 09:49-0400 Body mass index (BMI) [Ratio] 21.57 kg/m2 Maximus Haury INTEGRATION ASSISTANT.PETROLEUM REFINERY WORKER Work Phone: [facility] 07-18-2024 09:49-0400 Body weight 52.16 kg Maximus Haury INTEGRATION ASSISTANT.PETROLEUM REFINERY WORKER Work Phone: [facility] 07-18-2024 09:49-0400 Diastolic blood pressure 60 mm[Hg] Maximus Haury INTEGRATION ASSISTANT.PETROLEUM REFINERY WORKER Work Phone: [facility] 07-18-2024 09:49-0400 Systolic blood pressure 114 mm[Hg] Maximus Haury INTEGRATION ASSISTANT.PETROLEUM REFINERY WORKER Work Phone: [facility] 07-09-2024 14:50-0400 Body height 157.5 cm Maty Tolentino MD Work Phone: [facility] 07-09-2024 14:50-0400 Body mass index (BMI) [Ratio] 21.03 kg/m2 Maty Tolentino MD Work Phone: [facility] 07-09-2024 14:50-0400 Body weight 52.16 kg Maty Tolentino MD Work Phone: [facility] 07-09-2024 14:50-0400 Diastolic blood pressure 64 mm[Hg] Maty Tolentino MD Work Phone: [facility] 07-09-2024 14:50-0400 Systolic blood pressure 110 mm[Hg] Maty Tolentino MD Work Phone: [facility] 01-29-2022 10:40-0400 Body height 156.21 cm Tapan Celaya MD Work Phone: [facility] 01-29-2022 10:40-0400 Body mass index (BMI) [Ratio] 21.56 kg/m2 aTpan Celaya MD Work Phone: [facility]; [facility] 01-29-2022 10:40-0400 Body surface area Derived from formula 1.51 m2 Tapan Celaya MD Work Phone: [facility]; [facility] 01-29-2022 10:40-0400 Body temperature 97.8 [degF] Tapan Celaya MD Work Phone: [facility]; [facility] Comment on above: Method: Tympanic 01-29-2022 10:40-0400 Body weight 52.62 kg Tapan Celaya MD Work Phone: [facility]; [facility] 01-29-2022 10:40-0400 Diastolic blood pressure 60 mm[Hg] Tapan Celaya MD Work Phone: [facility]; [facility] Comment on above: Patient Position: Sitting; Cuff Location : Right Arm; Cuff Size: Standard 01-29-2022 10:40-0400 Heart rate 71 /min Tapan Celaya MD Work Phone: [facility]; [facility] Comment on above: Pattern: Regular 01-29-2022 10:40-0400 Inhaled oxygen concentration 20 % Tapan Celaya MD Work Phone: [facility]; [facility] Comment on above: Room air 01-29-2022 10:40-0400 SaO2% (BldA) [Mass fraction] 98 % Tapan Celaya MD Work Phone: [facility]; [facility] 01-29-2022 10:40-0400 Systolic blood pressure 95 mm[Hg] Tapan Celaya MD Work Phone: [employer]; [facility]. Comment on above: Patient Position: Sitting; Cuff Location : Right Arm; Cuff Size: Standard 01-12-2022 08:47-0400 Body height 156.21 cm Tapan Celaya MD Work Phone: [employer]; [facility]. 01-12-2022 08:47-0400 Body mass index (BMI) [Ratio] 21.75 kg/m2 Tapan Celaya MD Work Phone: [employer]; [facility]. 01-12-2022 08:47-0400 Body surface area Derived from formula 1.51 m2 Tapan Celaya MD Work Phone: [employer]; [facility]. 01-12-2022 08:47-0400 Body weight 53.07 kg Tapan Celaya MD Work Phone: [facility]. 01-12-2022 08:47-0400 Diastolic blood pressure 74 mm[Hg] Tapan Celaya MD Work Phone: [employer]; [facility]. Comment on above: Patient Position: Sitting; Cuff Location : Left Arm; Cuff Size: Large 01-12-2022 08:47-0400 Heart rate 74 /min Tapan Celaya MD Work Phone: [facility]. Comment on above: Pattern: Regular 01-12-2022 08:47-0400 Systolic blood pressure 110 mm[Hg] Tapan Celaya MD Work Phone: [facility]. Comment on above: Patient Position: Sitting; Cuff Location : Left Arm; Cuff Size: Large 08-07-2014 09:58-0400 Body height 156.21 cm Vivian Gonsalez LPN Work Phone: [facility]. 08-07-2014 09:58-0400 Body mass index (BMI) [Ratio] 22.12 kg/m2 Vivian Gonsalez COLD MOLDING PRESS OPERATOR Work Phone: [facility]. 08-07-2014 09:58-0400 Body surface area Derived from formula 1.52 m2 Vivian Gonsalez COLD MOLDING PRESS OPERATOR Work Phone: [facility].; [facility]. 08-07-2014 09:58-0400 Body weight 53.98 kg Vivian Gonsalez COLD MOLDING PRESS OPERATOR Work Phone: [facility].; [facility]. 08-07-2014 09:58-0400 Diastolic blood pressure 78 mm[Hg] iVvian Gordony COLD MOLDING PRESS OPERATOR Work Phone: [facility]; [facility]. Comment on above: Patient Position: Sitting; Cuff Location : Left Arm; Cuff Size: Standard 08-07-2014 09:58-0400 Heart rate 80 /min Vivian Gordony COLD MOLDING PRESS OPERATOR Work Phone: [facility]; [facility]. Comment on above: Pattern: Regular 08-07-2014 09:58-0400 Systolic blood pressure 128 mm[Hg] Vivian Gonsalez COLD MOLDING PRESS OPERATOR Work Phone: [facility]; [facility]. Comment on above: Patient Position: Sitting; Cuff Location : Left Arm; Cuff Size: Standard 06-13-2014 13:28-0400 Body weight 61.24 kg Neilee L Vess COLD MOLDING PRESS OPERATOR [facility]. 06-13-2014 13:28-0400 Diastolic blood pressure 71 mm[Hg] Neilee L Vess COLD MOLDING PRESS OPERATOR [facility]. Comment on above: Patient Position: Sitting; Cuff Location : Right Arm; Cuff Size: Standard 06-13-2014 13:28-0400 Heart rate 89 /min Neilee L Vess COLD MOLDING PRESS OPERATOR [facility].; [employer]. Comment on above: Pattern: Regular 06-13-2014 13:28-0400 Systolic blood pressure 127 mm[Hg] Nemigdaliae Mayur Cruz LPN [facility] [employer]. Comment on above: Patient Position: Sitting; Cuff Location : Right Arm; Cuff Size: Standard 06-06-2014 10:30-0400 Body weight 60.78 kg Vivian Gonsalez COLD MOLDING PRESS OPERATOR Work Phone: [employer].; [employer] 06-06-2014 10:30-0400 Diastolic blood pressure 72 mm[Hg] Vivian Sunshine COLD MOLDING PRESS OPERATOR Work Phone: [employer].; [facility]. Comment on above: Patient Position: Sitting; Cuff Location : Left Arm; Cuff Size: Standard 06-06-2014 10:30-0400 Heart rate 98 /min Vivian Sunshine COLD MOLDING PRESS OPERATOR Work Phone: [facility]. Comment on above: Pattern: Regular 06-06-2014 10:30-0400 Systolic blood pressure 118 mm[Hg] Vivian Sunshine COLD MOLDING PRESS OPERATOR Work Phone: [employer]. Comment on above: Patient Position: Sitting; Cuff Location : Left Arm; Cuff Size: Standard 05-30-2014 09:31-0500 Body weight 61.69 kg Vivian Gonsalez COLD MOLDING PRESS OPERATOR Work Phone: [employer].; [employer]. 05-30-2014 09:31-0500 Diastolic blood pressure 71 mm[Hg] Vivian Sunshine COLD MOLDING PRESS OPERATOR Work Phone: [employer]. Comment on above: Patient Position: Sitting; Cuff Location : Left Arm; Cuff Size: Standard 05-30-2014 09:31-0500 Heart rate 100 /min Vivian Sunshine COLD MOLDING PRESS OPERATOR Work Phone: [employer]. Comment on above: Pattern: Regular 05-30-2014 09:31-0500 Systolic blood pressure 119 mm[Hg] Vivian Sunshine COLD MOLDING PRESS OPERATOR Work Phone: [facility].; [facility]. Comment on above: Patient Position: Sitting; Cuff Location : Left Arm; Cuff Size: Standard 05-16-2014 09:20-0500 Body weight 60.33 kg Vivian Sunshine COLD MOLDING PRESS OPERATOR Work Phone: [facility].; [facility]. 05-16-2014 09:20-0500 Diastolic blood pressure 74 mm[Hg] Vivian Sunshine COLD MOLDING PRESS OPERATOR Work Phone: [facility].; [facility]. Comment on above: Patient Position: Sitting; Cuff Location : Left Arm; Cuff Size: Standard 05-16-2014 09:20-0500 Heart rate 99 /min Vivian Sunshine COLD MOLDING PRESS OPERATOR Work Phone: [facility].; [facility]. Comment on above: Pattern: Regular 05-16-2014 09:20-0500 Systolic blood pressure 115 mm[Hg] Vivian Sunshine COLD MOLDING PRESS OPERATOR Work Phone: [facility].; [facility]. Comment on above: Patient Position: Sitting; Cuff Location : Left Arm; Cuff Size: Standard 04-18-2014 09:11-0500 Body weight 56.93 kg Vivian Sunshine COLD MOLDING PRESS OPERATOR Work Phone: [facility].; [employer] 04-18-2014 09:11-0500 Diastolic blood pressure 66 mm[Hg] Vivian Sunshine COLD MOLDING PRESS OPERATOR Work Phone: [facility] [employer] Comment on above: Patient Position: Sitting; Cuff Location : Left Arm; Cuff Size: Standard 04-18-2014 09:11-0500 Heart rate 92 /min Vivian Sunshine COLD MOLDING PRESS OPERATOR Work Phone: [facility] Comment on above: Pattern: Regular 04-18-2014 09:11-0500 Systolic blood pressure 106 mm[Hg] Vivian Sunshine COLD MOLDING PRESS OPERATOR Work Phone: [facility] Comment on above: Patient Position: Sitting; Cuff Location : Left Arm; Cuff Size: Standard 03-14-2014 11:39-0500 Body weight 53.52 kg Neilee L Vess COLD MOLDING PRESS OPERATOR [facility] [facility] 03-14-2014 11:39-0500 Diastolic blood pressure 71 mm[Hg] Neilee L Vess COLD MOLDING PRESS OPERATOR [facility] Comment on above: Patient Position: Sitting; Cuff Location : Left Arm; Cuff Size: Standard 03-14-2014 11:39-0500 Heart rate 91 /min Neilee L Vess COLD MOLDING PRESS OPERATOR [facility] [employer] [facility] Comment on above: Pattern: Regular 03-14-2014 11:39-0500 Systolic blood pressure 103 mm[Hg] Neilee L Vess COLD MOLDING PRESS OPERATOR [facility] [facility] Comment on above: Patient Position: Sitting; Cuff Location : Left Arm; Cuff Size: Standard 02-07-2014 16:06-0500 Body weight 51.26 kg Neilee L Vess COLD MOLDING PRESS OPERATOR [facility] [employer] 02-07-2014 16:06-0500 Diastolic blood pressure 68 mm[Hg] Neilee L Vess COLD MOLDING PRESS OPERATOR [facility] [facility] Comment on above: Patient Position: Sitting; Cuff Location : Left Arm; Cuff Size: Standard 02-07-2014 16:06-0500 Heart rate 89 /min Neilee L Vess COLD MOLDING PRESS OPERATOR [facility] [employer] [facility] Comment on above: Pattern: Regular 02-07-2014 16:06-0500 Systolic blood pressure 107 mm[Hg] Neilee L Vess COLD MOLDING PRESS OPERATOR [facility] [employer] [facility] Comment on above: Patient Position: Sitting; Cuff Location : Left Arm; Cuff Size: Standard 12-24-2013 13:38-0400 Body weight 47.63 kg Neilee L Vess COLD MOLDING PRESS OPERATOR [facility] [facility] 12-24-2013 13:38-0400 Diastolic blood pressure 79 mm[Hg] Neilee L Vess COLD MOLDING PRESS OPERATOR [facility] [facility] Comment on above: Patient Position: Sitting; Cuff Location : Left Arm; Cuff Size: Standard 12-24-2013 13:38-0400 Heart rate 90 /min Neilee L Vess COLD MOLDING PRESS OPERATOR [facility] [facility] Comment on above: Pattern: Regular 12-24-2013 13:38-0400 Systolic blood pressure 121 mm[Hg] Neilee L Vess COLD MOLDING PRESS OPERATOR [facility] [facility] [employer] Comment on above: Patient Position: Sitting; Cuff Location : Left Arm; Cuff Size: Standard 11-29-2013 15:29-0400 Body weight 47.17 kg Neilee L Vess COLD MOLDING PRESS OPERATOR [facility] [facility] 11-29-2013 15:29-0400 Diastolic blood pressure 74 mm[Hg] Neilee L Vess COLD MOLDING PRESS OPERATOR [facility] [facility] Comment on above: Patient Position: Sitting; Cuff Location : Left Arm; Cuff Size: Standard 11-29-2013 15:29-0400 Heart rate 82 /min Neilee L Vess COLD MOLDING PRESS OPERATOR [facility] [facility] Comment on above: Pattern: Regular 11-29-2013 15:29-0400 Systolic blood pressure 118 mm[Hg] Neilee L Vess COLD MOLDING PRESS OPERATOR [facility] [facility] Comment on above: Patient Position: Sitting; Cuff Location : Left Arm; Cuff Size: Standard 08-26-2011 14:31-0400 Body height 156.21 cm Tapan Celaya MD Work Phone: [facility] [employer] 08-26-2011 14:31-0400 Body mass index (BMI) [Percentile] Per age and sex 52 % Tapan Celaya MD Work Phone: [facility] 08-26-2011 14:31-0400 Body mass index (BMI) [Ratio] 21.19 kg/m2 Tapan Celaya MD Work Phone: [facility] 08-26-2011 14:31-0400 Body surface area Derived from formula 1.5 m2 Tapan Celaya MD Work Phone: [facility] 08-26-2011 14:31-0400 Body temperature 97.2 [degF] Tpaan Celaya MD Work Phone: [facility]; [facility] Comment on above: Method: Tympanic 08-26-2011 14:31-0400 Body weight 51.71 kg Tapan Celaya MD Work Phone: [facility]; [facility] 08-26-2011 14:31-0400 Diastolic blood pressure 70 mm[Hg] Tapan Celaya MD Work Phone: [facility]; [facility] Comment on above: Patient Position: Sitting; Cuff Location : Left Arm; Cuff Size: Standard 08-26-2011 14:31-0400 Heart rate 81 /min Tapan Celaya MD Work Phone: [facility]; [facility] Comment on above: Pattern: Regular 08-26-2011 14:31-0400 Systolic blood pressure 110 mm[Hg] Tapan Celaya MD Work Phone: [facility]; [facility] Comment on above: Patient Position: Sitting; Cuff Location : Left Arm; Cuff Size: Standard 03-30-2011 10:37-0500 Body height 156.21 cm Tapan Celaya MD Work Phone: [facility] 03-30-2011 10:37-0500 Body mass index (BMI) [Percentile] Per age and sex 61 % Tapan Celaya MD Work Phone: [facility] 03-30-2011 10:37-0500 Body mass index (BMI) [Ratio] 21.75 kg/m2 Tapan Celaya MD Work Phone: [facility] 03-30-2011 10:37-0500 Body surface area Derived from formula 1.51 m2 Tapan Celaya MD Work Phone: [facility] 03-30-2011 10:37-0500 Body temperature 97.9 [degF] Tapan Celaya MD Work Phone: [facility]; [facility] Comment on above: Method: Tympanic 03-30-2011 10:37-0500 Body weight 53.07 kg Tapan Celaya MD Work Phone: [facility]; [facility] 12-29-2009 13:37-0400 Body height 157.48 cm Tapan Celaya MD Work Phone: [facility] 12-29-2009 13:37-0400 Body mass index (BMI) [Percentile] Per age and sex 25 % Tapan Celaya MD Work Phone: [facility] 12-29-2009 13:37-0400 Body mass index (BMI) [Ratio] 18.47 kg/m2 Tapan Celaya MD Work Phone: [facility] 12-29-2009 13:37-0400 Body surface area Derived from formula 1.43 m2 Tapan Celaya MD Work Phone: [facility]; [facility] 12-29-2009 13:37-0400 Body temperature 97.4 [degF] Tapan Celaya MD Work Phone: [facility]; [facility] Comment on above: Method: Tympanic 12-29-2009 13:37-0400 Body weight 45.81 kg Tapan Celaya MD Work Phone: [facility]. Encounters Encounter Date Encounter Type Care Provider Facility Start: 02-01-2025 End: 02-01-2025 ambulatory CHIKA Mayur CARIAS Facility:[facility] Start: 01-25-2025 End: 01-25-2025 ambulatory Maty Weiss Facility:[facility] Start: 01-24-2025 End: 01-24-2025 [facility] Start: 01-10-2025 End: 01-10-2025 ambulatory NELDA KVNG Facility:[facility] Start: 01-07-2025 End: 01-07-2025 ambulatory [facility] Facility:[facility] Start: 01-03-2025 End: 01-03-2025 [facility] Start: 12-27-2024 End: 12-27-2024 ambulatory CHARITO ZARAGOZA Facility:[facility] Start: 12-13-2024 End: 12-13-2024 ambulatory CHARITO ZARAGOZA Facility:[facility] Start: 11-29-2024 End: 11-29-2024 Patient encounter procedure Maximus Fletcher APRN.CNP Work Phone: OB/Gynecology Comment on above: Supervision of high risk in third trimester (HCC) (Primary Dx); 28 weeks gestation of (HCC) Start: 11-29-2024 End: 11-29-2024 ambulatory MAXIMUS FLETCHER Facility:[facility] Start: 11-24-2024 End: 11-24-2024 Emergency department patient visit No Primary Care Physician -Emergency Department Work Phone: Start: 11-01-2024 End: 11-01-2024 ambulatory SAE HOUSER Facility:[facility] Start: 10-05-2024 End: 10-05-2024 Telephone encounter Lexus Barrios APRN.CNM Work Phone: OB/Gynecology Comment on above: Medication Request Start: 10-04-2024 End: 10-04-2024 ambulatory MAXIMUS FLETCHER Facility:[facility] Start: 10-04-2024 End: 10-04-2024 Patient encounter procedure [employer] [facility] Comment on [...] Start: 09-06-2024 End: 09-06-2024 ambulatory CHARITO ZARAGOZA Facility:[facility] Start: 08-09-2024 End: 08-09-2024 ambulatory MAXIMUS FLETCHER Facility:[facility] Start: 08-09-2024 End: 08-09-2024 Patient encounter procedure Marlyn Read INTEGRATION ASSISTANT.CNM Work Phone: OB/Gynecology Comment on above: Nausea and vomiting during (HCC) (Primary Dx); Supervision of high risk in second trimester (HCC); 12 weeks gestation of (HCC); Encounter for supervision of high risk in first trimester, antepartum (HCC) Encounter for antena sydnee screening for malformation using ultrasound (HCC) (Primary Dx); 12 weeks gestation of (HCC) Start: 08-09-2024 End: 08-09-2024 ambulatory MAXIMUS FLETCHER Facility:[facility] Start: 07-25-2024 End: 09-24-2024 Follow-up encounter Maximus Fletcher INTEGRATION ASSISTANT.PETROLEUM REFINERY WORKER Work Phone: OB/Gynecology Start: 07-18-2024 End: 07-18-2024 ambulatory MAXIMUS FLETCHER Facility:[facility] Start: 07-18-2024 End: 07-18-2024 Patient encounter procedure Maximus Fletcher INTEGRATION ASSISTANT.PETROLEUM REFINERY WORKER Work Phone: OB/Gynecology Comment on above: Encounter for superv ision of high risk in first trimester, antepartum (HCC) (Primary Dx); 9 weeks gestation of (HCC); Screen for STD (sexually transmitted disease); Vaginal bleeding affecting early (HCC); 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 , currently (HCC); Heartburn during in first trimester (HCC); Nausea and vomiting during (HCC) Start: 07-09-2024 End: 07-09-2024 ambulatory MATY TOLENTINO Facility:[facility] Start: 07-09-2024 End: 07-09-2024 Patient encounter procedure Maty Tolentino MD Work Phone: OB/Gynecology Comment on above: Vaginal bleeding aff ecting early (HCC) (Primary Dx); Spotting complicating , first trimester (HCC); Threatened (HCC); High risk due to history of previous obstetrical problem in first trimester (HCC) Start: 05-02-2023 End: 05-02-2023 Medication Tapan Celaya MD Work Phone: [facility] Start: 03-23-2022 End: 03-23-2022 Orders Tapan Celaya MD Work Phone: [facility] Start: 01-29-2022 End: 01-29-2022 Office outpatient visit 15 minutes Tapan Celaya MD Work Phone: [facility] Start: 01-26-2022 ambulatory CHIKA BEDOLLA [facility] Start: 01-12-2022 End: 01-12-2022 Office outpatient new 30 minutes Tapan Celaya MD Work Phone: [facility] Start: 2018 End: 2018 Historical Summary Tapan Celaya MD Work Phone: [facility] Start: 08-07-2014 End: 08-07-2014 Patient encounter procedure Tapan Celaya MD Work Phone: [facility] Start: 06-13-2014 End: 06-13-2014 Patient encounter procedure Tapan Celaya MD Work Phone: [facility] Start: 06-06-2014 End: 06-06-2014 Patient encounter procedure Tapan Celaya MD Work Phone: [facility] Start: 05-30-2014 End: 05-30-2014 Patient encounter procedure Tapan Celaya MD Work Phone: [facility] Start: 05-16-2014 End: 05-16-2014 Patient encounter procedure Tapan Celaya MD Work Phone: [facility] Start: 04-18-2014 End: 04-18-2014 Patient encounter procedure Tapan Celaya MD Work Phone: [facility] Start: 03-14-2014 End: 03-14-2014 Patient encounter procedure Tapan Celaya MD Work Phone: [facility] Start: 02-07-2014 End: 02-07-2014 Patient encounter procedure Tapan Celaya MD Work Phone: [facility] Start: 12-24-2013 End: 12-24-2013 Patient encounter procedure Tapan Celaya MD Work Phone: [facility] Start: 12-14-2013 End: 12-14-2013 Historical Summary Tapan Celaya MD Work Phone: [facility] Start: 11-29-2013 End: 11-29-2013 Patient encounter procedure Tapan Celaya MD Work Phone: [facility] Start: 08-26-2011 End: 08-26-2011 Patient encounter procedure Tapan Celaya MD Work Phone: [facility] Start: 03-30-2011 End: 03-30-2011 Patient encounter procedure Tapan Celaya MD Work Phone: [facility] Start: 12-29-2009 End: 12-29-2009 Patient encounter procedure Tapan Celaya MD Work Phone: [facility] Procedures Date Procedure Procedure Detail Performing Clinician Start: 11-29-2024 Adult depression scr eening assessment Maximus Fletcher APRN.PETROLEUM REFINERY WORKER Work Phone: Start: 11-24-2024 Urnls dip stick/tabl et reagent auto microscopy No Primary Care Physician Start: 11-24-2024 Estimated creatinine clearance No Primary Care Physician Start: 10-04-2024 Us preg uterus after 1st trimest / gestation Maximus Fletcher APRN.PETROLEUM REFINERY WORKER Work Phone: Start: 08-09-2024 Antibody screen CHARITO ZARAGOZA Comment on above: Order Comment: Speci men Type: BLOOD SPECIMEN Ordering Facility: [facility] Address: [address] [place] [address] Performed By: #### T SPN #### [facility] CLIA [id number] [address] [place] [address] [facility] Start: 08-09-2024 Us preg uterus after 1st trimest 03/28 gestation Maximus Fletcher APRN.PETROLEUM REFINERY WORKER Work Phone: Start: 07-18-2024 Iadna chlamydia trachomatis amplified probe tq Maximus Fletcher APRN.PETROLEUM REFINERY WORKER Work Phone: Start: 07-18-2024 Adult depression scr eening assessment Maximus Fletcher APRN.PETROLEUM REFINERY WORKER Work Phone: Start: 08-07-2014 End: 08-07-2014 Microscopic [...] malignant neoplasm of cervix Cervical Cancer Screening [facility] Start: 11-29-2025 Anxiety Screening Anxiety Screening [facility] Start: 11-29-2025 Depression Screening Depression Scre ing [facility] Start: 07-18-2025 Anxiety Screening Anxiety Screening [facility] Start: 07-18-2025 Depression Screening Depression Scre [facility] Start: 02-16-2025 ambulatory Ambulatory Facility:[facility] Start: 12-22-2024 RSV Vaccine (1 - Ris k 1-dose series) RSV Vaccine (1 - Risk 1-dose series) [facility] Start: 12-13-2024 End: 12-13-2024 Patient encounter procedure 12/13/2024 10:20 AM EDT Routine Office Visit OB/Gynecology [address] [place] [address] Charito Zaragoza MD [address] [place] [id number] OB OB/Gynecology Comment on above: OB Start: 11-26-2024 Influenza vaccination [facility] Start: 11-24-2024 [facility] Start: 11-01-2024 End: 11-01-2024 Patient encounter procedure 11/01/2024 8:30 AM EDT Routine Office Visit OB/Gynecology [address] [place], [place] [id number] Sae Houser MD [address] [place] [address] OB OB/Gynecology Comment on above: OB Start: [...] Expected: 07/18/2024, Expires: 10/17/2024 [facility] Work Phone: Comment on above: Expected: 07/18/2024 , Expires: 10/17/2024 Start: 07-18-2024 End: 10-17-2024 Hemoglobin A1c in Blood HEMOGLOBIN A1C Lab Routine Encounter for supervision of high risk in first trimester, antepartum (HCC) Expected: 07/18/2024, Expires: 10/17/2024 [facility] Comment on above: Expected: 07/18/2024 , Expires: 10/17/2024 Start: 07-18-2024 End: 10-17-2024 Hepatitis B virus surface Ag [Presence] in Serum HEPATITIS B SURFACE ANTIGEN Lab Routine Encounter for supervision of high risk in first trimester, antepartum (HCC) Expected: 07/18/2024, Expires: 10/17/2024 [facility] Comment on above: Expected: 07/18/2024 , Expires: 10/17/2024 Start: 07-18-2024 End: 10-17-2024 Hepatitis C virus Ab [Presence] in Serum HEPATITIS C ANTIBODY IA WITH CONFIRMATION Lab Routine Encounter for supervision of high risk in first trimester, antepartum (HCC) Expected: 07/18/2024, Expires: 10/17/2024 [facility] Comment on above: Expected: 07/18/2024 , Expires: 10/17/2024 Start: 07-18-2024 End: 10-17-2024 HIV 1+2 Ab [Presence] in Serum or Plasma by Immunoassay HIV 1/2 COMBO WITH REFLEX TO DIFFERENTIATION Lab Routine Encounter for supervision of high risk in first trimester, antepartum (HCC) Expected: 07/18/2024, Expires: 10/17/2024 [facility] Comment on above: Expected: 07/18/2024 , Expires: 10/17/2024 Start: 07-18-2024 End: 07-18-2025 OBSTETRIC ULTRASOUND WHI OBSTETRIC ULTRASOUND WHI Anc Imaging Routine Encounter for supervision of high risk in first trimester, antepartum (HCC) Expected: 07/18/2024, Expires: 07/18/2025 [facility] Comment on above: Expected: 07/18/2024 , Expires: 07/18/2025 Start: 07-18-2024 End: 10-17-2024 RUBELLA IGG ANTIBODY RUBELLA IGG ANTIBODY Lab Routine Encounter for supervision of high risk in first trimester, antepartum (HCC) Expected: 07/18/2024, Expires: 10/17/2024 [facility] Comment on above: Expected: 07/18/2024 , Expires: 10/17/2024 Start: 07-18-2024 End: 10-17-2024 SYPHILIS TREPONEMAL W/REFLEX SYPHILIS TREPONEMAL W/REFLEX Lab Routine Encounter for supervision of high risk in first trimester, antepartum (HCC) Expected: 07/18/2024, Expires: 10/17/2024 [facility] Comment on above: Expected: 07/18/2024 , Expires: 10/17/2024 Start: 07-18-2024 End: 10-17-2024 TYPE + SCREEN TYPE + SCREEN Blood Bank Routine Encounter for supervision of high risk in first trimester, antepartum (HCC) Expected: 07/18/2024, Expires: 10/17/2024 [facility] Comment on above: Expected: 07/18/2024 , Expires: 10/17/2024 Start: 07-18-2024 End: 07-18-2024 Patient encounter procedure 07/18/2024 9:30 AM EDT Initial Office Visit OB/Gynecology [address] [place] [address] Maximus Fletcher, FRANCISCO.PETROLEUM REFINERY WORKER [address] [place] [address] visit OB/Gynecology Comment on above: visit Start: 11-27-2023 Covid-19 Vaccine ( season) Covid-19 Vaccine ( season) [facility] Start: 11-27-2023 Influenza vaccination Influenza Vacc ine (#1) [facility] Start: 03-23-2022 End: 03-26-2022 Ct abdomen & pelvis w/contrast material Abdomen/Pelvis CT W/ Contrast per protocol (75528) Date: 23-Mar-2022 [facility] Start: 2021 HPV Vaccine (1 - 3-dose SCDM series) HPV Vaccine (1 - 3-dose SCDM series) [facility] Start: 2015 Screening for malignant neoplasm of cervix Cervical Cancer Screening [facility] Start: 2013 Hepatitis B Vaccine (1 of 3 - 19+ 3-dose series) Hepatitis B Vaccine (1 of 3 - 19+ 3-dose series) [facility] Start: 2013 Urine microalbumin profile DTaP,Tdap,Td Vaccine (1 - Tdap) [facility] Start: 2012 Anxiety Screening Anxiety Screening [facility] Start: 2012 Depression Screening Depression Scre ening [facility] Start: 2012 Hepatitis C screening Hepatitis C [facility] Start: 2012 HIV screening HIV Screening [facility] Bacteria identified in Urine by Culture BACTERIAL CULTURE, URINE Microbiology Routine Encounter for supervision of high risk in first trimester, antepartum (HCC) 07/18/2024 10:21 AM EDT [facility] PAP TEST PAP TEST Lab Debra senior Encounter for supervision of high risk in first trimester, antepartum (HCC) 07/18/2024 10:21 AM EDT [facility] Patient Education ED Viral Syndrome (Adul t) [facility] Work Phone: POC SPLITTER HEAD ULTRASOUND POC SPLITTER HEAD ULTRASO UND Anc Imaging Routine Spotting complicating , first trimester (HCC) Vaginal bleeding affecting early (HCC) Ordered: 07/09/2024 [facility] Work Phone: Comment on above: Ordered: 07/09/2024 Immunizations Immunization Date Immunization Notes Care Provider Fa ave 10-24-2001 diphtheria, tetanus toxoids and acellular pertussis vaccine Tapan Celaya MD Work Phone: [facility] 10-24-2001 haemophilus influenz ae type b vaccine, PRP-T conjugate Tapan Celaya MD Work Phone: [facility] 08-28-2001 varicella virus vaccine Tapan Celaya MD Work Phone: [facility]; [facility] 11-11-1999 diphtheria, tetanus toxoids and acellular pertussis vaccine Tapan Celaya MD Work Phone: [facility]; [facility] 11-11-1999 measles, mumps and rubella virus vaccine Tapan Celaya MD Work Phone: [facility]; [employer] [facility] 11-11-1999 poliovirus vaccine, inactivated Tapan Celaya MD Work Phone: [facility]; Dameron [employer] [facility] 01-12-1996 diphtheria, tetanus toxoids and acellular pertussis vaccine Tapan Celaya MD Work Phone: [facility]; Dameron [employer] [facility] 01-12-1996 haemophilus influenz ae type b vaccine, PRP-T conjugate Tapan Celaya MD Work Phone: [facility] 01-12-1996 hepatitis B vaccine, pediatric or pediatric/adolescent dosage Tapan Celaya MD Work Phone: [facility] 01-12-1996 measles, mumps and rubella virus vaccine Tapan Celaya MD Work Phone: [facility].; [facility] 01-12-1996 poliovirus vaccine, inactivated Tapan Celaya MD Work Phone: [facility].; [facility] 1994 diphtheria, tetanus toxoids and acellular pertussis vaccine Tapan Celaya MD Work Phone: [facility].; [facility] 1994 haemophilus influenz ae type b vaccine, PRP-T conjugate Tapan Celaya MD Work Phone: [facility].; [facility] 1994 hepatitis B vaccine, pediatric or pediatric/adolescent dosage Tapan Celaya MD Work Phone: [facility]; [facility] 1994 trivalent poliovirus vaccine, live, oral Tapan Celaya MD Work Phone: [facility].; [facility] 1994 diphtheria, tetanus toxoids and acellular pertussis vaccine Tapan Celaya MD Work Phone: [facility].; [facility] 1994 haemophilus influenz ae type b vaccine, PRP-T conjugate Tapan Celaya MD Work Phone: [facility].; [facility] 1994 hepatitis B vaccine, pediatric or pediatric/adolescent dosage Tapan Celaya MD Work Phone: [facility].; [facility] 1994 trivalent poliovirus vaccine, live, oral Tapan Celaya MD Work Phone: [facility]; [facility] Payers Date Payer Category Payer Self-pay 2022 Private Health Insurance [id number] 2022 Private Health Insurance [id number] 1994 Unknown [id number] Unknown Unknown [id number] Unknown [id number] Unknown [id number] Unknown [id number] Social History Date Type Detail Facility Start: 07-09-2024 End: 11-29-2024 Child(krystina) [facility]krystina) [facility] Tobacco Use: Tobacco Use: ; N ever smoker. [facility]; [facility] Start: 1995 Female [facility] Start: 07-09-2024 End: 11-24-2024 Never smoked tobacco [facility]; [facility] Work Phone: Start: 07-09-2024 Tobacco use and exposure Smokeless tobacco non-user [facility] Start: 07-09-2024 End: 11-29-2024 Alcoholic beverage intake Lifetime non-drinker (finding) [facility] Start: 07-09-2024 End: 11-29-2024 Tobacco use panel [facility] Start: 1995 Sex assigned at Not on file C [facility] Start: 07-17-2024 Education 8 [facility] Start: 05-26-2024 [facility] Start: 07-17-2024 Gender identity Identifies as female gender (finding) [facility] Start: 07-17-2024 Sexual orientation Heterosexual (fin teddy) [facility] Start: 04-29-2022 Adult Depression Screening Assessment 0 [facility] Goals Date Patient Goal Desired Activity /State Personal health goal Mental Status Date Assessment Result Facility 11-24-2024 Cognitive function Level Of Cons ciousness Awake;Alert;Appropriate;Follow s Comm[facility] [facility] Work Phone: Clinical Notes 01-07-2021 to 01-10-2025 Quick Notes - Maximus Fletcher APRN.CNP - 11/29/2024 10:18 AM EDTPrenatal Quick Notes - Maximus Fletcher APRN.CNP - 11/29/2024 10:18 AM EDTPatient InstructionsPatient Instructions Note Date & Type Note Facility 01-10-2025 Note HNO ID: [id number] Author: BARBARA FRAZIER RN Service: ? Author Type: Registered Nurse Type: Progress Notes Filed: 01/10/2025 09:30 Note Text: 100 [facility] 01-01-2025 Note HNO ID: [id number] Author: ?, ?, ? Service: ? Author Type: ? Type: Progress Notes Filed: 01/01/2025 08:39 Note Text: Scheduled with patient Start email sent [facility] 12-31-2024 Note HNO ID: [id number] Author: NELDA MEDEL PA-C Service: ? Author Type: Physician Shoeshiner Type: Progress Notes Filed: 12/31/2024 15:57 Note [...] 2024 CC: Referring Provider: Charito Zaragoza MD [facility] 12-31-2024 Note HNO ID: [id number] Author: ALFONSO GARCIA RN Service: ? Author [...] provider for review and evaluation for treatment. [facility] 11-29-2024 Progress note Formatting of t his [...] Supervision of high risk in third trimester ([facility]) - ICD9: V23.9, ICD10: O09.93 (primary diagnosis) - Continue PNV - Interested in 39 week elective induction 2. 28 weeks gestation of ([facility]) - ICD9: V22.2, ICD10: Z3A.28 - 1 hour GCT, CBC, and RPR today - Rh positive - Declines TDAP - LARC form reviewed and signed. Declines. - Depression screen negative - plan form discussed and given to Atiya - Reviewed how to pre register through [facility] PTL precautions and kick counts reviewed. RTO in 2 weeks or sooner as needed. Maximus Fletcher APRN.PETROLEUM REFINERY WORKER [facility] 11-29-2024 Miscellaneous Notes EH - S: Atiya [...] Supervision of high risk in third trimester ([facility]) - ICD9: V23.9, ICD10: O09.93 (primary diagnosis) - Continue PNV - Interested in 39 week elective induction 2. 28 weeks gestation of ([facility]) - ICD9: V22.2, ICD10: Z3A.28 - 1 hour GCT, CBC, and RPR today - Rh positive - Declines TDAP - LARC form reviewed and signed. Declines. - Depression screen negative - plan form discussed and given to Atiya - Reviewed how to pre register through [facility] PTL precautions and kick counts reviewed. RTO in 2 weeks or sooner as needed. Maximus Fletcher APRN.PETROLEUM REFINERY WORKER documented in this encounter [facility] 11-29-2024 Instructions Marcia Heard MA - 11/29/2024 10:05 AM EDT SEQUENTIAL SCREENINGS The [facility] offers sequential screenings for women who [...] It will require an appointment with our refrigerator repair technician. This is not an ultrasound performed [...] the above symptoms, contact our office at [phone] and ask to speak with a nurse. After hours, you can call doctors registry at [phone] OR call [facility] at [phone] and ask to have the doctor transaction manager paged. If you consider this an emergency, dial or go to your nearest emergency department. NEED HELP? Are you dealing with a violent or abusive relationship? Are you a victim of rape or sexual assult? Call [facility] ([place]) 24 hour Crisis Hotline: 670.101.6335 or 820-291-8730. MANUAL Your Guide to a Healthy manual is now on-line. Visit [email or web address] to download your free copy documented in this encounter [facility] 11-24-2024 Discharge summary [facility] 10-05-2024 Telephone encounter Note Patient notified. Joan Enciso RN The following approved medication requests have been transmitted electronically. Requested Prescriptions Signed Prescriptions Disp Refills famotidine (PEPCID) 20 mg tablet 60 tablet 3 Sig: Take 1 tablet by mouth two times a day. Authorizing Provider: MAXIMUS FLETCHER Pharmacy [place] [address] [facility] 10-05-2024 Miscellaneous Notes Patient notified. Joan Enciso RN The following approved medication requests have been transmitted electronically. Requested Prescriptions Signed Prescriptions Disp Refills famotidine (PEPCID) 20 mg tablet 60 tablet 3 Sig: Take 1 tablet by mouth two times a day. Authorizing Provider: MAXIMUS FLETCHER Pharmacy Information Pharmacy Address Telephone [address] [address] Patient 20w6d, calling requesting Rx of Pepcid. Her original Rx was discontinued and she states she has had another flare of acid reflux. Please file if appropriate. Tamra Caballero RN documented in this encounter [facility] 10-05-2024 Telephone encounter Note Patient 20w6d, calling requesting Rx of Pepcid. Her original Rx was discontinued and she states she has had another flare of acid reflux. Please file if appropriate. Tamra Caballero RN [facility] 10-04-2024 Progress note Formatting of t [...] - RTO 4 weeks Marlyn Read APRN.CNM [facility] 10-04-2024 Miscellaneous Notes S: Atiya Mancia [...] Marlyn Read APRN.CNM documented in this encounter [facility] 10-04-2024 Instructions Derrick Zamora MA - 10/04/2024 8:47 AM EDT SEQUENTIAL SCREENINGS The [facility] offers sequential screenings for women who [...] It will require an appointment with our refrigerator repair technician. This is not an ultrasound performed [...] the above symptoms, contact our office at [phone] and ask to speak with a nurse. After hours, you can call doctors registry at [phone] OR call [facility] at [phone] and ask to have the doctor transaction manager paged. If you consider this an emergency, dial [phone] or go to your nearest emergency department. NEED HELP? Are you dealing with a violent or abusive relationship? Are you a victim of rape or sexual assult? Call [facility] ([place]) 24 hour Crisis Hotline: 540.751.2592 or 109-882-5675. MANUAL Your Guide to a Healthy manual is now on-line. Visit [email or web address] ancyGuide to download your free copy documented in this encounter [facility] 09-06-2024 Progress note Formatting of t his note might be different from the original. KJ - S: Atiya denies LOF, contractions or vaginal bleeding. She reports increased migraine headaches. She stopped drinking coffee. O: 16w5d, see flow sheet SENSITIVE EXAM: Sensitive exam not performed. A/P: Assessment & Plan Supervision of high risk in second trimester ([facility]) 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 , currently (HCC) 16 weeks gestation of (HCC) Other migraine without status migrainosus, not intractable Advised on magnesium, tylenol & caffiene. Reviewed headache precautions. Anatomy US scheduled. Charito Zaragoza MD [facility] 09-06-2024 Miscellaneous Notes KJ - S: Atiya denies LOF, contractions or vaginal bleeding. She reports increased migraine headaches. She stopped drinking coffee. O: 16w5d, see flow sheet SENSITIVE EXAM: Sensitive exam not performed. A/P: Assessment & Plan Supervision of high risk in second trimester ([facility]) 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 , currently (HCC) 16 weeks gestation of (HCC) Other migraine without status migrainosus, not intractable Advised on magnesium, tylenol & caffiene. Reviewed headache precautions. Anatomy US scheduled. Charito Zaragoza MD documented in this encounter [facility] 09-06-2024 Instructions Shelby Saldivar MA - 09/06/2024 10:01 AM EDT SEQUENTIAL SCREENINGS The [facility] offers sequential screenings for women who [...] It will require an appointment with our refrigerator repair technician. This is not an ultrasound performed [...] the above symptoms, contact our office at [phone] and ask to speak with a nurse. After hours, you can call doctors registry at [phone] OR call [facility] at [phone] and ask to have the doctor transaction manager paged. If you consider this an emergency, dial 91-9 or go to your nearest emergency department. NEED HELP? Are you dealing with a violent or abusive relationship? Are you a victim of rape or sexual assult? Call [facility] ([place]) 24 hour Crisis Hotline: 611.248.2483 or 485-700-9642. MANUAL Your Guide to a Healthy manual is now on-line. Visit [email or web address] ancyGuide to download your free copy documented in this encounter [facility] 08-09-2024 Progress note Formatting of t [...] or sooner if needed Marlyn Read APRN.CNM [facility] 08-09-2024 Miscellaneous Notes S: Atiya Mancia [...] Marlyn Read APRN.CNM documented in this encounter [facility] 08-09-2024 Instructions Emily Thompson LPN - 08/09/2024 10:32 AM EDT SEQUENTIAL SCREENINGS The [facility] offers sequential screenings for women who [...] It will require an appointment with our refrigerator repair technician. This is not an ultrasound performed [...] the above symptoms, contact our office at [phone] and ask to speak with a nurse. After hours, you can call doctors registry at [phone] OR call [facility] at [phone] and ask to have the doctor transaction manager paged. If you consider this an emergency, dial or go to your nearest emergency department. NEED HELP? Are you dealing with a violent or abusive relationship? Are you a victim of rape or sexual assult? Call [facility] 24 hour Crisis Hotline: 232.624.5348 or 223-526-8734. MANUAL Your Guide to a Healthy manual is now on-line. Visit [email or web address]/[email or web address] ancyGuide to download your free copy SEQUENTIAL SCREENINGS The [facility] offers sequential screenings for women who [...] It will require an appointment with our refrigerator repair technician. This is not an ultrasound performed [...] the above symptoms, contact our office at [phone] and ask to speak with a nurse. After hours, you can call doctors registry at [phone] OR call [facility] at [phone] and ask to have the doctor transaction manager paged. If you consider this an emergency, dial 3-2-0 or go to your nearest emergency department. NEED HELP? Are you dealing with a violent or abusive relationship? Are you a victim of rape or sexual assult? Call [facility] 24 hour Crisis Hotline: 570.574.1744 or 432-021-9559. MANUAL Your Guide to a Healthy manual is now on-line. Visit [facility]obe[facility] ancyGuide to download your free copy documented in this encounter [facility] 07-17-2024 Instructions Maximus Fletcher APRN.PETROLEUM REFINERY WORKER - 07/17/2024 3:11 PM EDT Please select the following link to access the [facility] Your Guide to a Healthy . [email or web address] e Please select the following link to access the [facility] Your Guide to a Healthy . [email or web address] e MORNING SICKNESS IN by Jacque Perrin M.D. for [facility] As you may already know, morning sickness can often be more appropriately called evening sickness or nlmqp-veivci-ph-the-day sickness. While there are the lisbeth few, [...] medication, Doxylamine, is currently marketed as an aqwn-yzo-zcjqzij sleeping pill. Ask your practitioner if creating a vitamin B6/Doxylamine combination with guzf-umt-xcnidom medications would be safe for you. Prescription [...] Phenergan, Compazine, Reglan documented in this encounter [facility] 07-17-2024 Note HNO ID: [id number] Author: MAXIMUS FLETCHER APRN.PETROLEUM REFINERY WORKER Service: ? Author Type: Nurse Practitioner Type: Progress Notes Filed: 07/18/2024 10:17 Note Text: Lan Administrator offered: Patient declines. INITIAL OB ASSESSMENT HPI: [...] discussed with the Patient or Patient's Authorized Heavy Forger Helper. As applicable, any other physician, advance practice provider, medical student, or other health professional student that will be obs (more content not included)... [facility] 07-17-2024 History of Presen t illness Narrative Lan Administrator offered: Patient declines. INITIAL OB ASSESSMENT HPI: [...] discussed with the Patient or Patient's Authorized Heavy Forger Helper. As applicable, any other physician, advance practice provider, medical student, or other health professional student that will be observing or involved in the sensitive examination for educational or training purposes was discussed with the Patient or Authorized Heavy Forger Helper. The Patient or Authorized Heavy Forger Helper has agreed to proceed with the sensitive [...] Your guide to a health and the Munitions Worker. Discussed hemoglobin electrophoresis. Patient: Declines Reviewed midwifery and director of people services that are available. 2) Screening: Hemoglobin [...] of High Risk in First Trimester, Antepartum ([facility]) - 07/18/2024 Comment: Care Checklist Vaccines: [] [...] (28-30 weeks): [] Consent [] Contraception [] Fish Cutter [] TeamBirth handout Third trimester (36-40 weeks): [] GBS [] Presentation - [] Scheduled [] yes - Hibiclens, pre-op instructions, CBC, T&S ordered [] no [] H&P [] Preferences worksheet [] Scanned in EMR Vaginal Bleeding Affecting Early ([facility]) - 07/18/2024 Comment: July 18, 2024 Resolved. To monitor symptoms. Maximus Fletcher APRN.DEDRA History of Anomaly in Prior , Currently ([facility]) - 07/18/2024 Comment: July 18, 2024 Previous : baby with ventriculomegaly. Was monitored by MFM. Maximus Fletcher APRN.DEDRA Nausea and Vomiting During ([facility]) - 07/18/2024 Comment: 07/18/24 Vitamin B6 and Unisom doses reviewed. To notify if prescription is needed. Maximus Fletcher APRN.CNP Heartburn During in First Trimester ([facility]) - 07/18/2024 Comment: July 18, 2024 Rx for Pepcid sent. Maximus Fletcher APRN.CNP Follow up in 3 weeks or sooner prn. Plan for NT scan between 12w0d and 13w6d gestation. Maximus Fletcher APRN.DEDRA documented in this encounter [facility] 07-09-2024 Instructions Maty Molina MD - 07/09/2024 3:18 PM EDT - Continue taking your vitamins daily. - Avoid sexual intercourse until the bleeding completely stops. - Next follow-up appointment is scheduled for next week. - call if heavy vaginal bleeding documented in this encounter [facility] 07-09-2024 Note HNO ID: [id number] Author: MATY MOLINA MD Service: ? Author Type: Physician Type: Progress Notes Filed: 07/09/2024 15:48 Note Text: Obstetrics and Gynecology [place] PROPERTY COORDINATOR Visit Subjective Recording using Fontself software for draft documentation of the visit was discussed with the patient/authorized corporate sales representative; all questions welcomed and answered. Patient/authorized corporate sales representative agreed to proceed CHIEF COMPLAINT: Bleeding [...] Living3 SAB0 IAB0 Ectopic0 Multiple0 Live Births3 Talent Sourcing Specialist History LMP: 05/12/2024 Age at Menarche: Age at First : Age at Menopause: Talent Sourcing Specialist History Comments: Sexual Activity: Yes; Male Contraception: [...] discussed with the Patient or Patient's Authorized Heavy Forger Helper. As applicable, any other physician, advance practice provider, medical student, or other health professional student that will be observing or involved in the sensitive examination for educational or training purposes was discussed with the Patient or Authorized Heavy Forger Helper. The Patient or Authorized Heavy Forger Helper has agreed to proceed with the sensitive [...] imaging tab for details. Maty Weiss MD [facility] 07-09-2024 History of Presen t illness Narrative Images from the original note were not included. Obstetrics and Gynecology [place] PROPERTY COORDINATOR Visit Subjective Recording using Fontself software for draft documentation of the visit was discussed with the patient/authorized corporate sales representative; all questions welcomed and answered. Patient/authorized corporate sales representative agreed to proceed CHIEF COMPLAINT: Bleeding [...] Living3 SAB0 IAB0 Ectopic0 Multiple0 Live Births3 Talent Sourcing Specialist History LMP: 05/12/2024 Age at Menarche: Age at First : Age at Menopause: Talent Sourcing Specialist History Comments: Sexual Activity: Yes; Male Contraception: [...] discussed with the Patient or Patient's Authorized Heavy Forger Helper. As applicable, any other physician, advance practice provider, medical student, or other health professional student that will be observing or involved in the sensitive examination for educational or training purposes was discussed with the Patient or Authorized Heavy Forger Helper. The Patient or Authorized Heavy Forger Helper has agreed to proceed with the sensitive [...] imaging tab for details. Maty Weiss MD Lan Administrator offered: Patient declines. documented in this encounter [facility] 07-09-2024 Note HNO ID: [id number] Author: MATY MOLINA MD Service: ? Author Type: Physician Type: Progress Notes Filed: 07/09/2024 15:48 Note Text: Lan Administrator offered: Patient declines. [facility] 05-19-2021 Note Department of Obstet rics and [...] Information for the patient's : Jean Mancia [[id number]] male Weight: N/A Apgars: Information for the patient's : Jean Mancia [[id number]] Course: Uncomplicated Infant: Live male infant, circumcision [...] Your Medications These medications were sent to [facility] [address] [phone] - [phone] [address] [facility] [address] ? ibuprofen 600 MG tablet Activity: Activity [...] her physician if any of these occur. [facility] 04-09-2021 Note Ms Atiya Mancia is [...] metabolic abnormalities. The baby may need a SPLITTER HEAD shunt to address the ventriclomegaly . There [...] the time spent with education and counseling. [facility] 02-03-2021 Note Follow up FTC from Consultation [...] 1. Continued obstetrical care with her primary long chain dyeing machine operator is recommended. 2. Follow up q4 weeks to evaluate biometric parameters and ventricles (GRAPHIC ARTS INSTRUCTOR). These are planned with our [place] location. 3. surveillance as follows: once weekly BPP and weekly evaluation of ventricles (GRAPHIC ARTS INSTRUCTOR) beginning at 32 weeks. Planning of surveillance [...] send placenta to Pathology for evaluation. 9. Neonatology/Fish Cutter to evaluate infant and to determine nursery placement and to determine if additional evaluation is indicated. 10. head imaging and consultation with Pediatric Neurology within 1 month of age or sooner if clinically indicated. Please call [phone] to schedule. Indicate that you were followed by the [facility] when scheduling. 11. Consider referral to Medical Genetics should additional concerns be noted after delivery. The global coordinator or patient can request this consultation. Call [phone] to schedule. Indicate that you were followed by the [facility] when scheduling. 12. Additional follow up as clinically indicated. The total patient time of the visit was 25 minutes, of which greater than 50% of the time was spent counseling and coordinating care. Lizette Angel MD [facility] 01-07-2021 Note [facility] genetic counseli calli note Consultation has been requested by Dr. 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 MRI pending and performed on 01/07/21 Consider aneuploidy screening, maternal infectious serologies, and invasive testing. All declined today Plan: 1. Continued obstetrical care with her primary long chain dyeing machine operator is recommended. 2. Follow up q4 weeks to evaluate biometric parameters and ventricles (GRAPHIC ARTS INSTRUCTOR). These are planned with the [facility] and/or our [place] location. 3. surveillance as follows: once weekly BPP and weekly evaluation of ventricles (GRAPHIC ARTS INSTRUCTOR) beginning at 32 weeks. Planning of surveillance [...] send placenta to Pathology for evaluation. 9. Neonatology/Fish Cutter to evaluate infant and to determine nursery placement and to determine if additional evaluation is indicated. 10. head imaging and consultation with Pediatric Neurology within 1 month of age or sooner if clinically indicated. Please call [phone] to schedule. Indicate that you were followed by the [facility] when scheduling. 11. Consider referral to Medical Genetics should additional concerns be noted after delivery. The global coordinator or patient can request this consultation. Call [phone] to schedule. Indicate that you were followed by the [facility] when scheduling. 12. Additional follow up as clinically indicated. Her Plan of Care summary will be distributed. The total patient time of the visit was 60 minutes, of which greater than 50% of the time was spent counseling and coordinating care. Lizette Angel MD [facility] Discharge summary Note Date/Time November 24, 2024 1:34pm [facility] Medical Records Department [address] [place] [address] Emergency Department Summary 11/24/24 MR#: [id number] Acct: [id number] Name: ATIYA MANCIA Rep #:[id number] : 1995 29 From: Dusty Harp MD [...] 0 currently 20 weeks . Sees a [facility] HEALTH ASSISTANT group. Tuesday night start having a sore [...] 78.8 H Lymph % (Auto) 10.5 L [place] % (Auto) 7.6 Eos % (Auto) 1.5 [...] Clarity Cloudy Urine pH 6.0 Ur Specific [place] 1.025 Urine Protein 30 H Urine Glucose [...] of fluids and rest. Follow-up with your HEALTH ASSISTANT group as needed. Return if feeling worse. Think this was a virus. Print Language: Hebrew Disposition Disposition: Home, Self Care What to do if you have Problems For any increased pain, shortness of breath, bleeding, nausea or vomiting, chestpain, or any unexpected problems, contact your Primary Care Provider. Call Doctors Registry ([phone]) or report to the closest Emergency Room. Call 911 if necessary. 11/24/24 1334 <Electronically signed by Dusty Harp MD> Cosigner Signature (if applicable): CC: No Primary Care Physician ~ Signed [facility] Work Phone: Evaluation note* Diagnosis Vaginal bleeding affecting early (HCC)- Primary Spotting complicating , first trimester ([facility]) Threatened ([facility]) Threatened , unspecified as to episode of care High risk due to history of previous obstetrical problem in first trimester ([facility]) documented in this encounter [facility] note* Diagnosis Encounter for supervision of high risk in first trimester, antepartum (HCC)- Primary 9 weeks gestation of ([facility]) state, incidental Screen for STD (sexually transmitted disease) Screening examination for venereal disease Vaginal bleeding affecting early ([facility]) 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 , currently ([facility]) with other poor obstetric history Heartburn during in first trimester ([facility]) Nausea and vomiting during ([facility]) documented in this encounter [facility] note* Diagnosis Nausea and vomiting during (HCC)- Primary Supervision of high risk in second trimester ([facility]) Unspecified high-risk 12 weeks gestation of ([facility]) state, incidental Encounter for supervision of high risk in first trimester, antepartum ([facility]) documented in this encounter [facility] note* Diagnosis Encounter for screening for malformation using ultrasound ([facility])- Primary 12 weeks gestation of ([facility]) state, incidental [facility] Diagnosis Supervision of [...] 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 , currently ([facility]) documented in this encounter [facility] note* Diagnosis Supervision of high risk in second trimester (HCC)- Primary Unspecified high-risk 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 , currently ([facility]) with other poor obstetric history 16 weeks gestation of ([facility]) state, incidental Other migraine without status migrainosus, not intractable Encounter for screening for malformation using ultrasound ([facility])- Primary 20 weeks gestation of ([facility]) state, incidental documented in this encounter [facility] note* Diagnosis Supervision of high risk in second trimester (HCC)- Primary Unspecified high-risk 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 , currently (HCC) with other poor obstetric history 16 weeks gestation of ([facility]) state, incidental Other migraine without status migrainosus, not intractable Supervision of high risk in second trimester (HCC)- Primary Unspecified high-risk 20 weeks gestation of (HCC) state, incidental documented in this encounter [facility] noteNo assessment information availableWOhioHealth [facility] Work Phone: Evaluation note* Diagnosis Supervision of [...] (HCC) state, incidental [facility] Inst[facility] Plenty of fluids and rest. Follow-up with your HEALTH ASSISTANT group as needed. Return if feeling worse. Think this was a virus.[facility] Work Phone: Reason for referral (narrative)No reason for referral information availableWOhioHealth Grant Medical Center Work Phone: Summary Purpose Family History No Family History Records FoundNo Family History Records FoundNo Family History Records FoundNo Family History Records FoundNo Family History Records Found Advance Directives No Advanced Directives Records Found Advance Directive Response Recorded Date/ Time Do you have a Healthcare Power of [employer]? No November 24, 2024 9:40am Chief Complaint and Reason for Visit Chief Complaint Admit Date abd pain November 24, 2024 9: 16am Additional Source Comments INFORMATION SOURCE (unrecogn ized section and content) DATE CREATED AUTHOR 06/11/2021 [facility] DATE CREATED AUTHOR AUTHOR'S ORGANIZ ATION 06/30/2021 [facility] DATE CREATED AUTHOR AUTHOR'S ORGANIZ ATION 01/27/2022 [facility] DATE CREATED AUTHOR AUTHOR'S ORGANIZ ATION 02/02/2025 [facility] DATE CREATED AUTHOR AUTHOR'S ORGANIZ ATION 02/03/2025 [facility] Source Comments (unrecognize d section and content) In the event this informatio n is protected by the Federal Confidentiality of Alcohol and Drug Abuse Patient Records regulations: The Federal rules restrict any use of the information to criminally investigate or prosecute any alcohol or drug abuse patient.[facility] the event this information is protected by the Federal Confidentiality of Alcohol and Drug Abuse Patient Records regulations: The Federal rules restrict any use of the information to criminally investigate or prosecute any alcohol or drug abuse patient.[facility] the event this information is protected by the Federal Confidentiality of Alcohol and Drug Abuse Patient Records regulations: The Federal rules restrict any use of the information to criminally investigate or prosecute any alcohol or drug abuse patient.[facility] the event this information is protected by the Federal Confidentiality of Alcohol and Drug Abuse Patient Records regulations: The Federal rules restrict any use of the information to criminally investigate or prosecute any alcohol or drug abuse patient.[facility] the event this information is protected by the Federal Confidentiality of Alcohol and Drug Abuse Patient Records regulations: The Federal rules restrict any use of the information to criminally investigate or prosecute any alcohol or drug abuse patient.[facility] the event this information is protected by the Federal Confidentiality of Alcohol and Drug Abuse Patient Records regulations: The Federal rules restrict any use of the information to criminally investigate or prosecute any alcohol or drug abuse patient.[facility] the event this information is protected by the Federal Confidentiality of Alcohol and Drug Abuse Patient Records regulations: The Federal rules restrict any use of the information to criminally investigate or prosecute any alcohol or drug abuse patient.[facility] the event this information is protected by the Federal Confidentiality of Alcohol and Drug Abuse Patient Records regulations: The Federal rules restrict any use of the information to criminally investigate or prosecute any alcohol or drug abuse patient.[facility] the event this information is protected by the Federal Confidentiality of Alcohol and Drug Abuse Patient Records regulations: The Federal rules restrict any use of the information to criminally investigate or prosecute any alcohol or drug abuse patient.[facility] Hospital[facility] the event this information is protected by the Federal Confidentiality of Alcohol and Drug Abuse Patient Records regulations: The Federal rules restrict any use of the information to criminally investigate or prosecute any alcohol or drug abuse patient.[facility] Reason for Visit (unrecogniz ed section and content) Reason Comments Vaginal Bleeding Reason Comments Initial OB Visit Reason Onset Date Comments Care 08/09/2024 Reason Comments US Specialty Diagnoses / Procedures Referred By [place] t Referred To Contact [facility] Diagnoses Encounter for supervision of high risk in first trimester, antepartum (HCC) Procedures OBSTETRIC ULTRASOUND WHI US PREG UTERUS AFTER 1ST TRIMEST GESTATION Maximus Fletcher APRN.[employer] WORK[employer] [address] [place] [address] Phone: tel: fax: [facility] [address] [place] [address] Referral ID Status Reason Start Date Expiration Date V isits Requested Visits Authorized [id number] Closed Auto-Generate d Referral 07/18/2024 07/18/2025 1 1 Reason Onset Date Comments Care 09/06/2024 Referral ID Status Reason Start Date Expiration Date V isits Requested Visits Authorized [id number] Closed Auto-Generate d Referral 07/18/2024 07/18/2025 1 [...] BE BASED ON THE PRIMARY CLINICAL RECORDS. [facility]. provides no warranty or guarantee of the accuracy or completeness of information in this document.
--- NOTE | 2025-02-07 18:46 | OP.PCM_ITS ---
Operative Report (Standard) Operative Information Date of Procedure: 02/07/25 Pre-Operative Diagnosis: Cervical abrasion 1st degree perineal laceration Post-Operative Diagnosis: As above Surgery/Procedure Performed: Repair of first degree perineal laceration Placement of vaginal packing merchandising team lead: Yes Legal Entity Controller: Marlyn Read CNM Tasks completed by first coat operator: Retracting Type of Anesthesia: Epidural Procedure Start Time: 18:10 Procedure Stop Time: 18:35 Select all DRAINS/GRAFTS/IMPLANTS that apply: None Estimated Blood Loss: 600 mL Specimen collected: No Description of surgery: I was called by CNM to evaluate the patient's bleeding after delivery. Once I was at bedside the patient was having scant bleeding. The CNM had performed a uterine exploration and fundal massage. The placenta was normal appearing and intact. The CNM was examining the cervix and reported the EBL to be 600 mL. I had the CNM place a retractor in the posterior vagina to expose the cervix. Several ring forceps were used to follow all along the cervical edge noting no cervical lacerations. There was a small < 1 cm cervical abrasion over the posterior aspect of the cervix that was oozing, and a single figure of eight stitch was placed using 3-0 Vicryl to achieve hemostasis. The cervix was swollen and edematous with minimal oozing. The vagina and perineum were then examined noting a first degree vaginal laceration. The first degree vaginal laceration was re approximated using 3-0 Vicryl in usual fashion. Vaginal packing was placed. The RN placed a rivera catheter to drain the bladder. A CBC was ordered for the morning. Surgical Findings: First degree vaginal laceration Cervical abrasion over the posterior edge of the cervix Complications Complications: No Admit VTE Documentation VTE Present on Admission: No
[2025-02-08] VITALS: BP 118/67; PULSE 104; RESP 16; TEMP 36.1; O2SAT 98
[2025-02-08 04:13] VITALS: BP 106/66; PULSE 84; RESP 16; TEMP 36.7; O2SAT 97
[2025-02-08 06:38] LABS: Hematocrit 35.1 % (37-47); Hemoglobin 11.7 g/dL (12.0-15.0); Mean Corp Hgb Conc 33.3 g/dL (32-36); Mean Corpuscular Volume 85.4 fL (81-99); Mean Platelet Vol. 8.8 fl (6.2-12.0); Platelet Count 220 K/mm3 (150-450); RBC Distribution Width CV 17.5 % (11.6-14.6); RBC Distribution Width SD 54.5 fl (35.1-43.9); Red Blood Count 4.11 M/mm3 (4.2-5.4); White Blood Count 21.0 K/mm3 (4.4-11.0)
--- NOTE | 2025-02-08 07:06 | PN.OBGYN_ITS ---
Subjective Subjective Patient seen at bedside. Vaginal packing removed without difficulty. Simon catheter to be removed. Objective Data Objective Data Vital Signs: Vital Signs Temp Pulse Resp BP Pulse Ox O2 Del Method 98.1 F 84 16 106/66 97 Room Air 02/08/25 04:13 02/08/25 04:13 02/08/25 04:13 02/08/25 04:13 02/08/25 04:13 02/08/25 04:13 Oxygen Delivery Method Room Air Weight: 144 lb 12.8 oz Body Mass Index (BMI) 27.3 Intake & Output: Intake and Output for Last 24 Hours 02/06/25 02/07/25 02/08/25 23:59 23:59 23:59 Intake Total 2145.31 / 2145.31 Output Total 1600 / 1600 600 / 600 Balance 545.31 / 545.31 -600 / -600 Lab / Micro Data 02/08/25 06:30 Labs: Laboratory Results - last 24 hr 02/07/25 13:50: WBC 13.8 H, RBC 4.22, Hgb 11.9 L, Hct 36.8 L, MCV 87.2, MCH 28.2, MCHC 32.3, RDW Std Deviation 54.8 H, RDW Coeff of Radha 17.4 H, Plt Count 229, MPV 8.8, Immature Gran % (Auto) 0.700, Neut % (Auto) 83.2 H, Lymph % (Auto) 9.0 L, [place] % (Auto) 6.2, Eos % (Auto) 0.5, Baso % (Auto) 0.4, Absolute Neuts (auto) 11.5 H, Absolute Lymphs (auto) 1.24, Nucleated RBC % 0, Syphilis Total Ab Nonreactive, Blood Type A POSITIVE, Antibody Screen NEGATIVE 02/08/25 06:30: WBC 21.0 H, RBC 4.11 L, Hgb 11.7 L, Hct 35.1 L, MCV 85.4, MCH 28.5, MCHC 33.3, RDW Std Deviation 54.5 H, RDW Coeff of Radha 17.5 H, Plt Count 220, MPV 8.8 Assessment & Plan (1) Laceration, obstetrical, first degree: (2) Care and examination of lactating mother: (3) state: (4) Status post vaginal delivery: PLAN: Plan PPD 1 patient desires discharge home later
--- NOTE | 2025-02-08 07:07 | PCM.DC.SUM ---
Providers Date of Admission: 02/07/25 Primary Care Physician: Alexandra Primary Care Phys Reason For Visit: VAG Diagnosis Discharge Diagnosis (1) Laceration, obstetrical, first degree: Status: Acute Code(s): O70.0 - First degree perineal laceration during delivery (2) Care and examination of lactating mother: Status: Acute Code(s): Z39.1 - Encounter for care and examination of lactating mother (3) state: Status: Acute Code(s): Z39.2 - Encounter for routine follow-up (4) Status post vaginal delivery: Status: Acute Plan PPD 1 Ambulate and void without difficulty Vaginal packing removed Monitor lochia today HGB 11.9-11.7 - no iron at this time Anticipate d/c home later today - GBS untreated by 20 minutes- client relations specialist may allow discharge Medications at Discharge Home Medications vit no.95-ferrous fumarate 28 mg-folic acid 800 mcg tablet ( Multivitamins) 1 tab PO DAILY 01/25/25 vitamin B complex 1 cap PO DAILY 02/07/25 ibuprofen 600 mg tablet 600 mg PO Q6H PRN PRN Pain Score 1-10 #0 tabs 02/08/25 Hospital Course Operations None Procedures None Summary of Care Provided Minutes Spent on Discharge: 15 Hospital Course: Patient had vaginal delivery. Hospital course was uneventful. Physical Exam Narrative Patient seen at bedside. Denies pain. Denies dizziness, SOB, CP or headache. Vaginal packing removed and Simon catheter to be removed. without difficulty. Lochia decreased. Desires discharge home later today. Const alert and oriented x3 General Appearance: Negative for in distress HEENT normocephalic Eyes General Eye: normal appearance of both eyes Neck General: normal visual inspection Chest Chest: symmetrical chest wall rise Resp normal respiratory effort and normal air movement Effort and Inspection: symmetric chest movement; Negative for tachypneic Auscultation: clear to auscultation bilaterally Cardio regular rate and regular rhythm Peripheral Pulses: pulses 2+ throughout GI normal to inspection, nondistended, normoactive bowel sounds Narrative: Ice to perineum OB / External & Speculum: vaginal bleeding and other Lochia decreasing Uterus Palpation: uterus fundus firm (Below U) Extremity normal to inspection, full ROM and normal capillary refill Skin no rashes or lesions noted Neuro oriented x3, CN's II-XII intact bilaterally and gait normal Psych mental status grossly normal, thought process normal and activity/motor behavior normal Weight / BMI Weight Weight: 144 lb 12.8 oz Body Mass Index (BMI) 27.3 ABG / Lab / Microbiology Data 02/08/25 06:30 Laboratory: Laboratory Results - last 24 hr 02/07/25 13:50: WBC 13.8 H, RBC 4.22, Hgb 11.9 L, Hct 36.8 L, MCV 87.2, MCH 28.2, MCHC 32.3, RDW Std Deviation 54.8 H, RDW Coeff of Radha 17.4 H, Plt Count 229, MPV 8.8, Immature Gran % (Auto) 0.700, Neut % (Auto) 83.2 H, Lymph % (Auto) 9.0 L, [place] % (Auto) 6.2, Eos % (Auto) 0.5, Baso % (Auto) 0.4, Absolute Neuts (auto) 11.5 H, Absolute Lymphs (auto) 1.24, Nucleated RBC % 0, Syphilis Total Ab Nonreactive, Blood Type A POSITIVE, Antibody Screen NEGATIVE 02/08/25 06:30: WBC 21.0 H, RBC 4.11 L, Hgb 11.7 L, Hct 35.1 L, MCV 85.4, MCH 28.5, MCHC 33.3, RDW Std Deviation 54.5 H, RDW Coeff of Radha 17.5 H, Plt Count 220, MPV 8.8 D/C Instructions Discharge Activity: Return to Normal Activity, No Restrictions, May Drive, May Shower and May Take a Tub Bath (Warm water only. No bath salts, soaps, bubbles) May resume sexual activity in: 6-8 weeks Weight Bearing Status: Weight bearing as tolerated Call your doctor if you observe: Fever of 101 or Higher, Inability to urinate, Using more than 1 pad per hour, Shortness of breath, Dizziness, Chest pain, Calf discomfort and Uncontrolled pain DC O2, CPAP, BIPAP Needs Home O2 Discharge instructions: No Please Follow Up With: [facility] Eduarda PRAKASH When: 2 weeks in office or virtual Meaningful Use Info Meaningful Use Meaningful Use Diagnoses (Choose all that apply): None applicable Discharge Plan Admission Admit Date/Time: 02/07/25 13:45 Primary Reason for Your Visit: Labor and Delivery Attending Provider: Marlyn Read Primary Care Provider: Care Physician,No Primary Discharge Orders/Prescriptions Prescriptions: New ibuprofen 600 mg Tablet 600 mg PO Q6H PRN PRN (Reason: Pain Score 1-10) Qty: 0 0RF Continued PNV no.95-ferrous fumarate-FA [ Multivitamins] 28 mg iron- 800 mcg tablet 1 tab PO DAILY vitamin B complex Capsule 1 cap PO DAILY Referrals / Follow Up: Marlyn Read CNM [Med Staff - Adv Practice Prof, Obstetrics] Care Physician,No Primary [Primary Care Provider, Medical] Disposition Disposition (needs filled in before D/C Order can be placed): Home, Self Care
[2025-02-08 07:49] VITALS: BP 102/68; PULSE 78; RESP 18; TEMP 36.2; O2SAT 99
[2025-02-08 18:40] VITALS: BP 110/70; PULSE 77; RESP 16; TEMP 36.6
--- NOTE | 2025-02-12 13:08 | NURSING ---
F/up call attempted-- when called, message stating "the number you have called has not been recognized. Please dial again or try again later." Attempted x2
== END 2025-02-08 19:53 | disposition home or self-care (01) | DRG 768 ==
LOC: WPOUT 13:56 → WP 13:56
PROVIDERS: Admitting Provider Advanced Practice Midwife; Referring Provider Advanced Practice Midwife; Visit Provider Advanced Practice Midwife
DX: O70.0 First degree perineal laceration during delivery (principal); Z37.0 Single live birth; O71.3 Obstetric laceration of cervix; O69.81X0 Labor and delivery complicated by cord around neck, without compression, not applicable or unspecified; Z3A.38 38 weeks gestation of pregnancy; O99.02 Anemia complicating childbirth; O99.824 Streptococcus B carrier state complicating childbirth
CPT/HCPCS: 59025; 59050; 85025; 85027; 86780; 86850; 86900; 86901; 99221; G0378; J2405